=== PATIENT | female | born 1950 | race Caucasian/White ===

== ENCOUNTER → 2016-03-12 | Outpatient (CLI) | payer OTHER, BC ==
[~2016-03-12] MED LIST: ADVIN10050 INH; ALBUAER19 INH; CLC100X PO; CYCL10TA6 PO; EZET10TA38 PO; NAPR500T5 PO; OMEGCAP2 PO; OMEP20CA59 PO
--- NOTE | 2016-03-12 14:52 | MAMMOGRAPHY REPORT ---
BILATERAL DIGITAL SCREENING MAMMOGRAM TOMOSYNTHESIS WITH CAD: 03/12/2016 TECHNIQUE: Breast tomosynthesis in addition to standard 2D mammography was performed. Current study was also evaluated with a Computer Aided Detection (CAD) system. COMPARISON: Comparison is made to exams dated: 07/27/2014 ultrasound, 07/27/2014 mammogram, 03/03/2013 mammogram, 05/01/2011 mammogram, 03/28/2010 mammogram, and 03/15/2009 mammogram - [facility]. BREAST COMPOSITION: There are scattered areas of fibroglandular density in both breasts. FINDINGS: No suspicious masses, calcifications, or areas of architectural distortion are noted in e ither breast. There has been no significant interval change compared to prior exams. Round circumsc ribed benign-appearing mass in the left upper outer quadrant is stable compared to prior exams. Asy mmetry in the left lateral breast is stable. IMPRESSION: ACR BI-RADS CATEGORY 2: BENIGN There is no mammographic evidence of malignancy. A 1 year screening mammogram is recommended. The p atient will receive written notification of the results. Approximately 10% of breast cancers are not detected with mammography. A negative mammographic repor t should not delay biopsy if a clinically suggestive mass is present. Olga Aguilar M.D. /:03/12/2016 14:37:51 Sweat Box Attendant: Kerri CONDE)(Wei), [facility] letter sent: Normal 1/2 BI-RADS Code: ACR BI-RADS Category 2: Benign
== END | disposition home or self-care (01) ==
LOC: C.MAMM 09:32
PROVIDERS: ATTEND Nurse Practitioner
DX: Z12.31 Encounter for screening mammogram for malignant neoplasm of breast (principal); Z00.00 Encounter for general adult medical examination without abnormal findings; Z78.0 Asymptomatic menopausal state

== ENCOUNTER → 2016-07-09 | Outpatient (CLI) | payer OTHER, BC ==
[~2016-07-09] MED LIST changes: +ACET-24 PO; +DOCU-94 PO; +MULT-506 PO; +OXYSR10 PO; +RXC5 PO; +VNTHFA/IN INH
--- NOTE | 2016-07-09 10:37 | DIAGNOSTIC IMAGING REPORT ---
CHEST CT WITHOUT CONTRAST CT DOSE: 217.07 mGy.cm HISTORY: R91.8 Lung nodule, [id number] TECHNIQUE: Multiaxial CT images of the chest were performed without contrast. COMPARISON: Chest CT 08/26/2015. Chest 12/17/2014. FINDINGS: The central airways are patent. No pleural effusions. No pneumothorax. Mild emphysema. Groundglass and linear bibasilar densities favor mild dependent change. There are again noted a few scattered subcentimeter indeterminate pulmonary nodules. These are unchanged. Dominant nodule within the right middle lobe measures 7 mm. Dominant nodule within the left upper lobe on image 133 measures 5 mm. No mediastinal or hilar lymphadenopathy. The visualized liver and spleen are unremarkable. Subcentimeter distal periaortic lymph nodes are not significantly changed. Stable 1.3 cm left breast nodule. The ascending thoracic aorta measures up to 3.6 cm in diameter. IMPRESSION: 1. No change in the indeterminate pulmonary nodules measuring up to 7 mm. No new pulmonary nodules. 2. Mild emphysema. 3. Stable distal thoracic periaortic lymph nodes. Electronically signed by: Cachorro Herrera M.D. 07/09/2016 10:35 AM Dictated Date/Time: 07/09/2016 10:28 AM
== END | disposition home or self-care (01) ==
LOC: C.CTS 10:07
PROVIDERS: ATTEND Internal Medicine Pulmonary Disease
DX: R91.8 Other nonspecific abnormal finding of lung field (principal)

== ENCOUNTER → 2016-09-10 | Outpatient (CLI) | payer OTHER, BC ==
[~2016-09-10] MED LIST changes: -ACET-24 PO; -DOCU-94 PO; -MULT-506 PO; -OXYSR10 PO; -RXC5 PO; -VNTHFA/IN INH
[2016-09-10 18:27] LABS: BLOOD UREA NITROGEN 18 mg/dl (7-18); BUN/CREATININE RATIO 17.8 (10-20); CALCIUM 9.2 mg/dl (8.5-10.1); CARBON DIOXIDE 27 mmol/L (21-32); CHLORIDE 107 mmol/L (98-107); GLUCOSE 83 mg/dl (70-99); POTASSIUM 3.9 mmol/L (3.5-5.1); SODIUM 141 mmol/L (136-145)
== END | disposition home or self-care (01) ==
LOC: C.LABPVFM 14:25
PROVIDERS: ATTEND Nurse Practitioner
DX: Z00.00 Encounter for general adult medical examination without abnormal findings (principal); E78.5 Hyperlipidemia, unspecified

== ENCOUNTER → 2016-12-14 | Outpatient (CLI) | payer OTHER, BC ==
[~2016-12-14] MED LIST changes: -ALBUAER19 INH; -CLC100X PO; +DOCU-94 PO; +MULT-506 PO; +VNTHFA/IN INH
--- NOTE | 2016-12-14 17:20 | DIAGNOSTIC IMAGING REPORT ---
CERVICAL SPINE 2 OR 3 VIEWS HISTORY: Pain. Preoperative evaluation. OSTEOARTHROSIS CERVICAL SPINE COMPARISON: None. FINDINGS: The cervical spine is visualized from C1 through the superior endplate of T1. There is no fracture. No subluxation. Moderate to rather significant degenerative disc change C5-C7. Sclerosis of the vertebral endplates with anterior and lateral osteophytic changes throughout. Prevertebral soft tissues and the atlantodens interval are intact. IMPRESSION: Degenerative change of the lower cervical region. No acute process. The above report was generated using voice recognition software. It may contain grammatical, syntax or spelling errors. Electronically signed by: Jabari Hemphill M.D. 12/14/2016 5:19 PM Dictated Date/Time: 12/14/2016 5:18 PM
== END | disposition home or self-care (01) ==
LOC: C.RADPV 16:03
PROVIDERS: ATTEND Nurse Practitioner
DX: M19.90 Unspecified osteoarthritis, unspecified site (principal)

== ENCOUNTER 2017-01-04 05:08 | Inpatient (IN) | payer OTHER, BC ==
[2016-12-08 11:25] VITALS: BMI 25.0
--- NOTE | 2016-12-08 11:50 | PAT Medication Instructions ---
Service Date Dec 08, 2016. Current Home Medication List Albuterol Hfa (Ventolin Hfa), 2-4 PUFFS INH Q6H PRN for Shortness of Breath Cyclobenzaprine Hcl (Flexeril), 5 MG PO HS Docusate Sodium (Colace), 1 CAP PO HS Ezetimibe/Simvastatin (Vytorin 10MG/20MG), 1 TAB PO QPM Fluticasone Prop/Salmeterol (Advair Diskus 100-50 Mcg/Dose), 1 PUFFS INH BID Multivitamin (Multivitamin), 1 TAB PO QAM Naproxen (Naproxen Dr), 500 MG PO BID [place]-3 Fatty Acids (Fish Oil), 1 CAP PO QPM Omeprazole (Prilosec), 20 MG PO QAM Medication Instructions For Your Scheduled Surgery - Hold the following medications 2 weeks prior to surgery: [place]-3 Fatty Acids (Fish Oil), 1 CAP PO QPM - Hold the following medications 7 days prior to surgery per surgeon's instructions: Naproxen (Naproxen Dr), 500 MG PO BID - Hold the following medications the morning of surgery: Multivitamin (Multivitamin), 1 TAB PO QAM - Take the following medications the morning of surgery with a sip of water OTHERWISE NOTHING TO EAT OR DRINK AFTER MIDNIGHT: Fluticasone Prop/Salmeterol (Advair Diskus 100-50 Mcg/Dose), 1 PUFFS INH BID Albuterol Hfa (Ventolin Hfa), 2-4 PUFFS INH Q6H PRN for Shortness of Breath ( use if needed; BRING TO HOSPITAL) Omeprazole (Prilosec), 20 MG PO QAM - Take the following medications as scheduled the night before surgery: Fluticasone Prop/Salmeterol (Advair Diskus 100-50 Mcg/Dose), 1 PUFFS INH BID Albuterol Hfa (Ventolin Hfa), 2-4 PUFFS INH Q6H PRN for Shortness of Breath Cyclobenzaprine Hcl (Flexeril), 5 MG PO HS Docusate Sodium (Colace), 1 CAP PO HS Ezetimibe/Simvastatin (Vytorin 10MG/20MG), 1 TAB PO QPM If you have any questions please call us at [phone] or [phone] or [phone]
[2016-12-08 12:33] LABS: MANUAL MICROSCOPIC REQUIRED? NO; REVIEW REQ? NO; URINE APPEARANCE CLEAR (CLEAR); URINE BILIRUBIN NEG (NEG); URINE COLOR YELLOW; URINE EPITHELIAL CELL AUTO >30 /lpf (0-5); URINE NITRITE NEG (NEG); URINE PH 7.5 (4.5-7.5); URINE SPECIFIC GRAVITY 1.009 (1.000-1.030); UROBILINOGEN NEG (NEG); ZZUR CULT IF INDIC CLEAN CATCH NO
[2016-12-08 12:38] LABS: PARTIAL THROMBOPLASTIN RATIO 1.2
[2016-12-08 12:54] LABS: BASO % 0.6 %; BASO ABS # 0.06 K/uL (0-0.2); COMPLETE YES; EOS % 2.8 %; HEMATOCRIT 42.8 % (37-47); IG% 0.1 %; LYMPH ABS # 3.21 K/uL (1.2-3.4); MEAN CELL VOLUME 91.6 fL (80-100); MEAN CORPUSCULAR HEMOGLOBIN 31.3 pg (25-34); MEAN CORPUSCULAR HGB CONC 34.1 g/dl (32-36); MEAN PLATELET VOLUME 9.3 fL (7.4-10.4); MONO % 5.2 %; NEUT % 57.3 %; PLATELET COUNT 299 K/uL (130-400); RED BLOOD COUNT 4.67 M/uL (4.2-5.4); WHITE BLOOD COUNT 9.45 K/uL (4.8-10.8)
[2016-12-08 13:54] LABS: ESTIMATED AVERAGE GLUCOSE 114 mg/dl; HA1C FLAG Normal (Normal)
[2016-12-08 14:06] LABS: CALCIUM 8.9 mg/dl (8.5-10.1); CREATININE 0.91 mg/dl (0.60-1.20); POTASSIUM 3.8 mmol/L (3.5-5.1)
--- NOTE | 2017-01-03 14:12 | HISTORY & PHYSICAL EXAMINATION ---
DATE OF ADMISSION: 01/04/2017 CHIEF COMPLAINT: Left shoulder pain. HISTORY OF PRESENT ILLNESS: This is a 66-year-old female patient of Dr. Farah, complaining of chronic left shoulder pain, longstanding, now progressively getting worse. She has failed conservative treatment and has elected to proceed with a left total shoulder arthroplasty. PAST MEDICAL HISTORY: Irregular heartbeat, COPD, shortness of breath with lying flat, carpal tunnel syndrome, anemia, history of a blood clot, osteoarthritis, spine problems, neck problems, upper back problems, scoliosis, acid reflux, and hiatal hernia. SOCIAL HISTORY: She is a pack per day smoker x40 years. Nonalcohol user. PAST SURGICAL HISTORY: Right shoulder surgery, carpal tunnel surgery bilaterally, and left leg vein removal. FAMILY HISTORY: Noncontributory. REVIEW OF SYSTEMS: The patient complains of chronic left shoulder pain. Otherwise, denies any shortness of breath, chest pain, nausea, vomiting or any other joint complaints. MEDICATIONS: Include, 1. Ventolin 90 mcg actuation aerosol 2 puffs every 4-6 hours p.r.n. 2. Omeprazole 20 mg daily. 3. Vytorin 10-20 mg as needed daily. 4. Advair Diskus 100 mcg/50 mcg dose 1 puff b.i.d. 5. Colace 100 mg daily. 6. Multivitamin daily. 7. Flexeril 10 mg as needed. 8. Fish oil daily. 9. Naprosyn as needed. 10. Oxycodone as needed. ALLERGIES: No known drug allergies. PHYSICAL EXAMINATION: GENERAL: Well-developed and well-nourished 66-year-old female in no acute distress. She is alert and oriented x3 and pleasant. HEENT: Normocephalic and atraumatic. Extraocular motions are intact. Pupils are equal and reactive to light. HEART: Regular rate and rhythm. No murmurs appreciated. LUNGS: Clear. ABDOMEN: Soft and nontender. Bowel sounds present. EXTREMITIES: Left shoulder reveals full range of motion with pain. She has crepitation with passive range of motion. She has 4-5/5 strength with pain. NEUROLOGIC: Neurovascularly, she is intact in her left upper extremity. DIAGNOSES: Left shoulder end-stage osteoarthritis, irregular heartbeat, chronic obstructive pulmonary disease, shortness of breath with lying flat, carpal tunnel syndrome, anemia, history of blood clots, osteoarthritis, spine problems, neck problems, upper back problems, scoliosis, acid reflux, and hiatal hernia. PLAN: The patient was advised of her diagnoses. Indications, risks, benefits, and postop course have all been reviewed. The patient wishes to proceed with a left total shoulder arthroplasty. Necessary consent forms, preoperative testing and clearances will be obtained.
[2017-01-04] VITALS (10 sets, daily range): BP systolic 94–117; BP diastolic 58–69; PULSE 91–101; TEMP 36.3–36.9; O2SAT 93–98; Ht 160 cm; Wt 65.5 kg
[~2017-01-04] VITALS: Ht 160 cm; Wt 65.5 kg
[2017-01-04] MEDS ORDERED: ROPIVACAINE 5MG/ML 30 ML 150 MG, BUPIVACAINE 0.5% MPF INJ 30 ML, EpINEphrine HCL INJ 0.... INFIL SCH ×8 (06:00)
[2017-01-04] MEDS ORDERED: LACTATED RINGER'S 1000ML 1,000 ML IV SCH (06:00)
[2017-01-04] MEDS ORDERED: ACETAMINOPHEN 500 MG TAB PO SCH (06:00)
[2017-01-04] MEDS ORDERED: FAMOTIDINE 20 MG TAB PO SCH (06:00)
[2017-01-04] MEDS ORDERED: DEXAMETHASONE 4 MG TAB PO SCH (06:00)
[2017-01-04] MEDS ORDERED: CEFAZOLIN 1000MG IV PUSH 5 ML IV SCH (06:00)
[2017-01-04] MEDS ORDERED: CeleBREX 200 MG CAP PO SCH (06:00)
[2017-01-04] MEDS ORDERED: GABAPENTIN 300 MG CAP PO SCH (06:00)
[2017-01-04] MEDS ORDERED: LACTATED RINGER'S 1000ML IV SCH (06:00)
[2017-01-04] MEDS ORDERED: METOCLOPRAMIDE HCL 10 MG TAB PO SCH (06:00)
[2017-01-04] MEDS ORDERED: ROPIVACAINE 0.5% 5 MG/ML 30 ML VIAL ONE (06:31)
[2017-01-04] MEDS ORDERED: BACITRACIN 50000 UNIT VIAL ONE (06:33)
[2017-01-04] MEDS ORDERED: THROMBIN FOR SOLN 20000 UNIT KIT ONE (06:33)
[2017-01-04] MEDS ORDERED: MIDAZOLAM HCL 1 MG/ML 2ML VIAL ONE (06:40)
[2017-01-04] MEDS ORDERED: FENTANYL CITRATE INJ 50 MCG/1 ML 2 ML VIAL ONE (06:41)
[2017-01-04] MEDS ORDERED: ATROPINE SULFATE 0.1 MG/ML 5ML SYR IV PRN (07:00)
[2017-01-04] MEDS ORDERED: FENTANYL CITRATE INJ 50 MCG/1 ML 2 ML VIAL IV PRN (07:00)
[2017-01-04] MEDS ORDERED: ALBUT/IPRATROP 3MG/0.5MG NEB 3 ML VIAL INH PRN (07:00)
[2017-01-04] MEDS ORDERED: ONDANSETRON INJ 2 MG/ML 2 ML VIAL IV PRN ×2 (07:00→09:45)
--- NOTE | 2017-01-04 07:14 | History & Physical Bridge Note ---
H&P Re-Evaluation Bridge Note: I have examined the patient, reviewed the History & Physical and in the interval since the performance of the History & Physical I have noted the following changes of clinical significance: No changes noted
[2017-01-04] MEDS ORDERED: ALBUMIN HUMAN 5% 12.5 GM/250 ML VIAL IV ONE (07:59)
[2017-01-04] MEDS ORDERED: PHENYLEPHRINE 100MCG/ML 5ML SYR ONE (08:07)
[2017-01-04] MEDS ORDERED: VASOPRESSIN 20 UNIT/ML VIAL ONE (08:07)
[2017-01-04] MEDS ORDERED: LIDOCAINE HCL 2% 2 ML VIAL (20MG/ML) ONE (08:07)
[2017-01-04] MEDS ORDERED: EpHEDrine SULFATE 50MG/5ML SYR ONE (08:07)
[2017-01-04] MEDS ORDERED: ROCURONIUM BROMIDE 10 MG/ML 5 ML VIAL IV ONE (08:07)
[2017-01-04] MEDS ORDERED: SODIUM CHLORIDE 0.9% INJ 10 ML VIAL ONE (08:08)
[2017-01-04] MEDS ORDERED: ORTHO JOINT ANESTHETIC ONE (08:16)
[2017-01-04] MEDS ORDERED: PHENYLEPHRINE HCL INJ 10 MG/ML VIAL ONE (08:23)
[2017-01-04] MEDS ORDERED: PROPOFOL IV EMULSION 10 MG/ML 20 ML VIAL IV ONE (08:26)
--- NOTE | 2017-01-04 09:36 | [facility] Post Operative Brief Note ---
Immediate Operative Summary Operative Date Jan 04, 2017. Pre-Operative Diagnosis Left Shoulder End-Stage Osteoarthritis Post-Operative Diagnosis Left Shoulder End-Stage Osteoarthritis,biceps tendinopathy and bicipital groove bone spurs Procedure(s) Performed Left Total Shoulder Arthroplasty, Bicep Tenodesis Surgeon Dr. Farah Watch Assembly Instructor Surgeon(s) RYAN Mota Estimated Blood Loss 50cc Findings severe djd inflammatory arthritis Specimens A. Portion of Left Humeral Head Drains 2 hemovac Anesthesia general and regional Complication(s) None Disposition Recovery Room / PACU
[2017-01-04] MEDS ORDERED: ALBUTEROL HFA 8 GM INHALER INH PRN (09:45)
[2017-01-04] MEDS ORDERED: SOD PHOSPHATE/SOD BIPHOSPHATE ENEMA 132 ML BTL PR PRN (09:45)
[2017-01-04] MEDS ORDERED: MoRPHine SULFATE 2 MG/ML CARP IV PRN ×2 (09:45→13:45)
[2017-01-04] MEDS ORDERED: BISACODYL 10 MG SUPP PR PRN (09:45)
[2017-01-04] MEDS ORDERED: METOCLOPRAMIDE HCL INJ 5 MG/ML 2 ML VIAL IV PRN (09:45)
[2017-01-04] MEDS ORDERED: MAGNESIUM HYDROXIDE SUSP 30 ML UDC PO PRN (09:45)
[2017-01-04] MEDS ORDERED: ZOLPIDEM TARTRATE 5 MG TAB PO PRN (09:45)
[2017-01-04] MEDS: EpHEDrine SULFATE INJ 50 MG/ML AMP IV PRN ×3 (10:05→10:15)
--- NOTE | 2017-01-04 10:40 | OPERATIVE REPORT ---
DATE OF OPERATION: 01/04/2017 INDICATION FOR PROCEDURE: The patient is a 66-year-old female with chronic progressive osteoarthritis of the left shoulder. Radiographs demonstrate [id number] in glenohumeral joint, she does not have any major osteophytes. She has concentric-type wear pattern on axillary view. PREOPERATIVE DIAGNOSIS: End-stage glenohumeral osteoarthritis, left shoulder. POSTOPERATIVE DIAGNOSES: Same. She has significant biceps tendinopathy, biceps tenosynovitis and bicipital groove bone spurs. PROCEDURE: Left total shoulder arthroplasty including biceps tenodesis and debridement of bicipital groove bone spurs. SURGEON: Dr. Fraah. CENTRALIZED TRAFFIC CONTROL OPERATOR: Jabari Avila PA-C. ANESTHESIA: Regional block general. OPERATIVE PROCEDURE: The patient was taken to the operating room and anesthetized with regional block and general anesthetic. She was positioned on the operating room table in a 30- to 40-degree beach chair position. A towel roll was placed on the medial border of the left scapula. She was translated to the left side of the bed so her shoulder could be manipulated off the bed as necessary. Her head was placed on a foam headrest. She had protective eyewear. She had TEDs and SCDs. Left shoulder exam demonstrated hjka-eb-qfcn crepitation in the shoulder. She is a relatively thin individual. She had pretty good passive range of motion with 150 degrees of forward elevation. Her left shoulder was sterilely prepped and draped with ChloraPrep. An anterior deltopectoral incision was made. Skin was incised sharply, subcutaneous flaps were elevated. The cephalic vein was dissected out and retracted laterally with the deltoid. Pectoralis was retracted medially. The upper centimeter of the pectoralis was released for inferior exposure. This revealed a large area of synovitis around the biceps tendon. This was opened up and fluid evacuated and biceps tendon had significant tenosynovitis surrounded, this was dissected out and removed. As I entered the bicipital groove area, there were large spurs that were resected with a rongeur. Biceps was then tenodesed to the pectoralis tendon with #2 FiberWire sutures in vlxowo-rw-xngyw fashion and the proximal biceps was resected. We identified the circumflex vessels, tied them off with silk ties and divided them laterally. We did divide the clavipectoral fascia, the lateral margin of the strap muscle, we extended up to the CA ligament which was preserved. She had some minor bursitis about the rotator cuff, the rotator cuff was completely intact. The rotator interval was then opened up and extended down to the glenoid. Then, we did a transtendinous incision through the subscapularis tendon, leaving a cuff of tissue for repair on the lesser tuberosity. I placed a #1 Vicryl traction suture into the subscapularis tendon. Incision was carried down along the neck of the humerus, releasing the capsule. The subscapularis muscle fibers were split at the level of the circumflex vessels, leaving a cuff of muscle to protect the axillary nerve inferiorly. I used the Kitner elevator to release most fibers off the capsule, I clearly identified the capsule. I then placed the Hohmann retractor there. I then went ahead and placed a Fukuda retractor into the joint, retracted the humeral head posteriorly. The glenoid was completely devoid of any articular cartilage, had concentric wear type pattern. There was chronic synovitis in the shoulder consistent with more of an inflammatory arthritic pattern. Humeral head was completely devoid of any articular cartilage as well. She had only very small osteophytes on the inferior humeral head. The capsule was released with Vallecillo scissors down to the 5 o'clock position. Then, the capsule was released off the glenoid and the rotator interval release was connected to the anterior capsular release, creating a 360-degree release of subscapularis. Some of the synovium and scarred plane capsule tissue was resected. The subscapularis was then retracted anteriorly with the Bankart-type retractor. Then, the labrum was resected circumferentially, the remnants of the biceps tendon which demonstrated a large, widened, tendinopathic biceps tendon were removed. Then, I did an anterior-inferior and posterior-inferior capsular release using electrocautery on bone and a Louise elevator. The axillary nerve was protected inferiorly with blunt Hohmann. Then, I went ahead and exposed the humeral head, again with extension and external rotation. We placed traction about the humeral head and humeral head surface was cut anatomically with an oscillating saw, matching the patient's normal version. At this time, the humerus was prepared for the stem. She was templated for a 3 stem but we broached this up to a 4. Then, we placed a cup protector in place, retracted the humerus posterior to the glenoid. I drilled a central drill hole and then used a reamer for a 44 mm glenoid component using the [employer]ornier Affiniti CortiLoc glenoid component. The central drill hole was widened and then we went ahead and used the guide for the peripheral peg holes which were drilled and then we went ahead and irrigated this copiously and then did a trial reduction which was satisfactory, then we removed the trial and then went ahead and sprayed the glenoid with thrombin and packed the individual holes with small tampons. Then, the [place]os G cement was vacuum mixed. Then, the final component was cemented with the central large peg being pressfit and base of that central peg and peripheral pegs were cemented. The implant was impacted in position with a good pressfit. Excess cement was cleared and it was held in position until cement cured. Then, after further irrigation with antibiotic solution and bacitracin, we went ahead and proceeded with the humeral trialing. We used the 46 high offset x 17 mm thickness Aequalis head for the Ascend Flex system from [employer] which was the trial stem. This component had excellent stability and good passive range of motion and the subscap tension was satisfactory. So we went ahead and accepted that component. This was removed and the canal was irrigated copiously with antibiotic solution and bacitracin. Three drill holes were made through the hard bone in the bicipital groove lateral to the lesser tuberosity and transosseous #5 FiberWire sutures were placed. The canal was irrigated and dried and then the final component which was the Tornier Ascend Flex 4A standard stem was assembled to the 46 x 17 mm high offset head. Then, this was impacted into the humerus with a tight pressfit. This was reduced to the glenoid. Then, the subscap was repaired with #5 FiberWire sutures previously placed using Lucas-Timur suture technique. Then, we did lateral row fixation of the subscapularis with ktsumf-sn-emgly #2 FiberWire sutures, closing the lateral rotator interval with interrupted rzywsu-ac-yaktm #2 FiberWire, the medial rotator interval with rjxcoa-os-qgbuh #1 Vicryl. I took the arm through range of motion, there was 150 degrees of forward elevation, 90 degrees of abduction, extension of 50 degrees without any tension on the repair. Shoulder was stable. The wound was irrigated and then 2 Hemovac drains were placed. We did notice that there was a small hole in the cephalic vein that was bleeding and attempted to cauterize this but were unsuccessful due to the friability of the veins, we had to tie off a section of the vein with silk ties, this controlled the bleeding. Then, we went ahead and repaired the pectoralis tendon release with lofecj-xj-exlzv #2 FiberWire suture and then the deltopectoral interval closed with gmqzzg-ds-rdynx #1 Vicryl suture. Subcutaneous tissue was closed with interrupted #2 Vicryl suture, skin closed with aniceto. Sterile dressing was applied and the patient tolerated the procedure well. Jabari Avila PA-C, was my payroll and benefits assistant, functioned as payroll and benefits assistant for the entire procedure. He assisted in patient positioning, prepping, draping, arm positioning, soft tissue retraction and performed subcutaneous and skin closure, and will participate in postop care of the patient. I attest to the content of the Intraoperative Record and any orders documented therein. Any exception s are noted below.
--- NOTE | 2017-01-04 10:41 | DIAGNOSTIC IMAGING REPORT ---
L SHOULDER MIN 2 VIEWS ROUTINE CLINICAL HISTORY: Post shoulder surgery COMPARISON STUDY: None. FINDINGS: 2 views of the left shoulder demonstrate a left shoulder arthroplasty. The hardware appears intact. No fracture or dislocation. Skin aniceto and surgical drains are in place. IMPRESSION: Status post left total shoulder arthroplasty. No evidence for hardware combination. Electronically signed by: Cachorro Herrera M.D. 01/04/2017 10:39 AM Dictated Date/Time: 01/04/2017 10:39 AM
--- NOTE | 2017-01-04 10:55 | Anesthesiology Progress Note ---
Anesthesia Post Op Note Date & Time Jan 04, 2017 at 10:55 Vital Signs Pain Intensity: 0 Vital Signs Past 12 Hours Date Time Temp Pulse Resp B/P (MAP) Pulse Ox O2 Delivery O2 Flow Rate FiO2 01/04/17 10:45 96 16 97/61 93 Nasal Cannula 3 01/04/17 10:35 36.3 97 16 95/58 94 Nasal Cannula 3 01/04/17 10:30 97 16 91/57 94 Nasal Cannula 3 01/04/17 10:25 97 16 81/54 94 Nasal Cannula 3 01/04/17 10:15 99 16 84/52 95 Oxymask 3 01/04/17 10:05 98 16 90/52 96 Oxymask 10 01/04/17 09:55 98 16 85/62 96 Oxymask 10 01/04/17 09:47 36.4 100 16 90/60 95 Oxymask 10 01/04/17 06:55 95 16 94 Room Air 01/04/17 05:28 36.8 96 18 117/68 95 Room Air Notes Mental Status: alert / awake / arousable, participated in evaluation Pt Amnestic to Procedure: Yes Nausea / Vomiting: adequately controlled Pain: adequately controlled Airway Patency, RR, SpO2: stable & adequate BP & HR: stable & adequate Hydration State: stable & adequate Anesthetic Complications: no major complications apparent
[2017-01-04] MEDS ORDERED: MoRPHine SULFATE 4 MG/ML 1 ML CARP\\VIAL IV PRN (13:45)
[2017-01-04] MEDS: ACETAMINOPHEN 500 MG TAB PO SCH ×2 (14:00→21:28)
[2017-01-04] MEDS: D5W AND 1/2NSS + 20MEQ KCL 1,000 ML IV SCH ×2 (14:05→23:31)
[2017-01-04] MEDS: CEFAZOLIN IV 1,000 MG in SYRINGE 0 ML IV SCH ×2 (14:05→21:28)
--- NOTE | 2017-01-04 14:20 | Medical Consult ---
Consultation Date of Consultation: Jan 04, 2017. Attending Physician: New Farah M.D. Reason for Consultation: Medical Management History of Present Illness This is a 66 yo F with PMHx of COPD, chronic asthmatic bronchitis, chronic back pain, chronic back pain, scoliosis, HLD, Chronic tobacco abuse with 1 ppd x 43 years, osteoarthritis and depression who presents for elective Left total shoulder arthroplasty by Dr. Evans on 01/04/17. Pt was sleeping when I walked in but was easily awoken. She reports feeling tired from anesthesia and has no pain. She is still numb in her left arm and fingers. She has a lunch tray sitting beside her but is not hungry so hasn't tried anything. Her last BM was yesterday. Pt has no plans for rehab at this time. She lives at home with her and two grandchildren. Past Medical/Surgical History COPD chronic asthmatic bronchitis chronic back pain chronic back pain Depression scoliosis HLD nicotine dependence x 43 years osteoarthritis Surgical Hx: Total shoulder replacement, left Foot surgery Laparoscopy with fluguration of oviducts Carple tunnel surgery Laproscopic shoulder surgery, right Varicose vein ligation Social History Smoking Status: Current Every Day Smoker Smokeless Tobacco Use: No Drug Use: none Marital Status: Housing Status: lives with family Allergies Coded Allergies: NO KNOWN DRUG ALLERGIES (Verified Allergy, Mild, ., 01/04/17) Shellfish (Verified Allergy, Mild, itchy and swelling of tongue and throat , 01/04/17) Current Inpatient Medications Current Inpatient Medications Medications (Trade) Dose Ordered Sig/Mahogany Route Start Time Stop Time Status Last Admin Dose Admin Lactated Ringer's 1,000 ml @ 60 mls/hr [id number] IV 01/04/17 06:00 01/04/17 22:39 01/04/17 05:48 60 MLS/HR Cefazolin Sodium 5 ml @ 1.667 mls/ min PREOP IV 01/04/17 06:00 01/04/17 18:00 01/04/17 07:11 1.667 MLS/MIN Acetaminophen (Tylenol Tab) 1,000 mg PREOP PO 01/04/17 06:00 01/04/17 18:00 01/04/17 05:56 1,000 MG Celecoxib (CeleBREX CAP) 200 mg PREOP PO 01/04/17 06:00 01/04/17 18:00 01/04/17 05:55 200 MG Dexamethasone (Decadron Tab) 8 mg PREOP PO 01/04/17 06:00 01/04/17 18:00 01/04/17 05:55 8 MG Famotidine (Pepcid Tab) 20 mg PREOP PO 01/04/17 06:00 01/04/17 18:00 01/04/17 05:56 20 MG Gabapentin (Neurontin Cap) 300 mg PREOP PO 01/04/17 06:00 01/04/17 18:00 01/04/17 05:54 300 MG Metoclopramide HCl (Reglan Tab) 10 mg PREOP PO 01/04/17 06:00 01/04/17 18:00 01/04/17 05:56 10 MG Lactated Ringer's 1,000 ml @ 15 mls/hr Q24H IV 01/04/17 06:00 01/05/17 05:59 Albuterol (Ventolin Hfa Inhaler) as needed Q6H PRN INH 01/04/17 09:45 02/03/17 09:44 Cyclobenzaprine HCl (Flexeril Tab) 5 mg HS PO 01/04/17 21:00 02/03/17 20:59 Docusate Sodium (coLACE CAP) 100 mg HS PO 01/04/17 21:00 02/03/17 20:59 Ezetimibe/ Simvastatin (Vytorin 12/04 Tab) 1 tab QPM PO 01/04/17 21:00 02/03/17 20:59 Salmeterol Xinafoate/ Fluticasone (Advair Diskus 100/50 Inh) 1 puff BID INH 01/04/17 21:00 02/03/17 20:59 Multivitamins (Multivitamin Tab) 1 tab QAM PO 01/05/17 09:00 02/04/17 08:59 Diphenhydramine HCl (Benadryl Cap) 25 mg Q8 PRN PO 01/04/17 09:45 02/03/17 09:44 Zolpidem Tartrate (Ambien Tab) 5 mg HSZ PRN PO 01/04/17 09:45 02/03/17 09:44 Metoclopramide HCl (Reglan Inj) 10 mg Q6H PRN IV 01/04/17 09:45 02/03/17 09:44 Ondansetron HCl (Zofran Inj) 4 mg Q6H PRN IV 01/04/17 09:45 02/03/17 09:44 Pantoprazole Sodium (Protonix Tab) 40 mg QAM PO 01/05/17 09:00 02/04/17 08:59 Potassium Chloride/Dextrose/ Sod Cl 1,000 ml @ 100 mls/hr Q10H IV 01/04/17 14:00 01/05/17 09:45 01/04/17 14:05 100 MLS/HR Oxycodone HCl (Roxicodone Immediate Rel Tab) `1-2 TABS FOR PAIN `1 TAB... Q4H PRN PO 01/04/17 09:45 01/18/17 09:44 Acetaminophen (Tylenol Tab) 1,000 mg Q8 PO 01/04/17 14:00 02/03/17 13:59 Magnesium Hydroxide (Milk Of Magnesia Susp) 30 ml Q6H PRN PO 01/04/17 09:45 02/03/17 09:44 Bisacodyl (Dulcolax Supp) 10 mg DAILY PRN SC 01/04/17 09:45 02/03/17 09:44 Sodium Biphosphate/ Sodium Phosphate (Fleet Enema) 132 ml DAILY PRN SC 01/04/17 09:45 02/03/17 09:44 Cefazolin Sodium 1000 mg/Syringe 5 ml @ 2.5 mls/min Q8H IV 01/04/17 14:00 01/04/17 22:01 01/04/17 14:05 2.5 MLS/MIN Morphine Sulfate (MoRPHine SULFATE INJ) 2 mg Q2H PRN IV 01/04/17 13:45 01/18/17 13:44 Morphine Sulfate (MoRPHine SULFATE INJ) 4 mg Q2H PRN IV 01/04/17 13:45 01/18/17 13:44 Review of Systems Constitutional: + fatigue, No fever, No chills, No sweats Eyes: No diplopia, No problem reported ENT: No sore throat, No trouble swallowing Respiratory: No cough, No wheezing, No shortness of breath, No dyspnea on exertion Cardiovascular: No chest pain, No edema, No palpitations Abdomen: No pain, No nausea, No vomiting, No diarrhea, No constipation Musculoskeletal: No joint pain, No swelling, No calf pain Neurologic: + numbness/tingling (Left arm), No weakness Integumentary: No rash, No itch Physical Exam Date Time Temp Pulse Resp B/P (MAP) Pulse Ox O2 Delivery O2 Flow Rate FiO2 01/04/17 13:58 36.6 100 16 108/61 (77) 97 4.0 01/04/17 12:05 97 18 112/64 (80) 98 Nasal Cannula 4.0 01/04/17 11:35 97 18 104/59 (74) 96 Nasal Cannula 4.0 01/04/17 11:05 36.9 99 16 94/58 (70) 97 Nasal Cannula 4.0 01/04/17 11:05 97 Nasal Cannula 4.0 01/04/17 11:05 97 Nasal Cannula 4.0 01/04/17 10:55 36.9 97 20 103/66 94 Nasal Cannula 3 01/04/17 10:45 96 16 97/61 93 Nasal Cannula 3 01/04/17 10:35 36.3 97 16 95/58 94 Nasal Cannula 3 01/04/17 10:30 97 16 91/57 94 Nasal Cannula 3 01/04/17 10:25 97 16 81/54 94 Nasal Cannula 3 01/04/17 10:15 99 16 84/52 95 Oxymask 3 01/04/17 10:05 98 16 90/52 96 Oxymask 10 01/04/17 09:55 98 16 85/62 96 Oxymask 10 01/04/17 09:47 36.4 100 16 90/60 95 Oxymask 10 01/04/17 06:55 95 16 94 Room Air 01/04/17 05:28 36.8 96 18 117/68 95 Room Air General Appearance: WD/WN, no apparent distress, + thin Head: normocephalic, atraumatic Eyes: PERRL, EOMI ENT: hearing grossly normal, pharynx normal Neck: supple, no JVD Respiratory/Chest: lungs clear, no respiratory distress, no accessory muscle use, + pertinent finding (on 2 L via NC) Cardiovascular: no JVD, no murmur, + tachycardia (normal rhythm) Abdomen/GI: normal bowel sounds, non tender, soft Extremities/Musculoskelatal: + pertinent finding (Left shoulder bandage C/D/I, sling in place, ice pack on, hemovac drain in place, + diminished sensation to light touch in fingers. ) Neurologic/Psych: alert, normal mood/affect, oriented x 3 Skin: normal color, warm/dry Laboratory Results This is a 66 yo F with PMHx of COPD, chronic asthmatic bronchitis, chronic back pain, chronic back pain, scoliosis, HLD, Chronic tobacco abuse with 1 ppd x 43 years, and osteoarthritis who presents for elective Left total shoulder arthroplasty by Dr. Evans on 01/04/17. S/p Left total shoulder arthropasty - Pain management, bowel regimen, DVT ppx per primary team - Hemovac drain in place - PT/OT per primary team - Cm to assist with rehab planning per primary team - Pt is still quite fatigued from surgery COPD - Continue on advair inhaler 1 puff BID, Ventolin inh 2 puff Q4-6H prn - Multiple lung nodules on CT scan are followed by Dr. Stinson as an outpatient, Depression - Continue wellburtin ER 150 mg daily HLD - Continue statin therapy Osteoarthritis - Will check a Vit D level with chronic tobacco abuse history. Pt does not take a supplement. Chronic Tobacco Abuse - Smoked 1 ppd x 43 years, will order a nicotine patch for the patient DVT ppx: ambulatory CODE STATUS: FULL CODE Disposition: From home, lives with . Thank you for involving us in the care of Mrs. Dumont, we will follow along. PA Physician Supervision Note: I interviewed and examined the patient. Discussed with Sandrita León PAC and agree with findings and plan as documented in the note. Any exceptions or clarifications are listed here: None Patient is status post left shoulder repair she has a history of COPD which has been stable smoking for which son nicotine patch and depression for which she takes Wellbutrin which placed we will also help with her smoking. His line her vital signs are stable she has no focal complaints her lungs are clear Will continue medical management for her pulmonary problems and surveillance for new issues as they arise Documented By: Kaleb Pond
[2017-01-04] MEDS: NICOTINE 14 MG/24 HR TDSY TD SCH (14:45)
[2017-01-04] MEDS: FLUTICASONE/SALMETEROL 100/50 (ADVAIR) 14 PUFF/1 INHALER INH SCH (20:36)
[2017-01-04] MEDS: CYCLOBENZAPRINE HCL 10 MG TAB PO SCH (20:37)
[2017-01-04] MEDS: DOCUSATE SODIUM 100 MG CAP PO SCH (20:37)
[2017-01-04] MEDS: EZETIMIBE/SIMVASTATIN 10/20 TAB PO SCH (20:38)
[2017-01-05 03:25] VITALS: BP 130/77; PULSE 87; TEMP 36.7; O2SAT 92
[2017-01-05] MEDS: OXYCODONE HCL IR 5 MG TAB (IMMEDIATE RELEASE) PO PRN ×2 (03:25→13:46)
[2017-01-05] MEDS: ACETAMINOPHEN 500 MG TAB PO SCH ×3 (05:40→20:54)
[2017-01-05 06:22] LABS: HEMATOCRIT 37.8 % (37-47); MEAN CELL VOLUME 93.1 fL (80-100); MEAN CORPUSCULAR HGB CONC 32.3 g/dl (32-36); MEAN PLATELET VOLUME 9.2 fL (7.4-10.4); PLATELET COUNT 248 K/uL (130-400); RED BLOOD COUNT 4.06 M/uL (4.2-5.4); WHITE BLOOD COUNT 13.59 K/uL (4.8-10.8)
[2017-01-05 06:52] VITALS: BP 113/72; PULSE 88; TEMP 36.4; O2SAT 98
[2017-01-05 06:55] LABS: BUN/CREATININE RATIO 14.2 (10-20); CALCIUM 7.6 mg/dl (8.5-10.1); CREATININE 0.72 mg/dl (0.60-1.20); POTASSIUM 3.4 mmol/L (3.5-5.1)
--- NOTE | 2017-01-05 07:26 | Orthopedic Progress Note ---
Orthopedic Progress Note Date of Service Jan 05, 2017. Subjective Post OP Day: 1 Reports: feeling well, Denies: complaints, chest pain, SOB, nausea / vomiting, light headedness, calf pain Additional Notes: Main c/o is pain, otherwise doing well. Objective N/V intact, capillary refill less than 2 sec., dressing C/D/I, A&O x3 Fingers mobile, sling in tact. Date Time Temp Pulse Resp B/P (MAP) Pulse Ox O2 Delivery O2 Flow Rate FiO2 01/05/17 06:52 36.4 88 16 113/72 (86) 98 Nasal Cannula 2.0 01/05/17 03:25 36.7 87 16 130/77 (94) 92 Nasal Cannula 2.0 01/04/17 23:30 Nasal Cannula 2.0 01/04/17 23:22 36.8 96 17 105/66 (79) 93 Nasal Cannula 2.0 01/04/17 20:20 36.5 91 16 109/69 (82) 93 Nasal Cannula 2.0 01/04/17 15:30 Nasal Cannula 4.0 01/04/17 15:00 36.3 101 16 111/68 (82) 98 Nasal Cannula 4.0 01/04/17 13:58 36.6 100 16 108/61 (77) 97 4.0 01/04/17 13:05 36.7 101 16 110/64 (79) 98 Nasal Cannula 3.0 01/04/17 12:05 97 18 112/64 (80) 98 Nasal Cannula 4.0 01/04/17 11:35 97 18 104/59 (74) 96 Nasal Cannula 4.0 01/04/17 11:05 36.9 99 16 94/58 (70) 97 Nasal Cannula 4.0 01/04/17 11:05 97 Nasal Cannula 4.0 01/04/17 11:05 97 Nasal Cannula 4.0 01/04/17 10:55 36.9 97 20 103/66 94 Nasal Cannula 3 01/04/17 10:45 96 16 97/61 93 Nasal Cannula 3 01/04/17 10:35 36.3 97 16 95/58 94 Nasal Cannula 3 01/04/17 10:30 97 16 91/57 94 Nasal Cannula 3 01/04/17 10:25 97 16 81/54 94 Nasal Cannula 3 01/04/17 10:15 99 16 84/52 95 Oxymask 3 01/04/17 10:05 98 16 90/52 96 Oxymask 10 01/04/17 09:55 98 16 85/62 96 Oxymask 10 01/04/17 09:47 36.4 100 16 90/60 95 Oxymask 10 Laboratory Results 24 Hours: Test 01/05/17 05:29 Hematocrit 37.8 % Hemoglobin 12.2 g/dL Assessment & Plan Assessment: POD #1, Left TSA, Biceps tenodesis Plan: PT/ OT D/C planning- Home with OPPT vs. HH As per medicine Will add Oxycontin 10mg q12 hrs. Inhouse Planning Pain Management: Morphine, PO Tylenol, Oxy IR DVT Prophylaxis: SCDs Discharge Planning Discharge Planning: uncertain
--- NOTE | 2017-01-05 07:55 | Anesthesiology Progress Note ---
Anesthesia Post Op Note Date & Time Jan 05, 2017 at 07:54 Vital Signs Vital Signs Past 12 Hours Date Time Temp Pulse Resp B/P (MAP) Pulse Ox O2 Delivery O2 Flow Rate FiO2 01/05/17 06:52 36.4 88 16 113/72 (86) 98 Nasal Cannula 2.0 01/05/17 03:25 36.7 87 16 130/77 (94) 92 Nasal Cannula 2.0 01/04/17 23:30 Nasal Cannula 2.0 01/04/17 23:22 36.8 96 17 105/66 (79) 93 Nasal Cannula 2.0 01/04/17 20:20 36.5 91 16 109/69 (82) 93 Nasal Cannula 2.0 Notes Mental Status: alert / awake / arousable, participated in evaluation Pt Amnestic to Procedure: Yes Nausea / Vomiting: adequately controlled Pain: adequately controlled Airway Patency, RR, SpO2: stable & adequate BP & HR: stable & adequate Hydration State: stable & adequate Anesthetic Complications: no major complications apparent
[2017-01-05] MEDS: OXYCODONE HCL 10 MG TABCR (OXYCONTIN) PO SCH ×2 (08:25→20:02)
[2017-01-05] MEDS: PANTOprazole SOD 40 MG TAB PO SCH (08:26)
[2017-01-05] MEDS: MULTIVITAMIN TAB PO SCH (08:26)
[2017-01-05] MEDS: FLUTICASONE/SALMETEROL 100/50 (ADVAIR) 14 PUFF/1 INHALER INH SCH ×2 (08:26→20:56)
[2017-01-05] MEDS: NICOTINE 14 MG/24 HR TDSY TD SCH (08:27)
[2017-01-05] MEDS ORDERED: POTASSIUM CHLORIDE 10 MEQ TABCR PO ONE (09:00)
[2017-01-05] MEDS ORDERED: MULTIVITAMIN TAB PO SCH (09:00)
[2017-01-05] MEDS ORDERED: NON-FORMULARY MEDICATION (Omeprazole (Prilosec) 20 MG) PO SCH (09:00)
[2017-01-05 10:58] VITALS: BP 119/68; PULSE 77; TEMP 36.6; O2SAT 94
--- NOTE | 2017-01-05 12:43 | Hospitalist Progress Note ---
Hospitalist Progress Note Date of Service Jan 05, 2017. Subjective Pt evaluation today including: conversation w/ patient, physical exam, chart review, lab review, review of studies Pain: Left shoulder pain PO Intake: good Voiding: no voiding problems The patient was seen and examined this morning. Pt reports doing well. She has some mild left shoulder pain but just took an oxycodone to help. She was up walking this morning without any difficulty. She denies any other acute complaints. Discussion was held regarding smoking cessation. Her lives with her and smokes ~1.5 -2 ppd so she's unlike to be able to quit. Pt has attempted before but unsuccessful. ROS: 6 point ROS reviewed and otherwise negative. Objective Vital Signs Date Time Temp Pulse Resp B/P (MAP) Pulse Ox O2 Delivery O2 Flow Rate FiO2 01/05/17 10:58 36.6 77 16 119/68 (85) 94 Room Air 01/05/17 08:10 Nasal Cannula 2.0 01/05/17 06:52 36.4 88 16 113/72 (86) 98 Nasal Cannula 2.0 01/05/17 03:25 36.7 87 16 130/77 (94) 92 Nasal Cannula 2.0 01/04/17 23:30 Nasal Cannula 2.0 01/04/17 23:22 36.8 96 17 105/66 (79) 93 Nasal Cannula 2.0 01/04/17 20:20 36.5 91 16 109/69 (82) 93 Nasal Cannula 2.0 01/04/17 15:30 Nasal Cannula 4.0 01/04/17 15:00 36.3 101 16 111/68 (82) 98 Nasal Cannula 4.0 01/04/17 13:58 36.6 100 16 108/61 (77) 97 4.0 01/04/17 13:05 36.7 101 16 110/64 (79) 98 Nasal Cannula 3.0 Physical Exam Notes: General Appearance: WD/WN, no apparent distress, + thin Head: normocephalic, atraumatic Eyes: PERRL, EOMI ENT: hearing grossly normal, pharynx normal Neck: supple, no JVD Respiratory/Chest: lungs clear, no respiratory distress, no accessory muscle use, + pertinent finding (on 2 L via NC) Cardiovascular: no JVD, no murmur, + tachycardia (normal rhythm) Abdomen/GI: normal bowel sounds, non tender, soft Extremities/Musculoskeletal: + pertinent finding (Left shoulder bandage C/D/I, sling in place, ice pack on, + good sensation to light touch in fingers. ) Neurologic/Psych: alert, normal mood/affect, oriented x 3 Skin: normal color, warm/dry Laboratory Results Last 24 Hours Test 01/05/17 05:29 White Blood Count 13.59 K/uL Red Blood Count 4.06 M/uL Hemoglobin 12.2 g/dL Hematocrit 37.8 % Mean Corpuscular Volume 93.1 fL Mean Corpuscular Hemoglobin 30.0 pg Mean Corpuscular Hemoglobin Concent 32.3 g/dl RDW Standard Deviation 47.5 fL RDW Coefficient of Variation 14.0 % Platelet Count 248 K/uL Mean Platelet Volume 9.2 fL Sodium Level 142 mmol/L Potassium Level 3.4 mmol/L Chloride Level 111 mmol/L Carbon Dioxide Level 25 mmol/L Anion Gap 6.0 mmol/L Blood Urea Nitrogen 10 mg/dl Creatinine 0.72 mg/dl Est Creatinine Clear Calc Drug Dose 69.0 ml/min Estimated GFR () 100.4 Estimated GFR (Non- 86.7 BUN/Creatinine Ratio 14.2 Random Glucose 110 mg/dl Calcium Level 7.6 mg/dl Assessment and Plan This is a 66 yo F with PMHx of COPD, chronic asthmatic bronchitis, chronic back pain, chronic back pain, scoliosis, HLD, Chronic tobacco abuse with 1 ppd x 43 years, and osteoarthritis who presents for elective Left total shoulder arthroplasty by Dr. Evans on 01/04/17. S/p Left total shoulder arthroplasty - Pain management, bowel regimen, DVT ppx per primary team - PT/OT per primary team - Cm to assist with rehab planning per primary team COPD - Continue on advair inhaler 1 puff BID, Ventolin inh 2 puff Q4-6H prn - Multiple lung nodules on CT scan are followed by Dr. Stinson as an outpatient, Depression - Continue wellburtin ER 150 mg daily to aid in smoking cessation HLD - Continue statin therapy Osteoarthritis - Will check a Vit D level with chronic tobacco abuse history. Pt does not take a supplement. Chronic Tobacco Abuse - Smoked 1 ppd x 43 years, will order a nicotine patch for the patient DVT ppx: ambulatory CODE STATUS: FULL CODE Disposition: From home, lives with . Thank you for involving us in the care of Mrs. Dumont, we will follow along.
[2017-01-05 15:05] VITALS: BP 122/77; PULSE 105; TEMP 37.2; O2SAT 91
[2017-01-05 15:15] VITALS: O2SAT 91
[2017-01-05] MEDS ORDERED: RANITIDINE HCL 150 MG TAB PO PRN (20:15)
[2017-01-05] MEDS ORDERED: NURSING VERBAL MED ORDER ONE (20:15)
[2017-01-05] MEDS: EZETIMIBE/SIMVASTATIN 10/20 TAB PO SCH (20:55)
[2017-01-05] MEDS: CYCLOBENZAPRINE HCL 10 MG TAB PO SCH (20:55)
[2017-01-05] MEDS: DOCUSATE SODIUM 100 MG CAP PO SCH (20:55)
[2017-01-05 22:45] VITALS: BP 130/83; PULSE 110; TEMP 37.4; O2SAT 91
[2017-01-06] MEDS: ACETAMINOPHEN 500 MG TAB PO SCH (05:46)
[2017-01-06 06:01] VITALS: BP 149/96; PULSE 112; TEMP 36.8; O2SAT 91
--- NOTE | 2017-01-06 06:49 | Orthopedic Progress Note ---
Orthopedic Progress Note Date of Service Jan 06, 2017. Subjective Post OP Day: 2 Reports: feeling well, pain controlled w PO medications, Denies: complaints, chest pain, SOB, nausea / vomiting, light headedness, calf pain Objective N/V intact, capillary refill less than 2 sec., incision C/D/I, A&O x3 Fingers mobile, sling in tact. Date Time Temp Pulse Resp B/P (MAP) Pulse Ox O2 Delivery O2 Flow Rate FiO2 01/06/17 06:01 36.8 112 16 149/96 (113) 91 Room Air 01/05/17 23:45 Room Air 01/05/17 22:45 37.4 110 18 130/83 (99) 91 Room Air 01/05/17 15:15 91 Nasal Cannula 2.0 01/05/17 15:15 91 Nasal Cannula 2.0 01/05/17 15:05 37.2 105 18 122/77 (92) 91 Room Air 01/05/17 10:58 36.6 77 16 119/68 (85) 94 Room Air 01/05/17 08:10 Nasal Cannula 2.0 01/05/17 06:52 36.4 88 16 113/72 (86) 98 Nasal Cannula 2.0 Laboratory Results 24 Hours: Test 01/06/17 04:44 Assessment & Plan Assessment: POD #2, Left TSA, Biceps tenodesis Plan: PT/ OT D/C planning- Home with OPPT vs. HH As per medicine Will add Oxycontin 10mg q12 hrs. Inhouse Planning Pain Management: Oxycontin, Morphine, PO Tylenol, Oxy IR DVT Prophylaxis: SCDs Discharge Planning Discharge Planning: home with home health Pain Management: Oxycontin, PO Tylenol, Oxy IR Therapy: Physical Therapy, Occupational Therapy
[2017-01-06] MEDS ORDERED: OXYSR10 PO (06:51)
[2017-01-06] MEDS ORDERED: RXC5 PO (06:51)
[2017-01-06] MEDS ORDERED: ACET-24 PO (06:51)
--- NOTE | 2017-01-06 06:52 | Discharge Instructions ---
Discharge Instructions Date of Service Jan 06, 2017. Admission Reason for Admission: Left Shoulder Degenerative Disease Discharge Discharge Diagnosis / Problem: Left TSA, Biceps tenodesis Discharge Goals Goal(s): Improve function Activity Recommendations Activity Limitations: as noted below . Instructions / Follow-Up Instructions / Follow-Up ACTIVITY RECOMMENDATIONS: SELF CARE INSTRUCTIONS AFTER TOTAL SHOULDER ARTHROPLASTY A. You may do daily exercises as taught in physical therapy while in hospital. No lifting with the operative arm. Please schedule your outpatient physical therapy appointment to begin within 2-3 days after leaving the hospital. Specific restrictions will be written on your physical therapy prescription that is provided to you. B. You are to wear your sling/immobilizer at all times EXCEPT when performing your daily exercises, participating in physical therapy and for hygiene purposes. C. You may perform dry, daily dressing changes. Please keep your incision covered. You may shower 48 hours after surgery. Do not apply soap or any ointment/ lotions directly over incision. Do not soak incision in bath tub/swimming pool. D. You may use ice as needed to operative shoulder. SPECIAL CARE INSTRUCTIONS: MEDICATION INSTRUCTIONS: *It is recommended you take Aspirin 325mg daily for four weeks post-op. VERY IMPORTANT TO READ AND REVIEW A. There are a few signs you need to watch for after you are home. Call [facility] at [phone] if you experience any of the followin. Increased severe shoulder pain. Some pain is expected especially when you exercise. 2. Increased swelling in you shoulder or arm; pain or swelling in either upper extremity. 3. Any fluid drainage from the incision. 4. Shortness of breath or chest pain. B. Please call [facility] at [phone] if you have any questions or concerns about your operation or recovery. C. Call your physician if: 1. Temperature is greater than 101 degrees (F). 2. Pain is not relieved by prescribed pain medications. 3. Increase drainage or redness from incision. 4. Unanswered questions or concerns. FOLLOW UP VISIT: Please call [facility] at [phone] to schedule a follow up appointment with Dr. Farah or his PA in 12-14 days from your surgery date. Current Hospital Diet Patient's current hospital diet: Regular Diet Discharge Diet Recommended Diet: Regular Diet Procedures Procedures Performed: Left Total Shoulder Arthroplasty, Bicep Tenodesis Pending Studies Studies pending at discharge: no Laboratory Results Hemoglobin A1c Test 12/08/16 11:57 Range/Units Estimated Average Glucose 114 mg/dl Hemoglobin A1c 5.6 4.5-5.6 % Medical Emergencies . Who to Call and When: Medical Emergencies: If at any time you feel your situation is an emergency, please call 911 immediately. . Non-Emergent Contact Non-Emergency issues call your: Primary Care Provider . "Provider Documentation" section prepared by Jabari Avila. . VTE Core Measure Inpt VTE Proph given/why not?: SCD's [place] Drug Monitoring Program Search Results: patient reviewed within database, no issues identified
[2017-01-06 07:31] LABS: HEMATOCRIT 40.6 % (37-47); MEAN CELL VOLUME 93.3 fL (80-100); MEAN CORPUSCULAR HEMOGLOBIN 31.3 pg (25-34); MEAN CORPUSCULAR HGB CONC 33.5 g/dl (32-36); MEAN PLATELET VOLUME 9.2 fL (7.4-10.4); PLATELET COUNT 254 K/uL (130-400); RED BLOOD COUNT 4.35 M/uL (4.2-5.4); WHITE BLOOD COUNT 13.63 K/uL (4.8-10.8)
[2017-01-06 07:32] VITALS: BP 118/78; PULSE 102; TEMP 36.9; O2SAT 93
[2017-01-06] MEDS: OXYCODONE HCL 10 MG TABCR (OXYCONTIN) PO SCH (07:33)
[2017-01-06] MEDS: OXYCODONE HCL IR 5 MG TAB (IMMEDIATE RELEASE) PO PRN (07:33)
[2017-01-06] MEDS: PANTOprazole SOD 40 MG TAB PO SCH (07:34)
[2017-01-06] MEDS: FLUTICASONE/SALMETEROL 100/50 (ADVAIR) 14 PUFF/1 INHALER INH SCH (07:34)
[2017-01-06] MEDS: MULTIVITAMIN TAB PO SCH (07:34)
[2017-01-06] MEDS: NICOTINE 14 MG/24 HR TDSY TD SCH (07:34)
[2017-01-06 07:57] LABS: BUN/CREATININE RATIO 14.8 (10-20); CALCIUM 8.3 mg/dl (8.5-10.1); CREATININE 0.74 mg/dl (0.60-1.20); POTASSIUM 3.7 mmol/L (3.5-5.1)
[2017-01-06 08:16] VITALS: O2SAT 93
[2017-01-06 09:02] VITALS: BP 118/78; PULSE 102; TEMP 36.9; O2SAT 93
--- NOTE | 2017-01-06 10:52 | Hospitalist Progress Note ---
Hospitalist Progress Note Date of Service Jan 06, 2017. Subjective Pt evaluation today including: conversation w/ patient, conversation w/ family , physical exam, chart review, lab review, review of studies Pain: L shoulder pain PO Intake: Good Voiding: no voiding problems The patient was seen and examined this morning. Pt reports doing well today, she has some shoulder discomfort but report that this is tolerable. She reports going to try to cut down on the amount of cigarettes, she currently smokes 17 per day and is going to attempt to get down to 10-12 daily. Her bowels have not moved yet but reports they will whenever she gets home. She denies any other acute complaints. ROS: 6 point ROS reviewed and otherwise negative. Objective Vital Signs Date Time Temp Pulse Resp B/P (MAP) Pulse Ox O2 Delivery O2 Flow Rate FiO2 01/06/17 09:02 36.9 102 16 93 Room Air 01/06/17 08:16 93 Room Air 01/06/17 08:10 Room Air 01/06/17 07:32 36.9 102 16 118/78 (91) 93 Room Air 01/06/17 06:01 36.8 112 16 149/96 (113) 91 Room Air 01/05/17 23:45 Room Air 01/05/17 22:45 37.4 110 18 130/83 (99) 91 Room Air 01/05/17 15:15 91 Nasal Cannula 2.0 01/05/17 15:15 91 Nasal Cannula 2.0 01/05/17 15:05 37.2 105 18 122/77 (92) 91 Room Air 01/05/17 10:58 36.6 77 16 119/68 (85) 94 Room Air Physical Exam General Appearance: WD/WN, no apparent distress Eyes: PERRL, EOMI ENT: hearing grossly normal Respiratory/Chest: lungs clear, no accessory muscle use, + pertinent finding ( on room air) Cardiovascular: regular rate, rhythm Extremities: no pedal edema Neurologic/Psychiatric: normal mood/affect, oriented x 3 Skin: normal color, warm/dry Laboratory Results Last 24 Hours Test 01/06/17 07:08 White Blood Count 13.63 K/uL Red Blood Count 4.35 M/uL Hemoglobin 13.6 g/dL Hematocrit 40.6 % Mean Corpuscular Volume 93.3 fL Mean Corpuscular Hemoglobin 31.3 pg Mean Corpuscular Hemoglobin Concent 33.5 g/dl RDW Standard Deviation 47.5 fL RDW Coefficient of Variation 13.9 % Platelet Count 254 K/uL Mean Platelet Volume 9.2 fL Sodium Level 135 mmol/L Potassium Level 3.7 mmol/L Chloride Level 105 mmol/L Carbon Dioxide Level 23 mmol/L Anion Gap 7.0 mmol/L Blood Urea Nitrogen 11 mg/dl Creatinine 0.74 mg/dl Est Creatinine Clear Calc Drug Dose 67.1 ml/min Estimated GFR () 97.2 Estimated GFR (Non- 83.8 BUN/Creatinine Ratio 14.8 Random Glucose 111 mg/dl Calcium Level 8.3 mg/dl Assessment and Plan This is a 66 yo F with PMHx of COPD, chronic asthmatic bronchitis, chronic back pain, chronic back pain, scoliosis, HLD, Chronic tobacco abuse with 1 ppd x 43 years, and osteoarthritis who presents for elective Left total shoulder arthroplasty by Dr. Evans on 01/04/17. S/p Left total shoulder arthroplasty - Pain management, bowel regimen, DVT ppx per primary team - PT/OT per primary team - Cm to assist with rehab planning per primary team COPD - Continue on advair inhaler 1 puff BID, Ventolin inh 2 puff Q4-6H prn - Multiple lung nodules on CT scan are followed by Dr. Stinson as an outpatient, Depression - Continue wellbutrin ER 150 mg daily to aid in smoking cessation HLD - Continue statin therapy Osteoarthritis - Will check a Vit D level with chronic tobacco abuse history. Pt does not take a supplement. Chronic Tobacco Abuse - Smoked 1 ppd x 43 years, will order a nicotine patch for the patient - Pt is encouraged to stop - she is going to try to cut down on the amount she smokes daily DVT ppx: ambulatory CODE STATUS: FULL CODE Disposition: From home, lives with . Thank you for involving us in the care of Mrs. Dumont.
== END 2017-01-06 11:00 | disposition home health service (06) | DRG 483 ==
LOC: C.ACU 05:08 → C.3E 06:56 → ENRESERV 10:46
PROVIDERS: ADMIT Orthopaedic Surgery Sports Medicine; ATTEND Orthopaedic Surgery Sports Medicine
PROC: 0PBD0ZZ Excision of Left Humeral Head, Open Approach (ICD-10-PCS; principal; 2017-01-04 07:00)
PROC: 0RRK0JZ Replacement of Left Shoulder Joint with Synthetic Substitute, Open Approach (ICD-10-PCS; principal; 2017-01-04 07:00)
PROC: 0LQ40ZZ Repair Left Upper Arm Tendon, Open Approach (ICD-10-PCS; principal; 2017-01-04 07:00)
DX: M19.012 Primary osteoarthritis, left shoulder (principal); M75.22 Bicipital tendinitis, left shoulder; M75.82 Other shoulder lesions, left shoulder; J44.9 Chronic obstructive pulmonary disease, unspecified; K21.9 Gastro-esophageal reflux disease without esophagitis; F32.9 Major depressive disorder, single episode, unspecified; F17.200 Nicotine dependence, unspecified, uncomplicated; Z79.899 Other long term (current) drug therapy

== ENCOUNTER → 2017-03-22 | Outpatient (CLI) | payer OTHER, BC ==
[~2017-03-22] MED LIST changes: +BUPR75TA20 PO; +NAPR-1169 PO; -NAPR500T5 PO
[2017-03-22 13:21] LABS: ALT/SGPT 22 U/L (12-78); AST/SGOT 16 U/L (15-37); BLOOD UREA NITROGEN 17 mg/dl (7-18); CALCIUM 8.8 mg/dl (8.5-10.1); CARBON DIOXIDE 28 mmol/L (21-32); CREATININE 0.96 mg/dl (0.60-1.20); GLUCOSE 96 mg/dl (70-99); SODIUM 138 mmol/L (136-145)
[2017-03-22 13:26] LABS: ALKALINE PHOSPHATASE 100 U/L (45-117); CHOLESTEROL 177 mg/dl (0-200); LDL CHOLESTEROL CALCULATED 125 mg/dl; TOTAL PROTEIN 7.1 gm/dl (6.4-8.2)
== END | disposition home or self-care (01) ==
LOC: C.LABPVFM 10:32
PROVIDERS: ATTEND Nurse Practitioner
DX: E78.5 Hyperlipidemia, unspecified (principal)

== ENCOUNTER 2017-04-14 07:30 | Inpatient (IN) | payer OTHER, BC ==
[2017-03-02 10:31] VITALS: BMI 25.0
--- NOTE | 2017-03-26 13:10 | DIAGNOSTIC IMAGING REPORT ---
CHEST 2 VIEWS ROUTINE CLINICAL HISTORY: Preoperative chest COMPARISON STUDY: July 2014 FINDINGS: The heart is normal in size. There is suspected mild pulmonary emphysema. There are linear by basilar opacities likely atelectatic. There is no failure. There is no lobar consolidation.[ IMPRESSION: Linear bibasilar atelectatic changes. No evidence of failure. No evidence of focal pulmonary consolidation Electronically signed by: Morgan Lance M.D. 03/26/2017 1:09 PM Dictated Date/Time: 03/26/2017 1:08 PM
[2017-03-26 13:25] LABS: BASO % 0.6 %; BASO ABS # 0.05 K/uL (0-0.2); EOS % 2.5 %; EOS ABS # 0.22 K/uL (0-0.5); HEMOGLOBIN 16.5 g/dL (12.0-16.0); IG# 0.02 K/uL (0.00-0.02); LYMPH % 27.9 %; LYMPH ABS # 2.49 K/uL (1.2-3.4); MEAN CELL VOLUME 91.8 fL (80-100); MEAN CORPUSCULAR HEMOGLOBIN 31.5 pg (25-34); MEAN CORPUSCULAR HGB CONC 34.4 g/dl (32-36); MEAN PLATELET VOLUME 9.1 fL (7.4-10.4); MONO % 5.4 %; MONO ABS # 0.48 K/uL (0.11-0.59); NEUT % 63.4 %; NEUT ABS # 5.65 K/uL (1.4-6.5); PLATELET COUNT 292 K/uL (130-400); RED CELL DISTRIBUTION WIDTH CV 14.9 % (11.5-14.5); RED CELL DISTRIBUTION WIDTH SD 50.4 fL (36.4-46.3); WHITE BLOOD COUNT 8.91 K/uL (4.8-10.8)
[2017-03-26 13:34] LABS: PTT PATIENT 25.9 SECONDS (21.0-31.0)
[2017-03-26 13:41] LABS: HEMOGLOBIN A1C 5.8 % (4.5-5.6)
[2017-03-26 13:43] LABS: CREATININE 0.87 mg/dl (0.60-1.20)
[2017-03-26 13:44] LABS: ALBUMIN 3.7 gm/dl (3.4-5.0); CALCIUM 8.6 mg/dl (8.5-10.1); POTASSIUM 3.6 mmol/L (3.5-5.1)
--- NOTE | 2017-04-13 19:14 | HISTORY & PHYSICAL EXAMINATION ---
DATE OF ADMISSION: 04/14/2017 ADMISSION HISTORY AND PHYSICAL CHIEF COMPLAINT: Chronic right shoulder pain. HISTORY OF PRESENT ILLNESS: This is a 66-year-old female patient of Dr. Farah'katlin complaining of chronic right shoulder pain, longstanding, now progressively getting worse. The patient has been diagnosed with osteoarthritis and rotator cuff arthropathy per clinical and radiographic exams. The patient has failed conservative treatment. The patient wished to proceed with a right reversed total shoulder arthroplasty. PAST MEDICAL HISTORY: Irregular heartbeat, COPD, abnormal bleeding, history of a blood clot, osteoarthritis, spine problems, neck problems, upper back problems, and hiatal hernia. SOCIAL HISTORY: She is a lifelong smoker for 45 years. Alcohol - none. PAST SURGICAL HISTORY: Left shoulder replacement, right shoulder arthroscopy, bilateral carpal tunnel, right and left heel spurs, left leg vein removal and right foot tarsal alignment. ALLERGIES: No known drug allergies. MEDICATIONS: 1. Ventolin HFA 90 mcg actuation 2 puffs every 4-6 hours p.r.n. 2. Omeprazole 20 mg daily. 3. Vytorin 10/20 1 tablet daily. 4. Advair Diskus 100 mcg/50 mcg 1 puff b.i.d. in the morning and evening. 5. Colace 100 mg at bedtime. 6. Flexeril 10 mg t.i.d. p.r.n. 7. Multivitamin daily. 8. Fish oil 1000 mg daily. 9. Naprosyn 500 mg as needed. ALLERGIES: No known drug allergies. PHYSICAL EXAMINATION: GENERAL: Well-developed, well-nourished 66-year-old female in no acute distress. She is alert and oriented x3 and pleasant. HEENT: Normocephalic, atraumatic. Extraocular motions are intact. Pupils are equal and reactive to light. HEART: Regular rate and rhythm, no murmurs appreciated. LUNGS: Clear. ABDOMEN: Soft and nontender. Bowel sounds are present. EXTREMITIES: Right shoulder reveals a range of motion of 0-180, 4/5 strength. NEUROLOGICALLY AND Neurovascularly she is intact. She has good isometric strength. DIAGNOSES: Right shoulder rotator cuff arthropathy and osteoarthritis. She has a history of irregular heartbeat, chronic obstructive pulmonary disease, abnormal bleeding, history of a blood clot, osteoarthritis, spine problems, neck problems, upper back problems and hiatal hernia. PLAN: The patient was advised of her diagnosis. Indications, risks, benefits, postop course have all been reviewed. The patient wished to proceed with a right shoulder reversed total shoulder arthroplasty. Necessary consent forms, preoperative testing clearances will be obtained. IVETTE
[~2017-04-14] VITALS: Ht 160 cm; Wt 65.4 kg
[2017-04-14] VITALS (9 sets, daily range): BP systolic 91–112; BP diastolic 51–83; PULSE 78–107; TEMP 36.4–36.8; O2SAT 92–99; Ht 160 cm; Wt 65.4 kg
[~2017-04-14 07:30] MED LIST changes: +ACETAMINOPHEN 500 MG TAB PO SCH; +CEFAZOLIN 2000MG IV PUSH 15 ML IV SCH; +CeleBREX 200 MG CAP PO SCH; +DEXAMETHASONE 4 MG TAB PO SCH; +FAMOTIDINE 20 MG TAB PO SCH; +GABAPENTIN 300 MG CAP PO SCH; +LACTATED RINGER'S 1000ML 1,000 ML IV SCH; +METOCLOPRAMIDE HCL 10 MG TAB PO SCH; +ROPIVACAINE 0.5% 5 MG/ML 30 ML VIAL ONE
[2017-04-14] MEDS ORDERED: MIDAZOLAM HCL 1 MG/ML 2ML VIAL ONE (07:59)
[2017-04-14] MEDS ORDERED: NEOSTIGMINE METHYLSULFATE 5 MG/5 ML SYR ONE (07:59)
[2017-04-14] MEDS ORDERED: PROPOFOL IV EMULSION 10 MG/ML 20 ML VIAL IV ONE (07:59)
[2017-04-14] MEDS ORDERED: LIDOCAINE HCL 2% 2 ML VIAL (20MG/ML) ONE (07:59)
[2017-04-14] MEDS ORDERED: GLYCOPYRROLATE INJ 0.2 MG/ML VIAL ONE (07:59)
[2017-04-14] MEDS ORDERED: FENTANYL CITRATE INJ 50 MCG/1 ML 2 ML VIAL ONE (07:59)
[2017-04-14] MEDS ORDERED: CLONIDINE HCL 100 MCG/ML SYRINGE ONE (08:20)
[2017-04-14] MEDS ORDERED: BUPIVACAINE 0.5 % 5 MG/1 ML PF 10ML VIAL ONE (08:20)
[2017-04-14] MEDS ORDERED: MEPIVACAINE HCL 1.5% 30 ML VIAL ONE (08:20)
[2017-04-14] MEDS ORDERED: BACITRACIN 50000 UNIT VIAL ONE (09:27)
[2017-04-14] MEDS ORDERED: EpINEphrine HCL INJ 1 MG/ML 1ML SYRINGE ONE (09:27)
--- NOTE | 2017-04-14 13:13 | [facility] Post Operative Brief Note ---
Immediate Operative Summary Operative Date Apr 14, 2017. Pre-Operative Diagnosis Right Shoulder Degenerative Joint Disease,hx prior shoulder arthroscopy with rotator cuff tear vs tendinopathy chronic Post-Operative Diagnosis Same with thin scarred tendinopathic rotator cuff prior biceps tenotomy or rupture proximal Procedure(s) Performed Right Reversed Total Shoulder Arthroplasty Surgeon Dr. Farah Video Game Repair Technician Surgeon(s) Christian Fields PA-C Estimated Blood Loss 100 ml Findings Consistent with Post-Op Diagnosis Specimens A. Right Humeral Head Drains 2 hemovac Anesthesia Type General Regional Complication(s) none Disposition Disposition: Recovery Room / PACU
[2017-04-14] MEDS ORDERED: ATROPINE SULFATE 0.1 MG/ML 5ML SYR IV PRN (13:15)
[2017-04-14] MEDS ORDERED: EpHEDrine SULFATE INJ 50 MG/ML AMP IV PRN (13:15)
[2017-04-14] MEDS ORDERED: CEFAZOLIN IV 1,000 MG in DEXTROSE 5% 50ML 50 ML IV SCH (13:45)
[2017-04-14] MEDS ORDERED: OXYCODONE HCL IR 5 MG TAB (IMMEDIATE RELEASE) PO PRN (13:45)
[2017-04-14] MEDS ORDERED: BISACODYL 10 MG SUPP PR PRN (13:45)
[2017-04-14] MEDS ORDERED: ALUMINUM/MAGNESIUM SUSP 30 ML UDC PO PRN (13:45)
[2017-04-14] MEDS ORDERED: MAGNESIUM HYDROXIDE SUSP 30 ML UDC PO PRN (13:45)
[2017-04-14] MEDS ORDERED: MoRPHine SULFATE 2 MG/ML CARP IV PRN (13:45)
[2017-04-14] MEDS ORDERED: ONDANSETRON INJ 2 MG/ML 2 ML VIAL IV PRN (13:45)
--- NOTE | 2017-04-14 14:09 | DIAGNOSTIC IMAGING REPORT ---
R SHOULDER MIN 2 VIEWS ROUTINE CLINICAL HISTORY: 66 years-old Female presenting with Post shoulder surgery. TECHNIQUE: Portable supine frontal view of the shoulder in neutral positioning and transscapular Y view were obtained. COMPARISON: Chest x-ray from 03/26/2017. FINDINGS: Interval postsurgical changes of reverse total shoulder arthroplasty. Expected intra-articular and soft tissue emphysema. Surgical drains in place. No malalignment. No periprosthetic fracture. No hardware complication. Skin aniceto in place. Visualized portion of the right hemithorax normal. IMPRESSION: Expected postsurgical appearance status post reverse total right shoulder arthroplasty. Electronically signed by: Car Arguelles M.D. 04/14/2017 2:08 PM Dictated Date/Time: 04/14/2017 2:07 PM
--- NOTE | 2017-04-14 14:20 | Anesthesiology Progress Note ---
Anesthesia Post Op Note Date & Time Apr 14, 2017 at 14:20 Vital Signs Pain Intensity: 0 Vital Signs Past 12 Hours Date Time Temp Pulse Resp B/P (MAP) Pulse Ox O2 Delivery O2 Flow Rate FiO2 04/14/17 14:10 36.5 61 18 101/60 100 Nasal Cannula 2 04/14/17 14:00 91 18 106/64 100 Nasal Cannula 2 04/14/17 13:50 85 18 97/62 100 Oxymask 10 04/14/17 13:40 89 18 97/67 100 Oxymask 10 04/14/17 13:34 36.5 90 18 91/58 100 Oxymask 10 04/14/17 08:10 36.8 91 20 112/83 96 Room Air Notes Mental Status: alert / awake / arousable, participated in evaluation Pt Amnestic to Procedure: Yes Nausea / Vomiting: adequately controlled Pain: adequately controlled Airway Patency, RR, SpO2: stable & adequate BP & HR: stable & adequate Hydration State: stable & adequate Anesthetic Complications: no major complications apparent
[2017-04-14] MEDS: D5W AND 1/2NSS + 20MEQ KCL 1,000 ML IV SCH (15:20)
[2017-04-14] MEDS: ACETAMINOPHEN 500 MG TAB PO SCH ×2 (15:21→21:27)
--- NOTE | 2017-04-14 16:05 | Medical Consult ---
Consultation Date of Consultation: Apr 14, 2017. Attending Physician: New Farah M.D. Reason for Consultation: medical co management History of Present Illness 66 years old female with PMHx of COPD, irregular heart beat, Hx of blood clots and multiple lung nodules. patient also has severe arthritis s/p R shoulder arthropathy and left shoulder replacement and right shoulder arthroscopy. failed out patient conservative management and presented for an elective Right Reversed Total Shoulder Arthroplasty, procedure went uneventful. we were consulted for medical co management. Social History Smoking Status: Current Every Day Smoker Drug Use: none Marital Status: Housing Status: lives with family Allergies Coded Allergies: Shellfish (Verified Allergy, Mild, itchy and swelling of tongue and throat , 04/14/17) Current Inpatient Medications Current Inpatient Medications Medications (Trade) Dose Ordered Sig/Mahogany Route Start Time Stop Time Status Last Admin Dose Admin Cefazolin Sodium 15 ml @ 3.75 mls/ min PREOP IV 04/14/17 06:00 04/14/17 18:00 Acetaminophen (Tylenol Tab) 1,000 mg PREOP PO 04/14/17 06:00 04/14/17 18:00 04/14/17 08:22 1,000 MG Celecoxib (CeleBREX CAP) 200 mg PREOP PO 04/14/17 06:00 04/14/17 18:00 04/14/17 08:20 200 MG Dexamethasone (Decadron Tab) 8 mg PREOP PO 04/14/17 06:00 04/14/17 18:00 04/14/17 08:20 8 MG Famotidine (Pepcid Tab) 20 mg PREOP PO 04/14/17 06:00 04/14/17 18:00 04/14/17 08:21 20 MG Gabapentin (Neurontin Cap) 300 mg PREOP PO 04/14/17 06:00 04/14/17 18:00 04/14/17 08:21 300 MG Metoclopramide HCl (Reglan Tab) 10 mg PREOP PO 04/14/17 06:00 04/14/17 18:00 04/14/17 08:21 10 MG Lactated Ringer's 1,000 ml @ 15 mls/hr Q24H IV 04/14/17 06:00 04/15/17 05:59 04/14/17 08:18 15 MLS/HR Ephedrine Sulfate (EpHEDrine SULFATE INJ) 5 mg Q5M PRN IV 04/14/17 13:15 04/14/17 18:15 Atropine Sulfate (Atropine Sulfate 0.1mg/ml Inj) 0.5 mg Q1M PRN IV 04/14/17 13:15 04/14/17 18:15 Albuterol (Ventolin Hfa Inhaler) . BID PRN INH 04/14/17 13:45 05/14/17 13:44 Bupropion HCl (Wellbutrin Tab) 75 mg QAM PO 04/15/17 09:00 05/15/17 08:59 Ezetimibe/ Simvastatin (Vytorin 10/20 Tab) 1 tab QPM PO 04/14/17 21:00 05/14/17 20:59 Salmeterol Xinafoate/ Fluticasone (Advair Diskus 100/50 Inh) 1 puff QAM INH 04/15/17 09:00 05/15/17 08:59 Morphine Sulfate (MoRPHine SULFATE INJ) 2 mg Q4HWA PRN IV 04/14/17 13:45 04/28/17 13:44 Ondansetron HCl (Zofran Inj) 4 mg Q6H PRN IV 04/14/17 13:45 05/14/17 13:44 Al Hydroxide/Mg Hydroxide (Maalox Susp) 30 ml Q4H PRN PO 04/14/17 13:45 05/14/17 13:44 Pantoprazole Sodium (Protonix Tab) 40 mg QAM PO 04/15/17 09:00 05/15/17 08:59 Potassium Chloride/Dextrose/ Sod Cl 1,000 ml @ 100 mls/hr Q10H IV 04/14/17 15:00 05/14/17 13:35 04/14/17 15:20 100 MLS/HR Oxycodone HCl (Roxicodone Immediate Rel Tab) `1-2 TABS FOR PAIN `1 TAB... Q4H PRN PO 04/14/17 13:45 04/28/17 13:44 Acetaminophen (Tylenol Tab) 1,000 mg Q8H PO 04/14/17 14:00 05/14/17 13:59 04/14/17 15:21 1,000 MG Magnesium Hydroxide (Milk Of Magnesia Susp) 30 ml Q6H PRN PO 04/14/17 13:45 05/14/17 13:44 Bisacodyl (Dulcolax Supp) 10 mg DAILY PRN MD 04/14/17 13:45 05/14/17 13:44 Docusate Sodium (coLACE CAP) 100 mg BID PO 04/14/17 21:00 05/14/17 20:59 Multivitamins (Multivitamin Tab) 1 tab DAILY PO 04/15/17 09:00 05/15/17 08:59 Aspirin (Ecotrin Tab) 325 mg QAM PO 04/15/17 09:00 05/15/17 08:59 Cefazolin Sodium 1000 mg/Syringe 7.5 ml @ 2.5 mls/min Q8H IV 04/14/17 18:00 04/15/17 02:02 Review of Systems Review of system Constitutional: No fever / no chills / no sweats / no weakness / no fatigue Eyes: no blurring of vision / no eye pain / no discharge / no redness ENT: no hearing loss / no epistaxis /no swallowing problems Respiratory: no cough / no wheezing / no SOB / no hemoptysis Cardiovascular: no Chest pain / no lower extremity edema / no palpitation Abdomen: no pain / no nausea / no vomiting / no constipation Musculoskeletal: no joint pain / no muscle pain / no joint swelling Genitourinary: no dysuria / no incontinence / no urinary retention Neurologic: no focal weakness / no numbness/tingling / no ataxia Psychiatric: no depression symptoms / no anxiety / no insomnia Endocrine: no excessive thirst / no excessive urination Hematologic: no abnormal bleeding / no bruising / no LN swelling Skin: No rash / no pallor Physical Exam Date Time Temp Pulse Resp B/P (MAP) Pulse Ox O2 Delivery O2 Flow Rate FiO2 04/14/17 15:28 100 16 100/65 (77) 04/14/17 15:01 78 16 102/61 (75) 99 Nasal Cannula 2.0 04/14/17 14:10 36.5 61 18 101/60 100 Nasal Cannula 2 04/14/17 14:00 91 18 106/64 100 Nasal Cannula 2 04/14/17 13:50 85 18 97/62 100 Oxymask 10 04/14/17 13:40 89 18 97/67 100 Oxymask 10 04/14/17 13:34 36.5 90 18 91/58 100 Oxymask 10 04/14/17 08:10 36.8 91 20 112/83 96 Room Air Physical examination General patient appears to be comfortable, not in acute distress HEENT: Atraumatic , normocephalic /no jaundice /no pallor /anicteric /no dry mucous membrane /normal external ear inspection Neck: Supple /no swelling /central trach Heart: S1/S2 normal/regular rate and rhythm/no gallop /no rub /no murmur Lungs: Clear to auscultation bilaterally/normal chest with expansion/no rhonchi/ no rales/no wheezing/no use of accessory muscles of respiration Abdomen: Soft/nontender/no guarding/no rebound/no organomegaly/no pulsatile mass Musculoskeletal: No swelling/no edema/no tenderness/normal range of motion, except for right shoulder, wrapped with decreased range of motion, unable to move her hand, but has good radial pulse and good capillary filling Neuro exam: Awake alert oriented 3/cranial nerves II through XII appear to be intact/sensation intact/moves all extremities/no abnormal movements Psychiatric evaluation: No depressed mood/normal affect Skin: No rash on exposed skin area/no erythema Extremity: Normal pulse/no pitting edema/no clubbing or cyanosis Endocrine/lymphatic: No obvious lymphadenopathy /no lymphedema Assessment & Plan 66 years old female with PMHx of COPD, irregular heart beat, Hx of blood clots and multiple lung nodules. patient also has severe arthritis s/p R shoulder arthropathy and left shoulder replacement and right shoulder arthroscopy. failed out patient conservative management and presented for an elective Right Reversed Total Shoulder Arthroplasty, procedure went uneventful. we were consulted for medical co management. Assessment: severe osteoarthritis that failed outpatient conservative measures. Patient presented to the hospital for an elective orthopedic procedure s/p Right Reversed Total Shoulder Arthroplasty, Plan Status post orthopedic procedure, went uneventful full, Right Reversed Total Shoulder Arthroplasty, postoperative day # 0 Patient tolerated procedure well with minimal blood loss Appears to be stable, will add bronchodilators as needed wheezing Instructed nurse to reexamine 2 hours and reports to MD if patient still has no movement in his right hand, otherwise capillary filling is normal and radial pulses normal Continue outpatient medications Follow-up labs Ensure adequate oral/parenteral intake Pain management Physical therapy initiation as per primary orthopedic team DVT prophylaxis as per the choice of primary orthopedic team
[2017-04-14] MEDS ORDERED: LEVALBUTEROL/IPRATROPIUM NEB INH PRN (16:15)
[2017-04-14] MEDS ORDERED: IPRATROPIUM BROMIDE NEB SOLN 0.02% 2.5 ML VIAL INH PRN (16:15)
[2017-04-14] MEDS ORDERED: LEVALBUTEROL 0.63MG/3 ML NEB INH PRN (16:15)
--- NOTE | 2017-04-14 16:33 | OPERATIVE REPORT ---
DATE OF OPERATION: 04/14/2017 INDICATION FOR PROCEDURE: The patient is a 66-year-old female who presents with chronic right shoulder pain. She has had a previous arthroscopic right shoulder surgery in the past. She had decompression, distal clavicle excision and some rotator cuff work. Radiographs demonstrate that she is [id number] in the glenohumeral joint and she has some mild proximal migration of the humerus. MRI demonstrates what appears to be a tendinopathic rotator cuff, the supraspinatus is not normal tissue, looks that she has a full thickness rotator cuff tear, appears to be chronic. The interspace tendon is more of a normal appearance to it. She has advanced glenohumeral DJD, bone on bone. PREOPERATIVE DIAGNOSES: End-stage glenohumeral osteoarthritis of the right shoulder, rotator cuff tendinopathy, and chronic prior arthroscopic shoulder surgery. POSTOPERATIVE DIAGNOSES: Same with a thin tendinopathic scar tissue of the supraspinatus. No full thickness rotator cuff tear. PROCEDURE: Right shoulder reversed total shoulder arthroplasty. SURGEON: Dr. Farah. PIN DRAFTING MACHINE TENDER: Christian Fields PA-C. ANESTHESIA: Regional block and general. OPERATIVE PROCEDURE: The patient was taken to the operating room and placed in the 30 degree beachchair position on the operating room table. A foam headrest was placed. Protective eyewear was placed. A towel was placed in the medial right scapula. The shoulder was translated to the right side of the bed, so her shoulder could be manipulated off the bed as necessary. She had TEDs and SCDs placed. Right shoulder exam demonstrated that she had [id number] crepitation had 140 degrees of forward elevation, 70 degrees of external rotation. She had previous scars from arthroscopic surgery. There are well-healed. Right shoulder was sterilely prepped and draped in usual sterile fashion. An anterior deltopectoral approach was performed. A longitudinal incision was made at the deltopectoral interval. Skin was incised sharply. Subcutaneous flaps were elevated. The cephalic vein was dissected out and retracted laterally with the deltoid. There was some upper plexus of veins at the upper aspect of the cephalic vein and some crossing veins had to tie off for exposure. With smaller branches superiorly from retraction, ruptured and time tie that off as well. The pectoralis was retracted medially. The upper centimeter of the pectoralis was released for inferior exposure. We inspected the biceps tendon which appeared to have had a previous proximal tenodesis or tenotomy or biceps rupture as tendon was retracted and scarred down and thin and in position, so we just went ahead and placed some #2 FiberWire sutures through the biceps tendon to prevent any further retraction and resected the degenerative proximal portion. The circumflex vessels were tied off with silk ties and divided laterally. The subscapularis muscle fibers were split at the level of the circumflex vessels divided down to the capsule. The inferior fibers were released off the capsule and the axillary nerve was identified, protected with a Hohmann retractor. An incision was made up into the bicipital groove and then down the rotator interval to release of the subscapularis subperiosteally off the lesser tuberosity. A #1 Vicryl suture was placed for traction purposes. The thin tendinopathic appearing supraspinatus tendon tissue was released off the greater tuberosity for exposure, infraspinatus tendon was maintained intact. We released all subdeltoid adhesions, resected all the old chronic scarred bursa tissue from the prior repair that was performed. The humerus was then retracted posterior to the glenoid. Anterior capsular release was performed down to the glenoid at the 5 o'clock position. The capsule was released off the glenoid and rotator interval was released to meet this release to be at 360 degrees release of the subscapularis. We did do a partial capsulectomy as well. A Bankart retractor was placed anteriorly. The labrum was resected circumferentially. There was no intraarticular biceps tendon. She did have a large anterior inferior labrum. The articular wear pattern was mainly the upper two-thirds of the glenoid articular surface was worn down to bone which would be more consistent with a rotator cuff deficiency, superior migration of the humerus and yarbrough of the superior joint surface. The release of the capsule was performed anteriorly, inferiorly and posterior inferiorly on bone electrocautery and a Louise elevator. The triceps tendon was released. The humerus was then exposed with extension and external rotation. The humeral head alignment guide was placed at 20 degrees retroversion and her humeral head cut was made. The humeral shaft was prepared with a starter awl followed by broaches up to a size 4 and then we placed a cup protector in place and then retracted the humerus posterior to the glenoid and then removed the articular cartilage in the lower third down to bone, so we had the appropriate version for placement of the implant. I placed 10 degrees inferior tilt on the guide for the 25 mm baseplate. Central drill hole was made for the reamer and then the reamer for a 25 mm baseplate from 28 was used. We used the 20 Aequalis glenoid component and the Ascend Flex humeral components for the reversed replacement. The reamer was used, placing in some inferior tilt. Then the central drill hole was widened and the implant was impacted with a tight pressfit. We used anterior and posterior compression screws of 23 and 18 mm respectively. Superior and inferior locking screws of 20 mm, all 4.5 mm screws. There was excellent fixation of the patient's hard bone. It appeared that we would need a +2 offset to not have any inferior notching. We used the fan reamer and removed some of the osteophytes and inferior glenoid bone to assure no notching in that area. Then after irrigation copiously, placed on the 36 mm diameter, 25 mm diameter +2 inferior offset glenosphere. This was impacted in position tightly and then the screw was tightened. We assessed stability and then went ahead and a trial reduction with a +0 high offset humeral tray and a 36 mm +6 humeral insert and that gave stable range of motion. There was no shock and appeared to be satisfactory soft tissue tension. Trials removed and after copious irrigation, we placed 3 drill holes lateral to the lesser tuberosity and placed transosseous #5 FiberWire sutures. Then, the final components were assembled, the 4b long Ascend Flex stem to the +0 high offset 3.5 humeral tray and a 36+6 poly insert. This stem was then impacted into the humerus with tight pressfit. This reduced to the glenoid. We verified stability with complete muscle relaxation through full range of motion and there was no shuck and no instability. After copious irrigation, the supraspinatus tendon was then sutured to the infraspinatus tendon to a hand strength. She has a [id number] #2 FiberWire sutures. The subscapularis tendon was repaired with the #5 FiberWire sutures with a Lucas-Timur suture technique. We did lateral soft tissue fixation with [id number] #2 FiberWire sutures. Then the pectoralis was repaired with [id number] #2 FiberWire sutures. That was taken through range of motion and there was no tension or any of the repairs through 140 degrees of forward elevation, 70 degrees of external rotation, 70 degrees of internal rotation and 90 degrees of abduction. Wound was copiously irrigated and then 2 drains were brought out laterally placed deep to deltopectoral interval closure and deltopectoral interval was closed with [id number] #1 Vicryl sutures, subcutaneous tissues was closed with 2-0 Vicryl sutures, skin closed with aniceto and sterile dressings were applied. RYAN Redding was my first officer and flight instructor. He functioned as first officer and flight instructor for the entire procedure. He assisted in patient positioning, prepping, draping, arm positioning, soft tissue retraction, instrument management and performed the subcutaneous skin closure and will participate in postoperative care of the patient. I attest to the content of the Intraoperative Record and any orders documented therein. Any exception s are noted below.
[2017-04-14] MEDS: CEFAZOLIN IV 1,000 MG in SYRINGE 0 ML IV SCH (17:36)
[2017-04-14] MEDS: DOCUSATE SODIUM 100 MG CAP PO SCH (20:38)
[2017-04-14] MEDS: EZETIMIBE/SIMVASTATIN 10/20 TAB PO SCH (20:38)
[2017-04-15] MEDS: CEFAZOLIN IV 1,000 MG in SYRINGE 0 ML IV SCH (01:47)
[2017-04-15] MEDS: D5W AND 1/2NSS + 20MEQ KCL 1,000 ML IV SCH ×2 (01:47→11:00)
[2017-04-15 03:25] VITALS: BP 94/59; PULSE 81; TEMP 36.8; O2SAT 92
[2017-04-15] MEDS: ACETAMINOPHEN 500 MG TAB PO SCH ×3 (05:50→22:04)
[2017-04-15 05:53] LABS: BASO % 0.3 %; BASO ABS # 0.04 K/uL (0-0.2); EOS % 0.7 %; EOS ABS # 0.09 K/uL (0-0.5); HEMATOCRIT 35.2 % (37-47); HEMOGLOBIN 12.2 g/dL (12.0-16.0); IG# 0.05 K/uL (0.00-0.02); LYMPH % 29.5 %; LYMPH ABS # 3.69 K/uL (1.2-3.4); MEAN CELL VOLUME 89.3 fL (80-100); MEAN CORPUSCULAR HGB CONC 34.7 g/dl (32-36); MEAN PLATELET VOLUME 8.7 fL (7.4-10.4); MONO % 9.2 %; MONO ABS # 1.15 K/uL (0.11-0.59); NEUT % 59.9 %; NEUT ABS # 7.49 K/uL (1.4-6.5); PLATELET COUNT 265 K/uL (130-400); RED CELL DISTRIBUTION WIDTH SD 46.1 fL (36.4-46.3); WHITE BLOOD COUNT 12.51 K/uL (4.8-10.8)
[2017-04-15 06:30] LABS: ALBUMIN 2.4 gm/dl (3.4-5.0); CALCIUM 7.9 mg/dl (8.5-10.1); CREATININE 0.89 mg/dl (0.60-1.20); POTASSIUM 3.7 mmol/L (3.5-5.1)
[2017-04-15 06:33] LABS: TOTAL PROTEIN 5.2 gm/dl (6.4-8.2)
[2017-04-15 07:20] VITALS: BP 99/65; PULSE 83; TEMP 36.7; O2SAT 92
--- NOTE | 2017-04-15 07:43 | Orthopedic Progress Note ---
Orthopedic Progress Note Date of Service Apr 15, 2017. Subjective Post OP Day: 1 Reports: feeling well, pain controlled w PO medications, Denies: complaints, chest pain, SOB, nausea / vomiting, light headedness, calf pain Objective N/V intact, capillary refill less than 2 sec., dressing C/D/I, A&O x3 Sling in tact, fingers mobile. Date Time Temp Pulse Resp B/P (MAP) Pulse Ox O2 Delivery O2 Flow Rate FiO2 04/15/17 07:08 Room Air 04/15/17 03:25 36.8 81 16 94/59 (71) 92 Room Air 04/14/17 23:30 36.8 81 16 91/51 (64) 92 Room Air 04/14/17 20:30 98 04/14/17 19:35 36.7 107 16 101/65 (77) 94 Room Air 04/14/17 19:10 Nasal Cannula 2.0 04/14/17 17:48 36.5 79 16 108/70 (83) 92 04/14/17 16:23 36.4 87 16 101/64 (76) 99 Nasal Cannula 2.0 04/14/17 15:28 100 16 100/65 (77) 04/14/17 15:01 78 16 102/61 (75) 99 Nasal Cannula 2.0 04/14/17 14:25 36.5 86 16 95/64 (74) 96 Nasal Cannula 2.0 04/14/17 14:25 Nasal Cannula 2.0 04/14/17 14:25 Nasal Cannula 2.0 04/14/17 14:10 36.5 61 18 101/60 100 Nasal Cannula 2 04/14/17 14:00 91 18 106/64 100 Nasal Cannula 2 04/14/17 13:50 85 18 97/62 100 Oxymask 10 04/14/17 13:40 89 18 97/67 100 Oxymask 10 04/14/17 13:34 36.5 90 18 91/58 100 Oxymask 10 04/14/17 08:10 36.8 91 20 112/83 96 Room Air Laboratory Results 24 Hours: Test 04/15/17 05:38 White Blood Count 12.51 K/uL Red Blood Count 3.94 M/uL Hemoglobin 12.2 g/dL Hematocrit 35.2 % Mean Corpuscular Volume 89.3 fL Mean Corpuscular Hemoglobin 31.0 pg Mean Corpuscular Hemoglobin Concent 34.7 g/dl Platelet Count 265 K/uL Mean Platelet Volume 8.7 fL Neutrophils (%) (Auto) 59.9 % Lymphocytes (%) (Auto) 29.5 % Monocytes (%) (Auto) 9.2 % Eosinophils (%) (Auto) 0.7 % Basophils (%) (Auto) 0.3 % Neutrophils # (Auto) 7.49 K/uL Lymphocytes # (Auto) 3.69 K/uL Monocytes # (Auto) 1.15 K/uL Eosinophils # (Auto) 0.09 K/uL Basophils # (Auto) 0.04 K/uL Assessment & Plan Assessment: POD #1, Right reversed TSA Plan: Limited PT/ OT as ordered DVT proph- ASA D/C planning- Home As per medicine Inhouse Planning Pain Management: Morphine, PO Tylenol, Oxy IR DVT Prophylaxis: SCDs, ASA Discharge Planning Discharge Planning: home Pain Management: Ultram, PO Tylenol, Oxy IR DVT Prophylaxis: ASA
[2017-04-15] MEDS ORDERED: TRAMADOL HCL 50 MG TAB ONE (08:03)
[2017-04-15] MEDS: PANTOprazole SOD 40 MG TAB PO SCH (08:30)
[2017-04-15] MEDS: DOCUSATE SODIUM 100 MG CAP PO SCH ×2 (08:30→22:03)
[2017-04-15] MEDS: ASPIRIN 325 MG ECTAB PO SCH (08:30)
[2017-04-15] MEDS: FLUTICASONE/SALMETEROL 100/50 (ADVAIR) 14 PUFF/1 INHALER INH SCH (08:30)
[2017-04-15] MEDS: MULTIVITAMIN TAB PO SCH (08:30)
[2017-04-15] MEDS: ALBUTEROL HFA 8 GM INHALER INH PRN (08:45)
--- NOTE | 2017-04-15 10:57 | Anesthesiology Progress Note ---
Anesthesia Post Op Note Date & Time Apr 15, 2017 at 10:57 Vital Signs Vital Signs Past 12 Hours Date Time Temp Pulse Resp B/P (MAP) Pulse Ox O2 Delivery O2 Flow Rate FiO2 04/15/17 07:20 36.7 83 16 99/65 (76) 92 Room Air 04/15/17 07:08 Room Air 04/15/17 03:25 36.8 81 16 94/59 (71) 92 Room Air 04/14/17 23:30 36.8 81 16 91/51 (64) 92 Room Air Notes Mental Status: alert / awake / arousable, participated in evaluation Pt Amnestic to Procedure: Yes Nausea / Vomiting: adequately controlled Pain: adequately controlled Airway Patency, RR, SpO2: stable & adequate BP & HR: stable & adequate Hydration State: stable & adequate Anesthetic Complications: no major complications apparent
[2017-04-15 11:00] VITALS: BP 113/72; PULSE 84; TEMP 36.4; O2SAT 94
[2017-04-15] MEDS: TRAMADOL HCL 50 MG TAB PO PRN ×2 (13:11→18:37)
[2017-04-15 15:43] VITALS: BP 123/76; PULSE 101; TEMP 37.2; O2SAT 91
--- NOTE | 2017-04-15 18:18 | Progress Note ---
Subjective Date of Service: Apr 15, 2017. Subjective Pt evaluation today including: conversation w/ patient, physical exam, chart review, lab review, review of studies, conversation w/ accounting policy consultant, review of inpatient medication list Voiding: no voiding problems Sitting in chair, conversational, pain fairly controlled, no complaints, Review of Systems Constitutional: No fever, No chills, No sweats, No weight loss, No weakness, No fatigue, No problem reported Eyes: No worsening of vision, No eye pain, No redness, No discharge, No diplopia ENT: No hearing loss, No unusual epistaxis, No nasal symptoms, No sore throat, No tinnitus, No dental problems, No trouble swallowing Respiratory: No cough, No sputum, No wheezing, No shortness of breath, No dyspnea on exertion, No dyspnea at rest, No hemoptysis Cardiac: No chest pain, No orthopnea, No PND, No edema, No claudication, No palpitations Abdomen: No pain, No nausea, No vomiting, No diarrhea, No constipation Musculoskeletal: + joint pain, No muscle pain, No swelling, No calf pain Female : No dysuria, No urinary frequency, No hematuria, No incontinence, No abnormal vaginal bleeding, No vaginal discharge Neurologic: No memory loss, No paralysis, No weakness, No numbness/tingling, No vertigo, No balance problems Psychiatric: No depression symptoms, No anhedonism, No anxiety, No insomnia, No substance abuse Heme: No abnormal bleeding/bruising, No clotting problems, No swollen lymph nodes, No night sweats Endo: No fatigue, No excessive thirst, No excessive urination Skin: No rash, No itch, No new/changing skin lesions, No color change, No bleeding Objective Vital Signs Date Time Temp Pulse Resp B/P (MAP) Pulse Ox O2 Delivery O2 Flow Rate FiO2 04/15/17 15:43 37.2 101 16 123/76 (92) 91 Room Air 04/15/17 11:00 36.4 84 16 113/72 (86) 94 Room Air 04/15/17 07:20 36.7 83 16 99/65 (76) 92 Room Air 04/15/17 07:08 Room Air 04/15/17 03:25 36.8 81 16 94/59 (71) 92 Room Air 04/14/17 23:30 36.8 81 16 91/51 (64) 92 Room Air 04/14/17 20:30 98 04/14/17 19:35 36.7 107 16 101/65 (77) 94 Room Air 04/14/17 19:10 Nasal Cannula 2.0 Physical Exam General Appearance: WD/WN, no apparent distress, + thin Eyes: normal inspection, PERRL, EOMI, sclerae normal ENT: normal ENT inspection, hearing grossly normal, pharynx normal Neck: supple, no adenopathy, thyroid normal, no JVD, no carotid bruits, trachea midline Respiratory/Chest: chest non-tender, normal breath sounds, no respiratory distress, no accessory muscle use, + decreased breath sounds, + wheezing ( Occasional) Cardiovascular: regular rate, rhythm, no edema, no gallop, no JVD, no murmur Abdomen: normal bowel sounds, non tender, soft, no organomegaly, no pulsatile mass Extremities: normal capillary refill, pelvis stable, + pertinent finding ( Right shoulder interests, she is using ice pack for pain) Neurologic/Psychiatric: hemmer automatic II-XII nml as tested, no motor/sensory deficits, alert, normal mood/affect, oriented x 3 Skin: normal color, warm/dry, no rash Lymphatic: no adenopathy Laboratory Results Last 24 Hours Test 04/15/17 05:38 White Blood Count 12.51 K/uL Red Blood Count 3.94 M/uL Hemoglobin 12.2 g/dL Hematocrit 35.2 % Mean Corpuscular Volume 89.3 fL Mean Corpuscular Hemoglobin 31.0 pg Mean Corpuscular Hemoglobin Concent 34.7 g/dl Platelet Count 265 K/uL Mean Platelet Volume 8.7 fL Neutrophils (%) (Auto) 59.9 % Lymphocytes (%) (Auto) 29.5 % Monocytes (%) (Auto) 9.2 % Eosinophils (%) (Auto) 0.7 % Basophils (%) (Auto) 0.3 % Neutrophils # (Auto) 7.49 K/uL Lymphocytes # (Auto) 3.69 K/uL Monocytes # (Auto) 1.15 K/uL Eosinophils # (Auto) 0.09 K/uL Basophils # (Auto) 0.04 K/uL RDW Standard Deviation 46.1 fL RDW Coefficient of Variation 14.0 % Immature Granulocyte % (Auto) 0.4 % Immature Granulocyte # (Auto) 0.05 K/uL Sodium Level 138 mmol/L Potassium Level 3.7 mmol/L Chloride Level 108 mmol/L Carbon Dioxide Level 24 mmol/L Anion Gap 6.0 mmol/L Blood Urea Nitrogen 15 mg/dl Creatinine 0.89 mg/dl Est Creatinine Clear Calc Drug Dose 55.8 ml/min Estimated GFR () 77.7 Estimated GFR (Non- 67.1 BUN/Creatinine Ratio 16.8 Random Glucose 130 mg/dl Calcium Level 7.9 mg/dl Magnesium Level 1.6 mg/dl Total Bilirubin 0.3 mg/dl Aspartate Amino Transf (AST/SGOT) 18 U/L Alanine Aminotransferase (ALT/SGPT) 16 U/L Alkaline Phosphatase 66 U/L Total Protein 5.2 gm/dl Albumin 2.4 gm/dl Globulin 2.8 gm/dl Albumin/Globulin Ratio 0.8 Assessment and Plan 66 years old female have severe arthritis admitted for elective Right Reversed Total Shoulder Arthroplasty, Hospitalist was consulted for medical co management. severe osteoarthritis that failed outpatient conservative measures. Patient presented to the hospital for an elective orthopedic procedure s/p Right Reversed Total Shoulder Arthroplasty, postop day 1, his postop care and PT OT and DVT prophylaxis and physical therapy and discharge plan will be per primary team hx of COPD still smoking: Counseled to quit smoking for help, patient declined, continue home medication Hx of blood clots more than 20 years ago, no issues for now, not on any blood thinner, I told patient that smoking will increase the risk of blood clot, I also asked nurse to clarify with his primary team to discuss about options of DVT prophylaxis, I recs to use heparin or Lovenox History of multiple lung nodules, I advised her to follow-up with PCP Continued [facility] stay due to: home environment unsafe for pt Discharge planning: home
[2017-04-15] MEDS: EZETIMIBE/SIMVASTATIN 10/20 TAB PO SCH (22:03)
[2017-04-15 23:25] VITALS: BP 113/71; PULSE 90; TEMP 36.8; O2SAT 90
[2017-04-16] MEDS: TRAMADOL HCL 50 MG TAB PO PRN ×3 (00:35→10:34)
[2017-04-16] MEDS: ACETAMINOPHEN 500 MG TAB PO SCH (05:03)
[2017-04-16 06:58] LABS: HEMATOCRIT 35.7 % (37-47); HEMOGLOBIN 12.1 g/dL (12.0-16.0); MEAN CELL VOLUME 90.8 fL (80-100); MEAN CORPUSCULAR HEMOGLOBIN 30.8 pg (25-34); MEAN CORPUSCULAR HGB CONC 33.9 g/dl (32-36); MEAN PLATELET VOLUME 9.3 fL (7.4-10.4); PLATELET COUNT 284 K/uL (130-400); RED CELL DISTRIBUTION WIDTH CV 14.2 % (11.5-14.5); RED CELL DISTRIBUTION WIDTH SD 46.8 fL (36.4-46.3); WHITE BLOOD COUNT 13.34 K/uL (4.8-10.8)
[2017-04-16 07:31] LABS: CREATININE 0.81 mg/dl (0.60-1.20); POTASSIUM 3.6 mmol/L (3.5-5.1)
[2017-04-16 07:46] VITALS: O2SAT 91
[2017-04-16 07:51] VITALS: BP 120/70; PULSE 84; TEMP 36.8; O2SAT 91
--- NOTE | 2017-04-16 08:03 | Orthopedic Progress Note ---
Orthopedic Progress Note Date of Service Apr 16, 2017. Subjective Post OP Day: 2 Reports: feeling well, pain controlled w PO medications, Denies: complaints, chest pain, SOB, nausea / vomiting, light headedness, calf pain Objective calves soft nontender, N/V intact, capillary refill less than 2 sec., incision C /D/I, A&O x3 Sling in tact, fingers mobile. Date Time Temp Pulse Resp B/P (MAP) Pulse Ox O2 Delivery O2 Flow Rate FiO2 04/16/17 07:51 36.8 84 16 120/70 (87) 91 Room Air 04/16/17 07:46 91 04/16/17 00:28 Room Air 04/15/17 23:25 36.8 90 16 113/71 (85) 90 Room Air 04/15/17 16:00 Room Air 04/15/17 15:43 37.2 101 16 123/76 (92) 91 Room Air 04/15/17 11:00 36.4 84 16 113/72 (86) 94 Room Air Laboratory Results 24 Hours: Test 04/16/17 05:58 Hematocrit 35.7 % Hemoglobin 12.1 g/dL Assessment & Plan Assessment: POD #2, Right reversed TSA Plan: Limited PT/ OT as ordered DVT proph- ASA D/C planning- Home today As per medicine Inhouse Planning Pain Management: Morphine, PO Tylenol, Oxy IR DVT Prophylaxis: SCDs, ASA Discharge Planning Discharge Planning: home Pain Management: Ultram, PO Tylenol, Oxy IR DVT Prophylaxis: ASA
[2017-04-16] MEDS ORDERED: ASPEC325 PO (08:05)
[2017-04-16] MEDS ORDERED: ULT50X PO (08:05)
[2017-04-16] MEDS ORDERED: ACET-24 PO (08:05)
--- NOTE | 2017-04-16 08:06 | Discharge Instructions ---
Discharge Instructions Date of Service Apr 16, 2017. Admission Reason for Admission: Right Shoulder Degenerative Joint Disease Discharge Discharge Diagnosis / Problem: Right Reversed TSA Discharge Goals Goal(s): Improve function Activity Recommendations Activity Limitations: as noted below . Instructions / Follow-Up Instructions / Follow-Up ACTIVITY RECOMMENDATIONS: SELF CARE INSTRUCTIONS AFTER TOTAL SHOULDER ARTHROPLASTY REVERSE A. You may do daily exercises as taught in physical therapy while in hospital. No lifting with the operative arm. B. You are to wear your sling/immobilizer at all times EXCEPT when performing your daily exercises and for hygiene purposes. C. You may perform dry, daily dressing changes. Please keep your incision covered. You may shower 48 hours after surgery. Do not apply soap or any ointment/ lotions directly over incision. Do not soak incision in bath tub/swimming pool. D. You may use ice as needed to operative shoulder. SPECIAL CARE INSTRUCTIONS: VERY IMPORTANT TO READ AND REVIEW A. There are a few signs you need to watch for after you are home. Call [facility] at [phone] if you experience any of the followin. Increased severe shoulder pain. Some pain is expected especially when you exercise. 2. Increased swelling in you shoulder or arm; pain or swelling in either upper extremity. 3. Any fluid drainage from the incision. 4. Shortness of breath or chest pain. B. Please call [facility] at [phone] if you have any questions or concerns about your operation or recovery. C. Call your physician if: 1. Temperature is greater than 101 degrees (F). 2. Pain is not relieved by prescribed pain medications. 3. Increase drainage or redness from incision. 4. Unanswered questions or concerns. FOLLOW UP VISIT: Please call [facility] at [phone] to schedule a follow up appointment with Dr. Farah or his PA in 12-14 days from your surgery date. Current Hospital Diet Patient's current hospital diet: Regular Diet Discharge Diet Recommended Diet: Regular Diet Procedures Procedures Performed: Right Reversed Total Shoulder Arthroplasty Pending Studies Studies pending at discharge: no Laboratory Results Hemoglobin A1c Test 03/26/17 12:28 Range/Units Estimated Average Glucose 120 mg/dl Hemoglobin A1c 5.8 H 4.5-5.6 % Lipid Panel Test 03/22/17 10:35 Range/Units Triglycerides Level 68 0-150 mg/dl Cholesterol Level 177 0-200 mg/dl HDL Cholesterol 38 mg/dl Cholesterol/HDL Ratio 4.7 LDL Cholesterol, Calculated 125 mg/dl Medical Emergencies . Who to Call and When: Medical Emergencies: If at any time you feel your situation is an emergency, please call 911 immediately. . Non-Emergent Contact Non-Emergency issues call your: Primary Care Provider . "Provider Documentation" section prepared by Jabari Avila. . VTE Core Measure Inpt VTE Proph given/why not?: Other Anticoagulation (asa), T.E.D. Stockings, SCD's [place] Drug Monitoring Program Search Results: patient reviewed within database, no issues identified
[2017-04-16] MEDS: ASPIRIN 325 MG ECTAB PO SCH (08:46)
[2017-04-16] MEDS: PANTOprazole SOD 40 MG TAB PO SCH (08:47)
[2017-04-16] MEDS: MULTIVITAMIN TAB PO SCH (08:47)
[2017-04-16] MEDS: ALBUTEROL HFA 8 GM INHALER INH PRN (08:47)
[2017-04-16] MEDS: FLUTICASONE/SALMETEROL 100/50 (ADVAIR) 14 PUFF/1 INHALER INH SCH (08:47)
[2017-04-16 09:57] VITALS: BP 120/70; PULSE 84; TEMP 36.8; O2SAT 91
--- NOTE | 2017-04-16 15:27 | Progress Note ---
Subjective Date of Service: Apr 16, 2017. Subjective Pt evaluation today including: conversation w/ patient, physical exam, chart review, lab review, review of studies, conversation w/ peoplesoft consultant, review of inpatient medication list Continue doing well, no complaints, pain well controlled, denies fever and chills Review of Systems Constitutional: No fever, No chills, No sweats, No weight loss, No weakness, No fatigue, No problem reported Eyes: No worsening of vision, No eye pain, No redness, No discharge, No diplopia ENT: No hearing loss, No unusual epistaxis, No nasal symptoms, No sore throat, No tinnitus, No dental problems, No trouble swallowing Respiratory: No cough, No sputum, No wheezing, No shortness of breath, No dyspnea on exertion, No dyspnea at rest, No hemoptysis Cardiac: No chest pain, No orthopnea, No PND, No edema, No claudication, No palpitations Abdomen: No pain, No nausea, No vomiting, No diarrhea, No constipation Musculoskeletal: + joint pain, No muscle pain, No swelling, No calf pain Female : No dysuria, No urinary frequency, No hematuria, No incontinence, No abnormal vaginal bleeding, No vaginal discharge Neurologic: No memory loss, No paralysis, No weakness, No numbness/tingling, No vertigo, No balance problems Psychiatric: No depression symptoms, No anhedonism, No anxiety, No insomnia, No substance abuse Heme: No abnormal bleeding/bruising, No clotting problems, No swollen lymph nodes, No night sweats Endo: No fatigue, No excessive thirst, No excessive urination Skin: No rash, No itch, No new/changing skin lesions, No color change, No bleeding Objective Vital Signs Date Time Temp Pulse Resp B/P (MAP) Pulse Ox O2 Delivery O2 Flow Rate FiO2 04/16/17 09:57 36.8 84 16 91 Room Air 04/16/17 07:51 36.8 84 16 120/70 (87) 91 Room Air 04/16/17 07:46 91 04/16/17 07:30 Room Air 04/16/17 00:28 Room Air 04/15/17 23:25 36.8 90 16 113/71 (85) 90 Room Air 04/15/17 16:00 Room Air 04/15/17 15:43 37.2 101 16 123/76 (92) 91 Room Air Physical Exam General Appearance: WD/WN, no apparent distress Eyes: normal inspection, PERRL, EOMI, sclerae normal ENT: normal ENT inspection, hearing grossly normal, pharynx normal Neck: supple, no adenopathy, thyroid normal, no JVD, no carotid bruits, trachea midline Respiratory/Chest: chest non-tender, lungs clear, normal breath sounds, no respiratory distress, no accessory muscle use Cardiovascular: regular rate, rhythm, no edema, no gallop, no JVD, no murmur Abdomen: normal bowel sounds, non tender, soft, no organomegaly, no pulsatile mass Extremities: normal capillary refill, pelvis stable, + pertinent finding ( Right shoulder in sling, bilateral upper extremities ,pulse 2+. color is normal , capillary refill is normal) Neurologic/Psychiatric: science instructor II-XII nml as tested, no motor/sensory deficits, alert, normal mood/affect, oriented x 3 Skin: normal color, warm/dry, no rash Lymphatic: no adenopathy Laboratory Results Last 24 Hours Test 04/16/17 05:58 White Blood Count 13.34 K/uL Red Blood Count 3.93 M/uL Hemoglobin 12.1 g/dL Hematocrit 35.7 % Mean Corpuscular Volume 90.8 fL Mean Corpuscular Hemoglobin 30.8 pg Mean Corpuscular Hemoglobin Concent 33.9 g/dl RDW Standard Deviation 46.8 fL RDW Coefficient of Variation 14.2 % Platelet Count 284 K/uL Mean Platelet Volume 9.3 fL Sodium Level 137 mmol/L Potassium Level 3.6 mmol/L Chloride Level 106 mmol/L Carbon Dioxide Level 23 mmol/L Anion Gap 8.0 mmol/L Blood Urea Nitrogen 14 mg/dl Creatinine 0.81 mg/dl Est Creatinine Clear Calc Drug Dose 61.3 ml/min Estimated GFR () 87.1 Estimated GFR (Non- 75.2 BUN/Creatinine Ratio 17.6 Random Glucose 102 mg/dl Calcium Level 8.0 mg/dl Assessment and Plan 66 years old female have severe arthritis admitted for elective Right Reversed Total Shoulder Arthroplasty, Hospitalist was consulted for medical co management. severe osteoarthritis that failed outpatient conservative measures. Patient presented to the hospital for an elective orthopedic procedure s/p Right Reversed Total Shoulder Arthroplasty, postop day 2, his postop care and PT OT and DVT prophylaxis and physical therapy and discharge plan will be per primary team hx of COPD still smoking: I think because counseled to quit smoking for help, patient declined, continue home medication Hx of blood clots more than 20 years ago, no issues for now, not on any blood thinner, I told patient that smoking will increase the risk of blood clot, History of multiple lung nodules, I advised her to follow-up with PCP Continued [facility] stay due to: home environment unsafe for pt Discharge planning: home
== END 2017-04-16 11:03 | disposition home or self-care (01) | DRG 483 ==
LOC: C.ACU 07:30 → C.3E 13:43 → ENRESERV 13:57
PROVIDERS: ADMIT Orthopaedic Surgery Sports Medicine; ATTEND Orthopaedic Surgery Sports Medicine
PROC: 0RRJ00Z Replacement of Right Shoulder Joint with Reverse Ball and Socket Synthetic Substitute, Open Approach (ICD-10-PCS; principal; 2017-04-14 09:30)
DX: M19.011 Primary osteoarthritis, right shoulder (principal); M75.101 Unspecified rotator cuff tear or rupture of right shoulder, not specified as traumatic; J44.9 Chronic obstructive pulmonary disease, unspecified; K44.9 Diaphragmatic hernia without obstruction or gangrene; M48.9 Spondylopathy, unspecified; I49.9 Cardiac arrhythmia, unspecified; F17.200 Nicotine dependence, unspecified, uncomplicated; Z98.890 Other specified postprocedural states; Z96.612 Presence of left artificial shoulder joint; Z86.2 Personal history of diseases of the blood and blood-forming organs and certain disorders involving the immune mechanism; Z79.899 Other long term (current) drug therapy; Z91.013 Allergy to seafood

== ENCOUNTER → 2017-06-22 | Outpatient (CLI) | payer OTHER, BC ==
[~2017-06-22] MED LIST changes: +ACET-24 PO; -ACETAMINOPHEN 500 MG TAB PO SCH; +ASPEC325 PO; -CEFAZOLIN 2000MG IV PUSH 15 ML IV SCH; -CeleBREX 200 MG CAP PO SCH; -DEXAMETHASONE 4 MG TAB PO SCH; -FAMOTIDINE 20 MG TAB PO SCH; -GABAPENTIN 300 MG CAP PO SCH; -LACTATED RINGER'S 1000ML 1,000 ML IV SCH; -METOCLOPRAMIDE HCL 10 MG TAB PO SCH; -NAPR-1169 PO; -ROPIVACAINE 0.5% 5 MG/ML 30 ML VIAL ONE; +ULT50X PO
--- NOTE | 2017-06-22 10:47 | DIAGNOSTIC IMAGING REPORT ---
(CHEST) THORAX WITHOUT CLINICAL HISTORY: 66 years-old Female presenting with R91.8 Lung nodule, multiple. TECHNIQUE: Multidetector CT imaging of the chest was performed without the use of intravenous contrast. IV contrast: None. A dose lowering technique was used consistent with the principles of ALARA (as low as reasonably achievable). COMPARISON: 07/09/2016. CT DOSE (mGy.cm): The estimated cumulative dose is 627.21 mGycm. FINDINGS: Machine Preservative Filler topogram: Bilateral shoulder arthroplasty. On soft tissue windows, normal thyroid and thoracic inlet. Redemonstration of the round left breast mass, which now measures 16 mm in diameter, previously 14 mm when remeasured at a comparable level. No axillary, supraclavicular, or mediastinal lymphadenopathy. Evaluation of the srinivasan limited without intravenous contrast. Normal aorta. The ascending aorta measures 3.5 cm in diameter, unchanged. Normal heart size. Coronary artery calcification. No pericardial or pleural effusion. Upper abdomen normal. On lung windows, trace apical predominant emphysema. Multiple vague centrilobular groundglass nodules at the apices. Mild mosaic attenuation could suggest small airways disease. Solid fissural 7 mm polygonal nodule in the right middle lobe (series 5 image 186), unchanged. Solid fissural 6 mm polygonal nodule in the left lower lobe (series 5 image 162), unchanged. No new pulmonary nodule or infiltrate. Minimal dependent groundglass opacity in a subpleural distribution with reticulation in the right lower lobe is unchanged and may relate to atelectasis or postinfectious/postinflammatory change. Debris noted in the lower trachea and bilateral mainstem bronchi with mild bronchial wall thickening. On bone windows, degenerative changes of the spine. Bilateral shoulder arthroplasties evident. IMPRESSION: 1. Emphysema with vague biapical groundglass centrilobular nodules most consistent with respiratory bronchiolitis in the setting of smoking related lung injury. 2. Bilateral solid pulmonary nodules measuring up to 7 mm are unchanged from prior. These have a distribution and appearance that favors a benign etiology such as unencapsulated pulmonary lymphoid tissue. No new pulmonary nodule. 3. Debris in the lower trachea and bilateral mainstem bronchi raises concern for aspiration. 4. Round left breast mass is stable to minimally increased in size from prior measuring 16 mm. In comparison to prior ultrasound from 2015, this is unchanged in size. Correlate with dedicated mammographic evaluation. Electronically signed by: Car Arguelles M.D. 06/22/2017 10:46 AM Dictated Date/Time: 06/22/2017 10:36 AM
== END | disposition home or self-care (01) ==
LOC: C.CTS 10:05
PROVIDERS: ATTEND Internal Medicine Pulmonary Disease
DX: R91.8 Other nonspecific abnormal finding of lung field (principal); J43.9 Emphysema, unspecified

== ENCOUNTER → 2017-10-07 | Outpatient (CLI) | payer OTHER, BC | END | disposition home or self-care (01) | LOC: C.CCL 11:38 | PROVIDERS: ATTEND Internal Medicine Hematology & Oncology | DX: D68.318 Other hemorrhagic disorder due to intrinsic circulating anticoagulants, antibodies, or inhibitors (principal) ==

== ENCOUNTER 2019-01-22 13:03 | Inpatient (IN) ==
[2019-01-22] MEDS ORDERED: SODIUM CHLORIDE 0.9% 1000ML 1,000 ML IV SCH (13:45)
[2019-01-22 14:39] LABS: Basophils # (auto) 0.03 K/uL (0-0.2); Basophils % (auto) 0.3 %; Eosinophils # (auto) 0.12 K/uL (0-0.5); Hematocrit (blood only) 32.4 % (37-47); Hemoglobin 10.6 g/dL (12.0-16.0); Immature Granulocytes # (auto) 0.05 K/uL (0.00-0.02); Immature Granulocytes % (auto) 0.4 %; Lymphocytes # (auto) 2.27 K/uL (1.2-3.4); Lymphocytes % (auto) 19.3 %; Mean Corpuscular Hemoglobin 26.5 pg (25-34); Mean Corpuscular Hgb Conc 32.7 g/dL (32-36); Mean Platelet Volume 8.4 fL (7.4-10.4); Monocytes # (auto) 1.23 K/uL (0.11-0.59); Monocytes % (auto) 10.5 %; Neutrophils # (auto) 8.07 K/uL (1.4-6.5); Neutrophils % (auto) 68.5 %; Platelet Count 694 K/uL (130-400); RDW Coefficient of Variation 19.2 % (11.5-14.5); RDW Standard Deviation 56.6 fL (36.4-46.3); White Blood Count 11.77 K/uL (4.8-10.8)
[2019-01-22] MEDS ORDERED: LIDOCAINE 2% JELLY 5 ML TUBE EXT ONE ×2 (14:40→17:36)
[2019-01-22 14:45] LABS: Appearance Urine Cloudy (Clear); Bacteria Urine Automated Negative (Negative); Bilirubin Urine Negative (Negative); Blood Urine Negative (Negative); Color Urine Dark Yellow; Epithelial Cell Urine Auto >30 /lpf (0-5); Glucose Urine UA Negative (Negative); Ketones Urine 1+ (Negative); Leukocyte Esterase Urine 1+ (Negative); Nitrite Urine Negative (Negative); Protein Urine 1+ (Negative); Specific Gravity Urine 1.026 (1.000-1.030); Urobilinogen Urine Negative (Negative); WBC Urine Automated >30 /hpf (0-5); pH Urine 5.5 (4.5-7.5)
[2019-01-22 14:56] LABS: Amorphous Sediment Urine Present (None Prsent); BUN Creatinine Ratio 35.3 (10-20); Calcium 8.7 mg/dl (8.5-10.1); Calcium Oxalate Crystals Urine Present (None Prsent); Creatinine Clr Calc Pharmacy 50.5 ml/min; Est GFR (African American) 78.8; Magnesium 1.5 mg/dl (1.8-2.4); Potassium 5.1 mmol/L (3.5-5.1); RBC Urine Automated 0-4 /hpf (0-4)
[2019-01-22 14:59] LABS: Albumin Globulin Ratio 0.4 (0.9-2); Bilirubin,Total 0.2 mg/dl (0.2-1); Globulin 4.9 gm/dl (2.5-4.0); Total Protein 6.9 gm/dl (6.4-8.2)
[2019-01-22] MEDS ORDERED: NYSTATIN SUSP 500,000 U/5 ML UDC PO STA (16:04)
[2019-01-22] MEDS ORDERED: FLUCONAZOLE 50 MG TAB PO ONE (16:04)
[2019-01-22] MEDS ORDERED: ONDANSETRON HOME PACK 4MG OD TAB PO ONE (17:36)
[2019-01-22] MEDS ORDERED: MICONAZOLE NITRATE 2% VAG CR 45 GM TUBE PV STA (17:38)
[2019-01-22] MEDS ORDERED: SODIUM CHLORIDE 0.9% 1000ML 500 ML IV ONE (18:22)
[2019-01-22] MEDS ORDERED: SODIUM CHLORIDE 0.9% 1000ML 1,000 ML IV STA (18:22)
--- NOTE | 2019-01-22 19:36 | History & Physical Report ---
Date of Service January 22, 2019 Assessment & Plan (1) C. difficile diarrhea: With profuse diarrhea x2 weeks in the setting of copious amounts of antibiotics over the last several months for spinal osteomyelitis and UTI C. difficile gene is positive, however C. difficile toxin was negative on 01/17 Was prescribed outpatient p.o. vancomycin and took the first dose on the evening of 01/20-no improvement so far Stool culture negative from 01/17 Despite negative toxin, will treat for active C. difficile diarrhea No signs of renal failure or severe sepsis With right upper quadrant pain, will obtain CT abdomen/pelvis -Admit to medical floor with telemetry on observation -Continue vancomycin 125 mg p.o. 4 times daily and if not improving, either increase the dose or convert to Dificid -Start cholestyramine powder 4 g p.o. twice daily -Hydrate with IV fluids aggressively (2) Sinus tachycardia: Resting heart rate in the 120s and rates To the 130s with minimal exertion Secondary to dehydration, hypovolemia from copious diarrhea -Continue normal saline at 125 mL's per hour -Follow on telemetry (3) Oral thrush: Severe, secondary to recent long-term antibiotic use as well as the use of inhaled corticosteroids -Start nystatin swish and swallow as well as systemic Diflucan 100 mg IV daily (4) Acute vulvovaginitis: Significant case along with ulcerations of the labia, there may also be a component of irritant dermatitis from profound diarrhea -Start clotrimazole suppositories PV nightly x7 days -Diflucan as above -Barrier cream and lidocaine cream as needed (5) Dehydration: Secondary to profound diarrhea, sinus tachycardia -IV fluids (6) Abdominal pain, RUQ: Constant x2 weeks, LFTs are normal -Given profound diarrhea, check CT abdomen/pelvis with IV contrast (7) Hypomagnesemia: Magnesium low at 1.5 on admission secondary to GI losses -Replace with IV magnesium sulfate 2 g -Follow magnesium level in the morning (8) Nausea: Possibly secondary to ileus from C. difficile colitis -Checking CT abdomen/pelvis Seems to be improved now -Zofran as needed Will order regular diet for now (9) Shoulder swelling: With complaint of fever, right shoulder erythema and swelling 2 weeks ago which is now improved, however now with frozen shoulder Has recent history of osteomyelitis on antibiotics and with shoulder arthroplasty present, concerning for possible infection -Check x-ray of the right shoulder -Consult her orthopedic surgeon for further evaluation (10) Chronic obstructive pulmonary disease: Stable, no acute issues -Continue albuterol nebulizer as needed -Continue Advair -Okay to hold Spiriva while here (11) Chronic reflux esophagitis: Continue PPI (12) Depression, controlled: -Continue bupropion (13) Hyperlipidemia: Continue statin (14) Impaired fasting glucose: Check hemoglobin A1c (15) Nicotine dependence: Counseled on cessation -Nicotine patch as needed (16) Osteomyelitis: With recent lumbar sacral osteomyelitis with surrounding abscesses, treated at [facility] with IV antibiotics transition to p.o. antibiotics to complete at the end of November Back pain is much improved (17) Thrombocytosis: Thrombocytosis with platelets in the 600-700s recently, along with anemia and infection Could be reactive thrombocytosis for anemia and infection -Follow CBC -Treating C. difficile infection -Work-up for anemia as below -Concern for inflammatory or other infectious process other than C. difficile especially in the setting of recent osteomyelitis and history of recent right shoulder pain and swelling with prosthesis in place -Check ESR, CRP, blood cultures (18) Anemia: Hemoglobin has trended down recently into the tens, is microcytic with an MCV of 81 With elevated RDW -Check fecal occult blood, iron studies in the morning -Follow CBC (19) Leukocytosis: WBC count 11 Secondary to infectious diarrhea as above but could also be other infection going on as noted above -Follow CBC -Checking inflammatory markers and blood cultures (20) DVT prophylaxis: Lovenox SQ, SCDs Disposition-admit to medical floor with telemetry History of Present Illness Chief Complaint: Weakness, diarrhea Primary Care Provider: TYLER Gabriel This patient is a 68-year-old female with a history of recent lumbar spine osteomyelitis on long-term IV antibiotics, recent UTI on antibiotics, osteoarthritis, GERD, current smoker with COPD, depression, hyperlipidemia, who presents to the ER with generalized weakness, severe oral pain, severe vulvar irritation, and profuse diarrhea for 2 weeks. She finished her course of IV antibiotics and p.o. antibiotics for her osteomyelitis at the end of November. She was then treated for UTI in December again with antibiotics and completed that course about 3 weeks ago. She started having diarrhea sometimes up to 20 times a day for the last 2 weeks. It is nonbloody, no melena, watery and brown in nature. She is tried taking Imodium which helps temporarily and then when she stops taking it comes right back. She also developed nausea and some vomiting in the last few days and has barely been able to eat any food or drink fluids. The vomit is mostly mucousy. She denies fever/sweats/chills, has had some constant right upper quadrant pain also for the last 2 weeks that is relieved by nothing and exacerbated by nothing. She was seen by her PCP 5 days ago and subsequently submitted a stool sample that came back positive for the C. difficile gene but negative for the C. difficile toxin, and a stool culture which was negative. She was called in a prescription for oral vancomycin which she started about a day and a half ago. She is seen no relief and became generally weak today. In the ER, she was treated with IV fluids, p.o. Diflucan, 1 dose of nystatin swish and swallow, but was noted to have significant sinus tachycardia in the 120s to 130s. She denied chest pain or shortness of breath. She will be admitted for observation overnight for significant dehydration, hypomagnesemia, and C. difficile colitis. Allergies Allergy/AdvReac Type Severity Reaction Status Date / Time shellfish derived Allergy Mild itchy and Verified 01/22/19 14:08 swelling of tongue and throat Home Medications Home Medications Medication Instructions Recorded Confirmed Type acetaminophen 500 mg tablet 1,000 mg PO Q6H PRN tab 09/29/18 01/22/19 History multivitamin 1 tab PO QAM 09/29/18 01/22/19 History omega-3 fatty acids 1,000 mg 1,000 mg PO HS 09/29/18 01/22/19 History capsule omeprazole 20 mg PO QAM 10/01/18 01/22/19 History cyclobenzaprine 10 mg tablet 10 mg PO BID PRN #30 tab 10/07/18 01/22/19 Rx albuterol sulfate 2.5 mg/3 mL 2.5 mg INHALATION Q4H PRN #1 ml 10/14/18 01/22/19 History (0.083 %) solution for nebulization bupropion HCl 150 mg 24 hr tablet, 150 mg PO QAM #30 tab 10/14/18 01/22/19 History extended release fluticasone 100 mcg-salmeterol 50 1 puff INHALATION BID 10/14/18 01/22/19 History mcg/dose blistr powdr for inhalation naproxen 500 mg tablet 500 mg PO BID PRN #60 tab 11/24/18 01/22/19 Rx docusate sodium 100 mg capsule 100 mg PO HS PRN 01/17/19 01/22/19 History furosemide 40 mg tablet 40 mg PO DAILY PRN #30 tab 01/17/19 01/22/19 Rx potassium chloride 10 mEq 10 meq PO DAILY #30 cap 01/17/19 01/22/19 Rx capsule,extended release tiotropium bromide 2.5 2 puffs INHALATION DAILY PRN gm 01/17/19 01/22/19 History mcg/actuation mist for inhalation hydrocortisone 2.5 % topical cream 1 appln TOP TID #30 gm 01/19/19 01/22/19 Rx vancomycin 125 mg capsule 125 mg PO QID 10 Days #40 cap 01/19/19 01/22/19 Rx albuterol sulfate [Ventolin HFA] 2 puff INHALATION .Q4-6H PRN 01/22/19 01/22/19 History atorvastatin 20 mg PO HS 01/22/19 01/22/19 History miconazole nitrate [Monistat 7] 1 pkt VAGINAL ONCE HS 7 Days #6 pkt 01/22/19 Rx nystatin 5 ml PO QID 7 Days #140 ml 01/22/19 Rx ondansetron 4 mg PO Q6H PRN #7 tab 01/22/19 Rx Past Med/Surg History Medical History (Updated 01/22/19 @ 20:17 by Katarina Ross MD) Abdominal pain, RUQ (Acute) Back pain (Chronic) Bilateral calf pain (Resolved) Chronic obstructive pulmonary disease (Chronic) Chronic reflux esophagitis (Chronic) Depression, controlled (Chronic) Diarrhea (Acute) DJD of left shoulder (Chronic) Elevated blood pressure reading in office with diagnosis of hypertension (Acute) Hyperlipidemia (Chronic) Impaired fasting glucose (Chronic) Lung nodule, multiple (Chronic) Nausea (Acute) Nicotine dependence (Chronic) Osteomyelitis (Acute) Peripheral edema (Acute) Poor appetite (Acute) Pulmonary emphysema (Chronic) Scoliosis (Chronic) Swelling of lower leg (Resolved) Weight loss (Acute) Surgical History H/O foot surgery H/O shoulder surgery Bilateral total shoulder arthroplasties H/O varicose vein ligation History of carpal tunnel release of both wrists History of tonsillectomy Family History Father Atrial fibrillation Mother Coronary heart disease Breast cancer Uncle Colorectal cancer Myocardial infarction Aunt Breast cancer Myocardial infarction Grandfather (Maternal) No problems noted. Grandmother (Maternal) Myocardial infarction Social History marital status: Current Living Situation: Spouse and Family current occupational status: retired Feels Safe at Home: Yes Smoking Status: Current every day smoker Tobacco Type: cigarettes ; packs per day: 1 ; Years Smoked: 35 ; Hx Alcohol Use: No Hx Substance Use: No Dental Care, Regularly: No Seatbelt Use: always Sunscreen Use: Yes Review of Systems Review of Systems: All systems reviewed & are unremarkable except as noted in HPI & below Patient reports she had a fever and right shoulder pain, swelling, and redness about 2 weeks ago. The swelling and redness went away, however since then, she has had a frozen shoulder is not able to lift her arm nearly as high as she previously did. Has bilateral shoulder arthroplasties. No urinary symptoms except burning of the vulva with urination, denies urinary urgency or frequency Denies chest pain or shortness of breath Denies upper respiratory symptoms Denies visual changes or headache, no lightheadedness Physical Exam Constitutional: + thin and cooperative; no acute distress Eyes: + anicteric sclerae ENMT: Ears: no hearing impairment Mouth: + oral mucosal abnormality (Sign ificant erythema in oral mucosa, tongue, posterior oropharynx with thick white exudate on the tongue and buccal mucosa, cracks on the inner lower lip) Neck: trachea midline, no thyromegaly Respiratory: normal respiratory effort, lungs clear to auscultation Cardiovascular: Rate/Rhythm: regular rhythm and + tachycardic Heart Sounds: no murmur Vessels: dorsalis pedis pulses present; no abdominal aortic bruit Extremities: + edema (Trace pitting edema of the left ankle) Chest (Breasts): Chest: normal inspection of chest Gastrointestinal (Abdomen): Inspection/Auscultation: abdomen normal to inspection and normal bowel sounds Percussion/Palpation: + abdomen tender (In the right upper quadrant without guarding or rebound, negative Horn sign) and abdomen soft; no hepatosplenomegaly, no hernia, no abdominal mass and no ascites Musculoskeletal: Extremities: no cyanosis and no clubbing Shoulder: + shoulder abnormal to inspection (Surgical scar anteriorly) and + limited ROM (Forward flexion 0 to 80 degrees); no effusion, no skin erythema, no ecchymosis and no joint line tenderness Skin: no rashes, warm and dry Neurologic: moves all extremities and awake; no focal motor deficits Psychiatric: A+Ox3, euthymic affect Genitourinary: + abnormal external appearance (Significant erythema of the bilateral labia with multiple ulcerations, small amount of white exudate at the introitus) Lymphatic: no lymphedema Results & Data Vital Signs (Past 12 Hours) Vital Signs Temp Pulse Pulse Resp BP BP Pulse Ox 01/22/19 18:14 125 H 20 104/76 99 01/22/19 18:01 125 H 20 104/76 99 01/22/19 16:45 18 130/76 99 01/22/19 15:17 116 H 18 127/77 98 01/22/19 14:14 115 H 20 116/78 99 01/22/19 14:12 94 01/22/19 13:13 37 C 120 H 20 124/75 97 Laboratory Results 01/22/19 01/22/19 01/22/19 Range/Units 14:23 14:23 14:23 WBC 11.77 H (4.8-10.8) K/uL RBC 4.00 L (4.2-5.4) M/uL Hgb 10.6 L (12.0-16.0) g/dL Hct 32.4 L (37-47) % MCV 81.0 (80-100) fL MCH 26.5 (25-34) pg MCHC 32.7 (32-36) g/dL RDW Std Deviation 56.6 H (36.4-46.3) fL RDW Coeff of Mandeep 19.2 H (11.5-14.5) % Plt Count 694 H (130-400) K/uL MPV 8.4 (7.4-10.4) fL Immature Gran % (Auto) 0.4 % Neut % (Auto) 68.5 % Lymph % (Auto) 19.3 % Patrick % (Auto) 10.5 % Eos % (Auto) 1.0 % Baso % (Auto) 0.3 % Immature Gran # (Auto) 0.05 H (0.00-0.02) K/uL Neut # (Auto) 8.07 H (1.4-6.5) K/uL Lymph # (Auto) 2.27 (1.2-3.4) K/uL Patrick # (Auto) 1.23 H (0.11-0.59) K/uL Eos # (Auto) 0.12 (0-0.5) K/uL Baso # (Auto) 0.03 (0-0.2) K/uL Sodium 138 (136-145) mmol/L Potassium 5.1 (3.5-5.1) mmol/L Chloride 107 (98-107) mmol/L Carbon Dioxide 24 (21-32) mmol/L Anion Gap 7.0 (3-11) BUN 31 H (7-18) mg/dl Creatinine 0.87 (0.6-1.2) mg/dl Est Cr Clr Drug Dosing 50.5 ml/min Est GFR ( Amer) 78.8 Est GFR (Non-Af Amer) 68.0 BUN/Creatinine Ratio 35.3 H (10-20) Glucose 98 (70-99) mg/dl Calcium 8.7 (8.5-10.1) mg/dl Magnesium 1.5 L (1.8-2.4) mg/dl Total Bilirubin 0.2 (0.2-1) mg/dl AST 16 (15-37) U/L ALT 19 (12-78) U/L Alkaline Phosphatase 95 (45-117) U/L Total Protein 6.9 (6.4-8.2) gm/dl Albumin 2.0 L (3.4-5.0) gm/dl Globulin 4.9 H (2.5-4.0) gm/dl Albumin/Globulin Ratio 0.4 L (0.9-2) Urine Color Dark Yellow Urine Appearance Cloudy A (Clear) Urine pH 5.5 (4.5-7.5) Ur Specific [place] 1.026 (1.000-1.030) Urine Protein 1+ H (Negative) Urine Glucose (UA) Negative (Negative) Urine Ketones 1+ H (Negative) Urine Blood Negative (Negative) Urine Nitrite Negative (Negative) Urine Bilirubin Negative (Negative) Urine Urobilinogen Negative (Negative) Ur Leukocyte Esterase 1+ H (Negative) Urine WBC (Auto) >30 H (0-5) /hpf Urine RBC (Auto) 0-4 (0-4) /hpf U Hyaline Cast (Auto) 5-10 H (0-5) /lpf U Epithel Cells (Auto) >30 H (0-5) /lpf Urine Bacteria (Auto) Negative (Negative) Calcium Oxalate Crystal Present A (None Prsent) Amorphous Sediment Present A (None Prsent) Urine Yeast Not Reportable Code Status & VTE Plan VTE Prophylaxis Plan VTE Prophylaxis will be ordered: Yes PG Care Time/CCT Total # of Minutes Spent Total Time Spent with Patient: Total time spent is greater than 50% in coordi nation of care (as documented) at patient's floor/unit and/or counseling patient:
[2019-01-22] MEDS ORDERED: IOVERSOL 100ml IV PRN (20:04)
[2019-01-22 20:26] LABS: C Reactive Protein 9.71 mg/dl (0-0.29)
--- NOTE | 2019-01-22 20:26 | Emergency Department Note ---
Entered by Estephanie Jackson acting as a scribe for ED Provider Note CHIEF COMPLAINT: Diarrhea HISTORY OF PRESENT ILLNESS: The patient is a 68 year old female who presents to the Emergency Room with complaints of diarrhea that has been ongoing for 2 weeks. She states that she was diagnosed with C. diff earlier this week through [facility]. She was put on Vancomycin. She states that she has episodes of diarrhea 10-20 times a day. The patient complains of redness and pain in the affected area. She also complains of sore throat and dry heaving with clear, thick mucus. She reports loss of appetite and weakness. She notes a history of osteomyelitis and was given antibiotics. The patient had a UTI in December of this year. Pt denies LOC, headache, fevers, chills, diaphoresis, visual changes, neck pain, chest pain, breathing difficulties, nausea, abdominal pain, melena, hematochezia, numbness, weakness, lymphadenopathy, rash, or other complaints. REVIEW OF SYSTEMS: See HPI for pertinent positives and negatives. A total of ten systems were revi ewed and were otherwise negative. PMHx/PSHx: Osteomyelitis UTI SOCIAL HISTORY: Patient lives at home. PHYSICAL EXAM: GENERAL: Awake, alert, well-appearing, in no distress HENT: Oral thrush present. Normocephalic, atraumatic. Oropharynx unremarkable. EYES: PERRL. Normal conjunctiva. Sclera non-icteric. NECK: Inspection normal. Non-tender. Supple. No nuchal rigidity. FROM. No masses. RESPIRATORY: Clear to auscultation. No wheezes. No rales. Normal respiratory effort. CARDIAC: Tachycardic rate. Normal rhythm. No murmurs. No rubs. Extremities warm and well perfused. Pulses equal. No JVD. GI: Soft, non-distended. No tenderness to palpation. No rebound or guarding. No masses. RECTAL:Perianal skin irritation. : mild vulvar inflammation present. No signs of cellulitis. MUSCULOSKELETAL: Atraumatic. Chest examination reveals no tenderness. The back is symmetrical on inspection without obvious abnormality. There is no CVA tenderness to palpation. No joint edema. LOWER EXTREMITIES: Calves are equal size bilaterally and non-tender. No edema. No discoloration. NEURO: Normal sensorium. No sensory or motor deficits noted. SKIN: No rash or jaundice noted. EMERGENCY DEPARTMENT COURSE: 1326: Past medical records reviewed. The patient was evaluated in room B06, and a complete history and physical examination were performed. 1517: I rechecked on the patient and updated her on lab results. She feels well at this point of time. 1610: I rechecked on the patient, who states that she is feeling much better. The patient verbally expressed understanding and agreement of the treatment plan. The patient will be discharged. 1815: When the nurse went to discharge the patient, her heart rate was still very high. Upon reevaluation, the patient still looked weak with a heart rate of about 135. 1827: I spoke to Dr. Ross, [facility] hospitalist, who agreed to take over care of the patient. She will continue to monitor and rehydrate the patient. The patient verbally expressed understanding and agreement of the treatment plan. The patient will be evaluated for further treatment. MEDICAL DECISION MAKING: B6 Prior records/ancillary studies reviewed. Recent ER visits and culture result reviewed. Nursing notes reviewed and agree them. The patient's history was concerning for weakness, dehydration, and C. difficile infection. Differential diagnosis: Etiologies such as dehydration, metabolic, infection, hypo/hyperglycemia, electrolyte abnormalities, cardiac sources, intracerebral event, toxicologic, neurologic, as well as others were entertained. Physical examination: As above. The patient has a mild vulvovaginitis present. There is mild irritation perirectally but no evidence of abscess or cellulitis. The patient also has oral thrush. ER treatment provided: IV Lock IV saline Lidocaine jelly to the affected perineum Oral nystatin Oral Diflucan. On reassessment the patient felt better however she still was generally weak and was tachycardic. Walking back from the bathroom the patient had a heart rate of 135.. Diagnostics interpretation by me: ECG: Sinus tachycardia. The labs revealed an unremarkable CBC and chemistry panel. The patient was slightly dehydrated and her magnesium was minimally low. Urinalysis did not show any convincing evidence of infection. Imaging studies: Deferred The patient is generally weak. Opening was done to try and prep her for discharge as she did not want to stay in the hospital. She is still feeling weak and she was very tachycardic with little ambulation and had multiple episodes of diarrhea. She was given additional normal saline fluid and I di scussed staying in the hospital for monitoring and hydration. The patient agreed. consultation: A consultation was placed with the hospitalist. The case was discussed and diagnostics were reviewed. The patient was evaluated in the ER for further treatment. IMPRESSION: C. diff diarrhea Oral thrush Vulvovaginitis Dehydration PLAN: Admit The scribe's documentation has been prepared under my direction and personally reviewed by me in its entirety. I confirm that the note above accurately reflects all work, treatment, procedures, and medical decision making performed by me. Impression & Plan C. difficile diarrhea, Oral thrush, Acute vulvovaginitis, Dehydration Past Med/Surg History Medical History (Updated 01/22/19 @ 20:17 by Katarina Ross MD) Abdominal pain, RUQ (Acute) Back pain (Chronic) Bilateral calf pain (Resolved) Chronic obstructive pulmonary disease (Chronic) Chronic reflux esophagitis (Chronic) Depression, controlled (Chronic) Diarrhea (Acute) DJD of left shoulder (Chronic) Elevated blood pressure reading in office with diagnosis of hypertension (Acute) Hyperlipidemia (Chronic) Impaired fasting glucose (Chronic) Lung nodule, multiple (Chronic) Nausea (Acute) Nicotine dependence (Chronic) Osteomyelitis (Acute) Peripheral edema (Acute) Poor appetite (Acute) Pulmonary emphysema (Chronic) Scoliosis (Chronic) Swelling of lower leg (Resolved) Weight loss (Acute) Surgical History H/O foot surgery H/O shoulder surgery Bilateral total shoulder arthroplasties H/O varicose vein ligation History of carpal tunnel release of both wrists History of tonsillectomy Family History Father Atrial fibrillation Mother Coronary heart disease Breast cancer Uncle Colorectal cancer Myocardial infarction Aunt Breast cancer Myocardial infarction Grandfather (Maternal) No problems noted. Grandmother (Maternal) Myocardial infarction Social History marital status: Current Living Situation: Spouse and Family current occupational status: retired Feels Safe at Home: Yes Smoking Status: Current every day smoker Tobacco Type: cigarettes ; packs per day: 1 ; Years Smoked: 35 ; Hx Alcohol Use: No Hx Substance Use: No Dental Care, Regularly: No Seatbelt Use: always Sunscreen Use: Yes Results & Data Vital Signs Vital Signs - 24 hr 01/22/19 13:13 01/22/19 14:12 01/22/19 14:14 Temperature 37 C Temperature Source Oral Pulse Rate 120 H Pulse Rate [Left Finger] 115 H Pulse Strength [Left Finger] Respiratory Rate 20 20 Respiratory Effort / Characteristics Respiratory Depth Respiratory Pattern Blood Pressure 124/75 Blood Pressure [Left Arm] 116/78 Blood Pressure Mean 91 Blood Pressure Mean [Left Arm] 90 Blood Pressure Position [Left Arm] Pulse Oximetry 97 94 99 Oxygen Delivery Method Room Air Room Air Room Air Sepsis Recent Fever Within 48 Hours No Sepsis New/Unexplained Change in Mental Status No Sepsis Action Taken by Nursing No Action Required 01/22/19 15:17 01/22/19 16:45 01/22/19 18:01 Temperature Temperature Source Pulse Rate Pulse Rate [Left Finger] 116 H 125 H Pulse Strength [Left Finger] Respiratory Rate 18 18 20 Respiratory Effort / Characteristics Respiratory Depth Respiratory Pattern Blood Pressure Blood Pressure [Left Arm] 127/77 130/76 104/76 Blood Pressure Mean Blood Pressure Mean [Left Arm] 93 94 85 Blood Pressure Position [Left Arm] Pulse Oximetry 98 99 99 Oxygen Delivery Method Room Air Room Air Room Air Sepsis Recent Fever Within 48 Hours Sepsis New/Unexplained Change in Mental Status Sepsis Action Taken by Nursing 01/22/19 18:14 01/22/19 19:56 Temperature Temperature Source Pulse Rate 125 H Pulse Rate [Left Finger] 120 H Pulse Strength [Left Finger] Normal Respiratory Rate 20 16 Respiratory Effort / Characteristics Non-Labored Respiratory Depth Normal Respiratory Pattern Regular Blood Pressure 104/76 Blood Pressure [Left Arm] 99/80 L Blood Pressure Mean Blood Pressure Mean [Left Arm] 86 Blood Pressure Position [Left Arm] Lying Pulse Oximetry 99 100 Oxygen Delivery Method Room Air Room Air Sepsis Recent Fever Within 48 Hours Sepsis New/Unexplained Change in Mental Status Sepsis Action Taken by [facility] Medications Current Medication List: was personally reviewed by me Laboratory Data Attestation: I reviewed the patient's lab results. Result diagrams: 01/22/19 14:23 01/22/19 14:23 Lab Results 01/22/19 01/22/19 01/22/19 Range/Units 14:23 14:23 14:23 WBC 11.77 H (4.8-10.8) K/uL RBC 4.00 L (4.2-5.4) M/uL Hgb 10.6 L (12.0-16.0) g/dL Hct 32.4 L (37-47) % MCV 81.0 (80-100) fL MCH 26.5 (25-34) pg MCHC 32.7 (32-36) g/dL RDW Std Deviation 56.6 H (36.4-46.3) fL RDW Coeff of Mandeep 19.2 H (11.5-14.5) % Plt Count 694 H (130-400) K/uL MPV 8.4 (7.4-10.4) fL Immature Gran % (Auto) 0.4 % Neut % (Auto) 68.5 % Lymph % (Auto) 19.3 % [place] % (Auto) 10.5 % Eos % (Auto) 1.0 % Baso % (Auto) 0.3 % Immature Gran # (Auto) 0.05 H (0.00-0.02) K/uL Neut # (Auto) 8.07 H (1.4-6.5) K/uL Lymph # (Auto) 2.27 (1.2-3.4) K/uL [place] # (Auto) 1.23 H (0.11-0.59) K/uL Eos # (Auto) 0.12 (0-0.5) K/uL Baso # (Auto) 0.03 (0-0.2) K/uL Sodium 138 (136-145) mmol/L Potassium 5.1 (3.5-5.1) mmol/L Chloride 107 (98-107) mmol/L Carbon Dioxide 24 (21-32) mmol/L Anion Gap 7.0 (3-11) BUN 31 H (7-18) mg/dl Creatinine 0.87 (0.6-1.2) mg/dl Est Cr Clr Drug Dosing 50.5 ml/min Est GFR ( Amer) 78.8 Est GFR (Non-Af Amer) 68.0 BUN/Creatinine Ratio 35.3 H (10-20) Glucose 98 (70-99) mg/dl Calcium 8.7 (8.5-10.1) mg/dl Magnesium 1.5 L (1.8-2.4) mg/dl Total Bilirubin 0.2 (0.2-1) mg/dl AST 16 (15-37) U/L ALT 19 (12-78) U/L Alkaline Phosphatase 95 (45-117) U/L Total Protein 6.9 (6.4-8.2) gm/dl Albumin 2.0 L (3.4-5.0) gm/dl Globulin 4.9 H (2.5-4.0) gm/dl Albumin/Globulin Ratio 0.4 L (0.9-2) Urine Color Dark Yellow Urine Appearance Cloudy A (Clear) Urine pH 5.5 (4.5-7.5) Ur Specific [place] 1.026 (1.000-1.030) Urine Protein 1+ H (Negative) Urine Glucose (UA) Negative (Negative) Urine Ketones 1+ H (Negative) Urine Blood Negative (Negative) Urine Nitrite Negative (Negative) Urine Bilirubin Negative (Negative) Urine Urobilinogen Negative (Negative) Ur Leukocyte Esterase 1+ H (Negative) Urine WBC (Auto) >30 H (0-5) /hpf Urine RBC (Auto) 0-4 (0-4) /hpf U Hyaline Cast (Auto) 5-10 H (0-5) /lpf U Epithel Cells (Auto) >30 H (0-5) /lpf Urine Bacteria (Auto) Negative (Negative) Calcium Oxalate Crystal Present A (None Prsent) Amorphous Sediment Present A (None Prsent) Urine Yeast Not Reportable Administered Medications Ioversol (Optiray 320 100ml) 92 ml IV ONCE PRN PRN Reason: Interaction Checking Stop: 01/26/19 20:03 Last Admin: 01/22/19 20:05 Dose: 92 ml Documented by: [id number] Discontinued Medications Fluconazole (Diflucan) 150 mg PO NOW ONE Stop: 01/22/19 16:05 Last Admin: 01/22/19 16:26 Dose: 150 mg Documented by: [id number] Sodium Chloride (Nss 1000ml) 1,000 mls @ 999 mls/hr IV .Q1H1M BRYANNA Stop: 01/22/19 14:45 Last Infusion: 01/22/19 15:41 Dose: 0 mls/hr Documented by: [id number] Admin: 01/22/19 14:37 Dose: 999 mls/hr Documented by: [id number] Lidocaine HCl (Xylocaine 2% Jelly) 10 ml EXT NOW ONE Stop: 01/22/19 14:41 Last Admin: 01/22/19 14:54 Dose: 10 ml Documented by: [id number] Lidocaine HCl (Xylocaine 2% Jelly) 10 ml EXT NOW ONE Stop: 01/22/19 17:37 Last Admin: 01/22/19 18:00 Dose: 10 ml Documented by: [id number] Miconazole Nitrate (Monistat 7 Vag) 1 appln PV HS STA Stop: 01/22/19 17:39 Last Admin: 01/22/19 18:00 Dose: 1 appln Documented by: [id number] Nystatin (Mycostatin) 5 ml PO NOW STA Stop: 01/22/19 16:05 Last Admin: 01/22/19 16:57 Dose: 5 ml Documented by: [id number] Ondansetron HCl (Zofran Odt 4mg Home Pack) 1 homepack PO NOW ONE Stop: 01/22/19 17:37 Last Admin: 01/22/19 17:59 Dose: 1 homepack Documented by: [id number] ECG Data Attestation: I personally reviewed and interpreted this ECG as follows: Indication: + abdominal pain Rate (beats per minute): 115 Rhythm: sinus tachycardia ECG Intervals/blocks: + Normal QRS ECG [place]: + Normal ECG ST segments: no ST depression and no ST elevation ECG Findings: no PACs and no PVCs Blood Pressure Blood Pressure Findings: Elevated blood pressure Blood Pressure Disposition: Referred to patients primary care provider Discharge Plan Visit Data Chief Complaint: Illness Stated Complaint: NAUSEA, PAIN, C-DIFF ED Provider: Jonathan See Discharge Problem: C. difficile diarrhea, Oral thrush, Acute vulvovaginitis, Dehydration Patient Disposition: Home - Self-Care Discharge Instructions Activity Restrictions/Additional Instructions: Nystatin solution 5 mL 4 times a day for 48 hours after resolution of mouth irritation and white patches. Swish for 20 to 30 seconds before swallowing. Monistat vaginal cream application. Apply 1 application vaginally every night for a total of 7 days. Zofran 4 mg oral dissolving tablets: take one tablet and allow it to melt in your mouth every 4 hours as needed for nausea. Rest and drink plenty of fluids. Diet as tolerated. Continue vancomycin. Topical creams that you have been using are acceptable. Use the lidocaine jelly on a 4 x 4 bandage 15 minutes or so prior to urination for any burning due to the vaginal discomfort. Apply a few small drops to the 4 x 4 and wipe to the affected area. Return to the ER for worsening swallowing problems, mouth swelling, nausea, abdominal pain, vomiting, fevers, bloody stools, or as needed. Follow-up with your primary clinic in 2 to 3 days for a recheck of your current condition. Interventions: ED Discharge Assessment Last Done: 01/22/19 18:14 Forms Stand Alone Forms: My [facility] [address], Important Visit Information Prescriptions Prescriptions: New Monistat 7 2 % (100 mg)- 2 % (9 gram) comb pack,prefill appl, cream 1 pkt vaginal ONCE HS 7 Days Qty: 6 RF: 0 nystatin 100,000 unit/mL suspension 5 ml PO QID 7 Days Qty: 140 RF: 0 ondansetron 4 mg tablet,disintegrating 4 mg PO Q6H PRN (Reason: nausea and vomiting) Qty: 7 RF: 0 No Action cyclobenzaprine 10 mg tablet 10 mg PO BID PRN (Reason: Muscle Spasm) Qty: 30 RF: 3 vancomycin 125 mg capsule 125 mg PO QID 10 Days Qty: 40 RF: 0 hydrocortisone 2.5 % cream 1 appln TOP TID Qty: 30 RF: 1 Spiriva Respimat 2.5 mcg/actuation mist 2 puffs inhalation DAILY PRN (Reason: Shortness of Breath. ) RF: 0 furosemide 40 mg tablet 40 mg PO DAILY PRN (Reason: edema) Qty: 30 RF: 4 potassium chloride 10 mEq capsule, extended release 10 meq PO DAILY Qty: 30 RF: 4 albuterol sulfate 2.5 mg /3 mL (0.083 %) solution for nebulization 2.5 mg inhalation Q4H PRN (Reason: shortness of breath or wheezing) Qty: 1 RF: 0 bupropion HCl 150 mg tablet extended release 24 hr 150 mg PO QAM Qty: 30 RF: 0 acetaminophen [Tylenol Extra Strength] 500 mg tablet 1,000 mg PO Q6H PRN (Reason: Pain) RF: 0 multivitamin [Daily Multi-Vitamin] tablet 1 tab PO QAM RF: 0 omega-3 fatty acids [Fish Oil Concentrate] 1,000 mg capsule 1,000 mg PO HS RF: 0 naproxen 500 mg tablet 500 mg PO BID PRN (Reason: pain) Qty: 60 RF: 4 omeprazole 20 mg capsule,delayed release(DR/EC) 20 mg PO QAM RF: 0 fluticasone propion-salmeterol [Advair Diskus] 100-50 mcg/dose blister with device 1 puff inhalation BID RF: 0 docusate sodium 100 mg capsule 100 mg PO HS PRN (Reason: Constipation) RF: 0 atorvastatin 20 mg tablet 20 mg PO HS RF: 0 albuterol sulfate [Ventolin HFA] 90 mcg/actuation HFA aerosol inhaler 2 puff inhalation .Q4-6H PRN (Reason: Shortness Of Breath) RF: 0 Referrals Referrals: Chely Jade CRNP [Primary Care Provider] - The scribe's documentation has been prepared under my direction and personally reviewed by me in its entirety. I confirm that the note above accurately reflects all work, treatment, procedures, and medical decision making performed by me.
--- NOTE | 2019-01-22 20:37 | CT Scan Report ---
ABDOMEN AND PELVIS CT WITH IV CONTRAST CT DOSE: 228.95 mGy.cm HISTORY: RUQ pain,intractable diarrhea TECHNIQUE: Multiaxial CT images of the abdomen and pelvis were performed following the use of intrave nous contrast. A dose lowering technique was utilized adhering to the principles of ALARA. COMPARISON STUDY: Abdomen and pelvis CT 01/23/2008. FINDINGS: Distal thoracic periaortic lymphadenopathy. Dominant lymph node measures 1.8 x 0.9 cm. Thes e have increased in size in the interval. A few bibasilar linear densities consistent with subsegment al atelectasis. No pneumoperitoneum. No pneumatosis. Severe disc space narrowing with endplate sclero sis and endplate erosive change at L5-S1. There is also vacuum phenomenon at this disc space level. M ild paravertebral edema is also noted. There are also mild erosive changes within the L5-S1 facets. L evoscoliosis of the lumbar spine. Hepatic steatosis. The liver is enlarged. The spleen, adrenal gland s, and pancreas are unremarkable. The kidneys enhance normally. No hydronephrosis. The gallbladder is moderately distended. No gallbladder wall thickening. The main portal vein is patent. No retroperito kale lymphadenopathy. Normal caliber abdominal aorta. The bladder is unremarkable. Suggestion of a joseph btle 3 cm left uterine mass. This favors a fibroid. Bilateral adnexa are within normal limits. No pel marquita free fluid. Sigmoid diverticulosis. No evidence for diverticulitis. [id number] bowel wall t hickening involving the entire colon. This is consistent with a pancolitis. Normal appendix. IMPRESSION: 1. Pancolitis. This is likely due to an infectious or inflammatory process. 2. Hepatomegaly demonstrating fatty change. 3. Increase in size in the distal thoracic periaortic lymphadenopathy. This is nonspecific but could represent a neoplastic process such as lymphoma. Oncologic follow-up recommended for further evaluati on. 4. Severe disc space narrowing with endplate sclerosis and endplate erosive change at L5-S1. There is also vacuum phenomenon at this disc space level. Mild paravertebral edema is also noted. There are a lso mild erosive changes within the L5-S1 facets. Therefore, these findings favor long-standing degen erative change. A chronic discitis/osteomyelitis is considered less likely but not entirely excluded. Clinical correlation recommended. 5. A 3 cm left uterine masses likely representing a fibroid. This remains unchanged. 6. Moderately distended gallbladder. No gallbladder wall thickening. 7. Additional findings as described above. Electronically signed by: Cachorro Herrera M.D. 01/22/2019 8:35 PM
--- NOTE | 2019-01-22 21:25 | XRay Report ---
RIGHT SHOULDER 3 VIEWS HISTORY: right frozen shoulder,joint replacement COMPARISON: None. FINDINGS: There is no fracture or dislocation. Soft tissues are unremarkable. Distal resorption/resec tion of the right clavicle. No fractures identified within the right clavicle. There is a reverse rig ht total shoulder arthroplasty. The hardware appears intact. IMPRESSION: 1. No fracture or dislocation of the right shoulder. 2. Postoperative changes as described above. Electronically signed by: Cachorro Herrera M.D. 01/22/2019 9:24 PM
[2019-01-22] MEDS ORDERED: NAPROXEN 250 MG TAB PO PRN (22:18)
[2019-01-22] MEDS ORDERED: ACETAMINOPHEN 500 MG TAB PO PRN (22:18)
[2019-01-22] MEDS ORDERED: ALBUTEROL 0.083% NEBU SOLN 3 ML VIAL INH PRN (22:18)
[2019-01-22] MEDS ORDERED: LIDOCAINE 2% JELLY 5 ML TUBE EXT PRN (22:18)
[2019-01-22] MEDS ORDERED: VANCOMYCIN HCL 125 MG/2.5ML SOLN PO SCH (22:18)
[2019-01-22] MEDS ORDERED: ONDANSETRON INJ 2 MG/ML 2 ML VIAL IV PRN (22:18)
[2019-01-22] MEDS ORDERED: RASPBERRY SYRUP 5 ML UDP PO SCH (22:18)
[2019-01-22] MEDS ORDERED: CYCLOBENZAPRINE HCL 10 MG TAB PO PRN (22:18)
[2019-01-22] MEDS: MAGNESIUM SULFATE / D5W 1 GM/100 ML BAG IV SCH (23:51)
[2019-01-22] MEDS: ATORVASTATIN 20 MG TAB PO SCH (23:54)
[2019-01-22] MEDS: FLUTICASONE/SALMETEROL 100/50 (ADVAIR) 14 PUFF/1 INHALER INH SCH (23:54)
[2019-01-22] MEDS: CLOTRIMAZOLE VAGINAL CR 7 APPLN/45 GM TUBE PV SCH (23:56)
[2019-01-22] MEDS: NYSTATIN SUSP 500,000 U/5 ML UDC PO SCH (23:57)
[2019-01-23] MEDS: CHOLESTYRAMINE LIGHT 4 GM PKT PO SCH ×3 (01:14→22:46)
[2019-01-23] MEDS: ENOXAPARIN INJ 40 MG/0.4 ML SYR SQ SCH ×2 (01:14→23:55)
[2019-01-23] MEDS: MAGNESIUM SULFATE / D5W 1 GM/100 ML BAG IV SCH (01:14)
[2019-01-23] MEDS ORDERED: Nursing to Pharmacy Communication ONE (03:51)
[2019-01-23] MEDS: RASPBERRY SYRUP 5 ML UDP PO SCH ×4 (04:22→21:37)
[2019-01-23] MEDS: VANCOMYCIN HCL 125 MG/2.5ML SOLN PO SCH ×4 (04:22→21:37)
[2019-01-23 07:46] LABS: Basophils # (auto) 0.04 K/uL (0-0.2); Basophils % (auto) 0.4 %; Eosinophils # (auto) 0.26 K/uL (0-0.5); Eosinophils % (auto) 2.5 %; Hematocrit (blood only) 30.1 % (37-47); Hemoglobin 9.7 g/dL (12.0-16.0); Immature Granulocytes # (auto) 0.03 K/uL (0.00-0.02); Immature Granulocytes % (auto) 0.3 %; Lymphocytes # (auto) 2.79 K/uL (1.2-3.4); Lymphocytes % (auto) 26.5 %; Mean Corpuscular Hemoglobin 26.3 pg (25-34); Mean Corpuscular Hgb Conc 32.2 g/dL (32-36); Mean Corpuscular Volume 81.6 fL (80-100); Mean Platelet Volume 7.8 fL (7.4-10.4); Monocytes % (auto) 12.4 %; Neutrophils % (auto) 57.9 %; Platelet Count 632 K/uL (130-400); RDW Coefficient of Variation 19.3 % (11.5-14.5); RDW Standard Deviation 58.2 fL (36.4-46.3); Red Blood Count 3.69 M/uL (4.2-5.4); White Blood Count 10.52 K/uL (4.8-10.8)
[2019-01-23 08:08] LABS: Estimated Average Glucose 134 mg/dl; Hemoglobin A1C 6.3 % (4.5-5.6)
[2019-01-23 08:11] LABS: Anisocytosis Present; Poikilocytosis Present; Target Cells 1+
[2019-01-23 08:23] LABS: Albumin Globulin Ratio 0.4 (0.9-2); Albumin Level 1.8 gm/dl (3.4-5.0); BUN Creatinine Ratio 26.4 (10-20); Bilirubin,Total 0.3 mg/dl (0.2-1); Calcium 8.3 mg/dl (8.5-10.1); Creatinine Clr Calc Pharmacy 64.6 ml/min; Est GFR (African American) 103.4; Est GFR (Non-African American) 89.2; Ferritin 163.6 ng/ml (8-388); Globulin 4.3 gm/dl (2.5-4.0); Magnesium 2.1 mg/dl (1.8-2.4); Phosphorus 2.5 mg/dl (2.5-4.9); Potassium 3.6 mmol/L (3.5-5.1); Total Protein 6.1 gm/dl (6.4-8.2)
[2019-01-23] MEDS: MULTIVITAMIN TAB PO SCH (08:26)
[2019-01-23] MEDS: PANTOprazole 40 MG TAB PO SCH (08:26)
[2019-01-23] MEDS: FLUTICASONE/SALMETEROL 100/50 (ADVAIR) 14 PUFF/1 INHALER INH SCH ×2 (08:26→20:44)
[2019-01-23] MEDS: BuPROPion XL 150 MG TABCR PO SCH (08:26)
[2019-01-23] MEDS: NYSTATIN SUSP 500,000 U/5 ML UDC PO SCH ×4 (08:26→20:44)
[2019-01-23] MEDS ORDERED: FLUCONAZOLE 100 MG/50 ML BAG IV SCH (12:00)
--- NOTE | 2019-01-23 13:05 | Hospitalist Progress Note ---
Date of Service January 23, 2019 Assessment & Plan (1) C. difficile diarrhea: With profuse diarrhea x2 weeks in the setting of antibiotics over the last several months for spinal osteomyelitis and UTI. C. difficile gene is positive, however C. difficile toxin was negative on 01/17. - Continue vancomycin 125 mg p.o. 4 times daily - Start cholestyramine powder 4 g p.o. twice daily - Hydrate with IV fluids aggressively (2) Sinus tachycardia: Resting heart rate was in the 120s and rates To the 130s with minimal exertion, secondary to dehydration, hypovolemia from copious diarrhea. - Continue normal saline at 125 mL's per hour - Improving on 01/23 - HR down to ~100 bpm. (3) Oral thrush: Severe, secondary to recent long-term antibiotic use as well as the use of inhaled corticosteroids. - Continue nystatin swish and swallow (4) Acute vulvovaginitis: Significant case along with ulcerations of the labia, there may also be a component of irritant dermatitis from profound diarrhea. - Start clotrimazole suppositories PV nightly x7 days - Diflucan as above - Barrier cream and lidocaine cream as needed - Wound care consult (5) Shoulder swelling: With complaint of fever, right shoulder erythema and swelling 2 weeks ago which is now improved, however now with frozen shoulder. Has recent history of osteomyelitis on antibiotics and with shoulder arthroplasty present, concerning for possible infection. - Check x-ray of the right shoulder - Consult her orthopedic surgeon for further evaluation - Pending (6) Chronic obstructive pulmonary disease: Stable, no acute issues. - Continue albuterol nebulizer as needed - Continue Advair (7) Chronic reflux esophagitis: Continue PPI (8) Depression, controlled: - Continue bupropion (9) Hyperlipidemia: Continue statin (10) Impaired fasting glucose: A1c was 6.9% on 01/23. - Sliding scale insulin (11) Nicotine dependence: Counseled on cessation. - Nicotine patch as needed (12) Osteomyelitis: With recent lumbar sacral osteomyelitis with surrounding abscesses, treated at [facility] with IV antibiotics transition to p.o. antibiotics to complete at the end of November. Back pain is much improved. - Ortho consult pending (13) Thrombocytosis: Thrombocytosis with platelets in the 600-700s recently, along with anemia and infection. Could be reactive thrombocytosis for anemia and infection. - Concern for inflammatory or other infectious process other than C. difficile especially in the setting of recent osteomyelitis and history of recent right shoulder pain and swelling with prosthesis in place - Check ESR, CRP, blood cultures (14) Anemia: Hemoglobin has trended down recently into the tens, is microcytic with an MCV of 81. Iron studies on 01/23 indicated iron deficiency + anemia of chronic disease. - Follow CBC - Once GI issues resolve, consider iron supplement. (15) Leukocytosis: WBC count 11. Secondary to infectious diarrhea as above but could also be other infection going on as noted above. - Follow CBC (16) DVT prophylaxis: Lovenox SQ, SCDs Subjective Feels better from an overall perspective; however, she is still having significant bouts of diarrhea with 5 this morning. Reports no fevers/chills, chest pain, shortness of breath, abdominal pain, nausea, or vomiting. Physical Exam Constitutional: WD/WN, vitals as above Eyes: EOM intact bilaterally; no conjunctival abnormality ENMT: external ear and nose normal, oropharynx normal Neck: trachea midline, no thyromegaly normal visual inspection Respiratory: normal respiratory effort, lungs clear to auscultation no respiratory distress Cardiovascular: RRR, no murmur, no edema Gastrointestinal (Abdomen): Inspection/Auscultation: abdomen normal to inspection; abdomen not distended Musculoskeletal: no cyanosis or clubbing, extremities motor strength 5/5 Skin: no rashes, warm and dry Neurologic: moves all extremities and awake Psychiatric: Orientation: alert, oriented to person and cooperative Results & Data Vital Signs (Past 12 Hours) Vital Signs Temp Pulse Pulse Resp BP BP Pulse Ox 01/23/19 11:21 36.8 C 105 H 16 104/65 94 01/23/19 08:37 106 H 01/23/19 07:18 37.1 C 102 H 18 103/59 L 102 H 01/23/19 04:00 36.9 C 102 H 20 107/66 92 PG Care Time/CCT Total # of Minutes Spent Total Time Spent with Patient: Total time spent is greater than 50% in coordination of care (as documented) at patient's floor/unit and/or counseling patient:
[2019-01-23] MEDS ORDERED: VANCOMYCIN CONSULT ACTIVE PRN (18:16)
[2019-01-23] MEDS ORDERED: AZITHROMYCIN 250 MG TAB PO ONE (18:17)
[2019-01-23] MEDS ORDERED: VANCOMYCIN HCL 1,250 MG in SODIUM CHLORIDE 0.9% 250 ML IV STA (18:39)
--- NOTE | 2019-01-23 19:09 | Orthopedic Consultation ---
Date of Consultation January 23, 2019 Assessment & Plan (1) Shoulder pain, right: Low clinical suspicion for frozen shoulder or PJI. Recommend PT/OT, WBAT, lidoderm patches. If symptoms persist would obtain bone scan. Thank you for the consultation. History of Present Illness Reason for Consultation: ? Right frozen shoulder Attending Physician: Geovanny Meyers MD History of Present Illness The patient is a 68 year old female who presented to [facility] secondary to frequent diarrhea and found to have c.diff, she was admitted for further inpatient observation and treatment. Patient has extensive history of recent infections and treated with multiple courses of abx. We were asked to see the patient secondary to decreased ROM and increased pain to her right shoulder. Patient has PSHx for Reverse right TSA 03/[address] Farah. The patient states that she has an episode of cellulitis involving her back and upper body two weeks prior which has since resolved. The patient states her symptoms have improved but continues to have residual weakness and loss of motion to her RUE. Denies F/C/N/V, SOP, CP currently, +Diarrhea. Denies trauma to her RUE. Denies numbness and tingling to RUE. Allergies Allergy/AdvReac Type Severity Reaction Status Date / Time shellfish derived Allergy Mild itchy and Verified 01/22/19 14:08 swelling of tongue and throat Home Medications Home Medications Medication Instructions Recorded Confirmed Type acetaminophen 500 mg tablet 1,000 mg PO Q6H PRN tab 09/29/18 01/22/19 History multivitamin 1 tab PO QAM 09/29/18 01/22/19 History omega-3 fatty acids 1,000 mg 1,000 mg PO HS 09/29/18 01/22/19 History capsule omeprazole 20 mg PO QAM 10/01/18 01/22/19 History cyclobenzaprine 10 mg tablet 10 mg PO BID PRN #30 tab 10/07/18 01/22/19 Rx albuterol sulfate 2.5 mg/3 mL 2.5 mg INHALATION Q4H PRN #1 ml 10/14/18 01/22/19 History (0.083 %) solution for nebulization bupropion HCl 150 mg 24 hr tablet, 150 mg PO QAM #30 tab 10/14/18 01/22/19 History extended release fluticasone 100 mcg-salmeterol 50 1 puff INHALATION BID 10/14/18 01/22/19 History mcg/dose blistr powdr for inhalation naproxen 500 mg tablet 500 mg PO BID PRN #60 tab 11/24/18 01/22/19 Rx docusate sodium 100 mg capsule 100 mg PO HS PRN 01/17/19 01/22/19 History furosemide 40 mg tablet 40 mg PO DAILY PRN #30 tab 01/17/19 01/22/19 Rx potassium chloride 10 mEq 10 meq PO DAILY #30 cap 01/17/19 01/22/19 Rx capsule,extended release tiotropium bromide 2.5 2 puffs INHALATION DAILY PRN gm 01/17/19 01/22/19 History mcg/actuation mist for inhalation hydrocortisone 2.5 % topical cream 1 appln TOP TID #30 gm 01/19/19 01/22/19 Rx vancomycin 125 mg capsule 125 mg PO QID 10 Days #40 cap 01/19/19 01/22/19 Rx albuterol sulfate [Ventolin HFA] 2 puff INHALATION .Q4-6H PRN 01/22/19 01/22/19 History atorvastatin 20 mg PO HS 01/22/19 01/22/19 History miconazole nitrate [Monistat 7] 1 pkt VAGINAL ONCE HS 7 Days #6 pkt 01/22/19 Rx nystatin 5 ml PO QID 7 Days #140 ml 01/22/19 Rx ondansetron 4 mg PO Q6H PRN #7 tab 01/22/19 Rx Patient History Medical History Back pain (Chronic) Bilateral calf pain (Resolved) Chronic obstructive pulmonary disease (Chronic) Chronic reflux esophagitis (Chronic) Depression, controlled (Chronic) Diarrhea (Acute) DJD of left shoulder (Chronic) Elevated blood pressure reading in office with diagnosis of hypertension (Acute) Hyperlipidemia (Chronic) Impaired fasting glucose (Chronic) Lung nodule, multiple (Chronic) Nicotine dependence (Chronic) Osteomyelitis (Acute) Peripheral edema (Acute) Poor appetite (Acute) Pulmonary emphysema (Chronic) Scoliosis (Chronic) Swelling of lower leg (Resolved) Weight loss (Acute) Surgical History H/O foot surgery H/O shoulder surgery Bilateral total shoulder arthroplasties H/O varicose vein ligation History of carpal tunnel release of both wrists History of tonsillectomy Family History Father Atrial fibrillation Mother Coronary heart disease Breast cancer Uncle Colorectal cancer Myocardial infarction Aunt Breast cancer Myocardial infarction Grandfather (Maternal) No problems noted. 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 Beliefs That Will Affect Care: None marital status: Current Living Situation: Spouse current occupational status: retired Feels Safe at Home: Yes Smoking Status: Current every day smoker Tobacco Type: cigarettes ; packs per day: 1 ; Cigarettes Per Day: 15 ; Hx Alcohol Use: No Hx Substance Use: No Dental Care, Regularly: No Seatbelt Use: always Sunscreen Use: Yes Review of Systems Review of Systems: All systems reviewed & are unremarkable except as noted in HPI & below Constitutional: as per Subjective / HPI Physical Exam Physical Exam: RUE NVSI +2 radial pulse, compartments soft NT, prior surgical incision cdi, no shoulder effusion, errythema or edema. AROM 120 degrees of FF, 90 degrees of abduction, PROM 150 degrees of FF and 120 degrees of abduction, 45 degrees of ext rot. decreased MS. Constitutional: WD/WN, vitals as above Results & Data Vital Signs (Past 12 Hours) Vital Signs Temp Pulse Pulse Resp BP BP Pulse Ox 01/23/19 18:00 104 H 01/23/19 15:06 37.0 C 112 H 18 120/74 90 01/23/19 11:21 36.8 C 105 H 16 104/65 94 01/23/19 08:37 106 H 01/23/19 07:18 37.1 C 102 H 18 103/59 L 102 H
[2019-01-23] MEDS: ATORVASTATIN 20 MG TAB PO SCH (20:44)
[2019-01-23] MEDS: CLOTRIMAZOLE VAGINAL CR 7 APPLN/45 GM TUBE PV SCH (20:45)
[2019-01-23] MEDS: LIDOCAINE 5% 1 PATCH TD SCH (20:46)
--- NOTE | 2019-01-23 22:23 | Pharmacy Report ---
Pharmacy Abx Initial Consult - Date of Service January 23, 2019 - Pharmacy Dosing Scope Date of Consult: 01/23/19 Consultation requested by: Dr. Meyers Pharmacy is consulted to initiate Vancomycin IV dosing therapy, order appropriate labs and adjust drug dose/frequency. - Subjective The patient is a 68 year old F admitted on 01/22/19 19:32. - Objective Height: 5 ft 3 in Weight: 56.7 kg Vital Signs (Past 12hrs): Vital Signs Temp Pulse Pulse Resp BP BP Pulse Ox 01/23/19 19:00 36.8 C 110 H 18 114/69 90 01/23/19 18:00 104 H 01/23/19 15:06 37.0 C 112 H 18 120/74 90 01/23/19 11:21 36.8 C 105 H 16 104/65 94 Lab Results (24hrs): Laboratory Tests (24 Hours) 01/23/19 01/23/19 07:34 07:33 WBC 10.52 Neut # (Auto) 6.10 Creatinine 0.68 Est Cr Clr Drug Dosing 64.6 Micro Results: 01/23/19 16:30 Escherichia coli Shiga Toxins Test - Pending Stool Stool Culture - Pending 01/22/19 14:23 Urine Culture - Final Urine,Clean Catch More than three types of organisms present, all low counts mixed probable skin lina. No further identifications or sensitivities to follow. - Risk Factors for Resistance * Antimicrobial use within the last 90 days - Assessment & Plan Assessment 68 year old F complaining of fever, right should erythema and swelling 2 weeks ago, which improved, but now with frozen shoulder. History of osteomyelitis with surrounding abscesses. Growing GPC in 2/2 blood cultures. Also receiving Vanco PO for C.diff. Plan Vancomycin for treatment of Bacteremia Vancomycin IV * Estimated PK Parameters: Vd 0.7 L/kg, Ed 0.058 hr-1, t1/2 12 hr * Loading dose: 1250mg (22 mg/kg) * Maintenance dose: 750 mg IV (13 mg/kg) every 14 hours * Goal trough level for Bacteremia: 15 to 20 mcg/mL * Trough level ordered for 01/25/19 at 1130 Pharmacy will continue to follow and will adjust dose/frequency as necessary. Thank you.
[2019-01-23] MEDS: LIDOCAINE 2% JELLY 5 ML TUBE EXT PRN (22:45)
[2019-01-24] MEDS: VANCOMYCIN HCL 125 MG/2.5ML SOLN PO SCH ×4 (03:44→21:23)
[2019-01-24] MEDS: RASPBERRY SYRUP 5 ML UDP PO SCH ×4 (03:44→21:12)
[2019-01-24 07:41] LABS: Hematocrit (blood only) 26.3 % (37-47); Hemoglobin 8.7 g/dL (12.0-16.0); Mean Corpuscular Hemoglobin 26.7 pg (25-34); Mean Corpuscular Hgb Conc 33.1 g/dL (32-36); Mean Corpuscular Volume 80.7 fL (80-100); Mean Platelet Volume 7.6 fL (7.4-10.4); Platelet Count 581 K/uL (130-400); RDW Coefficient of Variation 19.2 % (11.5-14.5); RDW Standard Deviation 57.3 fL (36.4-46.3); Red Blood Count 3.26 M/uL (4.2-5.4); White Blood Count 8.73 K/uL (4.8-10.8)
[2019-01-24] MEDS ORDERED: VANCOMYCIN HCL 750 MG in SODIUM CHLORIDE 0.9% 250 ML IV SCH (08:00)
[2019-01-24 08:19] LABS: BUN Creatinine Ratio 13.1 (10-20); Calcium 8.3 mg/dl (8.5-10.1); Creatinine Clr Calc Pharmacy 69.7 ml/min; Est GFR (African American) 106.1; Est GFR (Non-African American) 91.5; Magnesium 1.7 mg/dl (1.8-2.4); Potassium 3.9 mmol/L (3.5-5.1)
[2019-01-24] MEDS: BuPROPion XL 150 MG TABCR PO SCH (09:47)
[2019-01-24] MEDS: FLUTICASONE/SALMETEROL 100/50 (ADVAIR) 14 PUFF/1 INHALER INH SCH ×2 (09:47→21:13)
[2019-01-24] MEDS: LIDOCAINE 5% 1 PATCH TD SCH (09:48)
[2019-01-24] MEDS: NYSTATIN SUSP 500,000 U/5 ML UDC PO SCH ×4 (09:49→21:11)
[2019-01-24] MEDS: CEFAZOLIN 2000MG 2,000 MG/15 ML SYR IV SCH ×2 (09:49→17:32)
[2019-01-24] MEDS: MULTIVITAMIN TAB PO SCH (09:50)
[2019-01-24] MEDS: PANTOprazole 40 MG TAB PO SCH (09:50)
[2019-01-24] MEDS: CHOLESTYRAMINE LIGHT 4 GM PKT PO SCH ×2 (10:08→22:31)
[2019-01-24] MEDS: LIDOCAINE 2% JELLY 5 ML TUBE EXT PRN ×2 (12:48→21:23)
[2019-01-24] MEDS: AZITHROMYCIN 250 MG TAB PO SCH ×3 (12:49→13:16)
--- NOTE | 2019-01-24 12:50 | Infectious Disease Consult ---
Date of Consultation January 24, 2019 Assessment & Plan (1) Gram positive sepsis: continue IV vanco, await sensitivities. will need echo. consider MRI spine. repeat blood cultures. consider transfer to [facility] if abnormal mri. C diff testing negative, will add azitho for + stool cultures and monitor. (2) Osteomyelitis: (3) Diarrhea: History of Present Illness Attending Physician: Geovanny Meyers MD pt admitted with diarrhea. she has complicated prolonged history with infected lumbarspine nad h/o epidural abscess several months ago, she was transferred to [facility] [place] but did not undergo any surgical intervention. She states she grew staph bacteria and was initially treated with Vanco and then transitioned to zyvox po in 11/2018, abx stopped on 12/28 per outside ortho note. states she has been off of abx with exception of short course for uti since 12/2018, no back pain, no f/c. states she is to see ID in 2 months at [facility] [place]. no f/c at home. was having increased diarrhea, saw pcp last week, c. diff testing done due to prolonged abx, appears she was on prolonged course of cipro as well, unclear if any gnr identified, she only reports staph. She had + gene, negative toxin, was started on vanco po. had ID appt scheduled for yesterday but was admitted to hospital on 01/22, remains on po vanco. Repeat c. diff negative gene. Routine stool culture done on 01/18 now growing campylobacter. she states anywhere between 6-15 loos stools daily. she is eating lunch on my exam. no abd pain, no n/v/d. no gu symptoms. no f/c. family preent. she is also on IV vanco. Blood cultures done in ER now growing S. aureu. wbc 8, ESR 57 but she states this has been elevated for several months. Ct abd revealed pancolitis. CT spine DJD, no osteo noted or abscess. right shoulder pain on admission, imaging reveals intact hardware, saw ortho, no surgery indicated currently. Denies atkins, sob, cough, cp, no leg weakness, no decreased rom. Allergies Allergy/AdvReac Type Severity Reaction Status Date / Time shellfish derived Allergy Mild itchy and Verified 01/22/19 14:08 swelling of tongue and throat Home Medications Home Medications Medication Instructions Recorded Confirmed Type acetaminophen 500 mg tablet 1,000 mg PO Q6H PRN tab 09/29/18 01/22/19 History multivitamin 1 tab PO QAM 09/29/18 01/22/19 History omega-3 fatty acids 1,000 mg 1,000 mg PO HS 09/29/18 01/22/19 History capsule omeprazole 20 mg PO QAM 10/01/18 01/22/19 History cyclobenzaprine 10 mg tablet 10 mg PO BID PRN #30 tab 10/07/18 01/22/19 Rx albuterol sulfate 2.5 mg/3 mL 2.5 mg INHALATION Q4H PRN #1 ml 10/14/18 01/22/19 History (0.083 %) solution for nebulization bupropion HCl 150 mg 24 hr tablet, 150 mg PO QAM #30 tab 10/14/18 01/22/19 History extended release fluticasone 100 mcg-salmeterol 50 1 puff INHALATION BID 10/14/18 01/22/19 History mcg/dose blistr powdr for inhalation naproxen 500 mg tablet 500 mg PO BID PRN #60 tab 11/24/18 01/22/19 Rx docusate sodium 100 mg capsule 100 mg PO HS PRN 01/17/19 01/22/19 History furosemide 40 mg tablet 40 mg PO DAILY PRN #30 tab 01/17/19 01/22/19 Rx potassium chloride 10 mEq 10 meq PO DAILY #30 cap 01/17/19 01/22/19 Rx capsule,extended release tiotropium bromide 2.5 2 puffs INHALATION DAILY PRN gm 01/17/19 01/22/19 History mcg/actuation mist for inhalation hydrocortisone 2.5 % topical cream 1 appln TOP TID #30 gm 01/19/19 01/22/19 Rx vancomycin 125 mg capsule 125 mg PO QID 10 Days #40 cap 01/19/19 01/22/19 Rx albuterol sulfate [Ventolin HFA] 2 puff INHALATION .Q4-6H PRN 01/22/19 01/22/19 History atorvastatin 20 mg PO HS 01/22/19 01/22/19 History miconazole nitrate [Monistat 7] 1 pkt VAGINAL ONCE HS 7 Days #6 pkt 01/22/19 Rx nystatin 5 ml PO QID 7 Days #140 ml 01/22/19 Rx ondansetron 4 mg PO Q6H PRN #7 tab 01/22/19 Rx Patient History Medical History Back pain (Chronic) Bilateral calf pain (Resolved) Chronic obstructive pulmonary disease (Chronic) Chronic reflux esophagitis (Chronic) Depression, controlled (Chronic) Diarrhea (Acute) DJD of left shoulder (Chronic) Elevated blood pressure reading in office with diagnosis of hypertension (Acute) Hyperlipidemia (Chronic) Impaired fasting glucose (Chronic) Lung nodule, multiple (Chronic) Nicotine dependence (Chronic) Osteomyelitis (Acute) Peripheral edema (Acute) Poor appetite (Acute) Pulmonary emphysema (Chronic) Scoliosis (Chronic) Swelling of lower leg (Resolved) Weight loss (Acute) Surgical History H/O foot surgery H/O shoulder surgery Bilateral total shoulder arthroplasties H/O varicose vein ligation History of carpal tunnel release of both wrists History of tonsillectomy Family History Father Atrial fibrillation Mother Coronary heart disease Breast cancer Uncle Colorectal cancer Myocardial infarction Aunt Breast cancer Myocardial infarction Grandfather (Maternal) No problems noted. 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 Beliefs That Will Affect Care: None marital status: Current Living Situation: Spouse current occupational status: retired Feels Safe at Home: Yes Smoking Status: Current every day smoker Tobacco Type: cigarettes ; packs per day: 1 ; Cigarettes Per Day: 15 ; Hx Alcohol Use: No Hx Substance Use: No Dental Care, Regularly: No Seatbelt Use: always Sunscreen Use: Yes Review of Systems Review of Systems: All systems reviewed & are unremarkable except as noted in HPI & below Physical Exam Constitutional: WD/WN, vitals as above Eyes: PERRL, conjunctivae normal, anicteric sclerae ENMT: external ear and nose normal, oropharynx normal Neck: normal visual inspection Respiratory: normal respiratory effort, lungs clear to auscultation Cardiovascular: RRR, no murmur, no edema Gastrointestinal (Abdomen): normal bowel sounds, soft, nontender, no hepatosplenomegaly Musculoskeletal: no cyanosis or clubbing, extremities motor strength 5/5 Skin: no rashes, warm and dry Psychiatric: A+Ox3, euthymic affect Results & Data Vital Signs (Past 12 Hours) Vital Signs Temp Pulse Pulse Resp BP Pulse Ox 01/24/19 11:00 36.8 C 104 H 18 123/74 99 01/24/19 09:00 104 H 01/24/19 07:00 37.4 C 106 H 16 104/64 97 01/24/19 04:14 37.4 C 108 H 17 106/55 L 95 Laboratory Results Microbiology 01/22/19 21:10 Blood Aerobic Blood Culture - Preliminary No growth in Aerobic bottle after 24 hours. 01/22/19 21:10 Blood Anaerobic Blood Culture - Preliminary Staphylococcus aureus 01/22/19 21:21 Blood Aerobic Blood Culture - Preliminary Staphylococcus aureus 01/22/19 21:21 Blood Anaerobic Blood Culture - Preliminary Gram positive cocci clusters 01/22/19 14:23 Urine,Clean Catch Urine Culture - Final More than three types of organisms present, all low counts mixed probable skin lina. No further identifications or sensitivities to follow. PG Care Time/CCT Total # of Minutes Spent Total Time Spent with Patient: Total time spent is greater than 50% in coordination of care (as documented) at patient's floor/unit and/or counseling patient:
--- NOTE | 2019-01-24 16:10 | Hospitalist Progress Note ---
Date of Service January 24, 2019 Assessment & Plan (1) Staphylococcus aureus bacteremia: Blood cultures on 01/22 growing Staph aureus. DNA testing indicating MSSA, sensitivities pending. - D[place] [facility] [place] who sent records - Reviewed abx course including vanc, linezolid, Cipro. - ID consulted - Appreciate recs - Discussed with ortho re: further shoulder imaging. - TTE (2) Diarrhea: With profuse diarrhea x2 weeks in the setting of antibiotics over the last several months for spinal osteomyelitis and UTI. C. difficile gene is positive, however C. difficile toxin was negative on 01/17. - Repeat C. diff on 01/23 was negative. - Stool culture from 01/18 grew Campylobacter - Started azithromycin on 01/23 - Stop vancomcyin PO - Continue cholestyramine powder (3) Sinus tachycardia: Resting heart rate was in the 120s and rates To the 130s with minimal exertion, secondary to dehydration, hypovolemia from copious diarrhea. - Improving on 01/23 - HR down to ~100 bpm. (4) Oral thrush: Severe, secondary to recent long-term antibiotic use as well as the use of inhaled corticosteroids. - Continue nystatin swish and swallow (5) Acute vulvovaginitis: Significant case along with ulcerations of the labia, there may also be a component of irritant dermatitis from profound diarrhea. - Started clotrimazole suppositories PV nightly x7 days - Barrier cream and lidocaine cream as needed - Wound care consult (6) Shoulder swelling: With complaint of fever, right shoulder erythema and swelling 2 weeks ago which is now improved, however now with frozen shoulder. Has recent history of osteomyelitis on antibiotics and with shoulder arthroplasty present, concerning for possible infection. - X-ray of the right shoulder on 01/22 showed no acute findings. - Consulted her orthopedic surgeon for further evaluation - Discussing whether bone scan could be beneficial. (7) Chronic obstructive pulmonary disease: Stable, no acute issues. - Continue albuterol nebulizer as needed - Continue Advair (8) Chronic reflux esophagitis: Continue PPI (9) Depression, controlled: - Continue bupropion (10) Hyperlipidemia: Continue statin (11) Impaired fasting glucose: A1c was 6.9% on 01/23. - Sliding scale insulin (12) Nicotine dependence: Counseled on cessation. - Nicotine patch as needed (13) Osteomyelitis: With recent lumbar sacral osteomyelitis with surrounding abscesses, treated at [facility] with IV antibiotics transition to p.o. antibiotics to complete at the end of November. Back pain is much improved. - Ortho consult as above - Considering lumbar MRI given bacteremia (14) Thrombocytosis: Thrombocytosis with platelets in the 600-700s recently, along with anemia and infection. Could be reactive thrombocytosis for anemia and infection. - Concern for inflammatory or other infectious process other than C. difficile especially in the setting of recent osteomyelitis and history of recent right shoulder pain and swelling with prosthesis in place (15) Anemia: Hemoglobin has trended down recently into the tens, is microcytic with an MCV of 81. Iron studies on 01/23 indicated iron deficiency + anemia of chronic disease. - Follow CBC - Once GI issues resolve, consider iron supplement. (16) Leukocytosis: WBC count 11. Secondary to infectious diarrhea as above but could also be other infection going on as noted above. - Follow CBC (17) DVT prophylaxis: Lovenox SQ, SCDs Subjective No major change in the diarrhea. Maybe a bit better, but not significantly. Overall, she is in fairly good spirits, though she did have a mild fever last night. Reports no chest pain, shortness of breath, abdominal pain, nausea, or vomiting. Physical Exam Constitutional: WD/WN, vitals as above Eyes: EOM intact bilaterally; no conjunctival abnormality ENMT: external ear and nose normal, oropharynx normal Neck: trachea midline, no thyromegaly normal visual inspection Respiratory: normal respiratory effort, lungs clear to auscultation no respiratory distress Cardiovascular: RRR, no murmur, no edema Gastrointestinal (Abdomen): Inspection/Auscultation: abdomen normal to inspection; abdomen not distended Musculoskeletal: no cyanosis or clubbing, extremities motor strength 5/5 Extremities: + limited ROM of extremities (Right shoulder, though no erythema or warmth) Skin: no rashes, warm and dry Neurologic: moves all extremities and awake Psychiatric: Orientation: alert, oriented to person and cooperative Results & Data Vital Signs (Past 12 Hours) Vital Signs Temp Pulse Pulse Resp BP Pulse Ox 01/24/19 15:40 37.1 C 106 H 18 106/70 94 01/24/19 11:00 36.8 C 104 H 18 123/74 99 01/24/19 09:00 104 H 01/24/19 07:00 37.4 C 106 H 16 104/64 97 01/24/19 04:14 37.4 C 108 H 17 106/55 L 95 PG Care Time/CCT Total # of Minutes Spent Total Time Spent with Patient: Total time spent is greater than 50% in coordination of care (as documented) at patient's floor/unit and/or counseling patient:
[2019-01-24] MEDS: CLOTRIMAZOLE VAGINAL CR 7 APPLN/45 GM TUBE PV SCH (21:11)
[2019-01-24] MEDS: ATORVASTATIN 20 MG TAB PO SCH (21:14)
[2019-01-24] MEDS: ENOXAPARIN INJ 40 MG/0.4 ML SYR SQ SCH (22:31)
[2019-01-25] MEDS: CEFAZOLIN 2000MG 2,000 MG/15 ML SYR IV SCH ×3 (01:46→17:53)
[2019-01-25] MEDS: RASPBERRY SYRUP 5 ML UDP PO SCH ×2 (03:28→10:19)
[2019-01-25] MEDS: VANCOMYCIN HCL 125 MG/2.5ML SOLN PO SCH ×2 (03:28→10:19)
[2019-01-25 06:45] LABS: Hematocrit (blood only) 27.8 % (37-47); Hemoglobin 9.2 g/dL (12.0-16.0); Mean Corpuscular Hemoglobin 26.5 pg (25-34); Mean Corpuscular Hgb Conc 33.1 g/dL (32-36); Mean Corpuscular Volume 80.1 fL (80-100); Mean Platelet Volume 7.8 fL (7.4-10.4); Platelet Count 572 K/uL (130-400); RDW Coefficient of Variation 19.2 % (11.5-14.5); RDW Standard Deviation 56.5 fL (36.4-46.3); Red Blood Count 3.47 M/uL (4.2-5.4); White Blood Count 9.31 K/uL (4.8-10.8)
[2019-01-25 07:18] LABS: BUN Creatinine Ratio 7.6 (10-20); Calcium 8.1 mg/dl (8.5-10.1); Creatinine Clr Calc Pharmacy 70.8 ml/min; Est GFR (African American) 106.6; Magnesium 1.6 mg/dl (1.8-2.4); Potassium 3.8 mmol/L (3.5-5.1)
[2019-01-25 07:21] LABS: Phosphorus 3.2 mg/dl (2.5-4.9)
[2019-01-25] MEDS: FLUTICASONE/SALMETEROL 100/50 (ADVAIR) 14 PUFF/1 INHALER INH SCH ×2 (08:38→20:58)
[2019-01-25] MEDS: LIDOCAINE 5% 1 PATCH TD SCH ×2 (08:40→22:33)
[2019-01-25] MEDS: MULTIVITAMIN TAB PO SCH (08:41)
[2019-01-25] MEDS: NYSTATIN SUSP 500,000 U/5 ML UDC PO SCH ×4 (08:41→20:59)
[2019-01-25] MEDS: BuPROPion XL 150 MG TABCR PO SCH (08:43)
[2019-01-25] MEDS: PANTOprazole 40 MG TAB PO SCH (08:43)
[2019-01-25] MEDS: AZITHROMYCIN 250 MG TAB PO SCH ×2 (08:44→10:18)
[2019-01-25] MEDS ORDERED: LORazepam 1 MG TAB PO PRN (09:51)
--- NOTE | 2019-01-25 11:16 | Infectious Disease Progress Nt ---
Date of Service January 25, 2019 Assessment & Plan (1) Gram positive sepsis: continue with ancef, follow repeat blood cultures. echo pending. stop po vanco. continue azithro day 2/3. Will likely require prolonged course of IV abx, can change to ctx for ease of once daily dosing upon d/c. will need weekly labs cbc, cmp, esr while on therapy. suggest follow up with ID at [facility] [place]. (2) Osteomyelitis: (3) Diarrhea: Subjective pt seen in followup, doing well. eating on my exam, ice chips. feeling better. no diarrhea, improved. c diff negative, now azitho for outpt + stool culture, tolerating well. on ancef for + blood cultures, MSSA, tolerating well. no back pain, no f/c. no abd pain, no n/v/d. no cp, sob, cough. repeat blood cultures pending .echo done this am, results pending. wbc 9. creat 0.6. Review of Systems Review of Systems: All systems reviewed & are unremarkable except as noted in HPI & below Physical Exam Constitutional: WD/WN, vitals as above Eyes: PERRL, conjunctivae normal, anicteric sclerae ENMT: external ear and nose normal, oropharynx normal Neck: normal visual inspection Respiratory: normal respiratory effort, lungs clear to auscultation Cardiovascular: RRR, no murmur, no edema Gastrointestinal (Abdomen): normal bowel sounds, soft, nontender, no hepatosplenomegaly Musculoskeletal: no cyanosis or clubbing, extremities motor strength 5/5 Skin: no rashes, warm and dry Psychiatric: A+Ox3, euthymic affect Results & Data Vital Signs (Past 12 Hours) Vital Signs Temp Pulse Pulse Resp BP Pulse Ox 01/25/19 07:46 36.7 C 96 H 16 106/70 97 01/25/19 04:00 36.7 C 98 H 20 100/66 95 01/25/19 00:59 160 H 01/25/19 00:58 112 H 01/24/19 23:52 37.0 C 106 H 20 105/68 94 Laboratory Results Microbiology 01/23/19 16:30 Stool Escherichia coli Shiga Toxins Test - Preliminary 01/23/19 16:30 Stool Stool Culture - Preliminary 01/22/19 21:21 Blood Aerobic Blood Culture - Final Staphylococcus aureus 01/22/19 21:21 Blood Anaerobic Blood Culture - Final Staphylococcus aureus 01/22/19 21:10 Blood Aerobic Blood Culture - Preliminary No growth in Aerobic bottle after 48 hours. 01/22/19 21:10 Blood Anaerobic Blood Culture - Preliminary Staphylococcus aureus 01/22/19 14:23 Urine,Clean Catch Urine Culture - Final More than three types of organisms present, all low counts mixed probable skin lina. No further identifications or sensitivities to follow. PG Care Time/CCT Total # of Minutes Spent Total Time Spent with Patient: Total time spent is greater than 50% in coordination of care (as documented) at patient's floor/unit and/or counseling patient:
[2019-01-25] MEDS ORDERED: VANCOMYCIN TROUGH ONE (11:30)
[2019-01-25] MEDS: CHOLESTYRAMINE LIGHT 4 GM PKT PO SCH ×2 (12:31→23:27)
[2019-01-25] MEDS: MAGNESIUM SULFATE / D5W 1 GM/100 ML BAG IV SCH ×2 (14:25→16:31)
--- NOTE | 2019-01-25 14:27 | Hospitalist Progress Note ---
Date of Service January 25, 2019 Assessment & Plan (1) Staphylococcus aureus bacteremia: Blood cultures on 01/22 growing Staph aureus. DNA testing indicating MSSA, sensitivities pending. - Discussed with [facility] Ortho ID on 01/24 who sent records - Reviewed abx course including vanc, linezolid, Cipro. - ID consulted - Appreciate recs - Discussed with ortho re: further shoulder imaging - None at this time. - TTE done with results pending. - MRI lumbar spine w/&w/o contrast to review area of prior osteomyelitis. (2) Diarrhea: With profuse diarrhea x2 weeks in the setting of antibiotics over the last several months for spinal osteomyelitis and UTI. C. difficile gene is positive, however C. difficile toxin was negative on 01/17. - Repeat C. diff on 01/23 was negative. - Stool culture from 01/18 grew Campylobacter - Started azithromycin on 01/23 & finished on 01/25. - Stop vancomcyin PO - Continue cholestyramine powder; will add Imodium as well once stool culture from 01/23 returns. (3) Sinus tachycardia: Resting heart rate was in the 120s and rates To the 130s with minimal exertion, secondary to dehydration, hypovolemia from copious diarrhea. - Improving on 01/23 - HR down to ~100 bpm. Stable today. (4) Oral thrush: Severe, secondary to recent long-term antibiotic use as well as the use of inhaled corticosteroids. - Continue nystatin swish and swallow (5) Acute vulvovaginitis: Significant case along with ulcerations of the labia, there may also be a component of irritant dermatitis from profound diarrhea. - Started clotrimazole suppositories PV nightly x7 days - Barrier cream and lidocaine cream as needed - Wound care consult (6) Shoulder swelling: With complaint of fever, right shoulder erythema and swelling 2 weeks ago which is now improved, however now with frozen shoulder. Has recent history of osteomyelitis on antibiotics and with shoulder arthroplasty present, concerning for possible infection. - X-ray of the right shoulder on 01/22 showed no acute findings. - Consulted her orthopedic surgeon for further evaluation - No further testing at present. (7) Chronic obstructive pulmonary disease: Stable, no acute issues. - Continue albuterol nebulizer as needed - Continue Advair (8) Chronic reflux esophagitis: Continue PPI (9) Depression, controlled: - Continue bupropion (10) Hyperlipidemia: Continue statin (11) Impaired fasting glucose: A1c was 6.9% on 01/23. - Sliding scale insulin (12) Nicotine dependence: Counseled on cessation. - Nicotine patch as needed (13) Osteomyelitis: With recent lumbar sacral osteomyelitis with surrounding abscesses, treated at [facility] with IV antibiotics transition to p.o. antibiotics to complete at the end of November. Back pain is much improved. - Ortho consult as above - Lumbar MRI as above (14) Thrombocytosis: Thrombocytosis with platelets in the 600-700s recently, along with anemia and infection. Could be reactive thrombocytosis for anemia and infection. - Concern for inflammatory or other infectious process other than C. difficile especially in the setting of recent osteomyelitis and history of recent right shoulder pain and swelling with prosthesis in place (15) Anemia: Hemoglobin has trended down recently into the tens, is microcytic with an MCV of 81. Iron studies on 01/23 indicated iron deficiency + anemia of chronic disease. - Follow CBC - Once GI issues resolve, consider iron supplement. (16) DVT prophylaxis: Lovenox SQ, SCDs Subjective Feels overall quite well today. No fevers or chills overnight. Diarrhea is slowly improving. Reports no fevers/chills, chest pain, shortness of breath, abdominal pain, nausea, or vomiting. Physical Exam Constitutional: WD/WN, vitals as above Eyes: EOM intact bilaterally; no conjunctival abnormality ENMT: external ear and nose normal, oropharynx normal Neck: trachea midline, no thyromegaly normal visual inspection Respiratory: normal respiratory effort, lungs clear to auscultation no respiratory distress Cardiovascular: Rate/Rhythm: regular rhythm and + tachycardic Heart Sounds: normal S1 and normal S2 Vessels: no JVD Extremities: no edema Gastrointestinal (Abdomen): Inspection/Auscultation: abdomen normal to inspection; abdomen not distended Musculoskeletal: no cyanosis or clubbing, extremities motor strength 5/5 Extremities: + limited ROM of extremities (Right shoulder, though no erythema or warmth) Skin: no rashes, warm and dry Neurologic: moves all extremities and awake Psychiatric: Orientation: alert, oriented to person and cooperative Results & Data Vital Signs (Past 12 Hours) Vital Signs Temp Pulse Resp BP Pulse Ox 01/25/19 11:30 36.8 C 106 H 16 98/63 L 94 01/25/19 07:46 36.7 C 96 H 16 106/70 97 01/25/19 04:00 36.7 C 98 H 20 100/66 95 PG Care Time/CCT Total # of Minutes Spent Total Time Spent with Patient: Total time spent is greater than 50% in coordination of care (as documented) at patient's floor/unit and/or counseling patient:
--- NOTE | 2019-01-25 18:52 | Orthopedic Progress Note ---
Date of Service January 25, 2019 Assessment & Plan (1) Shoulder pain, right: Right shoulder pain, not clearly septic, I think she do more pain and more swelling if she has septic shoulder but she is on antibiotics. Performing any kind of aspiration while on antibiotics is going to have a low probability of getting useful information. If she is going to continue on antibiotics to treat her condition and no source of infection is identified would recommend being seen in the office as an outpatient setting as soon as Wednesday could be possible and perform alpha defensive and type testing which would be more specific and is not available here [facility]. Observation otherwise for now. Subjective Some persistent achiness in her right shoulder not severe pain. Shoulder was feeling better 3 weeks ago than it is today Physical Exam Physical Exam: Right shoulder has 130 degrees active 140 degrees passive range of motion and 90 degrees of abduction and no major pain with range of motion of her shoulder at all. Her strength is good. Neurocirculatory exam all intact. There may be a small amount of swelling in the subacromial space but no major joint effusion no erythema no drainage. Results & Data Vital Signs (Past 12 Hours) Vital Signs Temp Pulse Resp BP BP Pulse Ox 01/25/19 15:09 36.8 C 107 H 16 106/59 L 95 01/25/19 11:30 36.8 C 106 H 16 98/63 L 94 01/25/19 07:46 36.7 C 96 H 16 106/70 97
[2019-01-25] MEDS: CLOTRIMAZOLE VAGINAL CR 7 APPLN/45 GM TUBE PV SCH (20:59)
[2019-01-25] MEDS: ATORVASTATIN 20 MG TAB PO SCH (20:59)
[2019-01-25] MEDS ORDERED: GADOBUTROL 65ML VIAL IV PRN (21:48)
--- NOTE | 2019-01-25 22:28 | Magnetic Resonance Report ---
LUMBAR SPINE MRI WITH AND WITHOUT CONTRAST HISTORY: Abnormal CT. Vertebral osteomyelitis TECHNIQUE: Multiplanar multisequence MRI of the lumbar spine was performed both before and after the intravenous administration of contrast. COMPARISON: Lumbar spine MRI 10/11/2018. FINDINGS: For the purpose of the report the L5-S1 disc space will be located on axial image 32 of 40. S-shaped scoliosis of the thoracolumbar spine. Moderate to severe disc space narrowing throughout the lumbar spine, unchanged. Moderate to severe facet degenerative changes are again noted. No acute fra ctures. Small Tarlov cyst at S2. The conus terminates at the L1 level. Fluid at the L5-S1 disc space. There is mild erosive change at the L5-S1 endplates with progressive T2 hyperintense, T1 hypointense endplate signal abnormality. There is also progressive paravertebral edema with enhancement both wit hin and surrounding the L5 and S1 vertebral bodies. Therefore, these findings favor progressive acute on chronic L5-S1 discitis/osteomyelitis. Of note, the epidural abscesses seen on the prior study hav e resolved in the interval. L1-L2: Small broad-based posterior disc bulge with ligamentum and facet hypertrophy resulting in mild central canal and mild bilateral neural foraminal narrowing. L2-L3: Broad-based posterior disc bulge without significant central canal narrowing. There is moderat e left neural foraminal narrowing. L3-L4: No significant central canal narrowing. There is mild left-sided neural foraminal narrowing. L4-L5: Mild central canal narrowing due to the broad-based posterior disc bulge and facet hypertrophy . Mild bilateral neural foraminal narrowing. L5-S1: Mild central canal narrowing which has improved. There is severe bilateral neural foraminal na rrowing due to to the facet hypertrophy. IMPRESSION: 1. Interval progression of the acute or chronic L5-S1 discitis/osteomyelitis. However, the epidural a bscesses seen on the prior study have resolved in the interval.. 2. Multilevel lumbar spondylosis as described above. 3. S-shaped scoliosis of the thoracolumbar spine. Electronically signed by: Cachorro Herrera M.D. 01/25/2019 10:25 PM
[2019-01-25] MEDS: ENOXAPARIN INJ 40 MG/0.4 ML SYR SQ SCH (23:27)
[2019-01-26] MEDS: CEFAZOLIN 2000MG 2,000 MG/15 ML SYR IV SCH ×2 (02:46→08:55)
[2019-01-26] MEDS: FLUTICASONE/SALMETEROL 100/50 (ADVAIR) 14 PUFF/1 INHALER INH SCH ×2 (08:54→19:43)
[2019-01-26] MEDS: PANTOprazole 40 MG TAB PO SCH (08:56)
[2019-01-26] MEDS: NYSTATIN SUSP 500,000 U/5 ML UDC PO SCH ×4 (08:56→19:44)
[2019-01-26] MEDS: MULTIVITAMIN TAB PO SCH (08:58)
[2019-01-26] MEDS: BuPROPion XL 150 MG TABCR PO SCH (08:58)
[2019-01-26] MEDS: AZITHROMYCIN 250 MG TAB PO SCH (08:58)
[2019-01-26] MEDS: LIDOCAINE 5% 1 PATCH TD SCH (08:59)
[2019-01-26 09:42] LABS: Hematocrit (blood only) 29.7 % (37-47); Hemoglobin 9.7 g/dL (12.0-16.0); Mean Corpuscular Hemoglobin 26.3 pg (25-34); Mean Corpuscular Hgb Conc 32.7 g/dL (32-36); Mean Corpuscular Volume 80.5 fL (80-100); Mean Platelet Volume 7.8 fL (7.4-10.4); Platelet Count 639 K/uL (130-400); RDW Coefficient of Variation 19.3 % (11.5-14.5); RDW Standard Deviation 57.2 fL (36.4-46.3); Red Blood Count 3.69 M/uL (4.2-5.4); White Blood Count 14.25 K/uL (4.8-10.8)
[2019-01-26 10:08] LABS: BUN Creatinine Ratio 12.6 (10-20); Calcium 8.6 mg/dl (8.5-10.1); Est GFR (Non-African American) 85.4; Magnesium 1.8 mg/dl (1.8-2.4); Potassium 3.8 mmol/L (3.5-5.1)
--- NOTE | 2019-01-26 10:32 | Infectious Disease Progress Nt ---
Date of Service January 26, 2019 Assessment & Plan (1) Gram positive sepsis: continue with ancef, follow repeat blood cultures. echo pending. stop po vanco. continue azithro day 3/3. Will likely require prolonged course of IV abx, can change to ctx for ease of once daily dosing upon d/c. will need weekly labs cbc, cmp, esr while on therapy. suggest follow up with ID at [facility] for ongoing care. (2) Osteomyelitis: (3) Diarrhea: Subjective pt seen in f/u, tolerating abx. diarrhea less. no abd pain. back pain with movement only, none at rest. MRI l spine done, still with osteo/discitis. no abscess. states she was d/c from ID practice at [facility] and was told infection was cleared. she continues to follow with spinal surgery and has appt in 03/2019. no f/c overnight. Repeat blood cultures 01/24, 01/25 negative, echo results pending. Review of Systems Review of Systems: All systems reviewed & are unremarkable except as noted in HPI & below Physical Exam Constitutional: WD/WN, vitals as above Eyes: PERRL, conjunctivae normal, anicteric sclerae ENMT: external ear and nose normal, oropharynx normal Neck: normal visual inspection Respiratory: normal respiratory effort, lungs clear to auscultation Cardiovascular: RRR, no murmur, no edema Gastrointestinal (Abdomen): normal bowel sounds, soft, nontender, no hepatosplenomegaly Musculoskeletal: no cyanosis or clubbing, extremities motor strength 5/5 Skin: no rashes, warm and dry Psychiatric: A+Ox3, euthymic affect Results & Data Vital Signs (Past 12 Hours) Vital Signs Temp Pulse Pulse Resp BP Pulse Ox 01/26/19 08:12 37.0 C 97 H 18 102/55 L 96 01/26/19 04:43 36.5 C 96 H 16 100/66 94 01/26/19 01:29 107 H 01/25/19 23:33 36.9 C 103 H 16 97/59 L 93 Laboratory Results Microbiology 01/25/19 06:17 Blood Aerobic Blood Culture - Preliminary No growth in Aerobic bottle after 24 hours. 01/25/19 06:17 Blood Anaerobic Blood Culture - Preliminary No growth in Anaerobic bottle after 24 hours. 01/25/19 06:28 Blood Aerobic Blood Culture - Preliminary No growth in Aerobic bottle after 24 hours. 01/25/19 06:28 Blood Anaerobic Blood Culture - Preliminary No growth in Anaerobic bottle after 24 hours. 01/23/19 16:30 Stool Escherichia coli Shiga Toxins Test - Preliminary 01/23/19 16:30 Stool Stool Culture - Preliminary No Salmonella isolated to date, No Shigella isolated to date, No Campylobacter jejuni isolated to date. 01/24/19 13:48 Blood Aerobic Blood Culture - Preliminary No growth in Aerobic bottle after 24 hours. 01/24/19 13:48 Blood Anaerobic Blood Culture - Preliminary No growth in Anaerobic bottle after 24 hours. 01/24/19 13:52 Blood Aerobic Blood Culture - Preliminary No growth in Aerobic bottle after 24 hours. 01/24/19 13:52 Blood Anaerobic Blood Culture - Preliminary No growth in Anaerobic bottle after 24 hours. 01/22/19 21:21 Blood Aerobic Blood Culture - Final Staphylococcus aureus 01/22/19 21:21 Blood Anaerobic Blood Culture - Final Staphylococcus aureus 01/22/19 21:10 Blood Aerobic Blood Culture - Preliminary No growth in Aerobic bottle after 48 hours. 01/22/19 21:10 Blood Anaerobic Blood Culture - Preliminary Staphylococcus aureus 01/22/19 14:23 Urine,Clean Catch Urine Culture - Final More than three types of organisms present, all low counts mixed probable skin lina. No further identifications or sensitivities to follow. PG Care Time/CCT Total # of Minutes Spent Total Time Spent with Patient: Total time spent is greater than 50% in coordination of care (as documented) at patient's floor/unit and/or counseling patient:
[2019-01-26] MEDS: CHOLESTYRAMINE LIGHT 4 GM PKT PO SCH ×2 (11:14→21:14)
--- NOTE | 2019-01-26 16:39 | Hospitalist Progress Note ---
Date of Service January 26, 2019 Assessment & Plan (1) Staphylococcus aureus bacteremia: Blood cultures on 01/22 growing Staph aureus. DNA testing indicating MSSA, sensitivities pending. - Discussed with [facility] Ortho ID on 01/24 who sent records - Reviewed abx course including vanc, linezolid, Cipro. - Discussed with ortho re: further shoulder imaging - None at this time. - TTE done on 01/25 without any vegetations seen. - MRI lumbar spine showed the L5/S1 discitis/osteomyelitits has progressed. The epidural abscesses have resolved. Discussed with ortho at [facility]. = Six weeks of abx. PICC ordered. Home abx arranging. (2) Diarrhea: With profuse diarrhea x2 weeks in the setting of antibiotics over the last several months for spinal osteomyelitis and UTI. C. difficile gene is positive, however C. difficile toxin was negative on 01/17. - Repeat C. diff on 01/23 was negative. - Stool culture from 01/18 grew Campylobacter - Started azithromycin on 01/23 & finished on 01/25. Repeat culture negative. - Continue cholestyramine powder; added Imodium as well. (3) Sinus tachycardia: Resting heart rate was in the 120s and rates To the 130s with minimal exertion, secondary to dehydration, hypovolemia from copious diarrhea. - Improving on 01/23 - HR down to ~100 bpm. Stable today. (4) Oral thrush: Severe, secondary to recent long-term antibiotic use as well as the use of inhaled corticosteroids. - Continue nystatin swish and swallow (5) Acute vulvovaginitis: Significant case along with ulcerations of the labia, there may also be a component of irritant dermatitis from profound diarrhea. - Started clotrimazole suppositories PV nightly x7 days - Barrier cream and lidocaine cream as needed - Wound care consult (6) Shoulder swelling: With complaint of fever, right shoulder erythema and swelling 2 weeks ago which is now improved, however now with frozen shoulder. Has recent history of osteomyelitis on antibiotics and with shoulder arthroplasty present, concerning for possible infection. - X-ray of the right shoulder on 01/22 showed no acute findings. - Consulted her orthopedic surgeon for further evaluation - No further testing at present. (7) Chronic obstructive pulmonary disease: Stable, no acute issues. - Continue albuterol nebulizer as needed - Continue Advair (8) Chronic reflux esophagitis: Continue PPI (9) Depression, controlled: - Continue bupropion (10) Hyperlipidemia: Continue statin (11) Impaired fasting glucose: A1c was 6.9% on 01/23. - Sliding scale insulin (12) Nicotine dependence: Counseled on cessation. - Nicotine patch as needed (13) Osteomyelitis: With recent lumbar sacral osteomyelitis with surrounding abscesses, treated at [facility] with IV antibiotics transition to p.o. antibiotics to complete at the end of November. Back pain is much improved. - Ortho consult as above - Lumbar MRI as above (14) Thrombocytosis: Thrombocytosis with platelets in the 600-700s recently, along with anemia and infection. Could be reactive thrombocytosis for anemia and infection. - Concern for inflammatory or other infectious process other than C. difficile especially in the setting of recent osteomyelitis and history of recent right shoulder pain and swelling with prosthesis in place (15) Anemia: Hemoglobin has trended down recently into the tens, is microcytic with an MCV of 81. Iron studies on 01/23 indicated iron deficiency + anemia of chronic disease. - Follow CBC - Once GI issues resolve, consider iron supplement. (16) DVT prophylaxis: Lovenox SQ, SCDs Subjective Feeling fairly well today. No major concerns. Overall, she has not had any further fevers. Reports no fevers/chills, chest pain, shortness of breath, abdominal pain, nausea, or vomiting. Physical Exam Constitutional: WD/WN, vitals as above Eyes: EOM intact bilaterally; no conjunctival abnormality ENMT: external ear and nose normal, oropharynx normal Neck: trachea midline, no thyromegaly normal visual inspection Respiratory: normal respiratory effort, lungs clear to auscultation no respiratory distress Cardiovascular: RRR, no murmur, no edema Rate/Rhythm: regular rhythm and + tachycardic Heart Sounds: normal S1 and normal S2 Vessels: no JVD Extremities: no edema Gastrointestinal (Abdomen): Inspection/Auscultation: abdomen normal to inspection; abdomen not distended Musculoskeletal: no cyanosis or clubbing, extremities motor strength 5/5 Extremities: + limited ROM of extremities (Right shoulder, though no erythema or warmth) Skin: no rashes, warm and dry Neurologic: moves all extremities and awake Psychiatric: Orientation: alert, oriented to person and cooperative Results & Data Vital Signs (Past 12 Hours) Vital Signs Temp Pulse Resp BP BP Pulse Ox 12/12/19 15:33 36.9 C 112 H 17 110/71 97 01/26/19 14:26 36.8 C 114 H 24 111/65 98 01/26/19 11:19 36.8 C 103 H 22 104/68 98 01/26/19 08:12 37.0 C 97 H 18 102/55 L 96 01/26/19 04:43 36.5 C 96 H 16 100/66 94 PG Care Time/CCT Total # of Minutes Spent Total Time Spent with Patient: Total time spent is greater than 50% in coordination of care (as documented) at patient's floor/unit and/or counseling patient:
[2019-01-26] MEDS: NAFCILLIN SODIUM 2,000 MG in DEXTROSE 5% 100 ML IV SCH ×2 (18:37→21:14)
[2019-01-26] MEDS: CLOTRIMAZOLE VAGINAL CR 7 APPLN/45 GM TUBE PV SCH (19:44)
[2019-01-26] MEDS: ATORVASTATIN 20 MG TAB PO SCH (19:44)
[2019-01-26] MEDS: ENOXAPARIN INJ 40 MG/0.4 ML SYR SQ SCH (22:13)
[2019-01-27] MEDS: NAFCILLIN SODIUM 2,000 MG in DEXTROSE 5% 100 ML IV SCH ×3 (00:25→08:17)
[2019-01-27] MEDS: LOPERAMIDE HCL 2 MG CAP PO PRN ×3 (00:51→18:50)
--- NOTE | 2019-01-27 07:30 | Ultrasound Report ---
ABDOMINAL ULTRASOUND, RIGHT UPPER QUADRANT HISTORY: RUQ pain, distended gallbladder on CT. COMPARISON: Abdomen and pelvis CT 01/22/2019. FINDINGS: Pancreas: The pancreatic tail is obscured by overlying bowel gas. The remaining portions of the pancr eas are within normal limits. Liver: The liver is echogenic consistent with fatty change. Gallbladder: The gallbladder appears contracted. This may account for the borderline gallbladder wall thickening. 6 mm stone within the gallbladder. Ringdown artifact at the anterior wall suggesting dianne nomyomatosis. Negative sonographic Horn sign. CBD: 4 mm. Right kidney: No hydronephrosis. IMPRESSION: 1. The gallbladder is decompressed. This likely accounts for the borderline gallbladder wall thickeni ng. There is a 6 mm stone within the gallbladder. However, the technologist reported a negative sonog raphic Horn sign. 2. Ring down artifact at the anterior wall of the gallbladder suggesting adenomyomatosis. 3. Hepatic steatosis. Electronically signed by: Cachorro Herrera M.D. 01/27/2019 7:29 AM
[2019-01-27] MEDS: LIDOCAINE 5% 1 PATCH TD SCH (07:50)
[2019-01-27] MEDS: FLUTICASONE/SALMETEROL 100/50 (ADVAIR) 14 PUFF/1 INHALER INH SCH (07:50)
[2019-01-27] MEDS: PANTOprazole 40 MG TAB PO SCH (07:51)
[2019-01-27] MEDS: MULTIVITAMIN TAB PO SCH (07:51)
[2019-01-27] MEDS: NYSTATIN SUSP 500,000 U/5 ML UDC PO SCH ×3 (07:51→18:07)
[2019-01-27] MEDS: AZITHROMYCIN 250 MG TAB PO SCH (07:51)
[2019-01-27] MEDS: BuPROPion XL 150 MG TABCR PO SCH (07:52)
[2019-01-27 08:25] LABS: Hemoglobin 9.5 g/dL (12.0-16.0); Mean Corpuscular Hemoglobin 26.6 pg (25-34); Mean Corpuscular Hgb Conc 32.8 g/dL (32-36); Mean Corpuscular Volume 81.2 fL (80-100); Mean Platelet Volume 7.7 fL (7.4-10.4); Platelet Count 609 K/uL (130-400); RDW Coefficient of Variation 19.3 % (11.5-14.5); RDW Standard Deviation 57.2 fL (36.4-46.3); Red Blood Count 3.57 M/uL (4.2-5.4); White Blood Count 14.56 K/uL (4.8-10.8)
[2019-01-27 08:53] LABS: Calcium 8.8 mg/dl (8.5-10.1); Creatinine Clr Calc Pharmacy 49.3 ml/min; Est GFR (African American) 76.6; Est GFR (Non-African American) 66.1; Magnesium 1.6 mg/dl (1.8-2.4); Potassium 3.4 mmol/L (3.5-5.1)
--- NOTE | 2019-01-27 09:14 | Infectious Disease Progress Nt ---
Date of Service January 27, 2019 Assessment & Plan (1) Gram positive sepsis: Will likely require prolonged course of IV abx, will change to ctx for ease of once daily dosing upon d/c and high instance of interstitial nephritis with prolonged nafcillin use. will need weekly labs cbc, cmp, esr while on therapy. suggest follow up with ID at [facility] [place]. ok for d/c when otherwise stable. (2) Osteomyelitis: (3) Diarrhea: Subjective pt remains afebrile. now on nafcillin, tolerating. wbc 14, creat 0.8, repeat blood cultures 01/24 and 01/25 negative. echo negative for veg. Results & Data Vital Signs (Past 12 Hours) Vital Signs Temp Pulse Pulse Resp BP Pulse Ox 01/27/19 08:01 98 H 01/27/19 07:31 36.6 C 103 H 18 117/74 99 01/27/19 03:01 37.0 C 104 H 19 109/68 93 01/26/19 23:35 109 H 01/26/19 22:34 36.9 C 107 H 16 104/67 94 Laboratory Results Microbiology 01/25/19 06:17 Blood Aerobic Blood Culture - Preliminary No growth in Aerobic bottle after 48 hours. 01/25/19 06:17 Blood Anaerobic Blood Culture - Preliminary No growth in Anaerobic bottle after 48 hours. 01/25/19 06:28 Blood Aerobic Blood Culture - Preliminary No growth in Aerobic bottle after 48 hours. 01/25/19 06:28 Blood Anaerobic Blood Culture - Preliminary No growth in Anaerobic bottle after 48 hours. 01/24/19 13:48 Blood Aerobic Blood Culture - Preliminary No growth in Aerobic bottle after 48 hours. 01/24/19 13:48 Blood Anaerobic Blood Culture - Preliminary No growth in Anaerobic bottle after 48 hours. 01/24/19 13:52 Blood Aerobic Blood Culture - Preliminary No growth in Aerobic bottle after 48 hours. 01/24/19 13:52 Blood Anaerobic Blood Culture - Preliminary No growth in Anaerobic bottle after 48 hours. 01/23/19 16:30 Stool Escherichia coli Shiga Toxins Test - Final 01/23/19 16:30 Stool Stool Culture - Final No Salmonella isolated, No Shigella isolated, No Campylobacter jejuni isolated. 01/22/19 21:21 Blood Aerobic Blood Culture - Final Staphylococcus aureus 01/22/19 21:21 Blood Anaerobic Blood Culture - Final Staphylococcus aureus 01/22/19 21:10 Blood Aerobic Blood Culture - Preliminary No growth in Aerobic bottle after 48 hours. 01/22/19 21:10 Blood Anaerobic Blood Culture - Preliminary Staphylococcus aureus 01/22/19 14:23 Urine,Clean Catch Urine Culture - Final More than three types of organisms present, all low counts mixed probable skin lina. No further identifications or sensitivities to follow. PG Care Time/CCT Total # of Minutes Spent Total Time Spent with Patient: Total time spent is greater than 50% in coordination of care (as documented) at patient's floor/unit and/or counseling patient:
[2019-01-27] MEDS ORDERED: cefTRIAXone SODIUM 2,000 MG in DEXTROSE 5% 50 ML IV SCH (09:30)
[2019-01-27] MEDS: CHOLESTYRAMINE LIGHT 4 GM PKT PO SCH (09:44)
[2019-01-27] MEDS: POTASSIUM CHLORIDE / WTR 20 MEQ/100 ML PLCT IV SCH ×2 (10:37→12:36)
[2019-01-27] MEDS: MAGNESIUM SULFATE / D5W 1 GM/100 ML BAG IV SCH ×2 (10:38→11:39)
--- NOTE | 2019-01-27 16:47 | Discharge Summary ---
Date of Service January 27, 2019 Admission HPI Per Admitting Provider This patient is a 68-year-old female with a history of recent lumbar spine osteomyelitis on long-term IV antibiotics, recent UTI on antibiotics, osteoarthritis, GERD, current smoker with COPD, depression, hyperlipidemia, who presents to the ER with generalized weakness, severe oral pain, severe vulvar irritation, and profuse diarrhea for 2 weeks. She finished her course of IV antibiotics and p.o. antibiotics for her osteomyelitis at the end of November. She was then treated for UTI in December again with antibiotics and completed that course about 3 weeks ago. She started having diarrhea sometimes up to 20 times a day for the last 2 weeks. It is nonbloody, no melena, watery and brown in nature. She is tried taking Imodium which helps temporarily and then when she stops taking it comes right back. She also developed nausea and some vomiting in the last few days and has barely been able to eat any food or drink fluids. The vomit is mostly mucousy. She denies fever/sweats/chills, has had some const ant right upper quadrant pain also for the last 2 weeks that is relieved by nothing and exacerbated by nothing. She was seen by her PCP 5 days ago and subsequently submitted a stool sample that came back positive for the C. difficile gene but negative for the C. difficile toxin, and a stool culture which was negative. She was called in a prescription for oral vancomycin which she started about a day and a half ago. She is seen no relief and became generally weak today. In the ER, she was treated with IV fluids, p.o. Diflucan, 1 dose of nystatin swish and swallow, but was noted to have significant sinus tachycardia in the 120s to 130s. She denied chest pain or shortness of breath. She will be admitted for observation overnight for significant dehydration, hypomagnesemia, and C. difficile colitis. Principal Diagnosis MSSA bacteremia Discharge Exam Constitutional WD/WN, vitals as above Eyes EOM intact bilaterally; no conjunctival abnormality ENMT external ear and nose normal, oropharynx normal Neck trachea midline, no thyromegaly normal visual inspection Respiratory normal respiratory effort, lungs clear to auscultation no respiratory distress Cardiovascular RRR, no murmur, no edema Rate/Rhythm: regular rhythm and + tachycardic Heart Sounds: normal S1 and normal S2 Vessels: no JVD Extremities: no edema Gastrointestinal (Abdomen) Inspection/Auscultation: abdomen normal to inspection; abdomen not distended Musculoskeletal no cyanosis or clubbing, extremities motor strength 5/5 Extremities: + limited ROM of extremities (Right shoulder, though no erythema or warmth) Skin no rashes, warm and dry Neurologic moves all extremities and awake Psychiatric Orientation: alert, oriented to person and cooperative Discharge Data Allergies Allergy/AdvReac Type Severity Reaction Status Date / Time shellfish derived Allergy Mild itchy and Verified 01/22/19 14:08 swelling of tongue and throat Consultations 01/22/19 18:48 ED Decision to Admit Stat 01/22/19 22:18 Consult Orthopedic Surgery Routine 01/24/19 09:10 Consult Infectious Diseases Routine Ordered Studies 01/22/19 19:32 CT abd pelvis IV con only Urgent 01/25/19 09:51 MR lumbar spine wo/w con Routine 01/26/19 18:31 US gallbladder Routine Hospital Course (1) Staphylococcus aureus bacteremia: Three of four blood cultures on 01/22 grew MSSA (Staph aureus). - Discussed with [facility] Ortho ID on 01/24 who sent records - Reviewed abx course including vanc, linezolid, Cipro. - Discussed with ortho re: further shoulder imaging - None at this time. - TTE done on 01/25 without any vegetations seen. - MRI lumbar spine showed the L5/S1 discitis/osteomyelitis has progressed. The epidural abscesses have resolved. Discussed with ortho at [facility]. = PICC put in. Cefazolin for 6 weeks. Arranged for home. Will follow up with [facility] doctors. (2) Diarrhea: With profuse diarrhea x2 weeks in the setting of antibiotics over the last several months for spinal osteomyelitis and UTI. C. difficile gene was positive, however C. difficile toxin was negative on 01/17. Repeat C. diff testing was entirely negative on 01/23. - Stool culture from 01/18 grew Campylobacter - Started azithromycin on 01/23 & finished on 01/27. Repeat stool culture on 01/23 was negative. - Given Imodium as well. It seemed to be improving somewhat. Will follow up with PCP if it doesn't resolve in 1-2 weeks. Recommended probiotic. (3) Sinus tachycardia: Resting heart rate was in the 120s and rates to the 130s with minimal exertion, secondary to dehydration, hypovolemia from copious diarrhea. - Improved by discharge with HR mostly in the 90-100 range. (4) Oral thrush: Severe, secondary to recent long-term antibiotic use as well as the use of inhaled corticosteroids. - Continue nystatin swish and swallow - Prescribed on discharge. (5) Acute vulvovaginitis: Significant case along with ulcerations of the labia, there may also be a component of irritant dermatitis from profound diarrhea. - Started clotrimazole suppositories PV nightly x7 days - Barrier cream and lidocaine cream as needed - Wound care consulted, but she declined. (6) Shoulder swelling: With complaint of fever, right shoulder erythema and swelling 2 weeks ago which is now improved, however now with frozen shoulder. Has recent history of osteomyelitis on antibiotics and with shoulder arthroplasty present, concerning for possible infection. - X-ray of the right shoulder on 01/22 showed no acute findings. - Consulted her orthopedic surgeon for further evaluation - No further testing at present. (7) Chronic obstructive pulmonary disease: Stable, no acute issues. No shortness of breath. - Continue albuterol nebulizer as needed - Continue Advair (8) Chronic reflux esophagitis: Continue PPI (9) Depression, controlled: - Continue bupropion (10) Hyperlipidemia: Continue statin (11) Impaired fasting glucose: A1c was 6.9% on 01/23. - Sliding scale insulin (12) Nicotine dependence: Counseled on cessation. - Nicotine patch as needed (13) Osteomyelitis: With recent lumbar sacral osteomyelitis with surrounding abscesses, treated at [facility] with IV antibiotics transition to p.o. antibiotics to complete at the end of November. Back pain is much improved. - Ortho consult as above - Follow up outpatient. - Lumbar MRI as above (14) Thrombocytosis: Thrombocytosis with platelets in the 600-700s recently, along with anemia and infection. Could be reactive thrombocytosis for anemia and infection. - Follow up outpatient with ID. (15) Anemia: Hemoglobin has trended down recently into the tens, is microcytic with an MCV of 81. Iron studies on 01/23 indicated iron deficiency + anemia of chronic disease. - Follow CBC - Once GI issues resolve, consider iron supplement. (16) DVT prophylaxis: Lovenox SQ, SCDs Total Time Total Time Spent Total Time Spent (In Minutes): 45 Discharge Plan Discharge Items Patient Disposition: Home - Home Health Services Reason For Visit: C. DIFF DIARRHEA, TACHYCARDIA Discharge Diagnosis: MSSA (Staph) bacteremia Activity: Resume your previous activity Non-emergency contact: Primary Care Provider, Surgeon and Specialist Call non-emergency contact if: your symptoms worsen, your pain is worsening and your temperature is above 101 Follow-up/Referrals: Chely Jade CRNP [Primary Care Provider] - 02/01/19 9:30 am (Please, follow up at [facility] with TYLER Jade's associate, Kylie SCOTT, on WednesdayFebruary 01 at 9:30 am. *If you need to change this appointment, call their office at [phone].) Diet: Regular Addtl Attending Provider Instructions: You were admitted for diarrhea, and we found an infection in your blood stream. 1) For the diarrhea, we found a bacteria called Campylobacter which is usually from undercooked chicken. We gave you 3 days of oral antibiotics which should kill the bacteria and let your stomach and intestines heal. The diarrhea was improving, though not resolved by discharge. Please follow up with your PCP if the diarrhea doesn't continue to improve within another 1-2 weeks. 2) Incidentally, we found bacteria in your bloodstream. It grew in 3 out of 4 bottles on 01/22/2019, so we are very confident it was a true bacterial infection. Fortunately, none of your further cultures grew any positive bacteria. We did an echo of your heart which did not show any bacteria on your heart valves. We did an MRI which showed progression of the osteomyelitis in your spine. You will need at least another 6 weeks of antibiotics. Please take the cefazolin three times per day. The [employer] will help you set it up. Dr. Traylor (our infectious disease doctor) feels would be beneficial to follow up with your [facility] doctors since you have a standing relationship with them. Please call their office on Wednesday to set up follow up appointments. I have faxed the information from your hospital stay to them so they should be up to date with your course. Pending Studies at Discharge: No Stand-Alone Forms: My [facility] [employer], Smoking Cessation Medications and DC Order Prescriptions: New Monistat 7 2 % (100 mg)- 2 % (9 gram) comb pack,prefill appl, cream 1 pkt vaginal ONCE HS 7 Days Qty: 6 RF: 0 nystatin 100,000 unit/mL suspension 5 ml PO QID 7 Days Qty: 140 RF: 0 ondansetron 4 mg tablet,disintegrating 4 mg PO Q6H PRN (Reason: nausea and vomiting) Qty: 7 RF: 0 loperamide 2 mg Capsule 2 mg PO Q4H PRN (Reason: loose stool) Qty: 1 RF: 0 Continued cyclobenzaprine 10 mg tablet 10 mg PO BID PRN (Reason: Muscle Spasm) Qty: 30 RF: 3 hydrocortisone 2.5 % cream 1 appln TOP TID Qty: 30 RF: 1 Spiriva Respimat 2.5 mcg/actuation mist 2 puffs inhalation DAILY PRN (Reason: Shortness of Breath. ) RF: 0 furosemide 40 mg tablet 40 mg PO DAILY PRN (Reason: edema) Qty: 30 RF: 4 potassium chloride 10 mEq capsule, extended release 10 meq PO DAILY Qty: 30 RF: 4 albuterol sulfate 2.5 mg /3 mL (0.083 %) solution for nebulization 2.5 mg inhalation Q4H PRN (Reason: shortness of breath or wheezing) Qty: 1 RF: 0 bupropion HCl 150 mg tablet extended release 24 hr 150 mg PO QAM Qty: 30 RF: 0 acetaminophen [Tylenol Extra Strength] 500 mg tablet 1,000 mg PO Q6H PRN (Reason: Pain) RF: 0 multivitamin [Daily Multi-Vitamin] tablet 1 tab PO QAM RF: 0 omega-3 fatty acids [Fish Oil Concentrate] 1,000 mg capsule 1,000 mg PO HS RF: 0 naproxen 500 mg tablet 500 mg PO BID PRN (Reason: pain) Qty: 60 RF: 4 omeprazole 20 mg capsule,delayed release(DR/EC) 20 mg PO QAM RF: 0 fluticasone propion-salmeterol [Advair Diskus] 100-50 mcg/dose blister with device 1 puff inhalation BID RF: 0 docusate sodium 100 mg capsule 100 mg PO HS PRN (Reason: Constipation) RF: 0 atorvastatin 20 mg tablet 20 mg PO HS RF: 0 albuterol sulfate [Ventolin HFA] 90 mcg/actuation HFA aerosol inhaler 2 puff inhalation .Q4-6H PRN (Reason: Shortness Of Breath) RF: 0 Discontinued vancomycin 125 mg capsule 125 mg PO QID 10 Days Qty: 40 RF: 0 Discharge Orders: Discharge Order (Routine); Ordered 01/27/19 Ordered By: Geovanny Quintanilla/Other Patient Handouts: Prediabetes, A1C Admission Data Admit Date/Time: 01/22/19 19:32 Attending Provider: Geovanny Meyers Admit Provider: Katarina Ross Primary Care Provider: Chely Jade Other Providers: Gage Bliss ; Geovanny Meyers ; Kia Traylor ; [place]
[2019-01-27] MEDS ORDERED: cefTRIAXone SODIUM 2,000 MG in DEXTROSE 5% 50 ML IV ONE (18:00)
--- NOTE | 2019-02-02 11:27 | Coding Query ---
SEPSIS To promote full compliance with coding requirements relating to patient care, physician participation is requested in all cases of blow machine tender starch spraying uncertainty. Please assist us with the question(s) below: In responding to this query, please exercise your independent professional judgement. The fact that a question is asked does not imply that any particular answer is desired or expected. We appreciate your clarification on this issue. Coding Question: Sepsis was documented by Infectious Disease however Bacteremia is listed in the rest of the notes including discharge summary. Please clarify below to the best of your knowledge if the patient was suffering from Sepsis. Thank you so much for your help! (x) Bacteremia (x) Present on Admission () Not present on admission () Unable to clinically determine () Sepsis () Present on Admission () Not present on admission () Unable to clinically determine - No sepsis as she did not meet qSOFA or SIRS criteria for sepsis. Never hypotensive from her infection. () Other, patient has: MTDD
== END 2019-01-27 19:11 | disposition home health service (06) | DRG 372 ==
LOC: ED 13:03 → 2W 19:32 → SUATTDRO 19:32 → 2W 21:58

== ENCOUNTER 2019-07-03 11:23 | Inpatient (IN) ==
[2019-07-03] MEDS ORDERED: ZOLPIDEM TARTRATE 5 MG TAB PO PRN (11:42)
[2019-07-03] MEDS ORDERED: ACETAMINOPHEN 325 MG TAB PO PRN (11:42)
[2019-07-03] MEDS ORDERED: ONDANSETRON INJ 2 MG/ML 2 ML VIAL IV PRN (11:42)
[2019-07-03] MEDS ORDERED: VANCOMYCIN 1000 MG IV SCH (12:15)
[2019-07-03] MEDS ORDERED: CONSULT PHARMACY PRN (12:59)
[2019-07-03] MEDS ORDERED: VANCOMYCIN CONSULT ACTIVE PRN (12:59)
--- NOTE | 2019-07-03 13:02 | History and Physical Report ---
DATE OF ADMISSION: 07/05/2019 CHIEF COMPLAINT: Increased right shoulder pain. HISTORY OF PRESENT ILLNESS: This is a 68-year-old female patient of Dr. Farah'katlin complaining of a 2-week history of increasingly painful right shoulder. The patient states there is a "lump" on her shoulder. She states that this started out as a very small pea-sized lump that has grown significantly over the past week. The patient states the lump is tender to touch and her shoulder is generally painful. She presented to the office approximately 3 days ago with these complaints. Aspiration of the lump was obtained. She was also ordered blood cultures, the appropriate laboratory studies and culture of the aspirate. Results showed increased sed rate, ESR, normal white blood cell count. Both blood cultures and shoulder aspirate showed species of Staph aureus. At this point in time, the patient will be direct admitted to [facility] and started on IV vancomycin, which is sensitive. The patient will be scheduled to have a right shoulder removal of hardware of reversed total shoulder replacement and conversion to an antibiotic spacer. This will be done in the next 2 days. PAST MEDICAL HISTORY: She has a history of back pain, bilateral shoulder arthritis, hypertension, nicotine dependence, osteomyelitis, peripheral edema, poor appetite, scoliosis. She has a separate history of Staph aureus bacteremia back in 01/2019 and a history of weight loss. PAST SURGICAL HISTORY: Foot surgery, shoulder surgery, varicose vein ligation, bilateral carpal tunnel surgeries, colonoscopy, laparoscopy and tonsillectomy. FAMILY HISTORY: Noncontributory. REVIEW OF SYSTEMS: Increasingly painful right shoulder with increasingly largening lump. The patient otherwise denies any shortness of breath, chest pain, nausea, vomiting or any other joint complaints. She denies any fevers up until this point. SOCIAL HISTORY: The patient is . Smokes 1 pack per day. Alcohol use is negative. MEDICATIONS: 1. Acetaminophen 500 mg as needed. 2. Multivitamin daily. 3. [place]-3 fatty acids 1000 mg daily. 4. Omeprazole 20 mg daily. 5. Albuterol sulfate 2.5 mg inhalation q.4 hours as needed. 6. Docusate sodium 100 mg at bedtime as needed. 7. Furosemide 40 mg tablets daily. 8. Tiotropium bromide 2.5 mcg per actuation mist 2 puffs as needed daily. 9. Albuterol sulfate 2 puffs q.4-6 hours as needed. 10. Atorvastatin 20 mg daily. 11. Bupropion 150 mg daily. 12. Ferrous sulfate 325 mg daily. 13. Fluticasone 100 mcg/salmeterol 50 mcg dose inhalation as needed. 14. Hydrocortisone 2.5% topical cream apply 3 times daily to affected area. 15. Cyclobenzaprine 10 mg b.i.d. as needed. 16. Naprosyn 500 mg b.i.d. 17. Recently put on Bactrim twice daily after getting her most recent blood cultures. ALLERGIES: INCLUDE SHELLFISH, WHICH CAUSES PRURITUS AND SWELLING OF THE TONGUE AND THROAT. PHYSICAL EXAMINATION: GENERAL: Well-developed, well-nourished 68-year-old female in no acute distress. She is alert and oriented x3 and pleasant. VITAL SIGNS: Stable at this point. HEENT: Normocephalic, atraumatic. Extraocular motions are intact. Pupils are equal, reactive to light. HEART: Regular rate and rhythm, no murmurs. LUNGS: Clear. ABDOMEN: Soft and nontender. Bowel sounds are present. EXTREMITIES: Right shoulder reveals a mass of approximately golf ball size on her shoulder. There is no drainage from the mass. There is no cynthia erythema. The patient's range of motion of her shoulder was approximately 150 degrees of forward elevation with some pain. Strength in the shoulder was normal. Neurologically and neurovascularly, she is intact in her right upper extremity. DIAGNOSES: Right shoulder mass with Staphylococcus aureus from the mass as well as Staphylococcus aureus sepsis. She has a history of back pain, bilateral shoulder arthritis, hypertension, nicotine dependence, osteomyelitis, peripheral edema, poor appetite, scoliosis and a previous Staphylococcus aureus bacteremia. PLAN: The patient will be admitted to [facility] and put on vancomycin, which is sensitive to her cultures. We will get the necessary remaining preoperative blood work to include a stat CT scan of the shoulder as well as a stat body scan due to her history of osteomyelitis. We will get infectious disease consult as well as [facility] consult. The plan will be to proceed with a right shoulder reversed total shoulder hardware removal, conversion to antibiotic spacer. Necessary consent forms, preoperative testing and clearances will be obtained.
[2019-07-03] MEDS ORDERED: PATIENT'S HEIGHT AND/OR WEIGHT NEEDED SCH (13:15)
[2019-07-03] MEDS: CEFAZOLIN 2000MG 2,000 MG/15 ML SYR IV SCH (19:49)
[2019-07-03] MEDS: SODIUM CHLORIDE 0.9% 1000ML 1,000 ML IV SCH (19:50)
[2019-07-03 21:47] LABS: Appearance Urine Clear (Clear); Bilirubin Urine Negative (Negative); Blood Urine Negative (Negative); Color Urine Yellow; Glucose Urine UA Negative (Negative); Ketones Urine Negative (Negative); Leukocyte Esterase Urine Negative (Negative); Nitrite Urine Negative (Negative); Protein Urine Negative (Negative); Specific Gravity Urine 1.009 (1.000-1.030); Urobilinogen Urine Negative (Negative); pH Urine 5.5 (4.5-7.5)
--- NOTE | 2019-07-03 21:58 | CT Scan Report ---
CT SCAN OF THE RIGHT SHOULDER WITHOUT IV CONTRAST CLINICAL HISTORY: Loosening of a right shoulder arthroplasty. COMPARISON STUDY: Radiographs of the right shoulder dated 01/22/2019. TECHNIQUE: CT scan of the right shoulder is performed from the lower neck to the humeral shaft. Image s are reviewed in the axial, sagittal, and coronal planes. IV contrast was not administered for this examination. A dose lowering technique was utilized adhering to the principles of ALARA. The examinat ion is significantly compromised by extensive metallic streak artifact from the right shoulder arthro plasty. CT DOSE: 594.05 mGy.cm FINDINGS: The skeletal structures are osteopenic. There is no evidence of fracture. A right shoulder arthroplasty is in near-anatomic alignment. There is lucency identified around the proximal arthropla sty just below the glenohumeral articulation. There is also lucency identified along the anterior and medial cortex of the humeral neck. No lucency is identified around the arthroplasty stem. No lucency is identified around the glenoid component. The acromioclavicular joint is preserved. No lytic or bl astic lesion is seen. The overlying soft tissues are normal as imaged. There is no right axillary dianne nopathy. Imaged right lung parenchyma is clear. IMPRESSION: 1. The examination is degraded by streak artifact from a right shoulder arthroplasty. 2. A right shoulder arthroplasty is in near-anatomic alignment. No fracture is seen. 3. There is lucency identified around the proximal aspect of the humeral component of the arthroplast y as above. This is nonspecific and could represent normal resorptive change/remodeling. Loosening wo uld be impossible to exclude and clinical correlation will be required. ACT 112: Negative or not required by law. Dictated: 07/03/2019 9:34 PM Transcribed: 07/03/2019 9:52 PM Jailyn [id number] [email or web address] Electronically signed by: Mychal Schmitz M.D. 07/03/2019 9:57 PM
--- NOTE | 2019-07-03 22:05 | XRay Report ---
TWO VIEW CHEST CLINICAL HISTORY: Preoperative examination. FINDINGS: PA and lateral chest radiographs are compared to study dated 12/27/2018. The cardiomediasti nal silhouette is unremarkable. Chronic interstitial thickening is similar to previous. Scarring/atel ectasis is noted at the lung bases. No airspace consolidation or pleural effusion is identified. Ther e is no pneumothorax. The skeletal structures are osteopenic. The bony thorax appears intact. Bilater al shoulder arthroplasties are in place. Degenerative change is noted throughout the thoracic spine. IMPRESSION: No active disease in the chest. ACT 112: Negative or not required by law. Electronically signed by: Mychal Schmitz M.D. 07/03/2019 10:04 PM
[2019-07-03 22:24] LABS: INR 1.1 (0.9-1.1); Prothrombin Time 11.7 Seconds (9.0-12.0)
[2019-07-03 22:32] LABS: BUN Creatinine Ratio 9.7 (10-20); Calcium 8.7 mg/dl (8.5-10.1); Creatinine Clr Calc Pharmacy 36.9 ml/min; Est GFR (African American) 53.9; Est GFR (Non-African American) 46.5
[2019-07-04] MEDS ORDERED: ALBUTEROL HFA 8 GM INHALER INH PRN ×2 (01:12→16:36)
[2019-07-04] MEDS: CEFAZOLIN 2000MG 2,000 MG/15 ML SYR IV SCH ×3 (04:57→21:02)
--- NOTE | 2019-07-04 08:45 | Communication Note ---
Date of Service: July 04, 2019 Travel assessment/history reviewed - low risk at this time - will be reviewed the morning of surgery.
[2019-07-04] MEDS: SODIUM CHLORIDE 0.9% 1000ML 1,000 ML IV SCH ×3 (08:54→21:36)
--- NOTE | 2019-07-04 12:51 | Nuclear Medicine Report ---
THREE-PHASE BONE SCAN OF THE RIGHT SHOULDER AND WHOLE-BODY BONE SCAN CLINICAL HISTORY: Right shoulder pain. Staph aureus. Evaluate for osteomyelitis. COMPARISON STUDY: CT of the right shoulder July 03, 2019. Right shoulder radiographs January 22, 2019 . TECHNIQUE: 27 mCi of technetium 99 M MDP was injected IV at 8:00 AM on July 04, 2019. Immediately foll owing injection, flow imaging was performed of the shoulders and chest in the anterior and posterior projections. Blood pool imaging was then performed. 3 hour delayed phase imaging of the shoulders and chest was then performed in multiple projections. FINDINGS: Note is made of mild hyperemia of the anterior right shoulder on the blood flow images. No additional sites of hyperemia identified. Delayed phase images demonstrate mild uptake adjacent to th e glenoid and humeral components of the right shoulder arthroplasty. However, the degree of uptake is less than that expected for osteomyelitis. There is no convincing evidence for osteomyelitis on this examination. Mild focal uptake within anterior right fourth rib is probably posttraumatic. There is scoliosis of the thoracolumbar spine. Radiotracer uptake at the L5-S1 level is noted due to degenerat barbara disc disease. Uptake within the knees and left midfoot is degenerative. IMPRESSION: 1. No scintigraphic evidence for osteomyelitis. 2. Mild hyperemia of the anterior right shoulder which represents nonspecific soft tissue uptake. Thi s may reflect cellulitis. 3. Mild radiotracer uptake adjacent to the right shoulder arthroplasty which is likely within normal limits. This may be reactive. ACT 112: Negative or not required by law. Electronically signed by: Darren Edwards M.D. 07/04/2019 12:49 PM
--- NOTE | 2019-07-04 13:38 | Infectious Disease Consult ---
Date of Consultation July 04, 2019 Assessment & Plan (1) Gram positive sepsis: (2) Prosthetic joint infection: continue ancef, will need repeat blood cultures and echo to r/o IE. follow cultures and OR findings, will need prolonged course of IV abx. hold picc pending repeat blood cultures. History of Present Illness Attending Physician: New Farah MD pt admitted from ortho office due to worsening right shoulder pain, swelling, was started on bactrim and sent to ortho. had aspiration and blood cultures done at ortho office on 06/29- wbc 331,479, 98%N, wound and blood cultures both growing MSSA. she is on ancef, tolerating well. afebrile since admission. CT/bone scan done today (pt was in radiology at time of rounds) and no clear evidence for osteo, ESR 53. wbc 8.2, creat 1.1, UA negative. For OR later this week. Allergies Allergy/AdvReac Type Severity Reaction Status Date / Time shellfish derived Allergy Mild itchy and Verified 06/29/19 15:56 swelling of tongue and throat Home Medications Home Medications Medication Instructions Recorded Confirmed Type acetaminophen 500 mg tablet 1,000 mg PO Q6H PRN tab 09/29/18 06/29/19 History multivitamin 1 tab PO QAM 09/29/18 06/29/19 History omega-3 fatty acids 1,000 mg 1,000 mg PO HS 09/29/18 06/29/19 History capsule omeprazole 20 mg PO QAM 10/01/18 06/29/19 History albuterol sulfate 2.5 mg INHALATION Q4H PRN #1 ml 10/14/18 06/29/19 History docusate sodium 100 mg capsule 100 mg PO HS PRN 01/17/19 06/29/19 History furosemide 40 mg tablet 40 mg PO DAILY PRN #30 tab 01/17/19 06/29/19 Rx tiotropium bromide 2.5 2 puffs INHALATION DAILY PRN gm 01/17/19 06/29/19 History mcg/actuation mist for inhalation albuterol sulfate [Ventolin HFA] 2 puff INHALATION .Q4-6H PRN 01/22/19 06/29/19 History bupropion HCl 150 mg 24 hr tablet, See Rx Instructions .ROUTE 12/16/19 05/14/20 Rx extended release .COMPLEX #30 tablet cefazolin in sterile water 2 2 gm IV TID #100 ml 01/30/19 06/29/19 Rx gram/20 mL in sterile water intravenous syringe ferrous sulfate 325 mg (65 mg 325 mg PO DAILY #30 tab 02/02/19 06/29/19 Rx iron) tablet,delayed release fluticasone 100 mcg-salmeterol 50 1 puff INHALATION DAILY ea 03/02/19 06/29/19 History mcg/dose blistr powdr for inhalation hydrocortisone 2.5 % topical cream 1 appln TOP TID PRN gm 03/02/19 06/29/19 History cyclobenzaprine 10 mg tablet 10 mg PO BID PRN #30 tab 05/01/19 06/29/19 Rx naproxen 500 mg tablet 500 mg PO BID PRN #60 tab 05/01/19 06/29/19 Rx sulfamethoxazole 800 1 tab PO BID #20 tab 06/29/19 06/29/19 Rx mg-trimethoprim 160 mg tablet atorvastatin 20 mg tablet 20 mg PO HS #30 tab 06/30/19 Rx Patient History Medical History Back pain (Inactive) Bilateral calf pain (Resolved) Diarrhea (Resolved) DJD of left shoulder (Inactive) DJD of right shoulder (Inactive) Elevated blood pressure reading in office with diagnosis of hypertension (Acute) Nicotine dependence (Inactive) Osteomyelitis (Inactive) Peripheral edema (Resolved) Poor appetite (Resolved) Scoliosis (Inactive) Staphylococcus aureus bacteremia (Inactive) Weight loss (Resolved) Surgical History H/O foot surgery H/O shoulder surgery Bilateral total shoulder arthroplasties H/O varicose vein ligation History of carpal tunnel release of both wrists History of colonoscopy History of laparoscopy with fulguration of oviducts History of tonsillectomy Family History Father Atrial fibrillation Mother Coronary heart disease Breast cancer Uncle Colorectal cancer Myocardial infarction Aunt Breast cancer Myocardial infarction Grandfather (Maternal) No problems noted. Grandmother (Maternal) Myocardial infarction Denies family history of Ovarian cancer Prostate cancer Social History (Reviewed 07/04/19 @ 13:40 by TROY Ugarte Preferred Language: Armenian Communication Ability: Effective Medical Charge Entry Specialist Required: No Beliefs That Will Affect Care: None marital status: Current Living Situation: Spouse current occupational status: retired Other Information That Helps Us Care for You: No Feels Safe at Home: Yes Safety Concerns: Feels Safe At This Time Smoking Status: Current every day smoker Tobacco Type: cigarettes ; packs per day: 1 ; Cigarettes Per Day: 15 ; Tobacco Cessation Education Requested by Patient: No Hx Alcohol Use: No Hx Substance Use: No Dental Care, Regularly: No Seatbelt Use: always Sunscreen Use: Yes Review of Systems Review of Systems: per H&P Results & Data ([facility]) Vital Signs (Past 12 Hours) Vital Signs Temp Pulse Resp BP Pulse Ox 07/04/19 08:24 36.6 C 96 H 16 129/79 95 PG Care Time/CCT Total # of Minutes Spent Total Time Spent with Patient: Total time spent is greater than 50% in coordination of care (as documented) at patient's floor/unit and/or counseling patient: Coding Level of Care Code 04478 Inpt Consult Level 2 Diagnoses Gram positive sepsis A41.89 Prosthetic joint infection T84.50XA
--- NOTE | 2019-07-04 13:53 | Orthopedic Progress Note ---
Date of Service July 04, 2019 Assessment & Plan (1) Prosthetic joint infection: Right TSA infection. Planning for explant of hardware and implantation of antibiotic spacer right shoulder by Dr. Farah. Bone scan that was performed today showing no osteomyelitis. Cultures showing MSSA. Appreciate Dr. Traylor's input. Admission and Anticipated Discharge Date Admission Date: July 03, 2019 Subjective Patient sitting in her chair at the bedside and then at that point, she got up and sat down into her bed. No complaints today. States that her shoulder is still draining some. Pain is controlled. No new complaints. Physical Exam Physical Exam: Patient continues to be able to use her shoulder at this time. He does have some mild discomfort with range of motion. No overt changes with her wound per the patient. Neurovascular is intact. Results & Data ([facility]) Vital Signs (Past 12 Hours) Vital Signs Temp Pulse Resp BP Pulse Ox 07/04/19 08:24 36.6 C 96 H 16 129/79 95
--- NOTE | 2019-07-04 15:05 | Anesthesiology Consultation ---
Date of Service July 04, 2019 Assessment & Plan Chart Review Chart Review: Acceptable Risk for Surgery and Patient NOT seen in Pre Admission Testing Consults Requested none Travel assessment/history reviewed. Appears low risk for covid infection. History Surgery Operation Date: 07/05/19 07:30 Proposed Procedures p Right Shoulder Removal Hardware, Insertion Antibiotic Spacer - New Farah MD Height/Weight Height: 5 ft 3 in Weight: 57.5 kg Allergies Allergy/AdvReac Type Severity Reaction Status Date / Time shellfish derived Allergy Mild itchy and Verified 06/29/19 15:56 swelling of tongue and throat Medications Home Medications Medication Instructions Recorded Confirmed Last Taken acetaminophen 500 mg tablet 1,000 mg PO Q6H PRN tab 09/29/18 06/29/19 01/22/19 10:00 1000 mg multivitamin 1 tab PO QAM 09/29/18 06/29/19 01/22/19 omega-3 fatty acids 1,000 mg 1,000 mg PO HS 09/29/18 06/29/19 01/21/19 capsule omeprazole 20 mg PO QAM 10/01/18 06/29/19 01/22/19 albuterol sulfate 2.5 mg INHALATION Q4H PRN #1 ml 10/14/18 06/29/19 Unknown docusate sodium 100 mg capsule 100 mg PO HS PRN 01/17/19 06/29/19 Unknown furosemide 40 mg tablet 40 mg PO DAILY PRN #30 tab 01/17/19 06/29/19 Unknown tiotropium bromide 2.5 2 puffs INHALATION DAILY PRN gm 01/17/19 06/29/19 U nknown mcg/actuation mist for inhalation albuterol sulfate [Ventolin HFA] 2 puff INHALATION .Q4-6H PRN 01/22/19 06/29/19 Unknown bupropion HCl 150 mg 24 hr tablet, See Rx Instructions .ROUTE 01/30/19 06/29/19 Unknown extended release .COMPLEX #30 tablet cefazolin in sterile water 2 2 gm IV TID #100 ml 01/30/19 06/29/19 Unknown gram/20 mL in sterile water intravenous syringe ferrous sulfate 325 mg (65 mg 325 mg PO DAILY #30 tab 02/02/19 06/29/19 Unknown iron) tablet,delayed release fluticasone 100 mcg-salmeterol 50 1 puff INHALATION DAILY ea 03/02/19 06/29/19 Unknown mcg/dose blistr powdr for inhalation hydrocortisone 2.5 % topical cream 1 appln TOP TID PRN gm 03/02/19 06/29/19 Unknown cyclobenzaprine 10 mg tablet 10 mg PO BID PRN #30 tab 05/01/19 06/29/19 Unknown naproxen 500 mg tablet 500 mg PO BID PRN #60 tab 05/01/19 06/29/19 Unknown sulfamethoxazole 800 1 tab PO BID #20 tab 06/29/19 06/29/19 Unknown mg-trimethoprim 160 mg tablet atorvastatin 20 mg tablet 20 mg PO HS #30 tab 06/30/19 Unknown Active Medications Generic Name Dose Route Start Last Admin Trade Name Freq PRN Reason Stop Dose Admin Sodium Chloride 1,000 mls @ 80 mls/hr 07/03/19 11:45 07/04/19 12:44 Nss 1000ml IV 08/02/19 11:44 Not Given .[id number] BRYANNA Cefazolin Sodium 2,000 mg in 15 mls @ 3.75 mls/min 07/03/19 19:00 07/04/19 12:39 Ancef 2000mg IV 07/17/19 18:59 3.75 mls/min Q8H BRYANNA Administration Past Medical History Medical History Back pain (Inactive) Bilateral calf pain (Resolved) Diarrhea (Resolved) DJD of left shoulder (Inactive) DJD of right shoulder (Inactive) Elevated blood pressure reading in office with diagnosis of hypertension (Acute) Nicotine dependence (Inactive) Osteomyelitis (Inactive) Peripheral edema (Resolved) Poor appetite (Resolved) Scoliosis (Inactive) Staphylococcus aureus bacteremia (Inactive) Weight loss (Resolved) Past Family History Family History Father Atrial fibrillation Mother Coronary heart disease Breast cancer Uncle Colorectal cancer Myocardial infarction Aunt Breast cancer Myocardial infarction Grandfather (Maternal) No problems noted. Grandmother (Maternal) Myocardial infarction Denies family history of Ovarian cancer Prostate cancer Past Surgical History Surgical History (Updated 07/04/19 @ 15:04 by Helder Mejia MD) H/O foot surgery H/O shoulder surgery Bilateral total shoulder arthroplasties. R Reverse TSA 04/14/2017. 7.0ETT. MAC 3. Interscalene block. no issues. H/O varicose vein ligation History of carpal tunnel release of both wrists History of colonoscopy History of laparoscopy with fulguration of oviducts History of tonsillectomy Social History Smoking Status: Current every day smoker tobacco type: cigarettes Smoking cigarettes per day: 15 Hx Alcohol Use: No Hx Substance Use: No Physical Exam Vital Signs Last Vital Signs Temp 36.6 C 07/04/19 08:24 Pulse 96 H 07/04/19 08:24 Resp 16 07/04/19 08:24 BP 129/79 07/04/19 08:24 Pulse Ox 95 07/04/19 08:24 Testing Laboratory Results 07/03/19 22:02 PT 11.7 Seconds (9.0-12.0) 07/03/19 22:02 INR 1.1 (0.9-1.1) 07/03/19 22:02 Urine Color Yellow 07/03/19 21:23 Urine Appearance Clear (Clear) 07/03/19 21:23 Urine pH 5.5 (4.5-7.5) 07/03/19 21:23 Ur Specific [place] 1.009 (1.000-1.030) 07/03/19 21:23 Urine Protein Negative (Negative) 07/03/19 21:23 Urine Glucose (UA) Negative (Negative) 07/03/19 21:23 Urine Ketones Negative (Negative) 07/03/19 21:23 Urine Nitrite Negative (Negative) 07/03/19 21:23 Ur Leukocyte Esterase Negative (Negative) 07/03/19 21:23 Blood Type O Positive 07/03/19 22:02 Antibody Screen NEGATIVE 07/03/19 22:02 Electrocardiogram Date: 07/04/19 Findings: + ST @ (102) Sinus tachycardia Otherwise normal ECG When compared with ECG of 22-JAN-2019 14:10, No significant change was found Chest X-Ray Date: 07/03/19 TWO VIEW CHEST CLINICAL HISTORY: Preoperative examination. FINDINGS: PA and lateral chest radiographs are compared to study dated 12/27/2018. The cardiomediastinal silhouette is unremarkable. Chronic interstitial thickening is similar to previous. Scarring/atelectasis is noted at the lung bases. No airspace consolidation or pleural effusion is identified. There is no pneumothorax. The skeletal structures are osteopenic. The bony thorax appears intact. Bilateral shoulder arthroplasties are in place. Degenerative change is noted throughout the thoracic spine. IMPRESSION: No active disease in the chest. Echocardiogram Date: 01/25/19 EF: 55-60% LV Function: normal No vegetations
--- NOTE | 2019-07-04 15:53 | Electrocardiogram Report ---
Test Reason : Blood Pressure : / mmHG Vent. Rate : 102 BPM Atrial Rate : 102 BPM P-R Int : 132 ms QRS Dur : 088 ms QT Int : 356 ms P-R-T Axes : 082 061 068 degrees QTc Int : 463 ms Sinus tachycardia Otherwise normal ECG When compared with ECG of 22-JAN-2019 14:10, No significant change was found Confirmed by Matty Lindo ([id number]) on 07/04/2019 3:52:38 PM Referred By: New Farah Confirmed By:Dyllan Lindo
[2019-07-04] MEDS ORDERED: ALBUT/IPRATROP 3MG/0.5MG NEB 3 ML VIAL NEB STA (16:27)
--- NOTE | 2019-07-04 16:27 | Hospitalist Consultation ---
Date of Consultation July 04, 2019 Assessment & Plan (1) Prosthetic joint infection: As per ortho and ID Ancef with plans for [facility] IV abx as outpt OR planned for 07/04 with hardware exchange and abx spacer placement ECHO pending (2) Hyperlipidemia: continue home meds (3) Depression, controlled: continue home meds (4) Chronic obstructive pulmonary disease: Pt did not have inhalers today, now with wheeze Nebs x1 and PRN after continue home meds (5) Elevated blood pressure reading in office with diagnosis of hypertension: States she does not take lasix anymore unless she has swelling (6) Chronic reflux esophagitis: continue home meds (7) DVT prophylaxis: As per ortho History of Present Illness Attending Physician: New Farah MD History of Present Illness 68 y/o F who was admitted on 07/02 as a direct admit by Dr. Farah for management of an infected R shoulder replacement. She states she has some pain to the R shoulder, but more of an ache. Tolerating PO without issue. Pt denies fever, SOB, chest pain, abd pain, n/v, LE pain or swelling. Pt states that she is generally constipated and takes miralax/colace for this. The last few weeks she has been passing pieces of flaky stool. She still feels constipated. She has been taking chewable probiotics. Allergies Allergy/AdvReac Type Severity Reaction Status Date / Time shellfish derived Allergy Mild itchy and Verified 06/29/19 15:56 swelling of tongue and throat Home Medications Home Medications Medication Instructions Recorded Confirmed Type acetaminophen 500 mg tablet 1,000 mg PO Q6H PRN tab 09/29/18 06/29/19 History multivitamin 1 tab PO QAM 09/29/18 06/29/19 History omega-3 fatty acids 1,000 mg 1,000 mg PO HS 09/29/18 06/29/19 History capsule omeprazole 20 mg PO QAM 10/01/18 06/29/19 History albuterol sulfate 2.5 mg INHALATION Q4H PRN #1 ml 10/14/18 06/29/19 History docusate sodium 100 mg capsule 100 mg PO HS PRN 01/17/19 06/29/19 History furosemide 40 mg tablet 40 mg PO DAILY PRN #30 tab 01/17/19 06/29/19 Rx tiotropium bromide 2.5 2 puffs INHALATION DAILY PRN gm 01/17/19 06/29/19 History mcg/actuation mist for inhalation albuterol sulfate [Ventolin HFA] 2 puff INHALATION .Q4-6H PRN 01/22/19 06/29/19 History bupropion HCl 150 mg 24 hr tablet, See Rx Instructions .ROUTE 01/30/19 06/29/19 Rx extended release .COMPLEX #30 tablet cefazolin in sterile water 2 2 gm IV TID #100 ml 01/30/19 06/29/19 Rx gram/20 mL in sterile water intravenous syringe ferrous sulfate 325 mg (65 mg 325 mg PO DAILY #30 tab 02/02/19 06/29/19 Rx iron) tablet,delayed release fluticasone 100 mcg-salmeterol 50 1 puff INHALATION DAILY ea 03/02/19 06/29/19 History mcg/dose blistr powdr for inhalation hydrocortisone 2.5 % topical cream 1 appln TOP TID PRN gm 03/02/19 06/29/19 History cyclobenzaprine 10 mg tablet 10 mg PO BID PRN #30 tab 05/01/19 06/29/19 Rx naproxen 500 mg tablet 500 mg PO BID PRN #60 tab 05/01/19 06/29/19 Rx sulfamethoxazole 800 1 tab PO BID #20 tab 06/29/19 06/29/19 Rx mg-trimethoprim 160 mg tablet atorvastatin 20 mg tablet 20 mg PO HS #30 tab 06/30/19 Rx Patient History Medical History Back pain (Inactive) Bilateral calf pain (Resolved) Diarrhea (Resolved) DJD of left shoulder (Inactive) DJD of right shoulder (Inactive) Elevated blood pressure reading in office with diagnosis of hypertension (Acute) Nicotine dependence (Inactive) Osteomyelitis (Inactive) Peripheral edema (Resolved) Poor appetite (Resolved) Scoliosis (Inactive) Staphylococcus aureus bacteremia (Inactive) Weight loss (Resolved) Surgical History H/O foot surgery H/O shoulder surgery Bilateral total shoulder arthroplasties. R Reverse TSA 04/14/2017. 7.0ETT. MAC 3. Interscalene block. no issues. H/O varicose vein ligation History of carpal tunnel release of both wrists History of colonoscopy History of laparoscopy with fulguration of oviducts History of tonsillectomy Family History Father Atrial fibrillation Mother Coronary heart disease Breast cancer Uncle Colorectal cancer Myocardial infarction Aunt Breast cancer Myocardial infarction Grandfather (Maternal) No problems noted. Grandmother (Maternal) Myocardial infarction Denies family history of Ovarian cancer Prostate cancer Social History Preferred Language: Arabic Communication Ability: Effective Olive Grader Required: No Beliefs That Will Affect Care: None marital status: Current Living Situation: Spouse current occupational status: retired Other Information That Helps Us Care for You: No Feels Safe at Home: Yes Safety Concerns: Feels Safe At This Time Smoking Status: Current every day smoker Tobacco Type: cigarettes ; packs per day: 1 ; Cigarettes Per Day: 15 ; Tobacco Cessation Education Requested by Patient: No Hx Alcohol Use: No Hx Substance Use: No Dental Care, Regularly: No Seatbelt Use: always Sunscreen Use: Yes Review of Systems Review of Systems: Pertinent positives and negatives reviewed in HPI--all others negative Physical Exam Constitutional: WD/WN, vitals as above Eyes: normal visual byrd by confrontation and + anicteric sclerae Neck: normal visual inspection and trachea midline Respiratory: normal respiratory effort; no respiratory distress Auscultation: + wheezes Cardiovascular: Rate/Rhythm: regular rate and regular rhythm Gastrointestinal (Abdomen): Inspection/Auscultation: abdomen not distended Percussion/Palpation: abdomen soft; abdomen nontender Musculoskeletal: Head/Neck/Chest: normocephalic and head atraumatic negative for edema, peripheral pulses intact Skin: no rashes, warm and dry Neurologic: awake; not confused Speech / Cognition: normal speech Psychiatric: A+Ox3, euthymic affect Results & Data Results & Data ([facility]) Vital Signs (Past 12 Hours) Vital Signs Temp Pulse Resp BP BP Pulse Ox 07/04/19 15:54 37 C 78 16 107/70 92 07/04/19 08:24 36.6 C 96 H 16 129/79 95 Diagnostic Findings CXR: neg for acute Bone scan: neg for osteomyelitis, noted for cellulitis PG Care Time/CCT Total # of Minutes Spent Total Time Spent with Patient: Total time spent is greater than 50% in coordination of care (as documented) at patient's floor/unit and/or counseling patient: Coding Level of Care Code 90033 Inpt Consult Level 4 Diagnoses Prosthetic joint infection T84.50XA Hyperlipidemia E78.5 Depression, controlled F32.9 Chronic obstructive pulmonary disease J44.9 Elevated blood pressure reading in office with diagnosis of hypertension I10 Chronic reflux esophagitis K21.0 DVT prophylaxis Z29.9
[2019-07-04] MEDS ORDERED: ALBUT/IPRATROP 3MG/0.5MG NEB 3 ML VIAL NEB PRN (16:28)
[2019-07-04] MEDS ORDERED: FUROSEMIDE 40 MG TAB PO PRN (16:36)
[2019-07-04] MEDS ORDERED: HYDROCORTISONE 2.5% CR 30 GM TUBE EXT PRN (16:36)
[2019-07-04] MEDS ORDERED: ALBUTEROL 0.083% NEBU SOLN 3 ML VIAL INH PRN (16:36)
[2019-07-04] MEDS ORDERED: ACETAMINOPHEN 500 MG TAB PO PRN (16:36)
[2019-07-04] MEDS ORDERED: DOCUSATE SODIUM 100 MG CAP PO PRN (16:36)
[2019-07-04] MEDS ORDERED: NICOTINE 21 MG/24 HR TDSY TD ONE (16:45)
[2019-07-04] MEDS ORDERED: UMECLIDINIUM BROMIDE 62.5MCG/BLISTER 7 PUFFS/INHALER INH PRN (17:00)
[2019-07-04] MEDS ORDERED: CYCLOBENZAPRINE HCL 10 MG TAB PO PRN (17:05)
[2019-07-04] MEDS ORDERED: [UNRECOGNIZED DRUG - OTHER] IV SCH (21:00)
[2019-07-04] MEDS: ATORVASTATIN 20 MG TAB PO SCH (21:02)
[2019-07-05] MEDS: CEFAZOLIN 2000MG 2,000 MG/15 ML SYR IV SCH ×3 (04:51→21:05)
[2019-07-05] MEDS ORDERED: ROPIVACAINE 0.5% 5 MG/ML 30 ML VIAL ONE (06:30)
[2019-07-05] MEDS ORDERED: fentaNYL citrate 100 MCG/2 ML VIAL ONE ×3 (06:44→13:49)
[2019-07-05] MEDS ORDERED: MIDAZOLAM HCL 1 MG/ML 2ML VIAL ONE (06:44)
[2019-07-05] MEDS ORDERED: PROPOFOL IV EMULSION 10 MG/ML 20 ML VIAL IV ONE (06:57)
[2019-07-05] MEDS ORDERED: LIDOCAINE HCL 2% 2 ML VIAL/AMP(20MG/ML) INFIL ONE (06:57)
[2019-07-05] MEDS ORDERED: ALBUTEROL 0.083% NEBU SOLN 3 ML VIAL INH PRN (07:39)
[2019-07-05] MEDS ORDERED: ATROPINE SULFATE 0.1 MG/ML 10ML SYR IV PRN (07:39)
[2019-07-05] MEDS ORDERED: HYDROmorphone INJ 1 MG/ML SYRINGE IV PRN (07:39)
[2019-07-05] MEDS ORDERED: KETOROLAC 30 MG/ML VIAL IV PRN (07:39)
[2019-07-05] MEDS ORDERED: ONDANSETRON INJ 2 MG/ML 2 ML VIAL IV PRN ×2 (07:39→14:51)
--- NOTE | 2019-07-05 07:48 | History & Physical Bridge Note ---
Date of Service July 05, 2019 History & Physical Bridge Note I have examined the patient, reviewed the History & Physical and in the interval since the performance of the History & Physical I have noted the following changes of clinical significance: no changes noted
[2019-07-05] MEDS ORDERED: BACITRACIN INJ 50,000 UNIT VIAL ONE ×3 (07:50→11:51)
[2019-07-05] MEDS ORDERED: ROCURONIUM BROMIDE 10 MG/ML 5 ML VIAL ONE ×2 (08:42→11:30)
[2019-07-05] MEDS ORDERED: PHENYLEPHRINE 100MCG/ML 5ML SYR ONE (08:42)
[2019-07-05] MEDS ORDERED: CEFAZOLIN 250 MG/ML 1 GM VIAL ONE ×3 (08:48→12:46)
[2019-07-05] MEDS: EPINEPHrine HCL INJ 1 MG/ML 30ML ONE ×2 (09:26→11:40)
[2019-07-05] MEDS ORDERED: CEFAZOLIN 2000MG 2,000 MG/15 ML SYR IV ONE (09:31)
[2019-07-05] MEDS ORDERED: ePHEDrine sulfate 50 MG/ML SYR ONE (09:50)
[2019-07-05] MEDS ORDERED: PHENYLEPHRINE HCL 10 MG/ML VIAL ONE (10:30)
[2019-07-05] MEDS ORDERED: ONDANSETRON INJ 2 MG/ML 2 ML VIAL ONE (10:30)
[2019-07-05] MEDS ORDERED: ALBUTEROL HFA INHALER 8.5 GM ONE (11:03)
[2019-07-05] MEDS ORDERED: VANCOMYCIN HCL 1000MG/20ML VIAL ONE (12:07)
--- NOTE | 2019-07-05 12:25 | Infectious Disease Progress Nt ---
Date of Service July 05, 2019 Assessment & Plan (1) Gram positive sepsis: (2) Prosthetic joint infection: continue ancef, will follow repeat blood cultures and echo to r/o IE. follow cultures and OR findings, will need prolonged course of IV abx. hold picc pending repeat blood cultures. Admission and Anticipated Discharge Date Admission Date: July 03, 2019 Subjective pt remains on ancef, tolerating well. repeat blood cultures pending. echo pending. remains afebrile. no am labs. 07/04 wound culture pending, previous cultures - wound and blood from 06/29 growing MSSA. awaiting OR. Results & Data ([facility]) Vital Signs (Past 12 Hours) Vital Signs Temp Pulse Resp BP Pulse Ox 07/05/19 07:13 100 H 14 97 07/05/19 07:05 37.1 C 98 H 20 137/87 94 Laboratory Results Microbiology 07/05/19 09:24 Shoulder,Right Gram Stain - Final 07/05/19 10:00 Shoulder,Right Gram Stain - Final 07/05/19 09:43 Shoulder,Right Gram Stain - Final PG Care Time/CCT Total # of Minutes Spent Total Time Spent with Patient: Total time spent is greater than 50% in coordination of care (as documented) at patient's floor/unit and/or counseling patient: Coding Level of Care Code 25209 Subseq Hosp Care Lvl 1 Diagnoses Gram positive sepsis A41.89 Prosthetic joint infection T84.50XA
[2019-07-05] MEDS ORDERED: NEOSTIGMINE METHYLSULFATE 5 MG/5 ML SYR ONE (13:01)
[2019-07-05] MEDS ORDERED: GLYCOPYRROLATE 0.2 MG/ML VIAL ONE (13:01)
--- NOTE | 2019-07-05 13:12 | Anesthesiology Progress Note ---
Date of Service July 05, 2019 Anesthesia Post Procedure Vital Signs Vital Signs: Temp Pulse Resp BP BP Pulse Ox 07/05/19 07:13 100 H 14 97 07/05/19 07:05 37.1 C 98 H 20 137/87 94 07/04/19 23:57 36.5 C 95 H 22 112/75 94 07/04/19 16:43 92 H 16 94 07/04/19 15:54 37 C 78 16 107/70 92 Transfer of Care Handoff Completed per policy Notes Mental Status: alert / awake / arousable Patient Amnestic to Procedure: Yes Nausea / Vomiting: adequately controlled Pain: adequately controlled Airway Patency, RR, SpO2: stable & adequate BP & HR: stable & adequate Hydration State: stable & adequate Anesthetic Complications: no major complications apparent
--- NOTE | 2019-07-05 13:17 | Post Operative Brief Note ---
Immediate Post Op Note v1 Date of Surgery July 05, 2019 Pre & Post Diagnosis Operation Date: 07/05/19 07:30 Pre-Op Diagnosis: Right reversed total shoulder replacement infection, history of staph aureus sepsis and vertebral osteomyelitis Post-Op Diagnosis: Right reversed total shoulder replacement infection, history of staph aureus sepsis and vertebral osteomyelitis I identified the patient and participated in the time-out.: Yes Procedure Operation Date: 07/05/19 07:30 Actual Procedures p Right Shoulder Removal Hardware reverse total shoulder replacement both glenoid and humeral components, osteotomy of humerus for humeral implant removal, insertion Antibiotic Spacer(Right), repair greater tuberosity fracture, irrigation debridement synovectomy placement of stimulan antibiotic beads and closure over drains- New Farah MD Surgeon New Farah MD Card Grader RYAN Mota Estimated Blood Loss 200 Findings Consistent with Post-Op Diagnosis Specimens Swab cultures and soft tissue cultures Drains Camacho Catheter and Hemovac Drain Complications Greater tuberosity fracture Disposition Accompanied Patient To Recovery: No Disposition: Recovery Room Overlapping Procedure I was immediately available: during the entire case.
--- NOTE | 2019-07-05 13:30 | Fluoroscopy Report ---
FL shoulder RT min 2V CLINICAL HISTORY: RIGHT SHOULDER HARDWARE REMOVAL COMPARISON STUDY: Right shoulder CT 07/03/2019. FLUOROSCOPY TIME: 9 seconds. 3 fluoroscopic spot images submitted FINDINGS: Interval removal of the right shoulder prosthesis with placement of a cement spacer. There is a linear lucency/incomplete fracture within the proximal shaft of the humerus. This appears to be postsurgical. No dislocation. IMPRESSION: Status post removal of the right shoulder prosthesis with placement of a cement state spa cer. There is a linear lucency/incomplete fracture within the proximal shaft of the humerus. This maru ears to be postsurgical. ACT 112: Negative or not required by law. Electronically signed by: Cachorro Herrera M.D. 07/05/2019 1:29 PM
--- NOTE | 2019-07-05 14:30 | Operative Report (OR) ---
DATE OF OPERATION: 07/05/2019 INDICATION FOR PROCEDURE: The patient is a 68-year-old female who I performed a reverse total shoulder replacement on in 2019. She did well after the procedure. During this last year she developed staphylococcus methicillin-sensitive sepsis. She has had multiple joints involved including osteomyelitis of her spine. She has had multiple hospital admissions here at [facility] and also at [facility]. She saw infectious disease specialists as well. She was recently hospitalized this winter at [facility]. She was in her usual state of health when she noted soft tissue swelling in the anterior right shoulder area which was a golf ball sized area of swelling which had some mild erythema only. The patient had a low-grade temperature. The patient had elevated inflammatory parameters. Aspiration of the soft tissue area demonstrated purulent fluid that was cultured for methicillin-sensitive staph aureus. The patient was admitted to the hospital at [facility] and had workup including a CT scan and bone scan which demonstrates some increased signal activity behind the glenoid component but the humeral component was normal with no signs of loosening of either component. A CT scan did not show any obvious osteomyelitis or bone loss anywhere. There was soft tissue swelling anteriorly consistent with synovitis, probable sinus tract. Radiographs demonstrate some stress shielding around the proximal humeral component, could be related to infection, but no loosening or lucencies and there are some halos around the screws, but not central post of the glenoid baseplate, likely infection around the screws on the glenoid which would be consistent with the bone scan. PREOPERATIVE DIAGNOSIS: Right deep infection reversed total shoulder replacement, history of Staph aureus sepsis and vertebral osteomyelitis. POSTOPERATIVE DIAGNOSIS: Same. PROCEDURE: Right shoulder removal of deep hardware including both the glenoid and humeral components of a reversed total shoulder replacement and subsequent insertion of an antibiotic spacer and repair of greater tuberosity fracture and extensive irrigation, debridement, synovectomy, placement of Stimulan antibiotic beads and closure over drains. SURGEON: New Farah MD CLEANING MANAGER: Jabari Avila PA-C. ANESTHESIA: Regional block and general. ESTIMATED BLOOD LOSS: 200 mL SPECIMENS: Swab cultures and soft tissue for cultures. DRAINS: Camacho catheter and 2 Hemovac drains. COMPLICATIONS: Nondisplaced greater tuberosity fracture. DISPOSITION: The patient tolerated the procedure well and was transferred to recovery room in stable condition and there was no overlapping procedure. OPERATIVE PROCEDURE: The patient was taken to the operating room and placed under regional block and general anesthetic and taken the hospital's usual COVID-19 precautions with a 20-minute delay after intubation and extubation. The patient was placed supine on the operating room table. A towel roll in the medial border of right scapula and her head was placed on a foam headrest and she had protective eyewear placed and she had SCDs placed on lower extremities. Placed in a 40 degree beach chair position. She was translated to right side of the bed, so her shoulder could be manipulated off the bed and then fluoroscopy was used as needed during the case as well. Her right shoulder was then sterilely prepped and draped using Betadine scrub and paint because she had a draining sinus tract. Exam demonstrates she has stable reverse shoulder replacement with a 2-3 cm soft tissue mass underlying the anterior superior incision adjacent to the coracoid with draining consistent with sinus tract and synovitis. There was no skin breakdown at all. After shoulder was sterilely prepped and draped an incision was made using her previous scar in the deltopectoral interval extending it proximally and distally somewhat for further exposure. Skin incised sharply and then shortly came down upon this large area of synovitis extending through the deltopectoral interval extending lateral to the conjoined tendon and out to the subcutaneous tissues. This was circumferentially dissected out and from the deltoid and pectoral tissue. First subcutaneous flaps were elevated after the skin incision was made. Electrocautery was used to cauterize bleeders as necessary. The pectoralis was retracted medially. The deltoid was retracted laterally. The pectoralis attachment over the anterior humerus was released. Deltoid attachment was maintained. The soft tissue synovitis was dissected out down to the anterior glenohumeral joint. There was a thin remnant of about two-thirds of the subscapularis tendon and capsular tissue. Most of It was just degenerative type tissue and capsular tissue that we did preserve for stability postoperative. The pathological synovial type tissue was excised. We did take swab cultures around the humeral and glenoid components and took a soft tissue culture from behind the glenoid component. There was clearly infection visibly with significant erosion of the proximal humerus. There was at least 2-3 cm of bare spot on the anterior lateral humeral stem extending down almost to the lower border of the roughened area of the long stem. There was a solid stem with good bone ingrowth. The subscapularis and capsular tissue was taken right down at the area of the bicipital groove down to the anterior humerus adjacent to the deltoid. Any adhesions between the deltoid and the proximal humerus were released bluntly and the scarred bursa over the rotator cuff was excised. The infraspinatus and teres minor are all intact. The shoulder replacement was normally located within normal appearing polyethylene and glenoid components, both were well fixed. A tagging suture was placed into the subscapularis capsular tissue. I did a subperiosteal dissection around the neck of the humerus anteriorly which had some loss of bone there and stress shielding. The greater tuberosity attachment at the base of the greater tuberosity was very thin as it was right adjacent to the metal of the humeral component with only a few millimeters of bone remaining. The track lateral and posterior aspect of the greater tuberosity was thicker and there was a little bit of space between the humeral component in those areas due to some bone erosion due to infection. The humerus was easily dislocated with a bone hook and traction. The tuning fork removal device was used to remove the base plate off of the modular stem. We did a debridement with a curette around the proximal humerus component, removing infected soft tissue. Then attention was taken to the glenoid. The glenosphere screw was loosened and the explanting device was placed inside the hole of the screw area and device was tightened to disengage the central post. The glenosphere was then removed from the baseplate. The baseplate was well fixed. After we obtained a culture we irrigated out the joint copiously with antibiotic solution with bacitracin. Then, the screws were removed uneventfully and baseplate was still well fixed. We had to work around the edges with a curved osteotome and then used the baseplate impactor to gently impact and disimpact and rotate the baseplate until it rotated free with rotation and then gradually disimpacted it from the glenoid. The posterior inferior screw had eroded all the way to the glenoid vault. The anterior and inferior screws were within the bone. Superior screw rotated somewhat through the glenoid vault. The central post was stable all within the glenoid vault. More thorough synovectomy was performed around the glenoid being aware of the axillary nerve location. Then after further copious irrigation, attention was taken to explanting the humeral component. The flexible osteotome was used around the roughened area circumferentially around the humeral component. Then the thin area of the greater tuberosity we very carefully worked under that area, but when we were performing that there was a fracture line extending posteriorly, but the greater tuberosity was still attached to the shaft via periosteal hinge. Attempt was made to disimpact the stem, but it was still well fixed despite using osteotomes circumferentially including the neck area, removing the proximal bone away from the roughened proximal stem. The distal stem was still well fixed. I did make an osteotomy. We brought in fluoroscopy and noted the location below the tip of the stem. We made the osteotomy longitudinally from the bicipital groove down the anterior humerus to below the tip of the stem and then carefully subperiosteally dissected around the lateral side under the deltoid attachment and then made a perpendicular cut to the osteotomy just at the posterior cortical bone so no fracture would propagate down the shaft. Then with flexible osteotomes worked around the stem both anteriorly and posteriorly until the stem was able to loosen and rotate and then we carefully disimpacted the stem from the shaft. I used a cable passer to pass four #1 PDS sutures around the osteotomy site and after irrigating out the canal and curetting the humeral canal and further antibiotic irrigation with bacitracin the osteotomy was closed using a Synthes bone clamp to close the osteotomy anatomically and then the 4 sutures were tied with the Nice knots. This fits the tube into position anatomically. Then I placed 2 sutures between the greater tuberosity and the shaft using a Hewson suture passer and #1 PDS suture again to repair the greater tuberosity to the shaft. Then after copious irrigation did a trial reduction. We used the Exactech humeral antibiotic cement spacer. We did a trial reduction and the 11 mm stem was too large for her canals. We had to use the 7 mm stem. We did a trial reduction and noted to have appropriate height of the implant for placement. We opened up the final implant, which was the Exactech antibiotic 7 stem implant. The Stimulan antibiotic beads were mixed with 1 g vancomycin and after a total of 12 liters of copious irrigation with antibiotic solution with bacitracin the Stimulan beads were impacted into the glenoid cavity and drill hole areas and around the glenoid component and then the humeral implant was cemented to the greater tuberosity and proximal stem, bone with a limited amount of cement just to stabilize the cement spacer. The cement spacer was placed in about 35-40 degrees of retroversion to prevent anterior dislocation. We did place 2 PDS sutures with Nice knots around the neck of the stem and the greater tuberosity to stabilize the tuberosity to the implant just prior to placing the cement in place. I took care not to have any cement extravasation around the area of the axillary nerve. The traction was placed and the prosthetic cement spacer was held in appropriate version and alignment until the cement completely cured. We assessed the position via fluoroscopy and the implant position was satisfactory. More antibiotic beads were placed into a defect in the anterior humerus area anterior to the spacer where there was significant bone loss due to infection and stress shielding. Then we repaired the capsular subscapularis type tissue to the proximal humerus with #1 PDS suture material to help prevent dislocation. The stability was assessed and I could flex her arm 40 degrees, abduct 40 degrees, externally rotate to 20 and with gentle stress there was no instability. The 2 Hemovac drains were placed, brought out laterally. The deltopectoral interval was then repaired with [id number] #1 antibiotic resistant Vicryl sutures as well as the subcutaneous tissues were closed with interrupted 2-0 Vicryl antibiotic resistance sutures and skin was closed with aniceto and sterile dressings were applied and a sling immobilizer. The patient tolerated the procedure well. RYAN Mota was my city carrier assistant. He functioned as city carrier assistant for the entire procedure. He assisted in patient positioning, prepping, draping, arm positioning, retraction throughout the procedure. He performed the subcutaneous and skin closure and will participate in postoperative care of the patient. I attest to the content of the Intraoperative Record and any orders documented therein. Any exception s are noted below.
--- NOTE | 2019-07-05 14:33 | Anesthesiology Progress Note ---
Date of Service July 05, 2019 Anesthesia Post Procedure Vital Signs Vital Signs: Temp Pulse Pulse Resp BP BP Pulse Ox 07/05/19 14:26 36.3 C L 90 13 98/56 L 98 07/05/19 14:14 36.3 C L 96 H 15 99/58 L 97 07/05/19 14:05 92 H 15 103/68 97 07/05/19 13:55 36.1 C L 92 H 18 102/62 97 07/05/19 07:13 100 H 14 97 07/05/19 07:05 37.1 C 98 H 20 137/87 94 07/04/19 23:57 36.5 C 95 H 22 112/75 94 07/04/19 16:43 92 H 16 94 07/04/19 15:54 37 C 78 16 107/70 92 Transfer of Care Handoff Completed per policy Notes Mental Status: alert / awake / arousable Patient Amnestic to Procedure: Yes Nausea / Vomiting: adequately controlled Pain: adequately controlled Airway Patency, RR, SpO2: stable & adequate BP & HR: stable & adequate Hydration State: stable & adequate Anesthetic Complications: no major complications apparent
[2019-07-05] MEDS ORDERED: bisacodyL 10 MG SUPP PR PRN (14:51)
[2019-07-05] MEDS ORDERED: METOCLOPRAMIDE HCL INJ 5 MG/ML 2 ML VIAL IV PRN (14:51)
[2019-07-05] MEDS ORDERED: MAGNESIUM HYDROXIDE SUSP 30 ML UDC PO PRN (14:51)
[2019-07-05] MEDS ORDERED: NALOXONE HCL 0.4 MG/1 ML VIAL/CARP IV PRN (14:51)
[2019-07-05] MEDS: SODIUM CHLORIDE 0.9% 1000ML 1,000 ML IV SCH ×2 (15:30→17:49)
[2019-07-05] MEDS: PANTOprazole 40 MG TAB PO SCH (15:31)
[2019-07-05] MEDS: FLUTICASONE/VILANTEROL 100/25MCG 14 PUFFS/INHALER INH SCH (15:31)
[2019-07-05] MEDS ORDERED: Nursing to Pharmacy Communication ONE (15:35)
--- NOTE | 2019-07-05 15:36 | Hospitalist Progress Note ---
Date of Service July 05, 2019 Assessment & Plan (1) Prosthetic joint infection: As per ortho and ID Ancef with plans for long term care social worker IV abx as outpt OR planned for 07/04 with hardware exchange and abx spacer placement ECHO pending (2) Hyperlipidemia: continue home meds (3) Depression, controlled: continue home meds (4) Chronic obstructive pulmonary disease: Pt did not have inhalers today, noted for wheeze on 07/03 but no exacerbation and sats were WNL on room air No current exacerbation Nebs x1 and PRN after to prevent exacerbation continue home meds (5) Elevated blood pressure reading in office with diagnosis of hypertension: States she does not take lasix anymore unless she has swelling (6) Chronic reflux esophagitis: continue home meds (7) DVT prophylaxis: As per ortho Admission and Anticipated Discharge Date Admission Date: July 03, 2019 Subjective Pt seen post-op. She is still a bit groggy post anesthesia, but is resting comfortably. Pt denies fever, SOB, chest pain, abd pain, n/v/c/d, LE pain or swelling. Review of Systems Review of Systems: Pertinent positives and negatives reviewed in HPI--all others negative Physical Exam Constitutional: WD/WN, vitals as above Eyes: normal visual byrd by confrontation and + anicteric sclerae Neck: normal visual inspection and trachea midline Respiratory: normal respiratory effort, lungs clear to auscultation Auscultation: no wheezes Cardiovascular: Rate/Rhythm: regular rate and regular rhythm Gastrointestinal (Abdomen): Inspection/Auscultation: abdomen not distended Percussion/Palpation: abdomen soft; abdomen nontender Musculoskeletal: Head/Neck/Chest: normocephalic and head atraumatic Skin: no rashes, warm and dry Neurologic: awake; not confused Speech / Cognition: normal speech Psychiatric: A+Ox3, euthymic affect Results & Data Results & Data ([facility]) Vital Signs (Past 12 Hours) Vital Signs Temp Pulse Pulse Resp BP Pulse Ox 07/05/19 15:21 36.4 C L 96 H 16 93/60 L 97 07/05/19 14:50 36.4 C L 99 H 18 93/59 L 97 07/05/19 14:26 36.3 C L 90 13 98/56 L 98 07/05/19 14:14 36.3 C L 96 H 15 99/58 L 97 07/05/19 14:05 92 H 15 103/68 97 07/05/19 13:55 36.1 C L 92 H 18 102/62 97 07/05/19 07:13 100 H 14 97 07/05/19 07:05 37.1 C 98 H 20 137/87 94 PG Care Time/CCT Total # of Minutes Spent Total Time Spent with Patient: Total time spent is greater than 50% in coordination of care (as documented) at patient's floor/unit and/or counseling patient: Coding Level of Care Code 98700 Inpt Consult Level 3 Diagnoses Prosthetic joint infection T84.50XA Hyperlipidemia E78.5 Depression, controlled F32.9 Chronic obstructive pulmonary disease J44.9 Elevated blood pressure reading in office with diagnosis of hypertension I10 Chronic reflux esophagitis K21.0 DVT prophylaxis Z29.9
--- NOTE | 2019-07-05 17:44 | XRay Report ---
RIGHT SHOULDER 2 VIEWS CLINICAL HISTORY: Postoperative examination. FINDINGS: Status post shoulder surgery. FINDINGS: 2 views of the right shoulder are compared to study dated 01/22/2019. The right shoulder art hroplasty has been removed and a humeral head spacers been placed with a cortical lag screw. Antibiot ic implants are noted. There is minimally displaced fracture seen just below the humeral neck. There is also a horizontally oriented nondisplaced fracture of the proximal humeral shaft. Soft tissue keyla a and some cutaneous gas are expected postoperative findings. Skin clips and surgical drains are in p lace. Atelectasis is noted at the right lung base. Chronic widening at the acromioclavicular joint is similar to previous. IMPRESSION: 1. Postoperative changes as above status post removal of the shoulder arthroplasty with antibiotic im plant placement. 2. There are fractures of the proximal humeral metaphysis and the proximal humeral shaft. Electronically signed by: Mychal Schmitz M.D. 07/05/2019 5:43 PM
[2019-07-05] MEDS: NICOTINE 21 MG/24 HR TDSY TD SCH (19:21)
[2019-07-05] MEDS: FERROUS SULFATE 325 MG TAB PO SCH (19:21)
[2019-07-05] MEDS: BuPROPion XL 150 MG TABCR PO SCH (19:21)
[2019-07-05] MEDS: HYDROmorphone INJ 0.5 MG/0.5 ML SYR IV PRN (20:50)
[2019-07-05] MEDS: SENNA 8.6 MG TAB PO SCH (21:05)
[2019-07-05] MEDS: ASPIRIN 81 MG ECTAB PO SCH (21:05)
[2019-07-05] MEDS: DOCUSATE SODIUM 100 MG CAP PO SCH (21:05)
[2019-07-05] MEDS: ATORVASTATIN 20 MG TAB PO SCH (21:05)
[2019-07-05] MEDS: OXYCODONE/ACETAMINOPHEN 5mg/325mg TAB PO PRN (23:25)
[2019-07-06] MEDS: SODIUM CHLORIDE 0.9% 1000ML 1,000 ML IV SCH (03:26)
[2019-07-06] MEDS: CEFAZOLIN 2000MG 2,000 MG/15 ML SYR IV SCH ×3 (03:26→20:21)
[2019-07-06] MEDS: OXYCODONE/ACETAMINOPHEN 5mg/325mg TAB PO PRN ×5 (03:26→23:49)
[2019-07-06] MEDS: NICOTINE 21 MG/24 HR TDSY TD SCH ×2 (03:39→09:48)
[2019-07-06] MEDS: HYDROmorphone INJ 0.5 MG/0.5 ML SYR IV PRN (05:51)
[2019-07-06 06:32] LABS: Basophils # (auto) 0.03 K/uL (0-0.2); Basophils % (auto) 0.2 %; Eosinophils # (auto) 0.08 K/uL (0-0.5); Eosinophils % (auto) 0.6 %; Immature Granulocytes # (auto) 0.03 K/uL (0.00-0.02); Immature Granulocytes % (auto) 0.2 %; Lymphocytes # (auto) 2.89 K/uL (1.2-3.4); Lymphocytes % (auto) 21.8 %; Mean Corpuscular Hemoglobin 26.7 pg (25-34); Mean Corpuscular Hgb Conc 32.3 g/dL (32-36); Mean Corpuscular Volume 82.7 fL (80-100); Mean Platelet Volume 8.4 fL (7.4-10.4); Monocytes # (auto) 1.03 K/uL (0.11-0.59); Monocytes % (auto) 7.8 %; Neutrophils % (auto) 69.4 %; Platelet Count 436 K/uL (130-400); RDW Coefficient of Variation 18.2 % (11.5-14.5); RDW Standard Deviation 55.3 fL (36.4-46.3); Red Blood Count 3.75 M/uL (4.2-5.4); White Blood Count 13.26 K/uL (4.8-10.8)
[2019-07-06 07:08] LABS: BUN Creatinine Ratio 13.1 (10-20); Calcium 7.6 mg/dl (8.5-10.1); Creatinine Clr Calc Pharmacy 52.3 ml/min; Est GFR (African American) 82.2; Est GFR (Non-African American) 70.9; Potassium 3.5 mmol/L (3.5-5.1)
--- NOTE | 2019-07-06 07:40 | Anesthesiology Progress Note ---
Date of Service July 06, 2019 Anesthesia Post Procedure Vital Signs Vital Signs: Temp Pulse Pulse Pulse Resp BP Pulse Ox 07/06/19 07:15 36.8 C 99 H 16 92/59 L 92 07/06/19 03:35 37.1 C 111 H 16 99/63 L 90 07/06/19 01:07 113 H 07/05/19 23:28 111 H 07/05/19 22:59 36.9 C 112 H 16 108/72 91 07/05/19 19:03 36.5 C 104 H 16 120/79 96 07/05/19 16:55 36.4 C L 93 H 14 101/65 100 07/05/19 15:50 36.4 C L 94 H 14 93/60 L 99 07/05/19 15:21 36.4 C L 96 H 16 93/60 L 97 07/05/19 14:50 36.4 C L 99 H 18 93/59 L 97 07/05/19 14:26 36.3 C L 90 13 98/56 L 98 07/05/19 14:14 36.3 C L 96 H 15 99/58 L 97 07/05/19 14:05 92 H 15 103/68 97 07/05/19 13:55 36.1 C L 92 H 18 102/62 97 Transfer of Care Handoff Completed per policy Notes Mental Status: alert / awake / arousable Nausea / Vomiting: adequately controlled Pain: adequately controlled Airway Patency, RR, SpO2: stable & adequate BP & HR: stable & adequate Hydration State: stable & adequate Anesthetic Complications: no major complications apparent and Pt Satisfied with anesthetic care
[2019-07-06] MEDS ORDERED: SODIUM CHLORIDE 0.9% 500 ML IV SCH (09:45)
[2019-07-06] MEDS: FERROUS SULFATE 325 MG TAB PO SCH (09:46)
[2019-07-06] MEDS: DOCUSATE SODIUM 100 MG CAP PO SCH ×2 (09:47→20:21)
[2019-07-06] MEDS: MULTIVITAMIN TAB PO SCH (09:47)
[2019-07-06] MEDS: ASPIRIN 81 MG ECTAB PO SCH ×2 (09:47→20:22)
[2019-07-06] MEDS: FLUTICASONE/VILANTEROL 100/25MCG 14 PUFFS/INHALER INH SCH (09:47)
[2019-07-06] MEDS: PANTOprazole 40 MG TAB PO SCH (09:47)
[2019-07-06] MEDS: BuPROPion XL 150 MG TABCR PO SCH (09:48)
--- NOTE | 2019-07-06 10:06 | Orthopedic Progress Note ---
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 Postop day 1 status post explant infected TSA with implantation of antibiotic spacer. Cultures noted as above. Previous cultures done in the outpatient setting showing MSSA. Appreciate Dr. Traylor's input. DC planning-patient will need long-term antibiotics. Admission and Anticipated Discharge Date Admission Date: July 03, 2019 Subjective Postop day 1 Patient sitting up in her chair at the bedside. He is that this is noticeably more painful than previous surgeries. States she is doing okay right now. Denies shortness of breath, chest pain, lightheadedness. Physical Exam Physical Exam: Dressings are clean, dry, and intact. Hemovac drain is present and functioning. 50 mL's from the previous shift. Neurovascular is intact. She has good flexion extension of the fingers, hand, and wrist. Cap refill is less than 2 seconds. Results & Data ([facility]) Vital Signs (Past 12 Hours) Vital Signs Temp Pulse Pulse Pulse Resp BP Pulse Ox 07/06/19 07:15 36.8 C 99 H 16 92/59 L 92 07/06/19 03:35 37.1 C 111 H 16 99/63 L 90 07/06/19 01:07 113 H 07/05/19 23:28 111 H 07/05/19 22:59 36.9 C 112 H 16 108/72 91 Diagnostic Findings Name: NELIDA RAI Acct: [id number] [place]: [place] 1950 [facility] [place]: [place]03[place]19 Age: 68 Sex: F Dis Date: Loc: Medical/Surgical/Ortho 3 [facility]/Bed: E[facility] [place] Spec: [id number] Collected: 07/05/19-1000 Received: 07/05/19-[address]: New Farah M.D. Source: Shoulder,Right OV Order: Ordered: Aer/Chelsea Cult/Sm Procedure Result Verified Site Gram Stain Final 07/05/19-1158 Gram Stain Result Moderate Polys Rare Gram Positive Cocci Phoned results to [facility] (OR) on 07/05/19 at 1157 by Viraj S Walk and results were verbalized back. Aero/Chelsea Cult Preliminary 07/06/19-929 Organism 1 Staphylococcus species Quantity Many Sens Sensitivities to Follow
[2019-07-06] MEDS ORDERED: TRIAMCINOLONE ACET 0.1% CR 80 GM TUBE EXT PRN (10:30)
--- NOTE | 2019-07-06 11:11 | Hospitalist Progress Note ---
Date of Service July 06, 2019 Assessment & Plan (1) Prosthetic joint infection: * POD #1 s/p RIGHT SHOULDER hardware exchange and placement of antibiotic spacer/stimulan beads with Dr. Farah on 07/04. Hx of staphaureus sepsis/vertebral osteomyelitis. Pre-op h/h 13.9/41.9 * Pain management/PT/OT/DVT prophylaxis per primary service * ECHO cancelled in system by error yesterday -- re-ordered today to r/o infective endocarditis * Continue Ancef for now at discretion of ID --> cultures from RIGHT shoulder growing staph species, sensitivities to follow follow repeat BCx from 07/04 (cx from 06/29 growing MSSA)--> will need prolonged IV abx. will need PICC -- CM assisting * H/h dropped to 12/15 -- likely combination of acute blood loss following surgery as well as dilutional from IVF * Elevated WBC at 13.2k, likely from intra-op steroids -- no fevers/chills reported * Continue to monitor CBC (2) Acute blood loss anemia: * H/h dropped to 12/15 post-op -- likely due to acute blood loss following surgery/dilutional from IVF. EBL from surgery 200mL, Hemovac output 175mL. * Continue to monitor h/h (3) Elevated blood pressure reading in office with diagnosis of hypertension: * States she does not take lasix anymore unless she has swelling * Not on any medications at home --> per patient, her BP is usually well controlled * Continue to monitor -- BP low currently at 94/61, asymptomatic * Ordered NSS @ 80cc x 500cc as patient without much of appetite and slightly dry on exam (4) Hyperlipidemia: * Chronic. Stable * Continue home atorvastatin 20mg PO daily (5) Depression, controlled: * Chronic. Stable * Continue home bupropion (6) Chronic obstructive pulmonary disease: * Noted for wheeze on 07/03 but no exacerbation and sats were WNL on room air. * No more wheezing noted on exam, formerly [facility], later [facility] patient 92% on RA * Nebs prn * Utilizing Breo while inpatient as formulary * Continue to monitor (7) Chronic reflux esophagitis: * Chronic. Stable. Patient on omeprazole 20mg outpatient * On protonix 40mg while inpatient * Continue to monitor (8) DVT prophylaxis: * As per ortho -- ASA 81mg BID Triamcinolone to dry skin under left buttock/right breast q6h prn Thank you for allowing the hospitalist team to participate in the care of Ms. Dumont. Hospitalist service will follow along. Admission and Anticipated Discharge Date Admission Date: July 03, 2019 Supervising Physician Co-Signing Physician Notes Attending Attestation - Chart reviewed, care plan d/w RYAN Marina. I agree w/ the wilson components of her documentation. Roman Hall MD Subjective Patient evaluated this morning up in bed. She states she is having some considerable pain to her right shoulder but that it is manageable with the oral pain medication. She denies any numbness/tingling at this time, as well as fevers, chills, chest pain, shortness of breath, abdominal pain, n/v. She denies having had a bowel movement since admission but states she frequently deals with constipation. She did have some loose stool prior to admission. Plans for probable IV antibiotics, although she has concerns regarding cost as she is still paying off the second round of IV antibiotics. She would like to return home, but states if she is unable to care for it herself then she is agreeable to placement. She states she does not have much of an appetite today either but she states she thinks it may be related to pain. With regards to her low BP, she states she has Elev been running low, but has been up to the 140s/150s systolically,which she believes is related to pain. She denies any lightheadedness or dizziness, fatigue. She is also questioning why she was ordered a diabetic diet as she has never held this diagnosis. Agreed to change in the system. Her main concern at this time is itchiness to under her left buttock region and right breast/side, requesting topical hydrocortisone or the like. All questions/concerns addressed. ECHO was cancelled yesterday but is re-ordered for today. Review of Systems Review of Systems: All systems reviewed & are unremarkable except as noted in HPI & below Physical Exam Constitutional: WD/WN, vitals as above Eyes: normal visual byrd by confrontation and + anicteric sclerae Neck: normal visual inspection and trachea midline Respiratory: normal respiratory effort, lungs clear to auscultation Auscultation: no wheezes Cardiovascular: Rate/Rhythm: regular rate and regular rhythm Gastrointestinal (Abdomen): Inspection/Auscultation: abdomen not distended Percussion/Palpation: abdomen soft; abdomen nontender Musculoskeletal: Head/Neck/Chest: normocephalic and head atraumatic Dressings to RIGHT shoulder c/d/i. Hemovac with bloody drainage. NVI. Cap refill <2 seconds. Good flexion/extension of fingers/wrist. Skin: dry skin to under left buttock and right lateral breast/abdominal wall, erythema present Neurologic: awake; not confused Speech / Cognition: normal speech Psychiatric: A+Ox3, euthymic affect Lymphatic: no cervical or axillary lymphadenopathy Results & Data Results & Data ([facility]) Vital Signs (Past 12 Hours) Vital Signs Temp Pulse Pulse Pulse Resp BP Pulse Ox 07/06/19 10:07 94/61 L 07/06/19 07:15 36.8 C 99 H 16 92/59 L 92 07/06/19 03:35 37.1 C 111 H 16 99/63 L 90 07/06/19 01:07 113 H 07/05/19 23:28 111 H Laboratory Results 07/06/19 07/06/19 Range/Units 06:01 06:01 WBC 13.26 H (4.8-10.8) K/uL RBC 3.75 L (4.2-5.4) M/uL Hgb 10.0 L (12.0-16.0) g/dL Hct 31.0 L (37-47) % MCV 82.7 (80-100) fL MCH 26.7 (25-34) pg MCHC 32.3 (32-36) g/dL RDW Std Deviation 55.3 H (36.4-46.3) fL RDW Coeff of Mandeep 18.2 H (11.5-14.5) % Plt Count 436 H (130-400) K/uL MPV 8.4 (7.4-10.4) fL Immature Gran % (Auto) 0.2 % Neut % (Auto) 69.4 % Lymph % (Auto) 21.8 % [place] % (Auto) 7.8 % Eos % (Auto) 0.6 % Baso % (Auto) 0.2 % Immature Gran # (Auto) 0.03 H (0.00-0.02) K/uL Neut # (Auto) 9.20 H (1.4-6.5) K/uL Lymph # (Auto) 2.89 (1.2-3.4) K/uL [place] # (Auto) 1.03 H (0.11-0.59) K/uL Eos # (Auto) 0.08 (0-0.5) K/uL Baso # (Auto) 0.03 (0-0.2) K/uL Sodium 139 (136-145) mmol/L Potassium 3.5 (3.5-5.1) mmol/L Chloride 108 H (98-107) mmol/L Carbon Dioxide 24 (21-32) mmol/L Anion Gap 7.0 (3-11) BUN 11 (7-18) mg/dl Creatinine 0.84 (0.6-1.2) mg/dl Est Cr Clr Drug Dosing 52.3 ml/min Est GFR ( Amer) 82.2 Est GFR (Non-Af Amer) 70.9 BUN/Creatinine Ratio 13.1 (10-20) Glucose 134 H (70-99) mg/dl Calcium 7.6 L (8.5-10.1) mg/dl PG Care Time/CCT Total # of Minutes Spent Total Time Spent with Patient: Total time spent is greater than 50% in coordination of care (as documented) at patient's floor/unit and/or counseling patient: Coding Level of Care Code 10767 Subseq Hosp Care Lvl 3 Diagnoses Prosthetic joint infection T84.50XA Acute blood loss anemia D62 Elevated blood pressure reading in office with diagnosis of hypertension I10 Hyperlipidemia E78.5 Depression, controlled F32.9 Chronic obstructive pulmonary disease J44.9 Chronic reflux esophagitis K21.0 DVT prophylaxis Z29.9
--- NOTE | 2019-07-06 12:33 | Infectious Disease Progress Nt ---
Date of Service July 06, 2019 Assessment & Plan (1) Gram positive sepsis: (2) Prosthetic joint infection: continue ancef, will follow repeat blood cultures, neagtive to date. OR cultures growing S. aureus, suspect MSSA as well. will need echo to r/o IE. follow cultures and OR findings, will need prolonged course of IV abx with weekly cbc, cmp, esr. Today is my final day at [facility], will need new ID referral for ongoing care. Admission and Anticipated Discharge Date Admission Date: July 03, 2019 Subjective pt remains on ancef, tolerating well. s/p OR. blood cultures negative 07/03. Echo pending. afebrile. wbc 13, creat 0.8 Results & Data ([facility]) Vital Signs (Past 12 Hours) Vital Signs Temp Pulse Pulse Resp BP Pulse Ox 07/06/19 10:07 94/61 L 07/06/19 07:15 36.8 C 99 H 16 92/59 L 92 07/06/19 03:35 37.1 C 111 H 16 99/63 L 90 07/06/19 01:07 113 H Laboratory Results Microbiology 07/05/19 09:43 Shoulder,Right Gram Stain - Final 07/05/19 09:43 Shoulder,Right Aerobic and Anaerobic Culture - Preliminary Staphylococcus species 07/05/19 09:24 Shoulder,Right Gram Stain - Final 07/05/19 09:24 Shoulder,Right Aerobic and Anaerobic Culture - Preliminary Staphylococcus species 07/05/19 10:00 Shoulder,Right Gram Stain - Final 07/05/19 10:00 Shoulder,Right Aerobic and Anaerobic Culture - Preliminary Staphylococcus species 07/04/19 14:00 Blood Aerobic Blood Culture - Preliminary No growth in Aerobic bottle after 24 hours. 07/04/19 14:00 Blood Anaerobic Blood Culture - Preliminary No growth in Anaerobic bottle after 24 hours. 07/04/19 14:03 Blood Aerobic Blood Culture - Preliminary No growth in Aerobic bottle after 24 hours. 07/04/19 14:03 Blood Anaerobic Blood Culture - Preliminary No growth in Anaerobic bottle after 24 hours. PG Care Time/CCT Total # of Minutes Spent Total Time Spent with Patient: Total time spent is greater than 50% in coordination of care (as documented) at patient's floor/unit and/or counseling patient: Coding Level of Care Code 31817 Subseq Hosp Care Lvl 1 Diagnoses Gram positive sepsis A41.89 Prosthetic joint infection T84.50XA
--- NOTE | 2019-07-06 15:19 | XCELERA ---
[id number]
[2019-07-06] MEDS: SENNA 8.6 MG TAB PO SCH (20:22)
[2019-07-06] MEDS: ATORVASTATIN 20 MG TAB PO SCH (20:22)
[2019-07-07] MEDS: CEFAZOLIN 2000MG 2,000 MG/15 ML SYR IV SCH ×2 (04:54→12:52)
[2019-07-07 06:37] LABS: Basophils # (auto) 0.05 K/uL (0-0.2); Basophils % (auto) 0.4 %; Eosinophils # (auto) 0.33 K/uL (0-0.5); Eosinophils % (auto) 2.6 %; Hematocrit (blood only) 29.5 % (37-47); Hemoglobin 9.8 g/dL (12.0-16.0); Immature Granulocytes # (auto) 0.02 K/uL (0.00-0.02); Immature Granulocytes % (auto) 0.2 %; Lymphocytes % (auto) 24.3 %; Mean Corpuscular Hemoglobin 27.1 pg (25-34); Mean Corpuscular Hgb Conc 33.2 g/dL (32-36); Mean Corpuscular Volume 81.5 fL (80-100); Mean Platelet Volume 8.3 fL (7.4-10.4); Monocytes # (auto) 0.81 K/uL (0.11-0.59); Monocytes % (auto) 6.3 %; Neutrophils # (auto) 8.46 K/uL (1.4-6.5); Neutrophils % (auto) 66.2 %; Platelet Count 416 K/uL (130-400); RDW Coefficient of Variation 18.3 % (11.5-14.5); RDW Standard Deviation 53.8 fL (36.4-46.3); Red Blood Count 3.62 M/uL (4.2-5.4); White Blood Count 12.77 K/uL (4.8-10.8)
[2019-07-07 07:12] LABS: BUN Creatinine Ratio 12.7 (10-20); Creatinine Clr Calc Pharmacy 66.5 ml/min; Est GFR (African American) 104.5; Est GFR (Non-African American) 90.1; Potassium 3.8 mmol/L (3.5-5.1)
[2019-07-07] MEDS: OXYCODONE/ACETAMINOPHEN 5mg/325mg TAB PO PRN ×2 (07:34→12:51)
--- NOTE | 2019-07-07 07:51 | Orthopedic Progress Note ---
Date of Service July 07, 2019 Assessment & Plan (1) Prosthetic joint infection: Right TSA infection. Postop day 2 status post explant infected TSA with implantation of antibiotic spacer. Cultures noted as above. Previous cultures done in the outpatient setting showing MSSA. Cultures done in the operating room are now showing MSSA as well. Plan for PICC line. Appreciate Dr. Traylor's input. DC planning-patient will need long-term antibiotics. Admission and Anticipated Discharge Date Admission Date: July 03, 2019 Subjective Postop day 2 Patient sitting up in bed. Awake and alert. Having pain in the shoulder but tolerating. No new complaints. Denies any shortness of breath, chest pain, lightheadedness. Physical Exam Physical Exam: Incision is clean, dry, and intact. No overt erythema. Mild swelling that travels down the arm. Mild swelling in the fingers. Fingers have good range of motion as well as does the wrist. Capillary refill is less than 2 seconds. Results & Data ([facility]) Vital Signs (Past 12 Hours) Vital Signs Temp Pulse Resp BP Pulse Ox 07/06/19 23:21 37.5 C 108 H 20 117/73 92
[2019-07-07] MEDS: NICOTINE 21 MG/24 HR TDSY TD SCH (08:31)
[2019-07-07] MEDS: BuPROPion XL 150 MG TABCR PO SCH (08:33)
[2019-07-07] MEDS: MULTIVITAMIN TAB PO SCH (08:33)
[2019-07-07] MEDS: PANTOprazole 40 MG TAB PO SCH (08:33)
[2019-07-07] MEDS: FLUTICASONE/VILANTEROL 100/25MCG 14 PUFFS/INHALER INH SCH (08:34)
[2019-07-07] MEDS: ASPIRIN 81 MG ECTAB PO SCH (08:34)
[2019-07-07] MEDS: FERROUS SULFATE 325 MG TAB PO SCH (08:34)
[2019-07-07] MEDS: DOCUSATE SODIUM 100 MG CAP PO SCH (08:36)
--- NOTE | 2019-07-07 12:30 | Hospitalist Progress Note ---
Date of Service July 07, 2019 Assessment & Plan (1) Prosthetic joint infection: * POD #2 s/p RIGHT SHOULDER hardware exchange and placement of antibiotic spacer/stimulan beads with Dr. Farah on 07/04. Hx of staph aureus sepsis/vertebral osteomyelitis. Pre-op h/h 13.9/41.9. Sepsis d/t MSSA tx with IV abx * Pain management/PT/OT/DVT prophylaxis per primary service * ECHO done without evidence of vegetation, although cannot be excluded * cultures from RIGHT shoulder growing staph species, sensitivities to follow * Repeat BCx from 07/04 with MSSA -- decision to proceed with 2gm IV Rocephin x 6 weeks due to once daily dosing/cost/coverage * PICC obtained this afternoon * [place] [facility] Navigator arranging outpatient follow up * H/h about the same, slightly lower at 9.8/29.5 -- likely combination of acute blood loss following surgery as well as dilutional from IVF. MCV borderline low -- will add iron sulfate 325mg BID for next 4-6 weeks (2) Acute blood loss anemia: * See above * Iron supplementation 325mg BID x 4-6 weeks (3) Elevated blood pressure reading in office with diagnosis of hypertension: * States she does not take lasix anymore unless she has swelling * Not on any medications at home --> per patient, her BP is usually well controlled * BP borderline low, patient asymptomatic, at 100/65 (4) Hyperlipidemia: * Chronic. Stable * Continue home atorvastatin 20mg PO daily (5) Depression, controlled: * Chronic. Stable * Continue home bupropion (6) Chronic obstructive pulmonary disease: * Noted for wheeze on 07/03 but no exacerbation and sats were WNL on room air. * No more wheezing noted on exam, [facility] patient 92% on RA * Nebs prn * Utilizing Breo while inpatient as formulary * Continue to monitor (7) Chronic reflux esophagitis: * Chronic. Stable. Patient on omeprazole 20mg outpatient * On protonix 40mg while inpatient * Continue to monitor (8) DVT prophylaxis: * As per ortho -- ASA 81mg BID Triamcinolone to dry skin under left buttock/right breast q6h prn . GIven benadryl 25mg x 1 now. Thank you for allowing the hospitalist team to participate in the care of Ms. Julia. Hospitalist service will sign off. Admission and Anticipated Discharge Date Admission Date: July 03, 2019 Supervising Physician Co-Signing Physician Notes Attending Attestation - Chart reviewed, care plan d/w RYAN Marina. I agree w/ the wilson components of her documentation. Agree with 6-week course of IV rocephin for right shoulder replacement joint infection 2nd MSSA. Tachycardia, based on records, is chronic. EKG with sinus tach only. Blood cx's negative this stay. From medical standpoint can d/c - needs very close ID and orthopedic f/u post- d/c. Roman Hall MD Subjective Patient evaluated this morning. Pain tolerable. Eating/drinking without diffi culty. Would like to see about once daily antibiotics due to cost. Discussed that I would reach out to orthopedics team to see which abx is best option. She had previously given herself the antibiotics but has gotten weaker as this has progressed and she would like assistance even in the short term with this. Patient denies fevers,chills,chest pain, shortness of breath, numbness or tingling, palpitations, edema or lightheadedness. Review of Systems Review of Systems: All systems reviewed & are unremarkable except as noted in HPI & below Physical Exam Constitutional: WD/WN, vitals as above Eyes: normal visual byrd by confrontation and + anicteric sclerae Neck: normal visual inspection and trachea midline Respiratory: normal respiratory effort, lungs clear to auscultation Auscultation: no wheezes Cardiovascular: Rate/Rhythm: regular rate and regular rhythm Vessels: no JVD Extremities: no edema Gastrointestinal (Abdomen): Inspection/Auscultation: abdomen not distended Percussion/Palpation: abdomen soft; abdomen nontender Musculoskeletal: Head/Neck/Chest: normocephalic and head atraumatic Dressings to RIGHT shoulder c/d/i. Hemovac with bloody drainage. NVI. Cap refill <2 seconds. Good flexion/extension of fingers/wrist. Minimal edema present Skin: dry skin to under left buttock and right lateral breast/abdominal wall, erythema present Neurologic: awake; not confused Speech / Cognition: normal speech Psychiatric: A+Ox3, euthymic affect Lymphatic: no cervical or axillary lymphadenopathy Results & Data Results & Data ([place]) Vital Signs (Past 12 Hours) Vital Signs Temp Pulse Resp BP Pulse Ox 07/07/19 07:45 36.6 C 105 H 20 119/69 96 Laboratory Results 07/07/19 07/07/19 Range/Units 06:14 06:14 WBC 12.77 H (4.8-10.8) K/uL RBC 3.62 L (4.2-5.4) M/uL Hgb 9.8 L (12.0-16.0) g/dL Hct 29.5 L (37-47) % MCV 81.5 (80-100) fL MCH 27.1 (25-34) pg MCHC 33.2 (32-36) g/dL RDW Std Deviation 53.8 H (36.4-46.3) fL RDW Coeff of Mandeep 18.3 H (11.5-14.5) % Plt Count 416 H (130-400) K/uL MPV 8.3 (7.4-10.4) fL Immature Gran % (Auto) 0.2 % Neut % (Auto) 66.2 % Lymph % (Auto) 24.3 % [place] % (Auto) 6.3 % Eos % (Auto) 2.6 % Baso % (Auto) 0.4 % Immature Gran # (Auto) 0.02 (0.00-0.02) K/uL Neut # (Auto) 8.46 H (1.4-6.5) K/uL Lymph # (Auto) 3.10 (1.2-3.4) K/uL [place] # (Auto) 0.81 H (0.11-0.59) K/uL Eos # (Auto) 0.33 (0-0.5) K/uL Baso # (Auto) 0.05 (0-0.2) K/uL Sodium 140 (136-145) mmol/L Potassium 3.8 (3.5-5.1) mmol/L Chloride 109 H (98-107) mmol/L Carbon Dioxide 23 (21-32) mmol/L Anion Gap 8.0 (3-11) BUN 8 (7-18) mg/dl Creatinine 0.66 (0.6-1.2) mg/dl Est Cr Clr Drug Dosing 66.5 ml/min Est GFR ( Amer) 104.5 Est GFR (Non-Af Amer) 90.1 BUN/Creatinine Ratio 12.7 (10-20) Glucose 102 H (70-99) mg/dl Calcium 8.0 L (8.5-10.1) mg/dl PG Care Time/CCT Total # of Minutes Spent Total Time Spent with Patient: Total time spent is greater than 50% in coordination of care (as documented) at patient's floor/unit and/or counseling patient: Coding Level of Care Code 79756 Subseq Hosp Care Lvl 2 Diagnoses Prosthetic joint infection T84.50XA Acute blood loss anemia D62 Elevated blood pressure reading in office with diagnosis of hypertension I10 Hyperlipidemia E78.5 Depression, controlled F32.9 Chronic obstructive pulmonary disease J44.9 Chronic reflux esophagitis K21.0 DVT prophylaxis Z29.9
[2019-07-07] MEDS ORDERED: cefTRIAXone SODIUM 2,000 MG in DEXTROSE 5% 50 ML IV STA (14:50)
[2019-07-07] MEDS ORDERED: FERROUS SULFATE 325 MG TAB PO SCH (17:00)
--- NOTE | 2019-07-21 03:28 | Discharge Summary (DS) ---
HISTORY OF PRESENT ILLNESS: This is a 68-year-old female patient of Dr. Farah's complaining of a 2-week history of increasing painful right shoulder. The patient presented to the office with a "lump" on her shoulder. She stated it started as a small pea size lump but it has grown significantly over the course of 1 week in mid June. The patient's lump is tender to touch and just generally painful. When she reported to the office an aspirate was done of the lump. This was sent off for cultures. She showed an increased sed rate, increased CRP, normal white count. The results of the cultures both showed Staph aureus (MSSA). The patient was admitted to [facility] to put on IV vancomycin which is sensitive. The patient was then scheduled for a right shoulder removal of hardware and conversion to an antibiotic spacer. PAST MEDICAL HISTORY: Back pain, bilateral shoulder arthritis, hypertension, nicotine dependence, osteomyelitis, peripheral edema, poor appetite, scoliosis and Staph aureus bacteremia approximately 1.5 year ago. POSTOPERATIVE COURSE: The patient underwent a right shoulder deep hardware removal, I&D and conversion to antibiotic spacer on 07/05/2019. Postoperatively, she was followed closely with medical consultation, infectious disease. She continue to grow MSSA in her cultures intraoperatively as well. She was placed on ceftriaxone 2 grams daily. She did well otherwise in her postoperative course. On discharge, incision was clean, dry and intact. Brenton are intact. Skin edges were approximated well. There was no redness or drainage. Elbow, wrist and fingers were mobile. She has a sling. Neurologically intact in her right upper extremity. DIAGNOSES: Status post right shoulder deep hardware removal, I&D and placement of antibiotic spacer. She also has a history of back pain, bilateral shoulder arthritis, hypertension, nicotine dependence, osteomyelitis, peripheral edema, poor appetite, scoliosis, history of Staph aureus sepsis approximately 1.5 yrs ago. PLAN: The patient was discharged to rehab facility. She will continue her preadmission medications as well as the addition of pain medications and continue IV antibiotics through a PICC line daily, being on ceftriaxone 2 grams a day. She will follow up with Dr. Farah and infectious disease as scheduled. [facility]
== END 2019-07-07 19:07 | DRG 492 ==
LOC: 3E 17:54

== ENCOUNTER 2019-12-27 14:02 | Inpatient (IN) ==
[2019-12-27 15:09] LABS: Basophils # (auto) 0.03 K/uL (0-0.2); Basophils % (auto) 0.2 %; Eosinophils # (auto) 0.14 K/uL (0-0.5); Eosinophils % (auto) 0.7 %; Hematocrit (blood only) 39.7 % (37-47); Hemoglobin 13.3 g/dL (12.0-16.0); Immature Granulocytes # (auto) 0.07 K/uL (0.00-0.02); Immature Granulocytes % (auto) 0.4 %; Lymphocytes # (auto) 2.31 K/uL (1.2-3.4); Lymphocytes % (auto) 12.3 %; Mean Corpuscular Hemoglobin 30.2 pg (25-34); Mean Corpuscular Hgb Conc 33.5 g/dL (32-36); Mean Corpuscular Volume 90.2 fL (80-100); Mean Platelet Volume 9.4 fL (7.4-10.4); Monocytes # (auto) 1.67 K/uL (0.11-0.59); Monocytes % (auto) 8.9 %; Neutrophils # (auto) 14.51 K/uL (1.4-6.5); Neutrophils % (auto) 77.5 %; Platelet Count 329 K/uL (130-400); RDW Coefficient of Variation 15.3 % (11.5-14.5); White Blood Count 18.73 K/uL (4.8-10.8)
[2019-12-27 15:23] LABS: INR 1.2 (0.9-1.1); Partial Thromboplastin Ratio 1.3; Partial Thromboplastin Time 36.2 Seconds (21.0-31.0); Prothrombin Time 12.6 Seconds (9.0-12.0)
[2019-12-27 15:26] LABS: Alanine Aminotransferase 17 U/L (12-78); Albumin Level 3.5 gm/dl (3.4-5.0); Aspartate Aminotransferase 14 U/L (15-37); BUN Creatinine Ratio 13.2 (10-20); Blood Urea Nitrogen 14 mg/dl (7-18); Calcium 9.1 mg/dl (8.5-10.1); Carbon Dioxide 23 mmol/L (21-32); Chloride 109 mmol/L (98-107); Creatinine Clr Calc Pharmacy 43.7 ml/min; Est GFR (African American) 59.6; Est GFR (Non-African American) 51.4; Glucose 117 mg/dl (70-99); Magnesium 1.7 mg/dl (1.8-2.4); Potassium 3.4 mmol/L (3.5-5.1); Sodium 139 mmol/L (136-145)
[2019-12-27 15:31] LABS: Alkaline Phosphatase 108 U/L (45-117); Bilirubin,Total 0.5 mg/dl (0.2-1); Globulin 3.6 gm/dl (2.5-4.0); Total Protein 7.1 gm/dl (6.4-8.2); Troponin I < 0.015 ng/ml (0-0.045)
[2019-12-27] MEDS ORDERED: PIPERACILLIN/TAZOBACTAM 4.5 GM/120 ML BAG IV ONE (16:30)
[2019-12-27] MEDS ORDERED: PIPERACILL/TAZOBAC CONSULT ACTIVE PRN ×2 (16:30→21:11)
[2019-12-27] MEDS ORDERED: SODIUM CHLORIDE 0.9% 1000ML 1,000 ML IV ONE (16:31)
--- NOTE | 2019-12-27 16:59 | Emergency Department Note ---
Impression & Plan Bacteremia, Acute UTI, Leukocytosis ED Provider Note NAME: NELIDA RAI AGE: 69 SEX: F : 1950 ARRIVES VIA: Walk-In INFORMANT: Patient ED PROVIDER(S): Elio Romero DO CHIEF COMPLAINT: Positive blood cultures HPI: Patient is a 69-year-old female who presents the ER referred in for gram- negative blood cultures being positive. She has extensive history of positive blood cultures likely secondary to staph secondary to abscesses from her previous surgery. She had the hardware removed from her right shoulder. She has been on antibiotics prophylactically up until about 2 months ago. She is scheduled to have her right shoulder worked on in the next 3 weeks and consequently was not feeling well. She discussed with her PCP who ordered blood work. She has not been feeling well since this past . She has been feeling weak and rundown. Admits to low-grade fevers. She had blood work obtained as well as blood cultures and had a UA as well. Blood cultures were positive for gram-negative bacteria bacteria. UA grew out E. coli. She was referred back in. She admits to some discomfort after urination. She denies any runny nose or sore throat. No loss of taste or smell. Does admit to a cough that is been present for the past 2 days which is dry. ROS: See above HPI for pertinent positives & negatives. A total of 10 systems reviewed and were otherwise negative. PAST MEDICAL HISTORY:See Below PAST SURGICAL HISTORY:See Below FAMILY HISTORY:See Below SOCIAL HISTORY:See Below HOME MEDICATIONS:See Below ALLERGIES:See Below VITALS:See Below PHYSICAL EXAMINATION: GENERAL: Sitting up in bed, alert, well appearing, well nourished, no distress, non-toxic EYE EXAM: normal conjunctiva. OROPHARYNX: no exudate, no erythema, lips, buccal mucosa, and tongue normal and mucous membranes are moist NECK: supple, no nuchal rigidity, no adenopathy, non-tender LUNGS: Clear to auscultation. Normal chest wall mechanics HEART: no murmurs, S1 normal and S2 normal ABDOMEN: abdomen soft, non-tender, normo-active bowel sounds, no masses, no rebo und or guarding. BACK: Back is symmetrical on inspection and there is no deformity, no midline tenderness, no CVA tenderness. SKIN: no rashes and no bruising UPPER EXTREMITIES: upper extremities are grossly normal. LOWER EXTREMITIES: No pitting edema. NEURO EXAM: Normal sensorium, cranial nerves II-XII grossly intact, normal speech, no gross weakness of arms, no gross weakness of legs. MEDICAL DECISION MAKING: Patient is a 69-year-old female with a past medical history of bacteremia that presents the ER for negative blood culture. IV was established blood work was obtained. Labs show a leukocytosis of 18,000. No significant anemia. INR 1.2. BMP with mild hypokalemia. Slightly elevated chloride. LFTs bilirubin and troponin was negative. Chest x-ray was unremarkable. Previous cultures were reviewed and urine appears to be consistent with E. coli. Reviewed previous E. coli's which were sensitive to Zosyn. Patient was given IV fluids IV Zosyn. Updated bedside. Discussed with hospitalist for further evaluation. Triage Nursing notes reviewed. Prior medical records reviewed Vital Signs: reviewed and remarkable for tachy Differential diagnosis: Differential diagnosis includes etiologies such as sepsis, UTI, pneumonia, metabolic, electrolyte abnormalities, cardiac sources, intracerebral event, toxicologic, neurological, as well as others were entertained. ER treatment provided: See below Diagnostics interpreted by me: ECG: none Cardiac Monitoring: An order was placed for continuous cardiac monitoring. The monitor shows a rate of 110 with sinus rhythm. Laboratory studies: As stated above and show below. Imaging studies: Portable AP upright 1 view chest shows no focal infiltrate or pneumothorax Consultation(s): Discussed with hospitalist for further evaluation ED COURSE: Procedures: none Critical Care: None Past Med/Surg History Medical History Anemia hx Back pain Bronchitis chronic -- controlled currently inhalers only PRN. Chronic back pain Chronic obstructive pulmonary disease Deep vein thrombosis 1985 r/t varicose vein. no medication currently. no problems since Degenerative disc disease Depression "anger" Elevated blood pressure reading in office with diagnosis of hypertension no medication --- sporadic high blood pressure Gram positive sepsis was receiving IV Rocephin -- currently taking oral ABx. Hx of Clostridium difficile infection January 2019. no problems currently. Osteoarthritis Osteomyelitis history in the right shoulder () and spine (June 2018) Peripheral edema Scoliosis Staphylococcus aureus bacteremia Surgical History H/O foot surgery bilateral heel bone spurs H/O shoulder surgery Bilateral total shoulder arthroplasties. R Reverse TSA 04/14/2017. 7.0ETT. MAC 3. Interscalene block. no issues. H/O varicose vein ligation History of adenoidectomy History of bilateral tubal ligation History of carpal tunnel release of both wrists History of colonoscopy History of esophagogastroduodenoscopy (EGD) History of laparoscopy with fulguration of oviducts History of revision of total shoulder arthroplasty right History of tonsillectomy S/P foot surgery, right displaced tarsal Family History Father Atrial fibrillation Mother Coronary heart disease Breast cancer Uncle Myocardial infarction Colorectal cancer Aunt Myocardial infarction Breast cancer Grandfather (Maternal) No problems noted. 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 Beliefs That Will Affect Care: None marital status: Current Living Situation: Spouse current occupational status: retired Feels Safe at Home: Yes Dental Care, Regularly: No Seatbelt Use: always Sunscreen Use: Yes Assistive Devices: Denture - Upper and Glasses Allergies Allergies Allergy/AdvReac Type Severity Reaction Status Date / Time nickel Allergy Mild Rash Verified 12/27/19 17:40 shellfish derived Allergy Mild itchy and Verified 12/27/19 17:40 swelling of tongue and throat Home Meds Home Medications Medication Instructions Recorded Confirmed multivitamin 1 tab PO QAM 09/29/18 12/27/19 omega-3 fatty acids 1,000 mg 1,000 mg PO HS 09/29/18 12/27/19 capsule albuterol sulfate 2.5 mg INHALATION Q4H PRN #1 ml 10/14/18 12/27/19 docusate sodium 100 mg capsule 100 mg PO HS 01/17/19 12/27/19 hydrocortisone 2.5 % topical cream 1 appln TOP TID PRN gm 03/02/19 12/27/19 Probiotic Acidophilus 1,000 mmu cells PO QAM 10/05/19 12/27/19 bupropion HCl 150 mg PO QAM 10/05/19 12/27/19 calcium carbonate-vitamin D3 1 tab PO BID 12/27/19 12/27/19 [Calcium + D] cyclobenzaprine 5 mg PO HS 12/27/19 12/27/19 cyclobenzaprine 10 mg PO QAM 12/27/19 12/27/19 tiotropium bromide [Spiriva 2 puff INHALATION DAILY PRN 12/27/19 12/27/19 Respimat] Previous Rx's Medication Instructions Recorded atorvastatin 20 mg tablet 20 mg PO HS #30 tab 06/30/19 omeprazole 20 mg capsule,delayed 20 mg PO QAM #90 cap 09/28/19 release naproxen 500 mg tablet 500 mg PO BID #60 tab 10/31/19 albuterol sulfate 90 mcg/actuation 2 puff INHALATION Q4H PRN #8.5 g 12/26/19 aerosol inhaler nitrofurantoin 100 mg PO BID #14 cap 12/26/19 monohydrate/macrocrystals 100 mg capsule Results & Data (ED) Vital Signs Vital Signs - 24 hr 12/27/19 14:20 12/27/19 17:13 12/27/19 17:21 Temperature 37.5 C Temperature Source Oral Pulse Rate 105 H 101 H 100 H Pulse Rate from SpO2 Sensor 101 H 100 H Respiratory Rate 18 26 H 19 Blood Pressure 131/87 128/91 Blood Pressure Mean 101 100 Pulse Oximetry 96 98 97 Oxygen Delivery Method Room Air Sepsis Recent Fever Within 48 Hours No Sepsis New/Unexplained Change in Mental Status No Sepsis Action Taken by Nursing No Action Required 12/27/19 17:30 12/27/19 18:00 12/27/19 18:50 Temperature Temperature Source Pulse Rate 103 H 102 H 108 H Pulse Rate from SpO2 Sensor 102 H 102 H 108 H Respiratory Rate 18 23 24 Blood Pressure 141/91 H 163/101 H 164/101 H Blood Pressure Mean 107 118 138 Pulse Oximetry 96 99 98 Oxygen Delivery Method Sepsis Recent Fever Within 48 Hours Sepsis New/Unexplained Change in Mental Status Sepsis Action Taken by Nursing 12/27/19 18:52 12/27/19 19:00 Temperature Temperature Source Pulse Rate 108 H 107 H Pulse Rate from SpO2 Sensor Respiratory Rate 25 H 21 Blood Pressure 149/99 H Blood Pressure Mean 116 Pulse Oximetry Oxygen Delivery Method Sepsis Recent Fever Within 48 Hours Sepsis New/Unexplained Change in Mental Status Sepsis Action Taken by Nursing Laboratory Data Result diagrams: 12/27/19 14:42 12/27/19 14:42 Lab Results 12/27/19 12/27/19 12/27/19 Range/Units 14:42 14:42 14:42 WBC 18.73 H (4.8-10.8) K/uL RBC 4.40 (4.2-5.4) M/uL Hgb 13.3 (12.0-16.0) g/dL Hct 39.7 (37-47) % MCV 90.2 (80-100) fL MCH 30.2 (25-34) pg MCHC 33.5 (32-36) g/dL RDW Std Deviation 51.0 H (36.4-46.3) fL RDW Coeff of Mandeep 15.3 H (11.5-14.5) % Plt Count 329 (130-400) K/uL MPV 9.4 (7.4-10.4) fL Immature Gran % (Auto) 0.4 % Neut % (Auto) 77.5 % Lymph % (Auto) 12.3 % Walker % (Auto) 8.9 % Eos % (Auto) 0.7 % Baso % (Auto) 0.2 % Neut # (Auto) 14.51 H (1.4-6.5) K/uL Lymph # (Auto) 2.31 (1.2-3.4) K/uL Walker # (Auto) 1.67 H (0.11-0.59) K/uL Eos # (Auto) 0.14 (0-0.5) K/uL Baso # (Auto) 0.03 (0-0.2) K/uL Immature Gran # (Auto) 0.07 H (0.00-0.02) K/uL PT 12.6 H (9.0-12.0) Seconds INR 1.2 H (0.9-1.1) APTT 36.2 H (21.0-31.0) Seconds PTT Ratio 1.3 Sodium 139 (136-145) mmol/L Potassium 3.4 L (3.5-5.1) mmol/L Chloride 109 H (98-107) mmol/L Carbon Dioxide 23 (21-32) mmol/L Anion Gap 8.0 (3-11) BUN 14 (7-18) mg/dl Creatinine 1.09 (0.6-1.2) mg/dl Est Cr Clr Drug Dosing 43.7 ml/min Est GFR ( Amer) 59.6 Est GFR (Non-Af Amer) 51.4 BUN/Creatinine Ratio 13.2 (10-20) Glucose 117 H (70-99) mg/dl Lactate (0.4-2.0) mmol/L Calcium 9.1 (8.5-10.1) mg/dl Magnesium 1.7 L (1.8-2.4) mg/dl Total Bilirubin 0.5 (0.2-1) mg/dl AST 14 L (15-37) U/L ALT 17 (12-78) U/L Alkaline Phosphatase 108 (45-117) U/L Troponin I < 0.015 (0-0.045) ng/ml Total Protein 7.1 (6.4-8.2) gm/dl Albumin 3.5 (3.4-5.0) gm/dl Globulin 3.6 (2.5-4.0) gm/dl Albumin/Globulin Ratio 1.0 (0.9-2) COVID-19 Eval Order COVID-19 PCR (Negative) 12/27/19 12/27/19 12/27/19 Range/Units 16:57 17:08 17:08 WBC (4.8-10.8) K/uL RBC (4.2-5.4) M/uL Hgb (12.0-16.0) g/dL Hct (37-47) % MCV (80-100) fL MCH (25-34) pg MCHC (32-36) g/dL RDW Std Deviation (36.4-46.3) fL RDW Coeff of Mandeep (11.5-14.5) % Plt Count (130-400) K/uL MPV (7.4-10.4) fL Immature Gran % (Auto) % Neut % (Auto) % Lymph % (Auto) % Walker % (Auto) % Eos % (Auto) % Baso % (Auto) % Neut # (Auto) (1.4-6.5) K/uL Lymph # (Auto) (1.2-3.4) K/uL Walker # (Auto) (0.11-0.59) K/uL Eos # (Auto) (0-0.5) K/uL Baso # (Auto) (0-0.2) K/uL Immature Gran # (Auto) (0.00-0.02) K/uL PT (9.0-12.0) Seconds INR (0.9-1.1) APTT (21.0-31.0) Seconds PTT Ratio Sodium (136-145) mmol/L Potassium (3.5-5.1) mmol/L Chloride (98-107) mmol/L Carbon Dioxide (21-32) mmol/L Anion Gap (3-11) BUN (7-18) mg/dl Creatinine (0.6-1.2) mg/dl Est Cr Clr Drug Dosing ml/min Est GFR ( Amer) Est GFR (Non-Af Amer) BUN/Creatinine Ratio (10-20) Glucose (70-99) mg/dl Lactate 1.1 (0.4-2.0) mmol/L Calcium (8.5-10.1) mg/dl Magnesium (1.8-2.4) mg/dl Total Bilirubin (0.2-1) mg/dl AST (15-37) U/L ALT (12-78) U/L Alkaline Phosphatase (45-117) U/L Troponin I (0-0.045) ng/ml Total Protein (6.4-8.2) gm/dl Albumin (3.4-5.0) gm/dl Globulin (2.5-4.0) gm/dl Albumin/Globulin Ratio (0.9-2) COVID-19 Eval Order Covid19 Done at [facility] COVID-19 PCR NEGATIVE (Negative) Administered Medications Discontinued Medications Piperacillin Sod/Tazobactam Sod (Zosyn) 4.5 gm in 120 mls @ 240 mls/hr IV NOW ONE; Protocol Stop: 12/27/19 16:59 Last Infusion: 12/27/19 17:54 Dose: 0 mls/hr Documented by: [id number] Admin: 11/11/20 17:24 Dose: 240 mls/hr Documented by: [id number] Sodium Chloride (Nss 1000ml) 1,000 mls @ 999 mls/hr IV .Q1H1M ONE Stop: 12/27/19 17:31 Last Infusion: 12/27/19 18:54 Dose: 0 mls/hr Documented by: [id number] Admin: 12/27/19 17:24 Dose: 999 mls/hr Documented by: [id number] Discharge Plan Visit Data Chief Complaint: Referred by Doctor Stated Complaint: REFERRED BY FOR IV ANTIBIOTIC ED Provider: Elio Romero Discharge Problem: Bacteremia, Acute UTI, Leukocytosis Forms Stand Alone Forms: My [facility] Prescriptions Prescriptions: No Action atorvastatin 20 mg tablet 20 mg PO HS Qty: 30 RF: 5 omeprazole 20 mg capsule,delayed release(DR/EC) 20 mg PO QAM Qty: 90 RF: 3 naproxen 500 mg tablet 500 mg PO BID Qty: 60 RF: 2 nitrofurantoin monohyd/m-cryst [Macrobid] 100 mg capsule 100 mg PO BID Qty: 14 RF: 0 albuterol sulfate [Ventolin HFA] 90 mcg/actuation HFA aerosol inhaler 2 puff inhalation Q4H PRN (Reason: Shortness Of Breath) Qty: 8.5 RF: 5 hydrocortisone 2.5 % cream 1 appln TOP TID PRN (Reason: Itching) RF: 0 albuterol sulfate 2.5 mg /3 mL (0.083 %) solution for nebulization 2.5 mg inhalation Q4H PRN (Reason: shortness of breath or wheezing) Qty: 1 RF: 0 multivitamin [Daily Multi-Vitamin] tablet 1 tab PO QAM RF: 0 omega-3 fatty acids [Fish Oil Concentrate] 1,000 mg capsule 1,000 mg PO HS RF: 0 docusate sodium 100 mg capsule 100 mg PO HS RF: 0 cyclobenzaprine 10 mg tablet 5 mg PO HS RF: 0 Spiriva Respimat 2.5 mcg/actuation mist 2 puff INHALATION DAILY PRN (Reason: Shortness Of Breath Or Wheezing) RF: 0 cyclobenzaprine 10 mg tablet 10 mg PO QAM RF: 0 calcium carbonate-vitamin D3 [Calcium + D] 600 mg(1,500mg) -200 unit Tablet 1 tab PO BID RF: 0 bupropion HCl 150 mg tablet extended release 24 hr 150 mg PO QAM RF: 0 Probiotic Acidophilus 1.5 mg (250 million cell) Capsule 1,000 mmu cells PO QAM RF: 0 Discharge Problem: Leukocytosis Qualifiers: Leukocytosis type: unspecified Qualified Code(s): D72.829 - Elevated white blood cell count, unspecified
--- NOTE | 2019-12-27 17:11 | XRay Report ---
XR chest 1V portable CLINICAL HISTORY: cough COMPARISON STUDY: Chest radiograph December 22, 2019. FINDINGS: Lung volumes are normal. Linear bibasilar opacities reflect atelectasis or scarring. There is no pneumothorax or pleural effusion. Cardiac size is normal. Mediastinal contours are normal. Ther e is no evidence for pulmonary edema. Postoperative findings within both shoulders are incidentally n oted. IMPRESSION: No acute cardiopulmonary findings. ACT 112: Negative or not required by law. Electronically signed by: Darren Edwards M.D. 12/27/2019 5:10 PM
--- NOTE | 2019-12-27 17:53 | History & Physical Report ---
Date of Service December 27, 2019 Assessment & Plan (1) Bacteremia: * Blood cultures x1+ for gram-negative bacilli. * Concerning the patient with recurrent bacteremia. * Urine culture positive for E. coli. * Repeat blood cultures pending at this time. * Patient received IV Zosyn initially. We will continue until we have better speciation. * Repeat urinalysis. (2) Urinary tract infection: * Previously on Macrobid. * Continue with Zosyn given positive blood cultures. (3) Positive blood culture: * Gram-negative bacilli x1. * Repeat cultures today. * Concerning for possible E. coli. * Continue Zosyn. (4) Hyperlipidemia: * Continue home medications. Admission and Anticipated Discharge Date Admission Date: 12/27/2019 History of Present Illness Primary Care Provider: TYLER Gabriel Patient is a 69-year-old female with a significant past medical history of gram-positive sepsis, emphysema, hyperlipidemia, depression, GERD, COPD, recurrent UTIs, infection of prosthetic RIGHT shoulder joint. Patient has recently been seen with bacteremia over the last 14 months. She previously was on amoxicillin daily but this was discontinued approximately 2 months ago. The patient is scheduled to have revision of the spacer to the RIGHT shoulder performed in early January. She had routine preoperative labs drawn Wednesday at [facility]. She had urinalysis performed as well. When she saw her results, she was concerned given the urinary findings. She does note that on Wednesday of last week, she had symptoms of urinary frequency and urgency. Those symptoms resolved by Wednesday. On Wednesday, she did present to her primary care provider's office and request labs including blood cultures as well as urinalysis. Patient was contacted today as she was found to have positive blood cultures x1. Additionally, patient was placed on Macrobid secondary to concerning findings of UTI. Upon evaluation in the emergency department, the patient is awake, alert, and oriented. She reports that she has felt fatigued over the last 2 weeks. She reports having no fevers, but states that this is not uncommon for her. She reports no appetite and little fluid intake as well. Despite this, the patient denies any dizziness, lightheadedness, chest pain, palpitations, shortness of breath, nausea, vomiting, abdominal pain, hematochezia, melena, hematuria, or dysuria. Allergies Allergy/AdvReac Type Severity Reaction Status Date / Time nickel Allergy Mild Rash Verified 12/27/19 17:40 shellfish derived Allergy Mild itchy and Verified 12/27/19 17:40 swelling of tongue and throat Home Medications Home Medications Medication Instructions Recorded Confirmed Type multivitamin 1 tab PO QAM 09/29/18 12/27/19 History omega-3 fatty acids 1,000 mg 1,000 mg PO HS 09/29/18 12/27/19 History capsule albuterol sulfate 2.5 mg INHALATION Q4H PRN #1 ml 10/14/18 12/27/19 History docusate sodium 100 mg capsule 100 mg PO HS 01/17/19 12/27/19 History hydrocortisone 2.5 % topical cream 1 appln TOP TID PRN gm 03/02/19 12/27/19 History atorvastatin 20 mg tablet 20 mg PO HS #30 tab 06/30/19 12/27/19 Rx omeprazole 20 mg capsule,delayed 20 mg PO QAM #90 cap 09/28/19 12/27/19 Rx release Probiotic Acidophilus 1,000 mmu cells PO QAM 10/05/19 12/27/19 History bupropion HCl 150 mg PO QAM 10/05/19 12/27/19 History naproxen 500 mg tablet 500 mg PO BID #60 tab 10/31/19 12/27/19 Rx albuterol sulfate 90 mcg/actuation 2 puff INHALATION Q4H PRN #8.5 g 12/26/19 12/27/19 Rx aerosol inhaler nitrofurantoin 100 mg PO BID #14 cap 12/26/19 12/27/19 Rx monohydrate/macrocrystals 100 mg capsule calcium carbonate-vitamin D3 1 tab PO BID 12/27/19 12/27/19 History [Calcium + D] cyclobenzaprine 5 mg PO HS 12/27/19 12/27/19 History cyclobenzaprine 10 mg PO QAM 12/27/19 12/27/19 History tiotropium bromide [Spiriva 2 puff INHALATION DAILY PRN 12/27/19 12/27/19 History Respimat] Past Med/Surg History Medical History Anemia hx Back pain Bronchitis chronic -- controlled currently inhalers only PRN. Chronic back pain Chronic obstructive pulmonary disease Deep vein thrombosis 1984 r/t varicose vein. no medication currently. no problems since Degenerative disc disease Depression "anger" Elevated blood pressure reading in office with diagnosis of hypertension no medication --- sporadic high blood pressure Gram positive sepsis was receiving IV Rocephin -- currently taking oral ABx. Hx of Clostridium difficile infection January 2019. no problems currently. Osteoarthritis Osteomyelitis history in the right shoulder () and spine (June 2018) Peripheral edema Scoliosis Staphylococcus aureus bacteremia Surgical History H/O foot surgery bilateral heel bone spurs H/O shoulder surgery Bilateral total shoulder arthroplasties. R Reverse TSA 04/14/2017. 7.0ETT. MAC 3. Interscalene block. no issues. H/O varicose vein ligation History of adenoidectomy History of bilateral tubal ligation History of carpal tunnel release of both wrists History of colonoscopy History of esophagogastroduodenoscopy (EGD) History of laparoscopy with fulguration of oviducts History of revision of total shoulder arthroplasty right History of tonsillectomy S/P foot surgery, right displaced tarsal Family History Father Atrial fibrillation Mother Coronary heart disease Breast cancer Uncle Myocardial infarction Colorectal cancer Aunt Myocardial infarction Breast cancer Grandfather (Maternal) No problems noted. Grandmother (Maternal) Myocardial infarction Other No family history of adverse response to anesthesia Denies family history of Ovarian cancer Prostate cancer Social History Smoking Status: Current every day smoker packs per day: 1; Years Smoked: 35; Cigarettes Per Day: 12; Second Hand Exposure: Yes; Hx Alcohol Use: No Hx Substance Use: No Preferred Language: Hebrew Communication Ability: Effective Transmission Operator Required: No Beliefs That Will Affect Care: None marital status: Current Living Situation: Alone current occupational status: retired Other Information That Helps Us Care for You: No Feels Safe at Home: Yes Safety Concerns: Feels Safe At This Time Dental Care, Regularly: No Seatbelt Use: always Sunscreen Use: Yes Assistive Devices: Glasses Review of Systems Review of Systems: A complete 10 point review of systems was reviewed with the patient with pertinent positives and negatives as per history of present illness. All else were negative. Physical Exam Physical Exam: VITAL SIGNS - Vital signs and nursing notes were reviewed. GENERAL - 69-year-old female appearing her stated age who is in no acute distress. Communicates well with provider and answers questions appropriately. SKIN - Without rashes. HEAD - NC/AT. EYES - PERRL with EOMI bilaterally. Sclera anicteric. Palpebral conjunctiva pink and moist with no injection noted. EARS - No deformities of external structures noted on gross examination bilaterally. NOSE - Midline and without cyanosis. No epistaxis or purulent drainage noted. MOUTH/OROPHARYNX - Without perioral cyanosis. Buccal mucosa pink and moist and without leukoplakia. Tongue midline with equal elevation of palate bilaterally. No tonsillar hypertrophy, erythema, or exudates noted. NECK - Neck with FROM. Supple to palpation. No lymphadenopathy noted. No nuchal rigidity. LUNGS - Chest wall symmetric without accessory muscle use, intercostals retractions, or central cyanosis. Normal vesicular breath sounds CTA B/L. No wheezes, rales, or rhonchi appreciated. CARDIAC - RRR with S1/S2. No murmur, rubs, or gallops appreciated. ABDOMEN - Abdominal contour flat without pulsations or visible masses. BS normoactive all four quadrants. No tenderness, palpable masses, hepatosplenomegaly, or ascites noted. EXTREMITIES - No clubbing or peripheral cyanosis. No pretibial edema present. +3/5 radial and dorsalis pedis pulses palpated throughout. +5/5 strength noted in UE/LE bilaterally. NEUROLOGIC - Cranial nerves II through XII grossly intact. Sensory intact to light touch throughout. PSYCH - A&Ox3 and cooperates fully with examiner. Pt is very pleasant and interacts well with examiner. Results & Data Results & Data ([facility]) Vital Signs (Past 12 Hours) Vital Signs Temp Pulse Resp BP Pulse Ox 12/27/19 17:21 100 H 19 97 12/27/19 17:13 101 H 26 H 128/91 98 12/27/19 14:20 37.5 C 105 H 18 131/87 96 Supervising Physician Co-Signing Physician Notes I personally saw and examined the patient. I verified all wilson points and agree with RYAN Jessica with the following exceptions and/or additions: 69 year old female with increased urinary frequency/urgency 1 week ago now but cleared up in 1 day - now bacteremia on outpatient labs done pre-operatively by her infectious disease physician. Prior staph bacteremia due to osteomyelitis in her back with severe back pain at that time. Largest risk factor for repeated infection is her smoking which she was advised to discontinue. No fevers or chills. O/E non septic appearing, RRR, no murmurs, CTAB, no CVA tenderness, abdo SNT, BS normal. A/P Bacteremia without sepsis - Continue Zosyn overnight however suspect blood culture will grow E. coli present in urine culture and will tailor antibiotics accordingly. PG Care Time/CCT Total # of Minutes Spent Total Time Spent with Patient: Total time spent is greater than 50% in coordination of care (as documented) at patient's floor/unit and/or counseling patient: Coding Level of Care Code 38559 Initial Inpt Care Lvl 2 Diagnoses Bacteremia R78.81 Urinary tract infection N39.0 Positive blood culture R78.81 Hyperlipidemia E78.5 Time Spent (min) 35
[2019-12-27] MEDS ORDERED: ONDANSETRON INJ 2 MG/ML 2 ML VIAL IV STA (20:26)
[2019-12-27] MEDS ORDERED: ONDANSETRON INJ 2 MG/ML 2 ML VIAL IV PRN ×2 (21:11)
[2019-12-27] MEDS ORDERED: ALBUTEROL HFA 8 GM INHALER INH PRN (21:11)
[2019-12-27] MEDS ORDERED: FLEXERIL HOME PACK 10 MG VIAL PO SCH (21:11)
[2019-12-27] MEDS ORDERED: POTASSIUM CHLORIDE CRTAB 20 MEQ TABCR PO ONE (21:45)
[2019-12-27] MEDS ORDERED: UMECLIDINIUM BROMIDE 62.5MCG/BLISTER 7 PUFFS/INHALER INH PRN (21:49)
[2019-12-27] MEDS ORDERED: MAGNESIUM SULFATE / D5W 1 GM/100 ML BAG IV ONE (22:00)
[2019-12-27] MEDS: DOCUSATE SODIUM 100 MG CAP PO SCH (22:22)
[2019-12-27] MEDS: NAPROXEN 250 MG TAB PO SCH (22:22)
[2019-12-27] MEDS: CYCLOBENZAPRINE HCL 5 MG TAB PO SCH (22:22)
[2019-12-27] MEDS: OMEGA-3 (PURIFIED FISH OIL) 1 GM CAP PO SCH (22:22)
[2019-12-27] MEDS: ATORVASTATIN 20 MG TAB PO SCH (22:22)
[2019-12-27] MEDS: ACETAMINOPHEN 325 MG TAB PO PRN (22:32)
[2019-12-27] MEDS: HEPARIN SOD 5,000 UNIT/0.5 ML VIAL SQ SCH (22:36)
[2019-12-27] MEDS: SODIUM CHLOR 0.45% + 20MEQ KCL 20 MEQ/1,000 ML BAG IV SCH (22:39)
[2019-12-27] MEDS: ALBUTEROL 0.083% NEBU SOLN 3 ML VIAL INH PRN (22:51)
[2019-12-27 23:37] LABS: Appearance Urine Clear (Clear); Bacteria Urine Automated Negative (Negative); Bilirubin Urine Negative (Negative); Blood Urine 2+ (Negative); Cast Urine Automated 0 /lpf (0-5); Color Urine Yellow; Epithelial Cell Urine Auto >30 /lpf (0-5); Glucose Urine UA Negative (Negative); Ketones Urine Trace (Negative); Leukocyte Esterase Urine 1+ (Negative); Nitrite Urine Negative (Negative); Protein Urine 1+ (Negative); Specific Gravity Urine 1.011 (1.000-1.030); Urobilinogen Urine Negative (Negative)
[2019-12-28] MEDS: PIPERACILLIN/TAZOBACTAM 3.375 GM in DEXTROSE 5% 100 ML IV SCH ×3 (00:50→15:56)
[2019-12-28] MEDS: NAPROXEN 250 MG TAB PO SCH ×2 (07:46→16:50)
[2019-12-28] MEDS: CYCLOBENZAPRINE HCL 5 MG TAB PO SCH ×2 (07:46→20:38)
[2019-12-28] MEDS: CALCIUM 600MG + VIT D 400 IU TAB PO SCH ×2 (07:46→20:39)
[2019-12-28] MEDS: ADVANCED PROBIOTIC 1250 MG CAPSULE PO SCH (07:46)
[2019-12-28] MEDS: buPROPion XL 150 MG TABCR PO SCH (07:46)
[2019-12-28] MEDS: NICOTINE 14 MG/24 HR PATCH TD SCH (07:47)
[2019-12-28] MEDS: MULTIVITAMIN TAB PO SCH (07:47)
[2019-12-28] MEDS: PANTOprazole 40 MG TAB PO SCH (07:48)
[2019-12-28] MEDS: HEPARIN SOD 5,000 UNIT/0.5 ML VIAL SQ SCH ×2 (07:49→20:38)
[2019-12-28 08:56] LABS: Basophils # (auto) 0.03 K/uL (0-0.2); Basophils % (auto) 0.2 %; Eosinophils # (auto) 0.26 K/uL (0-0.5); Eosinophils % (auto) 1.4 %; Hematocrit (blood only) 35.7 % (37-47); Hemoglobin 11.6 g/dL (12.0-16.0); Immature Granulocytes # (auto) 0.04 K/uL (0.00-0.02); Immature Granulocytes % (auto) 0.2 %; Lymphocytes # (auto) 1.42 K/uL (1.2-3.4); Lymphocytes % (auto) 7.8 %; Mean Corpuscular Hemoglobin 29.7 pg (25-34); Mean Corpuscular Hgb Conc 32.5 g/dL (32-36); Mean Corpuscular Volume 91.5 fL (80-100); Mean Platelet Volume 9.3 fL (7.4-10.4); Neutrophils # (auto) 14.34 K/uL (1.4-6.5); Neutrophils % (auto) 78.4 %; Platelet Count 306 K/uL (130-400); RDW Coefficient of Variation 15.9 % (11.5-14.5); RDW Standard Deviation 53.1 fL (36.4-46.3); White Blood Count 18.29 K/uL (4.8-10.8)
[2019-12-28] MEDS ORDERED: CYCLOBENZAPRINE HCL 5 MG TAB PO SCH (09:00)
[2019-12-28 09:22] LABS: BUN Creatinine Ratio 13.6 (10-20); Calcium 8.4 mg/dl (8.5-10.1); Creatinine Clr Calc Pharmacy 46.4 ml/min; Est GFR (African American) 63.8; Potassium 3.4 mmol/L (3.5-5.1)
[2019-12-28 09:23] LABS: Phosphorus 2.6 mg/dl (2.5-4.9)
[2019-12-28] MEDS: SODIUM CHLOR 0.45% + 20MEQ KCL 20 MEQ/1,000 ML BAG IV SCH (11:32)
--- NOTE | 2019-12-28 11:50 | Hospitalist Progress Note ---
Date of Service December 28, 2019 Assessment & Plan (1) Bacteremia: Blood cultures x1+ E coli in aerobic blood culture, awaiting result of anaerobic culture, repeat cultures pending Ms. Dumont was also bacteremic multiple times in the past, most recently in June with staph from her prosthetic shoulder which was replaced. She had been on prophylaxis until 2 months ago Urine culture positive for E. coli. Repeat blood cultures pending at this time. Continue Zosyn for now while awaiting final results of blood culture (2) Urinary tract infection: Previously on Macrobid. Continue with Zosyn as above (3) Positive blood culture: As carlos enrique (4) Hyperlipidemia: Continue home atorvastatin (5) Depression, controlled: Continue bupropion (6) Chronic obstructive pulmonary disease: Continue home Spiriva, albuterol (7) DVT prophylaxis: Heparin subq Admission and Anticipated Discharge Date Admission Date: December 27, 2019 Subjective Ms. Dumont has been having some dysuria over the last few days but not today. No complaints. ROS Constitutional: no chills, aches, sweats or fever Respiratory: no sob,cough, sputum, or wheezing Cardiac: no chest pain, palpitations, edema, orthopnea or lightheadedness GI: no abdominal pain, nausea, vomiting, diarrhea or constipation : no dysuria or hesitancy Extremities: no joint pain or weakness Skin: no rash All other systems reviewed and negative Physical Exam Physical Exam: General: no distress Eyes: normal inspection, PERLL Respiratory: chest non tender, clear to auscultation, normal breath sounds, no respiratory distress, no accessory muscle use Cardiac: regular rate and rhythm, no rub or gallop, no murmur, no edema, no jvd GI/: active bowel sounds, no abd pain or tenderness, soft, non distended Extremities: normal range of motion, normal strength, non tender Neuro/Psych: alert and oriented x 3, normal mood and affect Skin: normal color, dry Results & Data Results & Data ([facility]) Vital Signs (Past 12 Hours) Vital Signs Temp Pulse Resp BP Pulse Ox 12/28/19 08:19 36.7 C 89 20 103/64 94 12/28/19 00:06 37.4 C 107 H 18 106/67 92 PG Care Time/CCT Total # of Minutes Spent Total Time Spent with Patient: Total time spent is greater than 50% in coordination of care (as documented) at patient's floor/unit and/or counseling patient: Coding Level of Care Code 01411 Subseq Hosp Care Lvl 2 Diagnoses Bacteremia R78.81 Urinary tract infection N39.0 Positive blood culture R78.81 Hyperlipidemia E78.5 Depression, controlled F32.9 Chronic obstructive pulmonary disease J44.9 DVT prophylaxis Z29.9
[2019-12-28] MEDS: ACETAMINOPHEN 325 MG TAB PO PRN (15:48)
[2019-12-28] MEDS: HYDROCORTISONE 2.5% CR 30 GM TUBE EXT PRN (16:04)
[2019-12-28] MEDS ORDERED: POLYETHYLENE (MIRALAX) 17 GM PACK PO PRN (19:52)
[2019-12-28] MEDS: DOCUSATE SODIUM 100 MG CAP PO SCH (20:38)
[2019-12-28] MEDS: ATORVASTATIN 20 MG TAB PO SCH (20:38)
[2019-12-28] MEDS: OMEGA-3 (PURIFIED FISH OIL) 1 GM CAP PO SCH (20:39)
[2019-12-28] MEDS: ALBUTEROL 0.083% NEBU SOLN 3 ML VIAL INH PRN (20:42)
[2019-12-29] MEDS: SODIUM CHLOR 0.45% + 20MEQ KCL 20 MEQ/1,000 ML BAG IV SCH ×2 (00:49→16:00)
[2019-12-29] MEDS: PIPERACILLIN/TAZOBACTAM 3.375 GM in DEXTROSE 5% 100 ML IV SCH ×2 (00:50→08:58)
[2019-12-29 06:43] LABS: INR 1.2 (0.9-1.1); Partial Thromboplastin Ratio 1.2; Partial Thromboplastin Time 34.8 Seconds (21.0-31.0); Prothrombin Time 12.7 Seconds (9.0-12.0)
[2019-12-29 08:49] LABS: Hematocrit (blood only) 35.9 % (37-47); Hemoglobin 11.9 g/dL (12.0-16.0); Mean Corpuscular Hemoglobin 29.8 pg (25-34); Mean Corpuscular Hgb Conc 33.1 g/dL (32-36); Mean Corpuscular Volume 89.8 fL (80-100); Mean Platelet Volume 9.3 fL (7.4-10.4); Platelet Count 311 K/uL (130-400); RDW Coefficient of Variation 15.8 % (11.5-14.5); RDW Standard Deviation 52.3 fL (36.4-46.3); White Blood Count 17.81 K/uL (4.8-10.8)
[2019-12-29 08:50] LABS: BUN Creatinine Ratio 14.4 (10-20); Calcium 8.5 mg/dl (8.5-10.1); Creatinine Clr Calc Pharmacy 44.3 ml/min; Est GFR (African American) 60.2; Potassium 4.1 mmol/L (3.5-5.1)
[2019-12-29] MEDS: ACETAMINOPHEN 325 MG TAB PO PRN (08:55)
[2019-12-29] MEDS: CYCLOBENZAPRINE HCL 5 MG TAB PO SCH ×2 (08:55→20:12)
[2019-12-29] MEDS: ADVANCED PROBIOTIC 1250 MG CAPSULE PO SCH (08:56)
[2019-12-29] MEDS: NAPROXEN 250 MG TAB PO SCH ×2 (08:56→18:09)
[2019-12-29] MEDS: buPROPion XL 150 MG TABCR PO SCH (08:57)
[2019-12-29] MEDS: MULTIVITAMIN TAB PO SCH (08:57)
[2019-12-29] MEDS: PANTOprazole 40 MG TAB PO SCH (08:57)
[2019-12-29] MEDS: NICOTINE 14 MG/24 HR PATCH TD SCH (09:01)
[2019-12-29] MEDS: CALCIUM 600MG + VIT D 400 IU TAB PO SCH ×2 (09:01→20:12)
[2019-12-29] MEDS: HEPARIN SOD 5,000 UNIT/0.5 ML VIAL SQ SCH ×2 (09:03→20:13)
[2019-12-29] MEDS: CIPROFLOXACIN / D5W 400 MG/200 ML BAG IV SCH ×2 (10:35→21:51)
--- NOTE | 2019-12-29 13:25 | Hospitalist Progress Note ---
Date of Service December 29, 2019 Assessment & Plan (1) Bacteremia: Febrile last evening Blood cultures x1+ E coli Ms. Dumont was also bacteremic multiple times in the past, most recently in June with staph from her prosthetic shoulder which was replaced. She had been on prophylaxis until 2 months ago Urine culture positive for E. coli. Repeat blood cultures ngtd Will change from Zosyn to cipro based on sensitivities (2) Urinary tract infection: Previously on Macrobid. Continue with ciprofloxacin (3) Positive blood culture: As carlos enrique (4) Hyperlipidemia: Continue home atorvastatin (5) Depression, controlled: Continue bupropion (6) Chronic obstructive pulmonary disease: Continue home Spiriva, albuterol (7) DVT prophylaxis: Heparin subq Dispo: if no further fevers, can likely discharge tomorrow on po Cipro Admission and Anticipated Discharge Date Admission Date: December 27, 2019 Subjective Ms. Dumont has no complaints. No urinary symptoms, less fatigued than yesterday ROS Constitutional: no chills, aches, sweats or fever Respiratory: no sob,cough, sputum, or wheezing Cardiac: no chest pain, palpitations, edema, orthopnea or lightheadedness GI: no abdominal pain, nausea, vomiting, diarrhea or constipation : no dysuria or hesitancy Extremities: no joint pain or weakness Skin: no rash All other systems reviewed and negative Physical Exam Physical Exam: General: no distress Eyes: normal inspection, PERLL Respiratory: chest non tender, clear to auscultation, normal breath sounds, no respiratory distress, no accessory muscle use Cardiac: regular rate and rhythm, no rub or gallop, no murmur, no edema, no jvd GI/: active bowel sounds, no abd pain or tenderness, soft, non distended Extremities: normal range of motion, normal strength, non tender Neuro/Psych: alert and oriented x 3, normal mood and affect Skin: normal color, dry Results & Data Results & Data ([facility]) Vital Signs (Past 12 Hours) Vital Signs Temp Pulse Resp BP Pulse Ox 12/29/19 07:55 36.6 C 60 15 131/101 H 95 PG Care Time/CCT Total # of Minutes Spent Total Time Spent with Patient: Total time spent is greater than 50% in coordination of care (as documented) at patient's floor/unit and/or counseling patient: Coding Level of Care Code 78212 Subseq Hosp Care Lvl 2 Diagnoses Bacteremia R78.81 Urinary tract infection N39.0 Positive blood culture R78.81 Hyperlipidemia E78.5 Depression, controlled F32.9 Chronic obstructive pulmonary disease J44.9 DVT prophylaxis Z29.9
[2019-12-29] MEDS: OMEGA-3 (PURIFIED FISH OIL) 1 GM CAP PO SCH (20:12)
[2019-12-29] MEDS: ATORVASTATIN 20 MG TAB PO SCH (20:12)
[2019-12-29] MEDS: DOCUSATE SODIUM 100 MG CAP PO SCH (20:13)
[2019-12-29] MEDS: ALBUTEROL 0.083% NEBU SOLN 3 ML VIAL INH PRN (21:04)
[2019-12-29] MEDS: HYDROCORTISONE 2.5% CR 30 GM TUBE EXT PRN (21:51)
[2019-12-30 07:37] VITALS: TEMP 98.6; O2SAT 93
[2019-12-30 07:47] LABS: Hematocrit (blood only) 36.6 % (37-47); Hemoglobin 12.1 g/dL (12.0-16.0); Mean Corpuscular Hemoglobin 29.6 pg (25-34); Mean Corpuscular Hgb Conc 33.1 g/dL (32-36); Mean Corpuscular Volume 89.5 fL (80-100); Platelet Count 361 K/uL (130-400); RDW Standard Deviation 53.1 fL (36.4-46.3); Red Blood Count 4.09 M/uL (4.2-5.4); White Blood Count 10.94 K/uL (4.8-10.8)
[2019-12-30 08:03] LABS: INR 1.1 (0.9-1.1); Partial Thromboplastin Ratio 1.2; Partial Thromboplastin Time 34.2 Seconds (21.0-31.0); Prothrombin Time 11.5 Seconds (9.0-12.0)
[2019-12-30] MEDS: CALCIUM 600MG + VIT D 400 IU TAB PO SCH (08:32)
[2019-12-30] MEDS: PANTOprazole 40 MG TAB PO SCH (08:33)
[2019-12-30] MEDS: ADVANCED PROBIOTIC 1250 MG CAPSULE PO SCH (08:33)
[2019-12-30] MEDS: CYCLOBENZAPRINE HCL 5 MG TAB PO SCH (08:33)
[2019-12-30] MEDS: NICOTINE 14 MG/24 HR PATCH TD SCH (08:33)
[2019-12-30] MEDS: NAPROXEN 250 MG TAB PO SCH (08:34)
[2019-12-30] MEDS: buPROPion XL 150 MG TABCR PO SCH (08:34)
[2019-12-30] MEDS: MULTIVITAMIN TAB PO SCH (08:34)
[2019-12-30] MEDS: HEPARIN SOD 5,000 UNIT/0.5 ML VIAL SQ SCH (08:34)
[2019-12-30 08:40] LABS: Albumin Level 2.7 gm/dl (3.4-5.0); Bilirubin,Total 0.5 mg/dl (0.2-1); Calcium 8.3 mg/dl (8.5-10.1); Creatinine Clr Calc Pharmacy 49.3 ml/min; Est GFR (African American) 68.6; Est GFR (Non-African American) 59.2; Potassium 4.3 mmol/L (3.5-5.1)
[2019-12-30 08:45] LABS: Albumin Globulin Ratio 0.7 (0.9-2); Globulin 3.8 gm/dl (2.5-4.0); Total Protein 6.5 gm/dl (6.4-8.2)
--- NOTE | 2019-12-30 09:36 | Discharge Summary ---
Date of Service December 30, 2019 Admission HPI Per Admitting Provider Patient is a 69-year-old female with a significant past medical history of gram- positive sepsis, emphysema, hyperlipidemia, depression, GERD, COPD, recurrent UTIs, infection of prosthetic RIGHT shoulder joint. Patient has recently been seen with bacteremia over the last 14 months. She previously was on amoxicillin daily but this was discontinued approximately 2 months ago. The patient is scheduled to have revision of the spacer to the RIGHT shoulder performed in early January. She had routine preoperative labs drawn Wednesday at [facility]. She had urinalysis performed as well. When she saw her results, she was concerned given the urinary findings. She does note that on Wednesday of last week, she had symptoms of urinary frequency and urgency. Those symptoms resolved by Wednesday. On Wednesday, she did present to her primary care provider's office and request labs including blood cultures as well as urinalysis. Patient was contacted today as she was found to have positive blood cultures x1. Additionally, patient was placed on Macrobid secondary to concerning findings of UTI. Upon evaluation in the emergency department, the patient is awake, alert, and oriented. She reports that she has felt fatigued over the last 2 weeks. She reports having no fevers, but states that this is not uncommon for her. She reports no appetite and little fluid intake as well. Despite this, the patient denies any dizziness, lightheadedness, chest pain, palpitations, shortness of breath, nausea, vomiting, abdominal pain, hematochezia, melena, hematuria, or dysuria. Principal Diagnosis Gram negative bacteremia Discharge Exam Constitutional WD/WN, vitals as above Respiratory normal respiratory effort, lungs clear to auscultation Cardiovascular RRR, no murmur, no edema left lower extremity slightly bigger than right which patient reports as baseline - no pitting edema, pain or erythema Gastrointestinal (Abdomen) normal bowel sounds, soft, nontender, no hepatosplenomegaly Musculoskeletal no cyanosis or clubbing, extremities motor strength 5/5 Skin no rashes, warm and dry Neurologic moves all extremities and awake Psychiatric A+Ox3, euthymic affect Discharge Data Allergies Allergy/AdvReac Type Severity Reaction Status Date / Time nickel Allergy Mild Rash Verified 12/27/19 17:40 shellfish derived Allergy Mild itchy and Verified 12/27/19 17:40 swelling of tongue and throat Consultations 12/27/19 16:33 ED Decision to Admit Stat Hospital Course (1) Bacteremia: Last fever afternoon of 12/27 Blood cultures x1+ E coli from outpatient lab work so patient was directed to the hospital, repeat blood cultures from the ED ngtd after 48 hours which is a little curious as it does not appear she had any treatment prior to these repeat cultures Ms. Dumont was also bacteremic multiple times in the past, most recently in June with staph from her prosthetic shoulder which was replaced. She had been on prophylaxis until 2 months ago Urine culture positive for E. coli. Changed from Zosyn to cipro based on sensitivities - will treat for 6 more days (9 days total treatment) (2) Urinary tract infection: Previously on Macrobid. Continue with ciprofloxacin (3) Positive blood culture: As carlos enrique (4) Hyperlipidemia: Continue home atorvastatin (5) Depression, controlled: Continue bupropion (6) Chronic obstructive pulmonary disease: Continue home Spiriva, albuterol (7) Abnormal coagulation profile: INR was 1.2 and aPTT 36.2 on admission, INR now resolved. Follow up with pcp for repeat labwork (8) DVT prophylaxis: Heparin subq Dispo: if no further fevers, can likely discharge tomorrow on po Cipro Total Time Total Time Spent Total Time Spent (In Minutes): greater than 30 minutes Discharge Plan Discharge Items Patient Disposition: Home - Self-Care Reason For Visit: BACTEREMIA Discharge Diagnosis: Bacteremia Activity: Resume your previous activity Non-emergency contact: Primary Care Provider Call non-emergency contact if: you have any medication questions, your symptoms worsen and you have a fever Follow-up/Referrals: Chely Jade CRNP [Primary Care Provider] - (Please see follow up this coming week ) Diet: Regular Addtl Attending Provider Instructions: (1) Bacteremia: You were treated for E. Coli bacteremia which is a gram negative bacteria. It appears the source of the infection was the urinary tract. You will continue with ciprofloxacin twice a day for 6 more days (2) Abnormal coagulation profile Please see your pcp for follow up lab work. Pending Studies at Discharge: No Stand-Alone Forms: [employer], Opioid Pain Management, Smoking Ce ssation Medications and DC Order Prescriptions: New ciprofloxacin HCl [Cipro] 500 mg tablet 500 mg PO BID Qty: 12 RF: 0 Continued atorvastatin 20 mg tablet 20 mg PO HS Qty: 30 RF: 5 omeprazole 20 mg capsule,delayed release(DR/EC) 20 mg PO QAM Qty: 90 RF: 3 naproxen 500 mg tablet 500 mg PO BID Qty: 60 RF: 2 albuterol sulfate [Ventolin HFA] 90 mcg/actuation HFA aerosol inhaler 2 puff inhalation Q4H PRN (Reason: Shortness Of Breath) Qty: 8.5 RF: 5 hydrocortisone 2.5 % cream 1 appln TOP TID PRN (Reason: Itching) RF: 0 albuterol sulfate 2.5 mg /3 mL (0.083 %) solution for nebulization 2.5 mg inhalation Q4H PRN (Reason: shortness of breath or wheezing) Qty: 1 RF: 0 multivitamin [Daily Multi-Vitamin] tablet 1 tab PO QAM RF: 0 omega-3 fatty acids [Fish Oil Concentrate] 1,000 mg capsule 1,000 mg PO HS RF: 0 docusate sodium 100 mg capsule 100 mg PO HS RF: 0 cyclobenzaprine 10 mg tablet 5 mg PO HS RF: 0 Spiriva Respimat 2.5 mcg/actuation mist 2 puff INHALATION DAILY PRN (Reason: Shortness Of Breath Or Wheezing) RF: 0 cyclobenzaprine 10 mg tablet 10 mg PO QAM RF: 0 calcium carbonate-vitamin D3 600 mg(1,500mg) -200 unit Tablet 1 tab PO BID RF: 0 bupropion HCl 150 mg tablet extended release 24 hr 150 mg PO QAM RF: 0 Probiotic Acidophilus 1.5 mg (250 million cell) Capsule 1,000 mmu cells PO QAM RF: 0 Discontinued nitrofurantoin monohyd/m-cryst [Macrobid] 100 mg capsule 100 mg PO BID Qty: 14 RF: 0 Discharge Orders: Discharge Order (Routine); Ordered 12/30/19 Ordered By: Chana Park Admission Data Admit Date/Time: 12/27/19 19:17 Attending Provider: Saqib Manuel Admit Provider: Roman Morocho Primary Care Provider: Chely Jade Other Providers: Roman Morocho Other Interventions: Discharge Summary Assessment (RN) Last Done: 12/30/19 10:00 Supervising Physician Co-Signing Physician Notes Patient seen and examined on the day of discharge. I agree with the discharge summary by Chana SCOTT. I have reviewed the chart including labs, imaging and plans for discharge. patient feeling a lot better, no fever/chills, eating well, no dysuria, ready to go home - UTI with bacteremia, E coli treated with Zosyn IV while inpatient will transition to Cipro to complete 9 total days which will be sufficient Coding Level of Care Code D/C Day Management >30 mins Diagnoses Bacteremia R78.81 Urinary tract infection N39.0 Positive blood culture R78.81 Hyperlipidemia E78.5 Depression, controlled F32.9 Chronic obstructive pulmonary disease J44.9 Abnormal coagulation profile R79.1 DVT prophylaxis Z29.9
[2019-12-30 10:02] VITALS: BP 116/74; PULSE 60
[2019-12-30] MEDS: CIPROFLOXACIN / D5W 400 MG/200 ML BAG IV SCH (10:03)
== END 2019-12-30 13:09 | disposition home or self-care (01) | DRG 690 ==
LOC: ED 14:02 → 3N 19:17 → SUATTDRO 19:17 → 3N 20:23

== ENCOUNTER 2020-11-13 06:55 | Inpatient (IN) ==
--- NOTE | 2020-10-16 13:12 | PAT Medication Instructions ---
Medication Instructions Date of Service October 16, 2020 Home Medications Medication Instructions Recorded omeprazole 20 mg capsule,delayed 20 mg PO QAM #90 cap 09/28/19 release albuterol sulfate 90 mcg/actuation 2 puff INHALATION Q4H PRN #8.5 g 12/26/19 aerosol inhaler (Ventolin HFA) albuterol sulfate 2.5 mg INHALATION Q4H PRN #180 ml 01/01/20 atorvastatin 20 mg tablet 20 mg PO HS #90 tab 01/30/20 naproxen 500 mg tablet 500 mg PO BID #60 tab 02/08/20 bupropion HCl 150 mg 24 hr tablet, 150 mg PO QAM #30 tab 03/07/20 extended release multivitamin (Daily Multi-Vitamin) 1 tab PO QAM omega-3 fatty acids 1,000 mg capsule (Fish Oil Concentrate) 1,000 mg PO HS docusate sodium 100 mg capsule 100 mg PO HS hydrocortisone 2.5 % topical cream 1 appln TOP TID PRN omeprazole 20 mg capsule,delayed release 20 mg PO QAM Lactobacillus acidophilus 1.5 mg (250 million cell) capsule (Probiotic Acidophilus) 1,000 mmu cells PO QAM albuterol sulfate 90 mcg/actuation aerosol inhaler (Ventolin HFA) 2 puff INH ALATION Q4H PRN calcium carbonate 600 mg (1,500 mg)-vitamin D3 200 unit tablet 1 tab PO QAM albuterol sulfate 2.5 mg INHALATION Q4H PRN atorvastatin 20 mg tablet 20 mg PO HS naproxen 500 mg tablet 500 mg PO BID bupropion HCl 150 mg 24 hr tablet, extended release 150 mg PO QAM cyclobenzaprine 10 mg tablet 10 mg PO DAILY PRN ASK your surgeon for instructions naproxen 500 mg tablet 500 mg PO BID STOP taking 2 weeks before surgery omega-3 fatty acids 1,000 mg capsule (Fish Oil Concentrate) 1,000 mg PO HS STOP taking 24 hours before surgery hydrocortisone 2.5 % topical cream 1 appln TOP TID PRN DO NOT take the morning of surgery multivitamin (Daily Multi-Vitamin) 1 tab PO QAM Lactobacillus acidophilus 1.5 mg (250 million cell) capsule (Probiotic Acidophilus) 1,000 mmu cells PO QAM calcium carbonate 600 mg (1,500 mg)-vitamin D3 200 unit tablet 1 tab PO QAM cyclobenzaprine 10 mg tablet 10 mg PO DAILY PRN Take morning of surgery With a small sip of water, OTHERWISE NOTHING TO EAT OR DRINK AFTER MIDNIGHT: omeprazole 20 mg capsule,delayed release 20 mg PO QAM albuterol sulfate 90 mcg/actuation aerosol inhaler (Ventolin HFA) 2 puff INHALATION Q4H PRN (use if needed; please bring with you to hospital day of surgery if possible) albuterol sulfate 2.5 mg INHALATION Q4H PRN (if needed) bupropion HCl 150 mg 24 hr tablet, extended release 150 mg PO QAM Take evening before surgery docusate sodium 100 mg capsule 100 mg PO HS albuterol sulfate 90 mcg/actuation aerosol inhaler (Ventolin HFA) 2 puff INHALATION Q4H PRN (if needed) albuterol sulfate 2.5 mg INHALATION Q4H PRN (if needed) atorvastatin 20 mg tablet 20 mg PO HS cyclobenzaprine 10 mg tablet 10 mg PO DAILY PRN (if needed) Other Notes If you have any questions please call us at [phone] or [phone] or [phone] or [phone]
--- NOTE | 2020-10-17 11:24 | Anesthesiology Consultation ---
Date of Service October 17, 2020 Assessment & Plan (1) Encounter for pre-operative examination: Chart Review Chart Review: Acceptable Risk for Surgery (pending surgeon ordered PCP clearance 10/31/20 and preop Covid testing results ) and Patient seen in Pre Admission Testing Awaiting surgeon ordered PCP clearance scheduled 10/31/20 Per PAT appt on 10/17/20, patient denies any recent travel or large group activities. No known Covid positive contacts or Covid related symptoms. No known Covid infection in the past 90 days. Pt is vaccinated for Covid. Preop Covid testing scheduled 11/11/20= will await results. Educated on importance of self quarantining, social distancing and wearing mask in public for the patient one week prior to surgery and after Covid testing done Teaching & Discussion Pre-Anesthesia Teaching/Discussion Notes: Instructed NPO after midnight before surgery,except medications with 15 cc of water. Medication instructions p rovided according to the PAT guidelines. History Surgery Operation Date: 11/13/20 08:35 Proposed Procedures p Right Shoulder Revision Reverse Total Arthroplasty, Removal Cement Spacer - New Farah MD Height/Weight Height: 5 ft 3 in Weight: 65.3 kg Allergies Allergy/AdvReac Type Severity Reaction Status Date / Time nickel Allergy Mild Rash-WITH Verified 10/09/20 11:24 JEWELRY shellfish derived Allergy Mild itchy and Verified 10/09/20 11:24 swelling of tongue and throat Medications Home Medications Medication Instructions Recorded Confirmed Last Taken multivitamin (Daily Multi-Vitamin) 1 tab PO QAM 09/29/18 10/09/20 10/12/19 omega-3 fatty acids 1,000 mg 1,000 mg PO HS 09/29/18 10/09/20 10/12/19 capsule (Fish Oil Concentrate) docusate sodium 100 mg capsule 100 mg PO HS 01/17/19 10/09/20 10/10/19 hydrocortisone 2.5 % topical cream 1 appln TOP TID PRN gm 03/02/19 10/09/20 10/12/19 omeprazole 20 mg capsule,delayed 20 mg PO QAM #90 cap 09/28/19 10/09/20 10/12/19 release Lactobacillus acidophilus 1.5 mg 1,000 mmu cells PO QAM 10/05/19 10/09/20 10/12/19 (250 million cell) capsule (Probiotic Acidophilus) albuterol sulfate 90 mcg/actuation 2 puff INHALATION Q4H PRN #8.5 g 12/26/19 10/09/20 Unknown aerosol inhaler (Ventolin HFA) calcium carbonate 600 mg (1,500 1 tab PO QAM 12/27/19 10/09/20 Unknown mg)-vitamin D3 200 unit tablet albuterol sulfate 2.5 mg INHALATION Q4H PRN #180 ml 01/01/20 10/09/20 Unknown atorvastatin 20 mg tablet 20 mg PO HS #90 tab 01/30/20 10/09/20 Unknown naproxen 500 mg tablet 500 mg PO BID #60 tab 02/08/20 10/09/20 Unknown bupropion HCl 150 mg 24 hr tablet, 150 mg PO QAM #30 tab 03/07/20 10/09/20 Unknown extended release cyclobenzaprine 10 mg tablet 10 mg PO DAILY PRN 04/12/20 10/09/20 Unknown Past Medical History Medical History Bronchitis Chronic -- controlled with Ventolin once in AM, once in PM- then PRN Last flare up 03/2020 - was on prednisone-NO ISSUES SINCE Chronic back pain Chronic obstructive pulmonary disease Breathing stable Degenerative disc disease Depression HX DVT (deep venous thrombosis) 1985-NO ISSUES SINCE Elevated blood pressure reading in office with diagnosis of hypertension No medication --- sporadic high blood pressure Emphysema lung HX GERD (gastroesophageal reflux disease) Well controlled and stable Hiatal hernia Hyperlipidemia Impaired fasting glucose Osteomyelitis History in the right shoulder () and spine (June 2018) Scoliosis Exercise / Class Metabolic Activity II 4-5 Yardwork/Stairs/Walk up hill (one flight of stairs - no chest pain or SOB ) Past Family History Family History Father Atrial fibrillation Mother Coronary heart disease Breast cancer No family history of adverse response to anesthesia HARD TO WAKE UP Uncle Myocardial infarction Colorectal cancer Aunt Myocardial infarction Breast cancer Grandfather (Maternal) No problems noted. Grandmother (Maternal) Myocardial infarction Denies family history of Ovarian cancer Prostate cancer Past Surgical History Surgical History H/O foot surgery bilateral heel bone spurs H/O shoulder surgery Bilateral total shoulder arthroplasties. R Reverse TSA 04/14/2017. 06/2019 right shoulder removed and now has spacer in due to infection H/O varicose vein ligation History of adenoidectomy tonsils History of anesthesia reaction ON OCC SLOW TO WAKE History of bilateral tubal ligation History of carpal tunnel release of both wrists History of colonoscopy 2019 History of esophagogastroduodenoscopy (EGD) History of laparoscopy with fulguration of oviducts History of revision of total shoulder arthroplasty right History of tonsillectomy S/P foot surgery, right displaced tarsal Past Anesthesia History No Hx of Anesthesia Complications (with exception to slow to wake- just groggy- no reintubation or ICU stay ) and No Family Hx of Anesthesia Complications History of PONV No Hx of Motion Sickness and History of PONV (No recent issues ) Social History Smoking Status: Current every day smoker tobacco type: cigarettes Smoking cigarettes per day: 20 CIGS A DAY Do You Dip or Chew Tobacco: No Hx Alcohol Use: No Hx Substance Use: No substance use type: does not use Review of Systems Hx of snoring and witnessed apnea- no hx of sleep study Hx of blood transfusion over 60 yeras ago- s/p tonsillectomy Patient denies chest pain, shortness of breath at rest, cough, wheezing, palpit ations. No hx of seizures, stroke, [place]. Physical Exam Vital Signs VITALS BP 126/83 P 97 TEMP 98.6 SP02 96% RESP 16 Constitutional no acute distress ENMT Mouth: no TMJ clicking Thyromental Distance: > or= 3.5 Finger Breadths (3.5) Mallampati Class: III Neck + limited neck extension (mild to moderate ) Respiratory normal respiratory effort; no respiratory distress Auscultation: lungs clear to auscultation bilaterally and + diminished lung sounds (significant throughout ); no wheezes Cardiovascular Rate/Rhythm: regular rate and regular rhythm Heart Sounds: no murmur Vessels: no carotid bruit Musculoskeletal Spine: + pain with cervical ROM (mild ) Extremities: extremities normal to inspection Psychiatric Orientation: alert Lab Results Anesthesia Preop Results Results Anesthesia Widget: WBC 10.66 K/uL (4.8-10.8) 10/17/20 Hgb 15.9 g/dL (12.0-16.0) 10/17/20 Hct 46.3 % (37-47) 10/17/20 Plt 261 K/uL (130-400) 10/17/20 Na 140 mmol/L (136-145) 10/17/20 K 3.8 mmol/L (3.5-5.1) 10/17/20 Cl 109 mmol/L (98-107) H 10/17/20 CO2 26 mmol/L (21-32) 10/17/20 BUN 15 mg/dl (7-18) 10/17/20 Creat 0.97 mg/dl (0.6-1.2) 10/17/20 Glucose Level 94 mg/dl (70-99) 10/17/20 PT 10.0 Seconds (9.0-12.0) 10/17/20 PTT 27.9 Seconds (21.0-31.0) 10/17/20 INR 1.0 (0.9-1.1) 10/17/20 HA1c 6.0 % (4.5-5.6) H 10/17/20 Urine Color Yellow 10/17/20 Urine Appearance Clear (Clear) 10/17/20 Urine pH 6.5 (4.5-7.5) 10/17/20 Urine Specific [place] 1.011 (1.000-1.030) 10/17/20 Urine Protein Negative (Negative) 10/17/20 Urine Glucose (UA) Negative (Negative) 10/17/20 Urine Ketones Negative (Negative) 10/17/20 Urine Blood Trace (Negative) H 10/17/20 Urine Nitrite Negative (Negative) 10/17/20 Urine Bilirubin Negative (Negative) 10/17/20 Urine Urobilinogen Negative (Negative) 10/17/20 Urine Leukocyte Esterase Negative (Negative) 10/17/20 Urine WBC (Auto) 0 /hpf (0-5) 10/17/20 Urine RBC (Auto) 0-4 /hpf (0-4) 10/17/20 Urine Hyaline Casts (Auto) 0 /lpf (0-5) 10/17/20 Urine Epithelial Cells (Auto) 10-20 /lpf (0-5) H 10/17/20 Urine Bacteria (Auto) Negative (Negative) 10/17/20 Blood Type O Positive 10/17/20 Antibody Screen NEGATIVE 10/17/20 Testing Electrocardiogram Date: 12/25/19 Findings: + NSR @ (96bpm) Chest X-Ray Date: 10/17/20 Findings: + NAD No pneumothorax or pleural effusion is noted. Flattening of the hemidiaphragms is noted. Linear bibasilar opacities reflect atelectasis. There is no evidence for pulmonary edema or pneumonia. Cardiac size is normal. Mediastinal contours are unremarkable. Postoperative findings within both shoulders are incidentally noted. Echocardiogram Date: 07/06/19 (To R/O endocarditis) EF: >70% There is no evidence of a mass or vegetation. This does not rule out endocarditis. There is mild concentric LVH. The LV is hyperdynamic with an EF greater than 70%. The left ventricle appears underfilled. Right ventricular systolic pressure is normal. *Echo performed when patient admitted for bacteremia 2/2 infection in R shoulder after TSA.
--- NOTE | 2020-11-08 14:45 | History & Physical Report ---
Date of Service November 08, 2020 Assessment & Plan (1) Prosthetic joint infection: Plan: Treatment options discussed. Patient has an antibiotic spacer and has completed appropriate antibiotic treatment. She presents for revision surgery. Risks, benefits and alternatives to surgery including but not limited to infection, DVT, pain, stiffness, need for revision surgery, damage to blood vessels, damage to nerves, PE, , were discussed with the patient and they wish to proceed. Plan for right shoulder explant antibiotic spacer and conversion to reverse total shoulder arthroplasty, possible bone grafting at [facility] on 11/13/[address] Farah. All questions answered. She will follow up post operatively. Encounter type: sequela Qualified Code(s): T84.50XS - Infection and inflammatory reaction due to unspecified internal joint prosthesis, sequela History of Present Illness Chief Complaint: Right shoulder pain Primary Care Provider: TYLER Gabriel 70 year old female with PMHx significant for COPD, HTN, and bacteremia presents for ongoing right shoulder pain. She previously underwent explant of reverse TSA followed by conversion to antibiotic spacer due to septic right shoulder. She has completed course of antibiotics and is clinically without infection. Surgery delayed end of last year due to recurrent bacteremia with UTI. She is improved without recurrent infection. Was rescheduled for earlier this year but was cancelled due to leukocytosis and elevated inflammatory markers. White count has now normalized. She now presents for conversion to reverse TSA. Patient denies headaches, sweats, fevers, chills, double vision, blurred vision, cough, sore throat, dysphagia, chest pain, sob, wheezing, n/v/d/c, numbness, tingling, fatigue, urinary symptoms, mood disorders. ROS positive for right shoulder pain and stiffness. Allergies Allergy/AdvReac Type Severity Reaction Status Date / Time nickel Allergy Mild Rash-WITH Verified 10/31/20 11:32 JEWELRY shellfish derived Allergy Mild itchy and Verified 10/31/20 11:32 swelling of tongue and throat Home Medications Medication Instructions Recorded Confirmed Type multivitamin (Daily Multi-Vitamin) 1 tab PO QAM 09/29/18 10/31/20 History omega-3 fatty acids 1,000 mg 1,000 mg PO HS 09/29/18 10/31/20 History capsule (Fish Oil Concentrate) docusate sodium 100 mg capsule 100 mg PO HS 01/17/19 10/31/20 History hydrocortisone 2.5 % topical cream 1 appln TOP TID PRN gm 03/02/19 10/31/20 History omeprazole 20 mg capsule,delayed 20 mg PO QAM #90 cap 09/28/19 10/31/20 Rx release Lactobacillus acidophilus 1.5 mg 1,000 mmu cells PO QAM 10/05/19 10/31/20 History (250 million cell) capsule (Probiotic Acidophilus) albuterol sulfate 90 mcg/actuation 2 puff INHALATION Q4H PRN #8.5 g 12/26/19 10/31/20 Rx aerosol inhaler (Ventolin HFA) calcium carbonate 600 mg (1,500 1 tab PO QAM 12/27/19 10/31/20 History mg)-vitamin D3 200 unit tablet albuterol sulfate 2.5 mg INHALATION Q4H PRN #180 ml 01/01/20 10/31/20 Rx atorvastatin 20 mg tablet 20 mg PO HS #90 tab 01/30/20 10/31/20 Rx naproxen 500 mg tablet 500 mg PO BID #60 tab 02/08/20 10/31/20 Rx bupropion HCl 150 mg 24 hr tablet, 150 mg PO QAM #30 tab 03/07/20 10/31/20 Rx extended release cyclobenzaprine 10 mg tablet 10 mg PO DAILY PRN 04/12/20 10/31/20 History Past Med/Surg History Medical History (Updated 10/31/20 @ 14:15 by TYLER Gabirel) Bacteremia Bronchitis Chronic -- controlled with Ventolin once in AM, once in PM- then PRN Last flare up 03/2020 - was on prednisone-NO ISSUES SINCE Chronic back pain Chronic obstructive pulmonary disease Breathing stable Degenerative disc disease Depression HX DVT (deep venous thrombosis) 1985-NO ISSUES SINCE Elevated blood pressure reading in office with diagnosis of hypertension No medication --- sporadic high blood pressure Emphysema lung HX GERD (gastroesophageal reflux disease) Well controlled and stable Gram positive sepsis was receiving IV Rocephin -- currently taking oral ABx. Hiatal hernia Hyperlipidemia Impaired fasting glucose Osteomyelitis History in the right shoulder () and spine (June 2018) Prosthetic joint infection Scoliosis Surgical History H/O foot surgery bilateral heel bone spurs H/O shoulder surgery Bilateral total shoulder arthroplasties. R Reverse TSA 04/14/2017. 06/2019 right shoulder removed and now has spacer in due to infection H/O varicose vein ligation History of adenoidectomy tonsils History of anesthesia reaction ON OCC SLOW TO WAKE History of bilateral tubal ligation History of carpal tunnel release of both wrists History of colonoscopy 2019 History of esophagogastroduodenoscopy (EGD) History of laparoscopy with fulguration of oviducts History of revision of total shoulder arthroplasty right History of tonsillectomy S/P foot surgery, right displaced tarsal Family History Father Atrial fibrillation Mother Coronary heart disease Breast cancer No family history of adverse response to anesthesia Uncle Myocardial infarction Colorectal cancer Aunt Myocardial infarction Breast cancer Grandfather (Maternal) No problems noted. Grandmother (Maternal) Myocardial infarction Denies family history of Ovarian cancer Prostate cancer Social History Smoking Status: Current every day smoker packs per day: 1; Years Smoked: 35; Cigarettes Per Day: 12; Second Hand Exposure: No; Do You Dip or Chew Tobacco: No; Hx Alcohol Use: No Hx Substance Use: No Preferred Language: Georgian Communication Ability: Effective Jailer Chief Required: No Beliefs That Will Affect Care: None marital status: Current Living Situation: Alone current occupational status: retired Other Information That Helps Us Care for You: No Feels Safe at Home: Yes Safety Concerns: Feels Safe At This Time Dental Care, Regularly: No Seatbelt Use: always Sunscreen Use: Yes Assistive Devices: Denture - Upper, Denture - Lower and Glasses Review of Systems All systems reviewed & are unremarkable except as noted in HPI & below Physical Exam Constitutional: well developed and well nourished; no acute distress Eyes: PERRL, conjunctivae normal, anicteric sclerae ENMT: external ear and nose normal, oropharynx normal Neck: trachea midline, no thyromegaly Respiratory: normal respiratory effort, lungs clear to auscultation Cardiovascular: RRR, no murmur, no edema Musculoskeletal: Right shoulder: Well healed incision, no erythema or open areas. Now swelling. Decreased ROM in all directions. FF to 90 degrees, abduction to 60 degrees, ER to 50 degrees. N/v status and sensation intact. Skin: no rashes, warm and dry Neurologic: patellar DTR's 2+ bilat, sensation intact Psychiatric: A+Ox3, euthymic affect Results & Data ([facility]) Diagnostic Findings Multiple x-rays obtained of the right shoulder. She has a cement spacer in place. The greater tuberosity fracture appears to be healed. There is some metaphyseal bone loss medial calcar region, which has been present and no change from prior x-rays. The osteotomy area appears to have shown continued healing over time. I also got a long-length humeral film for templating purposes. There is some slight anterior subluxation of the implant on the axillary view, which would imply weakened subscapularis tendon.
[~2020-11-13 06:55] MED LIST changes: -ACET-24 PO; +ACETAMINOPHEN 500 MG TAB PO SCH; -ADVIN10050 INH; -ASPEC325 PO; +BUPIVACAINE 0.5 % 5 MG/1 ML PF 10ML VIAL ONE; -BUPR75TA20 PO; -CYCL10TA6 PO; +CeleBREX 200 MG CAP PO SCH; -DOCU-94 PO; -EZET10TA38 PO; +FAMOTIDINE 20 MG TAB PO SCH; +GABAPENTIN 300 MG CAP PO SCH; +LR 15ML/HR IV SCH; +METOCLOPRAMIDE HCL 10 MG TABLET PO SCH; -MULT-506 PO; -OMEGCAP2 PO; -OMEP20CA59 PO; +TRANEXAMIC ACID 1,000 MG **IV Intra-op IV SCH; +TRANEXAMIC ACID 1,000 MG **IV Pre-op IV SCH; -ULT50X PO; +VANCOMYCIN HCL 1,000 MG/270 ML BAG IV SCH; -VNTHFA/IN INH; +ceFAZolin 1000MG 1,000 MG/7.5 ML SYR IV SCH; +dexAMETHasone 4 MG TAB PO SCH
[2020-11-13] MEDS ORDERED: MIDAZOLAM HCL 1 MG/ML 2ML VIAL ONE (08:37)
[2020-11-13] MEDS ORDERED: fentaNYL citrate 100 MCG/2 ML VIAL ONE ×2 (08:37→14:49)
[2020-11-13] MEDS ORDERED: PROPOFOL IV EMULSION 10 MG/ML 20 ML VIAL IV ONE (08:38)
[2020-11-13] MEDS ORDERED: LIDOCAINE 2% 2 ML VIAL/AMP(20MG/ML) INFIL ONE (08:38)
--- NOTE | 2020-11-13 09:04 | History & Physical Bridge Note ---
Date of Service November 13, 2020 History & Physical Bridge Note I have examined the patient, reviewed the History & Physical and in the interval since the performance of the History & Physical I have noted the following changes of clinical significance: no changes noted
[2020-11-13] MEDS ORDERED: BACITRACIN OINT 15 GM TUBE ONE (09:13)
[2020-11-13] MEDS ORDERED: DEXAMETHASONE SOD INJ 4 MG/ML VIAL ONE (10:18)
[2020-11-13] MEDS ORDERED: ONDANSETRON INJ 2 MG/ML 2 ML VIAL ONE ×2 (10:18→14:35)
[2020-11-13] MEDS ORDERED: PHENYLEPHRINE HCL 10 MG/ML VIAL ONE (10:50)
[2020-11-13] MEDS ORDERED: ROCURONIUM BROMIDE 10 MG/ML 5 ML VIAL IV ONE (13:17)
--- NOTE | 2020-11-13 14:54 | Fluoroscopy Report ---
INTRAOPERATIVE RADIOGRAPHS CLINICAL HISTORY: Right shoulder arthroplasty. Cement spacer removal. Fluoroscopy time: 1 minute 30 seconds. FINDINGS: 4 spot fluoroscopic views of the right shoulder are correlated with radiographs dated 2019. A right shoulder arthroplasty is in near-anatomic alignment. There is chronic posttraumatic def ormity of the right proximal humerus. Overlying soft tissue edema is noted. IMPRESSION: Intraoperative images of the right shoulder as above. Electronically signed by: Mychal Schmitz M.D. 11/13/2020 2:53 PM
--- NOTE | 2020-11-13 15:18 | Post Operative Brief Note ---
Immediate Post Op Note v1 Date of Surgery November 13, 2020 Pre & Post Diagnosis Operation Date: 11/13/20 08:35 Pre-Op Diagnosis: Right shoulder antibiotic spacer status post reverse total shoulder prosthetic joint infection. Post-Op Diagnosis: Right shoulder antibiotic spacer status post reverse total shoulder prosthetic joint infection I identified the patient and participated in the time-out.: Yes Procedure Operation Date: 11/13/20 08:35 Actual Procedures p Right Shoulder Revision Reverse Total Arthroplasty, Removal Cement Spacer(Right) - New Far[place] MD Surgeon New Farah MD Safety Council Director Ricki DAVIS Estimated Blood Loss 30 Findings Consistent with Post-Op Diagnosis Specimens Frozen section Drains Camacho Catheter Anesthesia Type General Regional Complications none Disposition Disposition: Recovery Room Overlapping Procedure I was immediately available: during the entire case.
--- NOTE | 2020-11-13 17:07 | XRay Report ---
RIGHT SHOULDER 2 VIEWS CLINICAL HISTORY: Postoperative examination. FINDINGS: 2 portable views of the right shoulder are compared to study dated 07/05/2019. The skeletal structures are osteopenic. A right shoulder arthroplasty is in near-anatomic alignment. There is a lo ng humeral stem. No acute fracture is seen. Chronic posttraumatic deformity is noted in the right pro ximal humerus. There is chronic widening at the right AC joint with mild productive degenerative alan ge. Subcutaneous gas and soft tissue edema overlying the right shoulder are expected postoperative ch anges. The visualized right lung parenchyma appears clear. IMPRESSION: Expected postoperative findings status post right shoulder arthroplasty. No acute fractur e is seen. Electronically signed by: Mychal Schmitz M.D. 11/13/2020 5:05 PM
[2020-11-13] MEDS ORDERED: ERYTHROMYCIN OP OINT 5 MG/GM 3.5 GM TUBE OP ONE (17:27)
[2020-11-13] MEDS ORDERED: bisacodyL 10 MG SUPP PR PRN (17:35)
[2020-11-13] MEDS ORDERED: METOCLOPRAMIDE HCL INJ 5 MG/ML 2 ML VIAL IV PRN (17:35)
[2020-11-13] MEDS ORDERED: MAGNESIUM HYDROXIDE SUSP 30 ML UDC PO PRN (17:35)
[2020-11-13] MEDS ORDERED: HYDROCORTISONE 2.5% CR 30 GM TUBE EXT PRN (17:35)
[2020-11-13] MEDS ORDERED: NALOXONE HCL 0.4 MG/1 ML VIAL/CARP IV PRN (17:35)
[2020-11-13] MEDS ORDERED: ONDANSETRON INJ 2 MG/ML 2 ML VIAL IV PRN (17:35)
[2020-11-13] MEDS ORDERED: ALBUTEROL HFA 8 GM INHALER INH PRN (17:35)
[2020-11-13] MEDS ORDERED: HYDROmorphone INJ 0.5 MG/0.5 ML SYR IV PRN (17:35)
[2020-11-13] MEDS ORDERED: ALBUTEROL 0.083% NEBU SOLN 3 ML VIAL INH PRN (17:35)
--- NOTE | 2020-11-13 17:38 | Anesthesiology Progress Note ---
Date of Service November 13, 2020 Anesthesia Post Procedure Vital Signs Vital Signs: Temp Pulse Pulse Resp BP Pulse Ox 11/13/20 17:20 92 H 21 86/66 L 92 11/13/20 17:05 36.4 C L 82 15 95/58 L 92 11/13/20 16:50 88 17 102/72 92 11/13/20 16:40 86 15 91/67 L 92 11/13/20 16:30 36.3 C L 87 12 102/68 92 11/13/20 16:20 91 H 12 101/65 92 11/13/20 16:10 89 14 96/66 L 94 11/13/20 16:00 87 13 93/61 L 94 11/13/20 15:50 87 12 95/64 L 95 11/13/20 15:40 92 H 17 109/68 94 11/13/20 15:34 36.3 C L 91 H 16 94/63 L 94 11/13/20 09:34 92 H 100/58 L 97 11/13/20 07:27 37.4 C 103 H 20 121/81 94 Transfer of Care Handoff Completed per policy Notes Mental Status: alert / awake / arousable and participated in evaluation Patient Amnestic to Procedure: Yes Nausea / Vomiting: adequately controlled Pain: adequately controlled Airway Patency, RR, SpO2: stable & adequate BP & HR: stable & adequate Hydration State: stable & adequate Anesthetic Complications: no major complications apparent and Pt Satisfied with anesthetic care Notes: Patient with slightly low BP readings and being treated with IVF therapy. C/O left eye pain (mild and without vision changes). Could be a drying problem or physical abrasion. Will have patient use erythromycin ointment for relief.
[2020-11-13] MEDS ORDERED: CYCLOBENZAPRINE HCL 5 MG TAB PO PRN (19:10)
--- NOTE | 2020-11-13 19:41 | Hospitalist Consultation ---
Date of Consultation November 13, 2020 Assessment & Plan (1) Hyperlipidemia: Hilario Dumont is a 70-year-old female with PMH of COPD, depression, chronic reflux esophagitis, multiple lung nodules, pulmonary emphysema, chronic back pain who was admitted for reverse total shoulder arthroplasty. Doing well postoperatively with no active complaints. s/p Right Total Shoulder Replacement - Prn pain meds per orthopedics - ASA 81mg PO BID History of bacteremia - Afebrile and hemodynamically stable - Recommend blood cultures if she does develop fever or destabilize COPD - Per home med list patient has albuterol prn - She reports using her Ventolin daily at home but no other daily inhalers - Continue albuterol prn here - Currently requiring 3L NC after surgery, monitor respiratory status and wean as tolerated Depression - Continue home bupropion Chronic Back Pain - Continue home cyclobenzaprine Chronic Reflux Esophagitis - Pantoprazole 40mg PO qAM per hospital formulary (2) Chronic obstructive pulmonary disease: (3) Depression, controlled: (4) Chronic back pain: (5) History of bacteremia: (6) S/P shoulder replacement: I personally saw and examined the patient. I verified all wilson points and agree with resident physician Dr Jefferson with the following exceptions and/or additions: 70 year old female with history of MSSA bacteremia June 2019 now here for elective Right Shoulder Revision Reverse Total Arthroplasty, Removal Cement Spacer performed by Dr Farah earlier today. Doing well post operatively. No concerns or questions from the patient. O/E HS1+2, no murmurs, Chest CTAB, Abdo SNT, cap refil and right radial pulse normal A/P Pain and post op management per orthopedics. No change to her usual home meds. Post op labs in AM. History of Present Illness Attending Physician: New Farah MD History of Present Illness Hilario Dumont is a 70-year-old female with PMH of COPD, depression, chronic reflux esophagitis, multiple lung nodules, pulmonary emphysema, chronic back pain who was admitted for reverse total shoulder arthroplasty. She previously underwent explant of reverse TSA followed by conversion to antibiotic spacer due to septic right shoulder in June 2019. At this point has completed treatment for septic arthritis. Was scheduled to undergo reverse TSA in January 2020 but was found to have recurrent bacteremia secondary to UTIs. At this point has been fully treated and had negative blood cultures in April 2020. Patient seen having recently arrived back to her room from her surgical procedure. Reports feeling very well. Denies pain, SOB, fever, chills, CP, palpitations, n/v, dizziness. Allergies Allergy/AdvReac Type Severity Reaction Status Date / Time nickel Allergy Mild Rash-WITH Verified 11/13/20 07:19 JEWELRY shellfish derived Allergy Mild itchy and Verified 11/13/20 07:19 swelling of tongue and throat Home Medications Medication Instructions Recorded Confirmed Type multivitamin (Daily Multi-Vitamin) 1 tab PO QAM 09/29/18 11/13/20 History omega-3 fatty acids 1,000 mg 1,000 mg PO HS 09/29/18 11/13/20 History capsule (Fish Oil Concentrate) docusate sodium 100 mg capsule 100 mg PO HS 01/17/19 11/13/20 History hydrocortisone 2.5 % topical cream 1 appln TOP TID PRN gm 03/02/19 11/13/20 History omeprazole 20 mg capsule,delayed 20 mg PO QAM #90 cap 09/28/19 11/13/20 Rx release Lactobacillus acidophilus 1.5 mg 1,000 mmu cells PO QAM 10/05/19 11/13/20 History (250 million cell) capsule (Probiotic Acidophilus) albuterol sulfate 90 mcg/actuation 2 puff INHALATION Q4H PRN #8.5 g 12/26/19 11/13/20 Rx aerosol inhaler (Ventolin HFA) calcium carbonate 600 mg (1,500 1 tab PO QAM 12/27/19 11/13/20 History mg)-vitamin D3 200 unit tablet albuterol sulfate 2.5 mg INHALATION Q4H PRN #180 ml 01/01/20 11/13/20 Rx atorvastatin 20 mg tablet 20 mg PO HS #90 tab 01/30/20 11/13/20 Rx naproxen 500 mg tablet 500 mg PO BID #60 tab 02/08/20 11/13/20 Rx bupropion HCl 150 mg 24 hr tablet, 150 mg PO QAM #30 tab 03/07/20 11/13/20 Rx extended release cyclobenzaprine 10 mg tablet 10 mg PO DAILY PRN 04/12/20 11/13/20 History Patient History Medical History Bacteremia Bronchitis Chronic -- controlled with Ventolin once in AM, once in PM- then PRN Last flare up 03/2020 - was on prednisone-NO ISSUES SINCE Chronic back pain Chronic obstructive pulmonary disease Breathing stable Degenerative disc disease Depression HX DVT (deep venous thrombosis) 1985-NO ISSUES SINCE Elevated blood pressure reading in office with diagnosis of hypertension No medication --- sporadic high blood pressure Emphysema lung HX GERD (gastroesophageal reflux disease) Well controlled and stable Gram positive sepsis was receiving IV Rocephin -- currently taking oral ABx. Hiatal hernia Hyperlipidemia Impaired fasting glucose Osteomyelitis History in the right shoulder () and spine (June 2018) Prosthetic joint infection Scoliosis Surgical History (Updated 11/13/20 @ 20:17 by Valeriano Jefferson MD) H/O foot surgery bilateral heel bone spurs H/O shoulder surgery Bilateral total shoulder arthroplasties. R Reverse TSA 04/14/2017. 06/2019 right shoulder removed and now has spacer in due to infection H/O varicose vein ligation History of adenoidectomy tonsils History of anesthesia reaction ON OCC SLOW TO WAKE History of bilateral tubal ligation History of carpal tunnel release of both wrists History of colonoscopy 2019 History of esophagogastroduodenoscopy (EGD) History of laparoscopy with fulguration of oviducts History of revision of total shoulder arthroplasty right History of tonsillectomy S/P foot surgery, right displaced tarsal Family History Father Atrial fibrillation Mother Coronary heart disease Breast cancer No family history of adverse response to anesthesia Uncle Myocardial infarction Colorectal cancer Aunt Myocardial infarction Breast cancer Grandfather (Maternal) No problems noted. 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 Beliefs That Will Affect Care: None marital status: Current Living Situation: Spouse current occupational status: retired Other Information That Helps Us Care for You: No Feels Safe at Home: Yes Safety Concerns: Feels Safe At This Time Dental Care, Regularly: No Seatbelt Use: always Sunscreen Use: Yes Assistive Devices: None Review of Systems Constitutional: no fever, no chills and no weakness Eyes: + itchy eyes Respiratory: no cough and no dyspnea Cardiovascular: no chest pain, no palpitations and no edema Gastrointestinal: no abdominal pain, no nausea and no vomiting Genitourinary: no dysuria, no urinary frequency and no urinary urgency Musculoskeletal: no joint pain Neurologic: no localized weakness and no numbness Physical Exam Physical Exam: GENERAL: A&Ox3. NAD. HEENT: PERRL, EOMI. Moist mucous membranes. NECK: No JVD. No lymphadenopathy. CHEST/LUNGS: CTAB A/P. No crackles, wheezes, rales, rhonchi. HEART: RRR. No m/g/r. No carotid bruits. ABDOMEN: NT/ND, soft. BS+ x4 EXTREMITIES: No cyanosis, no clubbing, no edema. Right shoulder covered with c/d/i dressing, and right arm is in sling. SKIN: Warm and dry. No rashes or lesions. PSYCHIATRIC: Euthymic affect, no SI, no pressured speech, no hallucinations NEUROLOGIC: No FND.. CN II-XII grossly intact. Results & Data Results & Data ([facility]) Vital Signs (Past 12 Hours) Vital Signs Temp Pulse Pulse Pulse Resp BP Pulse Ox 11/13/20 18:52 37.0 C 94 H 18 107/70 96 11/13/20 18:35 36.7 C 98 H 18 104/69 93 11/13/20 18:20 98 H 20 105/65 93 11/13/20 18:05 96 H 21 93/65 L 93 11/13/20 17:50 87 16 101/63 93 11/13/20 17:35 85 12 92/63 L 93 11/13/20 17:20 92 H 21 86/66 L 92 11/13/20 17:05 36.4 C L 82 15 95/58 L 92 11/13/20 16:50 88 17 102/72 92 11/13/20 16:40 86 15 91/67 L 92 11/13/20 16:30 36.3 C L 87 12 102/68 92 11/13/20 16:20 91 H 12 101/65 92 11/13/20 16:10 89 14 96/66 L 94 11/13/20 16:00 87 13 93/61 L 94 11/13/20 15:50 87 12 95/64 L 95 11/13/20 15:40 92 H 17 109/68 94 11/13/20 15:34 36.3 C L 91 H 16 94/63 L 94 11/13/20 09:34 92 H 100/58 L 97 Resident Activity Tracking Resident Involvement: Resident Care Provided Care Provided: Adult Hospital Medicine
[2020-11-13] MEDS: ASPIRIN 81 MG ECTAB PO SCH (20:48)
[2020-11-13] MEDS: DOCUSATE SODIUM 100 MG CAP PO SCH (20:48)
[2020-11-13] MEDS: ceFAZolin 1000MG 1,000 MG/7.5 ML SYR IV SCH (20:48)
[2020-11-13] MEDS: SODIUM CHLORIDE 0.9% 1000ML 1,000 ML IV SCH (20:53)
[2020-11-13] MEDS ORDERED: SENNA 8.6 MG TAB PO SCH (21:00)
[2020-11-13] MEDS ORDERED: ATORVASTATIN 20 MG TAB PO SCH (21:00)
[2020-11-13] MEDS ORDERED: DOCUSATE SODIUM 100 MG CAP PO SCH (21:00)
[2020-11-13] MEDS: ACETAMINOPHEN 500 MG TAB PO SCH (21:45)
[2020-11-14] MEDS: ceFAZolin 1000MG 1,000 MG/7.5 ML SYR IV SCH (04:10)
[2020-11-14] MEDS: ACETAMINOPHEN 500 MG TAB PO SCH ×2 (05:47→13:26)
[2020-11-14] MEDS: SODIUM CHLORIDE 0.9% 1000ML 1,000 ML IV SCH (05:48)
[2020-11-14 06:49] LABS: Basophils # (auto) 0.02 K/uL (0-0.2); Basophils % (auto) 0.2 %; Eosinophils # (auto) 0.07 K/uL (0-0.5); Eosinophils % (auto) 0.5 %; Hematocrit (blood only) 37.3 % (37-47); Hemoglobin 12.5 g/dL (12.0-16.0); Immature Granulocytes # (auto) 0.03 K/uL (0.00-0.02); Immature Granulocytes % (auto) 0.2 %; Lymphocytes # (auto) 3.15 K/uL (1.2-3.4); Lymphocytes % (auto) 24.2 %; Mean Corpuscular Hemoglobin 30.8 pg (25-34); Mean Corpuscular Hgb Conc 33.5 g/dL (32-36); Mean Corpuscular Volume 91.9 fL (80-100); Mean Platelet Volume 9.3 fL (7.4-10.4); Monocytes # (auto) 1.31 K/uL (0.11-0.59); Monocytes % (auto) 10.1 %; Neutrophils # (auto) 8.41 K/uL (1.4-6.5); Neutrophils % (auto) 64.8 %; Platelet Count 249 K/uL (130-400); RDW Coefficient of Variation 14.1 % (11.5-14.5); RDW Standard Deviation 47.6 fL (36.4-46.3); Red Blood Count 4.06 M/uL (4.2-5.4); White Blood Count 12.99 K/uL (4.8-10.8)
[2020-11-14 07:27] LABS: BUN Creatinine Ratio 17.4 (10-20); Calcium 8.2 mg/dl (8.5-10.1); Creatinine Clr Calc Pharmacy 53.2 ml/min; Est GFR (African American) 76.6 ml/min; Est GFR (Non-African American) 66.1 ml/min; Potassium 3.7 mmol/L (3.5-5.1)
[2020-11-14] MEDS: oxyCODONE HCL IR 5 MG TAB (IMMEDIATE RELEASE) PO PRN ×2 (07:44→12:10)
[2020-11-14] MEDS: ASPIRIN 81 MG ECTAB PO SCH (07:44)
[2020-11-14] MEDS: DOCUSATE SODIUM 100 MG CAP PO SCH (07:49)
--- NOTE | 2020-11-14 08:14 | Operative Report (OR) ---
DATE OF PROCEDURE: 11/13/2020. INDICATION FOR PROCEDURE: The patient is a 70-year-old female who presently has a right shoulder alli ent spacer on the proximal humerus that was placed due to a prosthetic joint infection of a right tot al shoulder replacement. The index procedure was a reverse total shoulder replacement on 04/14/2017. 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 The patient initially did well from that surgery, then she was diagnosed with sepsis , not related to the shoulder surgery. She had vertebral osteomyelitis and sepsis, treated at [facility] and eventually the shoulder replacement became infected. This required removal of t he hardware, which required an osteotomy of the proximal humerus due to the well-fixed humeral and gl enoid components. All components were removed and a proximal cement spacer was placed. She was anna navi on intravenous antibiotics for a prolonged period of time followed by Infectious Disease includin g long-term suppressive oral antibiotics and eventually taken off antibiotics and inflammatory parame ters were back to normal except for still some elevated C-reactive protein, but sed rate and white co unt were normal at this time. PREOPERATIVE DIAGNOSES: Right shoulder cement spacer placed for infected reverse total shoulder arth roplasty with history of methicillin staph sensitive shoulder and prior methicillin staph sepsis. POSTOPERATIVE DIAGNOSES: Right shoulder cement spacer placed for infected reverse total shoulder art hroplasty with history of methicillin staph sensitive shoulder and prior methicillin staph sepsis. PROCEDURE: Right shoulder revision reverse total shoulder arthroplasty with removal of cement spacer . SURGEON: New Farah MD. JAVA ARCHITECT: Jonathan De Paz PA-C. DRAINS: Camacho catheter. ESTIMATED BLOOD LOSS: 30 mL. SPECIMENS: Frozen section. DESCRIPTION OF PROCEDURE: The patient was taken to the operating room, anesthetized under a regional block and general anesthetic. She was placed in the 40-degree beach chair position with a towel lu und the medial border of the right scapula. She was translated to the right side of the bed, so her shoulder could be manipulated off the bed. She had TEDs, SCDs placed. Camacho catheter placed. She h ad a foam headrest, protective eyewear and all extremities well padded. Right shoulder exam demonstr ated no erythema, no drainage, no swelling along the anterior deltopectoral scar and she had a fairly limited range of motion with about 60 degrees of flexion, abduction, and external rotation to about 30 degrees. Her right shoulder and upper extremity were prepped and draped in sterile fashion using ChloraPrep. The anterior deltopectoral scar was utilized for our incision. Skin was incised sharply . Subcutaneous flaps were elevated. There was no cephalic vein. There was some atrophy of the pect oralis muscle. Deltoid muscle was in good condition. Deltopectoral interval was developed down to t he conjoined tendon. Some of the pectoralis muscle was scarred down to the conjoined tendon. This w as freed up with dissection. There was some capsular tissue overlying the spacer implant. The disse ction was taken down to the deltoid releasing the deltoid from the underlying scarred capsular type t issue and I identified the greater tuberosity, which was dissected out and the incision was carried d own to the shaft of the humerus, so we could subperiosteally dissect around the shaft because there w as some bone loss anteromedially from explantation and prior stress shielding. The greater tuberosit y, which had previously had a fracture at the last surgery, had a repair of the fracture at that time and this was completely healed. The osteotomy to remove the implant was completely healed at this t adria. The capsule was divided along the line of the prior biceps tendon location and a subperiosteal peel was performed removing the capsular tissue off of the cement spacer. Superiorly, the capsular t issue was divided down to the glenoid. The cement spacer was dislocated with extension and external rotation. The spacer was assessed and with some motion of it there was clearly some motion of the sp acer as anticipated. It did not easily come out, however. I had to use an Ultra drive to remove milka e of the larger areas of cement that was placed that impeded its extraction. We used an artist chise l and a rongeur to remove areas that were obstructing the extraction of the spacer. Then, I used a b one tamp eventually and I was able to remove the spacer leaving the canal intact and the greater tube rosity all intact. The membrane was sent for frozen section. The membrane did not look like there w as any active inflammation and the frozen section came back as 2-3 white blood cells per high power f ield only. We scraped the membrane out with curettes and pituitary rongeur and a small rongeur. All membrane was removed. Then, attention was taken to the glenoid. I did an anterior inferior and pos terior inferior capsular release using a Louise elevator and electrocautery on bone and this was perfor med to protect the axillary nerve. The glenoid demonstrated that the previous hole from the extracte d baseplate had filled in completely and there was just a small indentation in that area now. There was some bone defect peripherally where the posterior screw would have been placed in the glenoid, wh ich is consistent with intraoperative findings noted at the prior surgery. Attention was then taken back to the humeral preparation. I brought in fluoroscopy and placed a dora p tipped drill centrally in the canal and there was a pedestal underlying the previous cement spacer and at the lower part of the osteotomy site that had closed off the intramedullary canal, so we drill ed hole centrally in the intramedullary canal first then with the smallest reamer from the Biomet glen mers that were used to widen the canal appropriately. Started with a 5 mm reamer and we assessed the alignment on fluoroscopy to make sure within the canal an appropriate angle, some of the greater tub erosity had to be debrided back to get the appropriate angle of trajectory. Then sequential reamers were used up to a 9 mm reamer. The 9 mm was tight and felt to be appropriate size. After the reamin g with the Biomet reamers was completed, I then went ahead and used the Tornier reamer for the Revive stem. We placed a 9 mm reamer down to the appropriate depth for the 150 mm stem which was the appro priate size picked preoperatively to get below the level of the prior osteotomy and get distal fixati on. After the reamer was used, we assembled the trial, which was impacted in position. The trial wa s placed in 20 degrees of retroversion. At this point, I went ahead and placed in the glenoid compon ent. Retractors were placed about the glenoid including a Tornier retractor posteriorly and a sharp Hohmann superiorly, two Bankart type retractors were placed to fully visualize the glenoid. Fibrous tissue was curetted off the surface. There were no signs of any infectious or inflammatory type tiss ue. No frozen sections were obtained. The baseplate guide was positioned in the appropriate positio n and the central drill hole was made and then the drill for the reamer for the 25-gauge mm baseplate was used. I placed some inferior tilt on to get appropriate trajectory of the glenoid. I did slight ly eccentrically ream anteriorly and inferiorly to get appropriate alignment. Central hole was made for the post of the Aequalis 25 mm baseplate. This was solid and contained within the vault. With p ositioning of the baseplate, I was unable to use any posterior screw fixation, so I placed superior a nd inferior locking screws first and then the anterior compression screw then we had excellent fixati on of the baseplate with these three screws. We did irrigate with antibiotic solution with Ancef katrin or to placing the implant. At this time, the patient did have a NICKEL ALLERGY, so we had to use a t itanium 36 x 25 mm glenoid sphere, which was impacted on the baseplate and the security screw was tig htened and we checked stability. There was a large amount of heterotopic bone inferiorly on the infe rior glenoid and spine of the scapular area that had to be debrided in order to not get inferior impi ngement or notching. After that was completed, we moved on to the trialing. I had to set the trial deeper and use a high offset tray and a 9 mm poly spacer and trimmed some of the greater tuberosity down in order to reduce the implant appropriately. After the trialing these were removed and then the two drill holes were placed into the proximal humerus greater tuberosity lower aspect for repair of the inferior capsular type tissue at the end of the procedure to help with avoiding dislocation. A #5 FiberWire sutures we re placed transosseously. The canal was irrigated with antibiotic solution with Ancef. This was irr igated out well and then the 9 mm Revive stem construct at 150 mm length was assembled appropriately and then impacted into position in 20 degrees retroversion that was seated at the prior chosen depth. At this time, the Arthrex cerclage tapes were placed around the greater tuberosity and around the p roximal stem to enhance stability of the greater tuberosity, which was very thin bone. These were ti ghtened to 40-60 pressure and the tapes were placed per the Arthrex protocol technique. After they w ere placed in the high offset tray, +0 was impacted into position with a high offset at the superior +6 position. Then the 36+9 reverse insert was placed, impacted into the tray. Then, the humerus was reduced to the glenoid sphere. There was no shuck and there was good stability through range of mot ion, although range of motion was still somewhat limited as she had about 30 degrees external rotatio n, 70 degrees abduction, and 80 degrees of forward elevation. To enhance stability the inferior caps ular tissue was repaired with the #5 FiberWire sutures using Lucas-Timur suture technique and then a Betadine soak was used for 3 minutes and then this was irrigated out with the antibiotic solution, pu lsatile lavage with Ancef solution and then there was minimal bleeding, so we did not place a drain. The deltopectoral interval was then repaired with interrupted #1 Vicryl sutures. Then, the subcutan eous tissue was closed with interrupted 2-0 Vicryl sutures and then the skin was closed with vertical mattress 3-0 nylon sutures and sterile dressings were applied in a sling immobilizer. We did assess fluoroscopic x-rays throughout the procedure including postoperative films obtained for the final im plant construction. The patient had approximately 30 mL of blood loss and the patient tolerated the procedure well without any complications noted. RYAN Olson was my public relations assistant. He functioned as public relations assistant the entire procedure. Lopez welsh assisted in patient positioning, prepping, draping, arm positioning, soft tissue retraction, instru ment management during the procedure, and he performed the subcutaneous and skin closure and will als o participate in postoperative care of the patient. Job ID: [id number]
[2020-11-14] MEDS ORDERED: MULTIVITAMIN TAB PO SCH ×2 (09:00)
[2020-11-14] MEDS ORDERED: PANTOprazole 40 MG TAB PO SCH (09:00)
[2020-11-14] MEDS ORDERED: LACTOBACILLUS ACIDOPHILUS 1 GM PACK PO SCH (09:00)
[2020-11-14] MEDS ORDERED: CALCIUM 600MG + VIT D 400 IU TAB PO SCH (09:00)
[2020-11-14] MEDS ORDERED: buPROPion XL 150 MG TABCR PO SCH (09:00)
--- NOTE | 2020-11-14 10:18 | Billing Data ---
Date of Service November 13, 2020 Coding Level of Care Code 97807 Inpt Consult Level 3
--- NOTE | 2020-11-14 10:20 | Orthopedic Progress Note ---
Date of Service November 14, 2020 Assessment & Plan (1) S/P shoulder replacement: Plan: POD#1 Right Shoulder Revision Reverse Total Arthroplasty, Removal Cement Spacer -PT/OT as written. No formal PT for 6 weeks -Pain management as written -DVT prophylaxis-SCDs, ASA 81mg BID -AM labs-mild leukocytosis likely reactive. Hgb 12.5 from 15 preop likely due to surgical loss/dilutional -D/C planning-plan on discharge likely later today if continues to do well. Will plan on discharge with oral antibiotics as prophylaxis. Admission and Anticipated Discharge Date Admission Date: November 13, 2020 Subjective Patient is postop day one revision reverse total shoulder arthroplasty.Block is wearing off. Having pain but well controlled. No other complaints. Denies fever, chills, n/v/d, headache. Review of Systems Review of Systems: All systems reviewed & are unremarkable except as noted in Subjective Physical Exam Physical Exam: Right shoulder dressing is c/d/i. Sling in place. Fingers mobile. Good amalgamator strength. Distally n/v status and sensation intact. Constitutional: WD/WN, vitals as above Results & Data ([facility]) Vital Signs (Past 12 Hours) Vital Signs Temp Pulse Resp BP Pulse Ox 11/14/20 08:14 36.7 C 82 16 107/67 91 11/14/20 04:37 37.1 C 93 H 18 98/63 L 93 11/13/20 22:46 97 H 100/63 91 11/13/20 22:32 36.9 C 98 H 16 82/44 L 95 Laboratory Results Lab Results 11/13/20 11/13/20 11/14/20 Range/Units Unknown Unknown 06:24 WBC 12.99 H (4.8-10.8) K/uL RBC 4.06 L (4.2-5.4) M/uL Hgb 12.5 (12.0-16.0) g/dL Hct 37.3 (37-47) % MCV 91.9 (80-100) fL MCH 30.8 (25-34) pg MCHC 33.5 (32-36) g/dL RDW Std Deviation 47.6 H (36.4-46.3) fL RDW Coeff of Mandeep 14.1 (11.5-14.5) % Plt Count 249 (130-400) K/uL MPV 9.3 (7.4-10.4) fL Immature Gran % (Auto) 0.2 % Neut % (Auto) 64.8 % Lymph % (Auto) 24.2 % Terry % (Auto) 10.1 % Eos % (Auto) 0.5 % Baso % (Auto) 0.2 % Neut # (Auto) 8.41 H (1.4-6.5) K/uL Lymph # (Auto) 3.15 (1.2-3.4) K/uL Terry # (Auto) 1.31 H (0.11-0.59) K/uL Eos # (Auto) 0.07 (0-0.5) K/uL Baso # (Auto) 0.02 (0-0.2) K/uL Immature Gran # (Auto) 0.03 H (0.00-0.02) K/uL Sodium (136-145) mmol/L Potassium (3.5-5.1) mmol/L Chloride (98-107) mmol/L Carbon Dioxide (21-32) mmol/L Anion Gap (3-11) BUN (7-18) mg/dl Creatinine (0.6-1.2) mg/dl Est Cr Clr Drug Dosing ml/min Est GFR ( Amer) ml/min Est GFR (Non-Af Amer) ml/min BUN/Creatinine Ratio (10-20) Glucose (70-99) mg/dl Calcium (8.5-10.1) mg/dl COVID-19 Eval [facility] SARS-[facility]-2, RNA, NAAT NEGATIVE (NEGATIVE) 11/14/20 Range/Units 06:24 WBC (4.8-10.8) K/uL RBC (4.2-5.4) M/uL Hgb (12.0-16.0) g/dL Hct (37-47) % MCV (80-100) fL MCH (25-34) pg MCHC (32-36) g/dL RDW Std Deviation (36.4-46.3) fL RDW Coeff of Mandeep (11.5-14.5) % Plt Count (130-400) K/uL MPV (7.4-10.4) fL Immature Gran % (Auto) % Neut % (Auto) % Lymph % (Auto) % Terry % (Auto) % Eos % (Auto) % Baso % (Auto) % Neut # (Auto) (1.4-6.5) K/uL Lymph # (Auto) (1.2-3.4) K/uL Terry # (Auto) (0.11-0.59) K/uL Eos # (Auto) (0-0.5) K/uL Baso # (Auto) (0-0.2) K/uL Immature Gran # (Auto) (0.00-0.02) K/uL Sodium 142 (136-145) mmol/L Potassium 3.7 (3.5-5.1) mmol/L Chloride 112 H (98-107) mmol/L Carbon Dioxide 24 (21-32) mmol/L Anion Gap 7.0 (3-11) BUN 15 (7-18) mg/dl Creatinine 0.88 (0.6-1.2) mg/dl Est Cr Clr Drug Dosing 53.2 ml/min Est GFR ( Amer) 76.6 ml/min Est GFR (Non-Af Amer) 66.1 ml/min BUN/Creatinine Ratio 17.4 (10-20) Glucose 100 H (70-99) mg/dl Calcium 8.2 L (8.5-10.1) mg/dl COVID-19 Eval Order SARS-CoV-2, RNA, NAAT (NEGATIVE)
--- NOTE | 2020-11-14 15:28 | Hospitalist Progress Note ---
Date of Service November 14, 2020 Assessment & Plan (1) Hyperlipidemia: Plan: Hilario Dumont is a 70-year-old female with PMH of COPD, depression, chronic reflux esophagitis, multiple lung nodules, pulmonary emphysema, chronic back pain who was admitted for reverse total shoulder arthroplasty. Doing well postoperatively with no active complaints. s/p Right Total Shoulder Replacement - Prn pain meds per orthopedics - ASA 81mg PO BID for ppx. History of bacteremia - Afebrile and hemodynamically stable - Recommend blood cultures if she does develop fever or destabilize COPD - Per home med list patient has albuterol prn - She reports using her Ventolin daily at home but no other daily inhalers - Continue albuterol prn here - Back to room air. Depression - Continue home bupropion Chronic Back Pain - Continue home cyclobenzaprine Chronic Reflux Esophagitis - Pantoprazole 40mg PO qAM per hospital formulary Given medical stability, Hospital Medicine team will sign off. Please re-consult with any questions or concerns. Thank you for letting us assist in the care of this patient! (2) Chronic obstructive pulmonary disease: (3) Depression, controlled: (4) Chronic back pain: (5) History of bacteremia: (6) S/P shoulder replacement: Plan: I personally saw and examined the patient. I verified all wilson points and agree with resident physician Dr Jefferson with the following exceptions and/or additions: 70 year old female with history of MSSA bacteremia June 2019 now here for elective Right Shoulder Revision Reverse Total Arthroplasty, Removal Cement Spacer performed by Dr Farah earlier today. Doing well post operatively. No concerns or questions from the patient. O/E HS1+2, no murmurs, Chest CTAB, Abdo SNT, cap refil and right radial pulse normal A/P Pain and post op management per orthopedics. No change to her usual home meds. Post op labs in AM. Admission and Anticipated Discharge Date Admission Date: November 13, 2020 Subjective Arm is more painful today as block wears off. Reports no fevers/chills, chest pain, shortness of breath, abdominal pain, nausea, or vomiting. Physical Exam Constitutional: WD/WN, vitals as above Eyes: EOM intact bilaterally; no conjunctival abnormality ENMT: external ear and nose normal, oropharynx normal Neck: trachea midline, no thyromegaly normal visual inspection Respiratory: normal respiratory effort, lungs clear to auscultation no respiratory distress Cardiovascular: RRR, no murmur, no edema Gastrointestinal (Abdomen): Inspection/Auscultation: abdomen normal to inspection; abdomen not distended Musculoskeletal: no cyanosis or clubbing, extremities motor strength 5/5 Shoulder: + surgical incision (In sling; bandaged.); no surgical drain present Skin: no rashes, warm and dry Neurologic: moves all extremities and awake Psychiatric: Orientation: alert, oriented to person and cooperative Results & Data Results & Data ([facility]) Vital Signs (Past 12 Hours) Vital Signs Temp Pulse Resp BP Pulse Ox 11/14/20 14:36 37.0 C 86 16 113/67 95 11/14/20 12:12 37.0 C 86 16 113/67 95 11/14/20 08:14 36.7 C 82 16 107/67 91 11/14/20 04:37 37.1 C 93 H 18 98/63 L 93 PG Care Time/CCT Total # of Minutes Spent Total Time Spent with Patient: Total time spent is greater than 50% in coordination of care (as documented) at patient's floor/unit and/or counseling patient: Coding Level of Care Code 25922 Subseq Hosp Care Lvl 2 Diagnoses Hyperlipidemia E78.5 Chronic obstructive pulmonary disease J44.9 Depression, controlled F32.9 Chronic back pain M54.9; G89.29 History of bacteremia Z87.898 S/P shoulder replacement Z96.619
--- NOTE | 2020-11-17 12:23 | Discharge Summary ---
Date of Service November 17, 2020 Admission HPI Per Admitting Provider 70 year old female with PMHx significant for COPD, HTN, and bacteremia presents for ongoing right shoulder pain. She previously underwent explant of reverse TSA followed by conversion to antibiotic spacer due to septic right shoulder. She has completed course of antibiotics and is clinically without infection. Surgery delayed end of last year due to recurrent bacteremia with UTI. She is improved without recurrent infection. Was rescheduled for earlier this year but was cancelled due to leukocytosis and elevated inflammatory markers. White count has now normalized. She now presents for conversion to reverse TSA. Patient denies headaches, sweats, fevers, chills, double vision, blurred vision, cough, sore throat, dysphagia, chest pain, sob, wheezing, n/v/d/c, numbness, tingling, fatigue, urinary symptoms, mood disorders. ROS positive for right shoulder pain and stiffness. Admission Exam Per Admitting Provider Constitutional: well developed and well nourished; no acute distress Eyes: PERRL, conjunctivae normal, anicteric sclerae ENMT: external ear and nose normal, oropharynx normal Neck: trachea midline, no thyromegaly Respiratory: normal respiratory effort, lungs clear to auscultation Cardiovascular: RRR, no murmur, no edema Musculoskeletal: Right shoulder: Well healed incision, no erythema or open areas. Now swelling. Decreased ROM in all directions. FF to 90 degrees, abduction to 60 degrees, ER to 50 degrees. N/v status and sensation intact. Skin: no rashes, warm and dry Neurologic: patellar DTR's 2+ bilat, sensation intact Psychiatric: A+Ox3, euthymic affect Principal Diagnosis Septic right reverse total shoulder arthroplasty Discharge Exam Constitutional WD/WN, vitals as above well developed and well nourished; no acute distress Eyes PERRL, conjunctivae normal, anicteric sclerae ENMT external ear and nose normal, oropharynx normal Neck trachea midline, no thyromegaly Respiratory normal respiratory effort, lungs clear to auscultation Cardiovascular RRR, no murmur, no edema Skin no rashes, warm and dry Neurologic patellar DTR's 2+ bilat, sensation intact Psychiatric A+Ox3, euthymic affect Discharge Data Allergies Allergy/AdvReac Type Severity Reaction Status Date / Time nickel Allergy Mild Rash-WITH Verified 11/13/20 07:19 JEWELRY shellfish derived Allergy Mild itchy and Verified 11/13/20 07:19 swelling of tongue and throat Consultations 11/08/20 13:36 Consult Hospitalist Routine Procedures Performed Operation Date: 11/13/20 08:35 Actual Procedures p Right Shoulder Revision Reverse Total Arthroplasty, Removal Cement Spacer(Right) - New Farah MD Ordered Studies 11/13/20 FL shoulder RT min 2V Routine 11/13/20 05:00 US - OR guided needle placemen Routine Hospital Course (1) S/P shoulder replacement: Patient presented for same day admission following right revision reverse total shoulder arthroplasty, explant antibiotic spacer on November 13, 2020. She tolerated procedure well. The Patient had an uneventful hospital course. Post-operatively, her activity was progressed and well tolerated. They participated in PT. Labs remained stable- lowest hemoglobin recorded: 12.[address] Roman Morocho of medical service was consulted for medical management during admission. Pain controlled on oral medications. Please refer to daily progress notes and PT notes for complete details. After exam on November 14, 2020, patient was felt to be stable for discharge home. Patient will f/u in the office in about 2 weeks for further evaluation including x-rays and incision check, sooner if having any issues or concerns. POD#1 Right Shoulder Revision Reverse Total Arthroplasty, Removal Cement Spacer -PT/OT as written. No formal PT for 6 weeks -Pain management as written -DVT prophylaxis-SCDs, ASA 81mg BID -AM labs-mild leukocytosis likely reactive. Hgb 12.5 from 15 preop likely due to surgical loss/dilutional -D/C planning-plan on discharge likely later today if continues to do well. Will plan on discharge with oral antibiotics as prophylaxis. Total Time Total Time Spent Total Time Spent (In Minutes): 20 Discharge Plan Discharge Items Patient Disposition: Home - Self-Care Reason For Visit: Direct Infection of Right Shoulder in Infectious a Discharge Diagnosis: Right shoulder rotator cuff arthropathy, infection of total shoulder Activity: Per Instructions section Non-emergency contact: Surgeon Call non-emergency contact if: you have any medication questions, your pain is not controlled, your pain is unusual for you, your pain is concerning for you, you have a fever, your temperature is above 101, your wound has increased redness and your wound has increased drainage Follow-up/Referrals: Chely Jade CRNP [Primary Care Provider] - Diet: Regular Addtl Attending Provider Instructions: ACTIVITY RECOMMENDATIONS: SELF CARE INSTRUCTIONS AFTER TOTAL SHOULDER ARTHROPLASTY REVERSE A. You may do daily exercises as taught in physical therapy while in hospital. No lifting with the operative arm. B. You are to wear your sling/immobilizer at all times EXCEPT when performing your daily exercises and for hygiene purposes. C. You may perform dry, daily dressing changes. Please keep your incision covered. You may shower 48 hours after surgery. Do not apply soap or any ointment/lotions directly over incision. Do not soak incision in bath tub/swimming pool. D. You may use ice as needed to operative shoulder. SPECIAL CARE INSTRUCTIONS: VERY IMPORTANT TO READ AND REVIEW A. There are a few signs you need to watch for after you are home. Call [facility] at [phone] if you experience any of the followin. Increased severe shoulder pain. Some pain is expected especially when you exercise. 2. Increased swelling in you shoulder or arm; pain or swelling in either upper extremity. 3. Any fluid drainage from the incision. 4. Shortness of breath or chest pain. B. Please call [facility] at [phone] if you have any questions or concerns about your operation or recovery. C. Call your physician if: 1. Temperature is greater than 101 degrees (F). 2. Pain is not relieved by prescribed pain medications. 3. Increase drainage or redness from incision. 4. Unanswered questions or concerns. FOLLOW UP VISIT: Please call [facility] at [phone] to schedule a follow up appointment with Dr. Farah or his PA in 12-14 days from your surgery date. Stand-Alone Forms: [employer], Smoking Cessation Medications and DC Order Prescriptions: New aspirin 81 mg Tablet,Delayed Release (Dr/Ec) 81 mg PO BID Qty: 60 RF: 0 acetaminophen [Tylenol Extra Strength] 500 mg Tablet 1,000 mg PO Q8 Qty: 60 RF: 0 oxycodone 5 mg Tablet 5 - 10 mg PO .Q4h-6h MDD 6 PRN (Reason: pain) Qty: 30 RF: 0 cefadroxil 500 mg capsule 500 mg PO BID Qty: 28 RF: 0 Continued omeprazole 20 mg capsule,delayed release(DR/EC) 20 mg PO QAM Qty: 90 RF: 3 albuterol sulfate [Ventolin HFA] 90 mcg/actuation HFA aerosol inhaler 2 puff inhalation Q4H PRN (Reason: Shortness Of Breath) Qty: 8.5 RF: 5 albuterol sulfate 2.5 mg /3 mL (0.083 %) solution for nebulization 2.5 mg inhalation Q4H PRN (Reason: shortness of breath or wheezing) Qty: 180 RF: 5 atorvastatin 20 mg tablet 20 mg PO HS Qty: 90 RF: 3 bupropion HCl 150 mg tablet extended release 24 hr 150 mg PO QAM Qty: 30 RF: 11 hydrocortisone 2.5 % cream 1 appln TOP TID PRN (Reason: Itching) RF: 0 multivitamin [Daily Multi-Vitamin] tablet 1 tab PO QAM RF: 0 docusate sodium 100 mg capsule 100 mg PO HS RF: 0 calcium carbonate-vitamin D3 600 mg(1,500mg) -200 unit Tablet 1 tab PO QAM RF: 0 Probiotic Acidophilus 1.5 mg (250 million cell) Capsule 1,000 mmu cells PO QAM RF: 0 cyclobenzaprine 10 mg tablet 10 mg PO DAILY PRN (Reason: Pain) RF: 0 Discontinued naproxen 500 mg tablet 500 mg PO BID Qty: 60 RF: 11 omega-3 fatty acids [Fish Oil Concentrate] 1,000 mg capsule 1,000 mg PO HS RF: 0 Discharge Orders: Discharge Order (Routine); Ordered 11/14/20 Ordered By: Jonathan De Paz Admission Data Admit Date/Time: 11/13/20 17:31 Attending Provider: New Farah Admit Provider: New Farah Primary Care Provider: Chely Jade Other Providers: Geovanny Meyers. Other Interventions: Discharge Summary Assessment (RN) Last Done: 11/14/20 14:36
== END 2020-11-14 17:17 | disposition home or self-care (01) | DRG 483 ==
LOC: ASU 06:55 → PACUINP 17:31 → 3E 18:51
DX: F17.210 Nicotine dependence, cigarettes, uncomplicated; J42 Unspecified chronic bronchitis; Z47.31 Aftercare following explantation of shoulder joint prosthesis; Z91.048 Other nonmedicinal substance allergy status; K21.00 Gastro-esophageal reflux disease with esophagitis, without bleeding; Z20.822 Contact with and (suspected) exposure to COVID-19; Z96.611 Presence of right artificial shoulder joint; Z01.812 Encounter for preprocedural laboratory examination; Z79.1 Long term (current) use of non-steroidal anti-inflammatories (NSAID); Z79.899 Other long term (current) drug therapy; T84.59XS Infection and inflammatory reaction due to other internal joint prosthesis, sequela; Z91.013 Allergy to seafood; G89.29 Other chronic pain; J43.9 Emphysema, unspecified; Z96.612 Presence of left artificial shoulder joint; M54.9 Dorsalgia, unspecified; Z82.49 Family history of ischemic heart disease and other diseases of the circulatory system; Z86.718 Personal history of other venous thrombosis and embolism; E78.5 Hyperlipidemia, unspecified; I10 Essential (primary) hypertension; F32.9 Major depressive disorder, single episode, unspecified

== ENCOUNTER 2023-05-12 09:09 | Observation (INO) ==
--- NOTE | 2023-04-21 14:11 | PAT Medication Instructions ---
Medication Instructions Date of Service April 21, 2023 Home Medications Medication Instructions Recorded hydrocortisone 2.5 % topical cream 1 applic topical TID PRN Itching 12/08/21 #30 grams atorvastatin 20 mg tablet 20 mg PO HS #90 tabs 06/08/22 omeprazole 20 mg capsule,delayed 20 mg PO QAM #90 caps 06/12/22 release budesonide 0.5 mg/2 mL suspension 0.5 mg (2 mL) inhalation BID PRN 07/23/22 for nebulization sob #60 mL Ventolin HFA 90 mcg/actuation 2 puff inhalation Q4H PRN 07/31/22 aerosol inhaler (albuterol sulfate) Shortness Of Breath #18 grams cyclobenzaprine 5 mg tablet 5 mg PO BID PRN muscle spasm #60 01/14/23 tabs budesonide-formoterol HFA 160 2 puff inhalation BID #10.2 grams 04/06/23 mcg-4.5 mcg/actuation aerosol inhaler (Symbicort) multivitamin (Daily Multi-Vitamin tablet) 1 tab PO QAM docusate sodium 100 mg capsule 100 mg PO HS calcium carbonate 600 mg-vitamin D3 5 mcg (200 unit) tablet 1 tab PO HS hydrocortisone 2.5 % topical cream 1 applic topical TID PRN Itching atorvastatin 20 mg tablet 20 mg PO HS acetaminophen 500 mg tablet (Tylenol Extra Strength) 1,000 mg PO Q8 PRN Pain naproxen 500 mg tablet 500 mg PO BID omeprazole 20 mg capsule,delayed release 20 mg PO QAM guaifenesin 600 mg tablet, extended release 12 hr (Mucinex) 600 mg PO BID ipratropium 0.5 mg-albuterol 3 mg (2.5 mg base)/3 mL nebulization soln 3 ml inhalation BID PRN sob losartan 25 mg tablet 25 mg PO HS budesonide 0.5 mg/2 mL suspension for nebulization 0.5 mg (2 mL) inhalation BID PRN sob Ventolin HFA 90 mcg/actuation aerosol inhaler (albuterol sulfate) 2 puff inhalation Q4H PRN Shortness Of Breath cyclobenzaprine 5 mg tablet 5 mg PO BID PRN muscle spasm budesonide-formoterol HFA 160 mcg-4.5 mcg/actuation aerosol inhaler (Symbicort) 2 puff inhalation BID ASK your surgeon for instructions naproxen 500 mg tablet 500 mg PO BID STOP taking 24 hours before surgery hydrocortisone 2.5 % topical cream 1 applic topical TID PRN Itching DO NOT take the morning of surgery multivitamin (Daily Multi-Vitamin tablet) 1 tab PO QAM guaifenesin 600 mg tablet, extended release 12 hr (Mucinex) 600 mg PO BID Take morning of surgery With a small sip of water, OTHERWISE NOTHING TO EAT OR DRINK AFTER MIDNIGHT: acetaminophen 500 mg tablet (Tylenol Extra Strength) 1,000 mg PO Q8 PRN Pain (if needed) omeprazole 20 mg capsule,delayed release 20 mg PO QAM ipratropium 0.5 mg-albuterol 3 mg (2.5 mg base)/3 mL nebulization soln 3 ml inhalation BID PRN sob (if needed) budesonide 0.5 mg/2 mL suspension for nebulization 0.5 mg (2 mL) inhalation BID PRN sob (if needed) Ventolin HFA 90 mcg/actuation aerosol inhaler (albuterol sulfate) 2 puff inhalation Q4H PRN Shortness Of Breath (use if needed; please bring with you to hospital day of surgery if possible) cyclobenzaprine 5 mg tablet 5 mg PO BID PRN muscle spasm (if needed) budesonide-formoterol HFA 160 mcg-4.5 mcg/actuation aerosol inhaler (Symbicort) 2 puff inhalation BID Take evening before surgery docusate sodium 100 mg capsule 100 mg PO HS calcium carbonate 600 mg-vitamin D3 5 mcg (200 unit) tablet 1 tab PO HS atorvastatin 20 mg tablet 20 mg PO HS acetaminophen 500 mg tablet (Tylenol Extra Strength) 1,000 mg PO Q8 PRN Pain (if needed) guaifenesin 600 mg tablet, extended release 12 hr (Mucinex) 600 mg PO BID ipratropium 0.5 mg-albuterol 3 mg (2.5 mg base)/3 mL nebulization soln 3 ml inhalation BID PRN sob (if needed) losartan 25 mg tablet 25 mg PO HS budesonide 0.5 mg/2 mL suspension for nebulization 0.5 mg (2 mL) inhalation BID PRN sob (if needed) Ventolin HFA 90 mcg/actuation aerosol inhaler (albuterol sulfate) 2 puff inhalation Q4H PRN Shortness Of Breath (if needed) cyclobenzaprine 5 mg tablet 5 mg PO BID PRN muscle spasm (if needed) budesonide-formoterol HFA 160 mcg-4.5 mcg/actuation aerosol inhaler (Symbicort) 2 puff inhalation BID Other Notes If you have any questions please call us at [phone] or [phone] or [phone] or [phone]
--- NOTE | 2023-04-29 09:09 | Anesthesiology Consultation ---
Date of Service April 29, 2023 Assessment & Plan (1) Encounter for pre-operative examination: - Infectious disease screening: Per assessment on 04/29/23: No known infectious disease contacts or current infectious disease symptoms. No noted recent Covid positive test result. - Outpatient joint assessment: Pt currently scheduled for inpatient pathway. If surgeon requests review for outpatient joint pathway, patient is not recommended candidate for outpatient joint program from anesthesia standpoint based upon available information. - PCP visit (04/29/23): "Reviewed labs, EKG and CXR.. Cleared for surgery" - Hx of epidural abscess (L5-S1) 2019: Right reverse TSA 2018 > infected TSA, hx staph aureus sepsis and vertebral osteomyelitis/epidural abscess (2019) requiring multiple courses of PICC/IV abx into 2019. Subsequent hardware removal + antibiotic spacer. Had revision TSA 2020. No current/recent issues. Reviewed with Dr. Rowan. At anesthesiologist discretion DOS regarding ultimate type of anesthesia decision/plan. Chart Review Chart Review: Acceptable Risk for Surgery and Patient seen in Pre Admission Testing Teaching & Discussion Pre-Anesthesia Teaching/Discussion Notes: Instructed NPO after midnight before surgery,except medications with 15 cc of water. Medication instructions provided according to the PAT guidelines. History Surgery Operation Date: 05/12/23 13:20 Proposed Procedures p Left Total Knee Arthroplasty - New Farah MD Height/Weight Height: 5 ft 3 in Weight: 59.8 kg Allergies Allergy/AdvReac Type Severity Reaction Status Date / Time nickel Allergy Mild Rash (with Verified 04/29/23 14:39 jewelry) shellfish derived Allergy Mild Tongue/throat Verified 04/29/23 14:39 itchy and swelling Additional Notes: *Surgeon's office aware of nickel allergy/reaction* Medications Home Medications Medication Instructions Recorded Confirmed Last Taken multivitamin (Daily Multi-Vitamin 1 tab PO QAM 09/29/18 04/29/23 12/14/22 tablet) docusate sodium 100 mg capsule 100 mg PO HS 01/17/19 04/29/23 08/02/22 calcium carbonate 600 mg-vitamin 1 tab PO HS 12/27/19 04/29/23 12/14/22 D3 5 mcg (200 unit) tablet hydrocortisone 2.5 % topical cream 1 applic topical TID PRN Itching 12/08/21 04/29/23 12/14/22 #30 grams atorvastatin 20 mg tablet 20 mg PO HS #90 tabs 06/08/22 04/29/23 12/14/22 acetaminophen 500 mg tablet 1,000 mg PO Q8 PRN Pain 06/12/22 04/29/23 12/14/22 (Tylenol Extra Strength) naproxen 500 mg tablet 500 mg PO BID 06/12/22 04/29/23 12/14/22 omeprazole 20 mg capsule,delayed 20 mg PO QAM #90 caps 06/12/22 04/29/23 12/14/22 release guaifenesin 600 mg tablet, 600 mg PO BID 06/17/22 04/29/23 12/14/22 extended release 12 hr (Mucinex) ipratropium 0.5 mg-albuterol 3 mg 3 ml inhalation BID PRN sob 06/17/22 04/29/23 06/28/22 (2.5 mg base)/3 mL nebulization soln losartan 25 mg tablet 25 mg PO HS 06/17/22 04/29/23 12/15/22 04:00 budesonide 0.5 mg/2 mL suspension 0.5 mg (2 mL) inhalation BID PRN 07/23/22 04/29/23 12/15/22 10:57 for nebulization sob #60 mL Ventolin HFA 90 mcg/actuation 2 puff inhalation Q4H PRN 07/31/22 04/29/23 12/15/22 aerosol inhaler (albuterol sulfate) Shortness Of Breath #18 grams cyclobenzaprine 5 mg tablet 5 mg PO BID PRN muscle spasm #60 01/14/23 04/29/23 Unknown tabs budesonide-formoterol HFA 160 2 puff inhalation BID #10.2 grams 04/06/23 04/29/23 Unknown mcg-4.5 mcg/actuation aerosol inhaler (Symbicort) Past Medical History Medical History History of blood clots Hx MRSA infection History of torn meniscus of left knee HTN (hypertension) GERD (gastroesophageal reflux disease) Hiatal hernia Degenerative disc disease Chronic back pain Chronic obstructive pulmonary disease Osteomyelitis Scoliosis Hyperlipidemia Exercise / Class Metabolic Activity II 4-5 Yardwork/Stairs/Walk up hill (one FS: No CP, no SOB) Past Family History Family History Father Atrial fibrillation Mother Coronary heart disease Breast cancer No family history of adverse response to anesthesia Uncle Myocardial infarction Colorectal cancer Aunt Myocardial infarction Breast cancer Grandfather (Maternal) No problems noted. Grandmother (Maternal) Myocardial infarction Denies family history of Ovarian cancer Prostate cancer Past Surgical History Surgical History Hx of cataract extraction History of anesthesia reaction History of esophagogastroduodenoscopy (EGD) History of adenoidectomy History of bilateral tubal ligation S/P foot surgery, right History of revision of total shoulder arthroplasty History of laparoscopy History of colonoscopy History of tonsillectomy History of carpal tunnel release of both wrists H/O varicose vein ligation H/O shoulder surgery H/O foot surgery Past Anesthesia History No Family Hx of Anesthesia Complications and Other (Slow to wake) History of PONV No Hx of PONV and Hx of Motion Sickness (Occasional) Social History Smoking Status: Current every day smoker tobacco type: cigarettes Smoking cigarettes per day: 1 PPD (tobacco use x 48 years) Do You Dip or Chew Tobacco: No Hx Alcohol Use: No Hx Substance Use: No substance use type: does not use Review of Systems Rare episodes of palpitations. Patient denies chest pain, shortness of breath, dyspnea on exertion, fever, chills, cough, wheezing. Physical Exam Vital Signs BP 130/78 P 90 TEMP 98.4 SP02 96%RA RESP 16 Physical Full cervical extension range of motion. Full TMJ range of motion. TMD > 3.5 finger breaths Mallampati Score 3 Dentition: upper/lower dentures Lungs: clear throughout to auscultation Cardiac: regular rate and rhythm with occasional extra beat, no murmurs noted Spine: + scoliosis Carotid arteries: negative bruit Extremities: no LE edema Lab Results Anesthesia Preop Results Results Anesthesia Widget: WBC 9.23 K/ul (4.8-10.8) 04/29/23 Hgb 15.4 g/dl (12.0-16.0) 04/29/23 Hct 45.7 % (37.0-47.0) 04/29/23 Plt 315 K/uL (130-400) 04/29/23 Na 141 mmol/L (136-145) 04/29/23 K 3.7 mmol/L (3.5-5.1) 04/29/23 Cl 106 mmol/L (98-107) 04/29/23 CO2 27 mmol/L (21-32) 04/29/23 BUN 20 mg/dl (6-23) 04/29/23 Creat 0.96 mg/dl (0.6-1.2) 04/29/23 Glucose Level 80 mg/dl (70-99(Fasting)) 04/29/23 PT 10.8 Seconds (9.0-12.0) 04/29/23 PTT 28 Seconds (21-31) 04/29/23 INR 1.0 (0.9-1.1) 04/29/23 HA1c 5.7 % (4.5-5.6) H 04/29/23 Urine Color Yellow 04/29/23 Urine Appearance Clear (Clear) 04/29/23 Urine pH 6.0 (4.5-7.5) 04/29/23 Urine Specific [place] 1.010 (1.000-1.030) 04/29/23 Urine Protein Negative (Negative) 04/29/23 Urine Glucose (UA) Negative (Negative) 04/29/23 Urine Ketones Negative (Negative) 04/29/23 Urine Blood Negative (Negative) 04/29/23 Urine Nitrite Negative (Negative) 04/29/23 Urine Bilirubin Negative (Negative) 04/29/23 Urine Urobilinogen Negative (Negative) 04/29/23 Urine Leukocyte Esterase Negative (Negative) 04/29/23 Blood Type O Positive 04/29/23 Antibody Screen NEGATIVE 04/29/23 Testing Electrocardiogram Date: 04/29/23 NSR at 80bpm. Chest X-Ray Date: 04/29/23 FINDINGS: Cardiomediastinal and hilar silhouettes are within normal limits. Hyperinflation with diaphragmatic flattening. Mild right basilar atelectasis versus scarring. No pneumothorax, pleural effusion or airspace consolidation. Bilateral shoulder arthroplasties. Sigmoidal fracture lumbar scoliosis IMPRESSION: No acute process. Echocardiogram Date: 07/06/19 EF = > 70%. LV wall motion is normal. Hyperdynamic LV. LV appears underfilled. No evidence of mass of vegetation. No significant valvular disease.
--- NOTE | 2023-05-02 19:06 | History & Physical Report ---
Date of Service May 02, 2023 Assessment & Plan (1) Primary osteoarthritis of left knee: Plan: Treatment options discussed with the patient. She would like to proceed with surgery. Risks, benefits and alternatives to surgery including but not limited to infection, DVT, pain, stiffness, need for revision surgery, damage to blood vessels, damage to nerves, PE, , were discussed with the patient and they wish to proceed. Plan for left total knee arthroplasty scheduled [facility] on May [address] Farah. Plan on outpatient physical therapy postop. Plan on aspirin 81 mg twice daily for 1 month postop for 1 month vs Xarelto 10 mg daily for post op DVT prophylaxis. Plan on antibiotic prophylaxis postop due to history of right shoulder infection. All questions answered. Patient will follow-up postop. History of Present Illness Chief Complaint: Left knee pain Primary Care Provider: TYLER Gabriel 72-year-old female with past medical history significant for hypertension, COPD, high cholesterol history of blood clots, history of septic total shoulder who presents with ongoing left knee pain. Pain is interfering with her daily activities. She has failed conservative measures and would like to proceed with surgery. Patient denies headaches, sweats, fevers, chills, double vision, blurred vision, cough, sore throat, dysphagia, chest pain, sob, wheezing, n/v/d/c, numbness, tingling, fatigue, urinary symptoms, mood disorders. ROS positive for left knee pain and stiffness. Allergies Allergy/AdvReac Type Severity Reaction Status Date / Time nickel Allergy Mild Rash (with Verified 04/29/23 14:39 jewelry) shellfish derived Allergy Mild Tongue/throat Verified 04/29/23 14:39 itchy and swelling Home Medications Medication Instructions Recorded Confirmed Type multivitamin (Daily Multi-Vitamin 1 tab PO QAM 09/29/18 04/29/23 History tablet) docusate sodium 100 mg capsule 100 mg PO HS 01/17/19 04/29/23 History calcium carbonate 600 mg-vitamin 1 tab PO HS 12/27/19 04/29/23 History D3 5 mcg (200 unit) tablet hydrocortisone 2.5 % topical cream 1 applic topical TID PRN Itching 12/08/21 04/29/23 Rx #30 grams atorvastatin 20 mg tablet 20 mg PO HS #90 tabs 06/08/22 04/29/23 Rx acetaminophen 500 mg tablet 1,000 mg PO Q8 PRN Pain 06/12/22 04/29/23 History (Tylenol Extra Strength) naproxen 500 mg tablet 500 mg PO BID 06/12/22 04/29/23 History omeprazole 20 mg capsule,delayed 20 mg PO QAM #90 caps 06/12/22 04/29/23 Rx release guaifenesin 600 mg tablet, 600 mg PO BID 06/17/22 04/29/23 History extended release 12 hr (Mucinex) ipratropium 0.5 mg-albuterol 3 mg 3 ml inhalation BID PRN sob 06/17/22 04/29/23 History (2.5 mg base)/3 mL nebulization soln losartan 25 mg tablet 25 mg PO HS 06/17/22 04/29/23 History budesonide 0.5 mg/2 mL suspension 0.5 mg (2 mL) inhalation BID PRN 07/23/22 04/29/23 Rx for nebulization sob #60 mL Ventolin HFA 90 mcg/actuation 2 puff inhalation Q4H PRN 07/31/22 04/29/23 Rx aerosol inhaler (albuterol sulfate) Shortness Of Breath #18 grams cyclobenzaprine 5 mg tablet 5 mg PO BID PRN muscle spasm #60 01/14/23 04/29/23 Rx tabs budesonide-formoterol HFA 160 2 puff inhalation BID #10.2 grams 04/06/23 04/29/23 Rx mcg-4.5 mcg/actuation aerosol inhaler (Symbicort) Past Med/Surg History Medical History History of blood clots Hx MRSA infection History of torn meniscus of left knee HTN (hypertension) GERD (gastroesophageal reflux disease) Hiatal hernia Degenerative disc disease Chronic back pain Chronic obstructive pulmonary disease Osteomyelitis Scoliosis Hyperlipidemia Surgical History Hx of cataract extraction History of anesthesia reaction History of esophagogastroduodenoscopy (EGD) History of adenoidectomy History of bilateral tubal ligation S/P foot surgery, right History of revision of total shoulder arthroplasty History of laparoscopy History of colonoscopy History of tonsillectomy History of carpal tunnel release of both wrists H/O varicose vein ligation H/O shoulder surgery H/O foot surgery Family History Father Atrial fibrillation Mother Coronary heart disease Breast cancer No family history of adverse response to anesthesia Uncle Myocardial infarction Colorectal cancer Aunt Myocardial infarction Breast cancer Grandfather (Maternal) No problems noted. Grandmother (Maternal) Myocardial infarction Denies family history of Ovarian cancer Prostate cancer Social History Smoking Status: Current every day smoker Tobacco Type: Cigarettes Age Started Using Tobacco: 24; packs per day: 1; Cigarettes Per Day: 1 PPD (tobacco use x 48 years); Second Hand Exposure: No; Do You Dip or Chew Tobacco: No; Hx Alcohol Use: No Hx Substance Use: No Preferred Language: Uzbek Communication Ability: Effective Hearing Ability: Normal Structural Analysis Engineer Required: No Beliefs That Will Affect Care: None marital status: Current Living Situation: Alone current occupational status: retired How many Children do You have: 6 Feels Safe at Home: Yes Childhood Exposure to Second-Hand Smoke: No Diet: regular caffeine: Yes Dental Care, Regularly: No Physical Activity Frequency: Does not Exercise Seatbelt Use: always Sunscreen Use: Yes Assistive Devices: Denture - Upper, Denture - Lower and Glasses Review of Systems All systems reviewed & are unremarkable except as noted in HPI & below Physical Exam Constitutional: well developed and well nourished; no acute distress Eyes: PERRL, conjunctivae normal, anicteric sclerae ENMT: external ear and nose normal, oropharynx normal Neck: trachea midline, no thyromegaly Respiratory: normal respiratory effort, lungs clear to auscultation Cardiovascular: RRR, no murmur, no edema Musculoskeletal: Left knee: Varus alignment. Tenderness medial joint line. Positive Moses's, positive anterior drawer. Stable valgus and varus stress. Range of motion 0 135 degrees. Skin: no rashes, warm and dry Neurologic: patellar DTR's 2+ bilat, sensation intact Psychiatric: A+Ox3, euthymic affect Results & Data Diagnostic Findings Left knee radiographs demonstrate image osteoarthritis with [id number] medial compartment with subchondral sclerosis and periarticular osteophytes.
[2023-05-12] MEDS: ACETAMINOPHEN 500 MG TAB PO SCH ×2 (09:40→16:36)
[2023-05-12] MEDS: dexAMETHasone**PF** 10 MG/ML VIAL IV SCH (09:40)
[2023-05-12] MEDS: FAMOTIDINE 20 MG TAB PO SCH (09:40)
[2023-05-12] MEDS: GABAPENTIN 300 MG CAP PO SCH (09:41)
[2023-05-12] MEDS: METOCLOPRAMIDE HCL 10 MG TABLET PO SCH (09:41)
[2023-05-12] MEDS: CeleBREX 200 MG CAP PO SCH (09:41)
--- NOTE | 2023-05-12 09:59 | History & Physical Bridge Note ---
Date of Service May 12, 2023 History & Physical Bridge Note I have examined the patient, reviewed the History & Physical and in the interval since the performance of the History & Physical I have noted the following changes of clinical significance: no changes noted
[2023-05-12] MEDS ORDERED: BUPIVACAINE 0.5 % 5 MG/1 ML PF 10ML VIAL ONE (10:02)
[2023-05-12] MEDS ORDERED: ROPIVACAINE 0.5% 5 MG/ML 30 ML VIAL ONE (10:02)
[2023-05-12] MEDS: LR 500ML BOLUS, THEN 15ML/HR IV SCH (10:05)
[2023-05-12] MEDS: LR 60ML/HR IV SCH (10:11)
[2023-05-12] MEDS ORDERED: LIDOCAINE 2% 2 ML VIAL/AMP(20MG/ML) INFIL ONE (10:19)
[2023-05-12] MEDS ORDERED: PROPOFOL IV EMULSION 10 MG/ML 20 ML VIAL IV ONE ×3 (10:19→13:10)
[2023-05-12] MEDS ORDERED: KETAMINE HCL 10MG/ML SYR ONE (10:24)
[2023-05-12] MEDS ORDERED: ATROPINE SULFATE 0.1 MG/ML 10ML SYR IV PRN (10:25)
[2023-05-12] MEDS ORDERED: ePHEDrine sulfate 50 MG/ML AMP IV PRN (10:25)
[2023-05-12] MEDS ORDERED: ONDANSETRON INJ 2 MG/ML 2 ML VIAL IV PRN ×2 (10:25→15:37)
[2023-05-12] MEDS ORDERED: MIDAZOLAM HCL 1 MG/ML 2ML VIAL ONE (10:42)
[2023-05-12] MEDS ORDERED: fentaNYL citrate PF 100 MCG/2 ML VIAL ONE ×2 (10:42→12:17)
[2023-05-12] MEDS: TRANEXAMIC ACID 1,000 MG **IV Pre-op IV SCH (11:22)
[2023-05-12] MEDS: ceFAZolin 2000MG 2,000 MG/15 ML SYR IV SCH ×2 (11:40→17:53)
[2023-05-12] MEDS: ROPIV 0.5% 246mg, Ketorolac 30mg, EPINEPHrine 0.5mg in NSS INFIL SCH (12:18)
[2023-05-12] MEDS: TRANEXAMIC ACID 1,000 MG **IV Intra-op IV SCH (13:09)
[2023-05-12] MEDS ORDERED: ONDANSETRON INJ 2 MG/ML 2 ML VIAL ONE (13:10)
--- NOTE | 2023-05-12 13:28 | Operative Report ---
Post Operative Report Pre & Post Diagnosis Operation Date: 05/12/23 11:10 Pre-Op Diagnosis: Left Knee Osteoarthritis, chondrocalcinosis Post-Op Diagnosis: Left Knee Osteoarthritis, chondrocalcinosis I identified the patient and participated in the time-out.: Yes Procedure Operation Date: 05/12/23 11:10 Actual Procedures p Left Total Knee Arthroplasty(Left), lateral release, application krystle and Acticoat flex superficial wound VAC.- New Farah MD Surgeon New Farah MD Nut Packer Christian DAVIS Estimated Blood Loss 5 Findings Consistent with Post-Op Diagnosis Specimens Bone cuts Drains 2 Hemovac Anesthesia Type MAC Spinal Regional Complications none Disposition Disposition: Recovery Room Indications 72-year-old female with chronic bilateral knee pain. Radiographs demonstrate that she has bilateral knee tricompartmental osteoarthritis with some chondrocalcinosis grade 4 in the medial compartments with mild varus alignment of her knees. Description of Procedure The patient was taken to the operating room and anesthetized under spinal MAC regional block. Patient was placed supine on the the operating table. A pneumatic tourniquet was placed about the left upper thigh. The knee exam demonstrated thin leg with good range of motion, varus knee and a moderate large effusion. The involved leg was elevated exsanguinated with Esmarch bandage and the pneumatic tourniquet was raised to 275 millimeters mercury. A longitudinal incision was made across the anterior knee. Skin flaps were elevated. An incision was made into the medial retinaculum and extended up into the mid third of the quadriceps tendon and extended down to the tibial tubercle. Intra- articular findings demonstrated tricompartmental osteoarthritis [id number] the medial femoral condyle and tibia [id number] in the medial aspect of the lateral femoral condyle due to subluxation and grade III and IV chondromalacia patellofemoral joint. There were multiple areas of calcification throughout the knee joint. There was chronic synovitis. The knee was exposed by excising cruciate ligaments and menisci. The infrapatellar fat pad was resected. The fat pad over the anterior femur at the upper aspect of the articular surface was resected for placement of the component in that area. The larger superficial calcium deposits were excised with a rongeur when identified. A subperiosteal peel lateral release was performed around the patella. There was some loose bodies and synovium in the suprapatellar pouch and these were resected along with some of the suprapatellar pouch synovium. The [employer]raf [employer] Nephew journey 2.0 total knee arthroplasty system was utilized for the procedure. The custom femoral cutting guide was pinned in position. The distal femoral cut was made. The size 6, 5 in 1 cutting block was placed. The anterior posterior and chamfer cuts were made. The knee was extended and a free hand cut technique was performed to the patella. The patella width was measured and the width was reproduced using a 35 symmetrical patella component. The excess lateral facet was beveled off to prevent any impingement. 3 drill holes are made for the patella component pegs. The tibia was then subluxed. The custom tibial cutting block was pinned in position and the proximal tibial cut was made with the oscillating saw. Flexion and extension gaps were balanced. No releases were required. The size 4 tibial trial was externally rotated in line with the tibial tubercle and pinned in position. The punch for the stem was used. The femoral trial was inserted and centered the notch cutting devices were used and the collet was placed. Tibial trials were used for the insert. The size 12 trial gave balanced ligaments through full range of motion. Patella tracking was assessed with range of motion. The patella tracked with some slight lateral patellar tilt and lateral tracking so I did do a lateral release leaving the synovium intact and leaving the geniculate vessels intact. The trials were removed. The Orthomix anesthetic cocktail was injected per protocol. The cut bone surfaces and soft tissue were copiously irrigated with pulsatile lavage saline solution. The final components were cemented with Refobacin cement. The final components were Ashraf [employer] Nephew 2.0 posterior stabilized 6 left femoral component, 4 left tibial component, 12 mm left posterior stabilized tibial polyethylene insert and the 35 mm symmetrical polyethylene patella. Xperience irrigation was placed over metal tray prior to polyethyle insertion. After the cement cured, the knee was then copiously irrigated with pulsatile lavage Xperience solution. 2 drains were brought out laterally connected to Hemovac. The quadriceps tendon and medial retinaculum were closed with interrupted [id number] #1 Vicryl sutures. The knee was taken through full range of motion and repair was secure. Knee range of motion was 0 through 135 degrees. the subcutaneous tissues were closed with 2-0 Vicryl sutures. The skin was closed with 3-0 STRATAFIX subcutaneous closure with Prineo glue system on the skin. A krystle and Acticoat Flex superficial wound VAC was applied. The tourniquet was let down and the patient had good capillary refill to the extremity. The patient tolerated the procedure well. My physician clothing sales assistant Christian DAVIS participated as anesthesiologists' assistant and was integral part in all aspects of the procedure including prepping, draping, leg positioning, soft tissue retraction, instrument management and assisted in the closure , wound VAC application and will participate in postoperative care the patient. I attest to the content of the Intraoperative Record and any orders documented therein. Any exceptions are noted below.
[2023-05-12] MEDS ORDERED: PHENYLEPHRINE 100MCG/ML 10ML SYR IV ONE (14:00)
--- NOTE | 2023-05-12 14:15 | XRay Report ---
TWO VIEWS LEFT KNEE CLINICAL HISTORY: Postoperative examination. FINDINGS: AP and crosstable lateral portable views of the left knee are obtained. A left knee arthrop lasty is in near anatomic alignment. There has been undersurface remodeling of the patella. No acute fracture is seen. There are expected postoperative changes around the knee including a surgical drain , soft tissue edema, and subcutaneous gas. IMPRESSION: Expected postoperative changes status post left knee arthroplasty. No acute fracture is s een. ACT 112: Negative or not required by law. Electronically signed by: Mychal Schmitz M.D. 05/12/2023 2:13 PM
[2023-05-12] MEDS: fentaNYL citrate PF 100 MCG/2 ML VIAL IV PRN (14:38)
--- NOTE | 2023-05-12 15:20 | Anesthesiology Progress Note ---
Date of Service May 12, 2023 Anesthesia Post Procedure Vital Signs Vital Signs: Temp Pulse Pulse Resp BP Pulse Ox O2 Del Method 05/12/23 15:05 99.1 F 94 H 14 106/72 93 Nasal Cannula 05/12/23 14:50 90 13 109/72 93 Oxymask 05/12/23 14:40 97.5 F L 91 H 12 120/75 94 Oxymask 05/12/23 14:30 91 H 12 129/84 94 Oxymask 05/12/23 14:20 90 12 122/82 95 Oxymask 05/12/23 14:10 90 12 118/79 96 Oxymask 05/12/23 14:00 89 12 105/69 95 Oxymask 05/12/23 13:53 98.8 F 90 13 102/62 93 Oxymask 05/12/23 09:52 Room Air 05/12/23 09:38 98.4 F 95 H 20 112/78 97 Room Air O2 Flow Rate 05/12/23 15:05 2 05/12/23 14:50 3 05/12/23 14:40 3 05/12/23 14:30 4 05/12/23 14:20 4 05/12/23 14:10 4 05/12/23 14:00 6 05/12/23 13:53 6 05/12/23 09:52 05/12/23 09:38 Pain Intensity Left Knee: Pain Intensity: 2 Transfer of Care Handoff Completed per policy Notes Mental Status: alert / awake / arousable and participated in evaluation Patient Amnestic to Procedure: Yes Nausea / Vomiting: adequately controlled Pain: adequately controlled Airway Patency, RR, SpO2: stable & adequate BP & HR: stable & adequate Hydration State: stable & adequate Anesthetic Complications: no major complications apparent and Pt Satisfied with anesthetic care
[2023-05-12] MEDS ORDERED: MAGNESIUM HYDROXIDE SUSP 30 ML UDC PO PRN (15:37)
[2023-05-12] MEDS ORDERED: NALOXONE HCL 0.4 MG/1 ML VIAL/CARP IV PRN (15:37)
[2023-05-12] MEDS ORDERED: bisacodyL 10 MG SUPP PR PRN (15:37)
[2023-05-12] MEDS ORDERED: BUDESONIDE 0.5 MG/2 ML VIAL (PULMICORT) INH PRN (15:37)
[2023-05-12] MEDS ORDERED: diphenhydrAMINE 50 MG/ML VIAL IV PRN (15:37)
[2023-05-12] MEDS ORDERED: CYCLOBENZAPRINE HCL 5 MG TAB PO PRN (15:37)
[2023-05-12] MEDS ORDERED: HYDROmorphone INJ 0.5 MG/0.5 ML SYR IV PRN (15:37)
[2023-05-12] MEDS ORDERED: oxyCODONE HCL IR 5 MG TAB (IMMEDIATE RELEASE) PO PRN (15:37)
[2023-05-12] MEDS ORDERED: ALBUTEROL HFA 8 GM INHALER INH PRN (15:37)
[2023-05-12] MEDS ORDERED: ALBUT/IPRATROP 3MG/0.5MG NEB 3 ML VIAL INH PRN (15:37)
[2023-05-12] MEDS: SODIUM CHLORIDE 0.9% 1,000 ML IV SCH (15:58)
[2023-05-12] MEDS: DOCUSATE SODIUM 100 MG CAP PO SCH (21:23)
[2023-05-12] MEDS: SENNA 8.6 MG TAB PO SCH (21:23)
[2023-05-12] MEDS: LOSARTAN POTASSIUM 25 MG TAB PO SCH (21:24)
[2023-05-12] MEDS: ATORVASTATIN 20 MG TAB PO SCH (21:24)
[2023-05-12] MEDS: ASPIRIN 81 MG ECTAB PO SCH (21:24)
[2023-05-12] MEDS: guaiFENesin 600 MG TABCR PO SCH (21:25)
[2023-05-13 06:40] LABS: Hematocrit (blood only) 37.2 % (37.0-47.0); Hemoglobin 12.3 g/dl (12.0-16.0); Mean Corpuscular Hgb Conc 33.1 g/dL (32.0-36.0); Mean Corpuscular Volume 93.7 fL (80.0-100.0); Mean Platelet Volume 9.4 fL (9.4-12.4); Platelet Count 236 K/uL (130-400); RDW Coefficient of Variation 13.5 % (11.5-14.5); RDW Standard Deviation 46.7 fL (36.4-46.3); Red Blood Count 3.97 M/uL (4.20-5.40); White Blood Count 12.49 K/ul (4.8-10.8)
[2023-05-13 06:59] LABS: BUN Creatinine Ratio 23.7 (10-20); Calcium 7.7 mg/dl (8.6-10.3); Creatinine Clr Calc Pharmacy 54.5 ml/min; Est GFR (African American) 90.2 ml/min; Est GFR (Non-African American) 77.8 ml/min; Potassium 3.7 mmol/L (3.5-5.1)
--- NOTE | 2023-05-13 07:24 | Orthopedic Progress Note ---
Date of Service May 13, 2023 Assessment & Plan Admission and Anticipated Discharge Date Admission Date: May 12, 2023 Subjective No significant pain doing well Results & Data Vital Signs (Past 12 Hours) Vital Signs Temp Pulse Resp BP O2 Del Method 05/13/23 04:02 36.6 C 80 18 136/85 Room Air 05/12/23 22:58 36.7 C 83 18 111/75 Room Air 05/12/23 21:30 Room Air
--- NOTE | 2023-05-13 07:30 | Orthopedic Progress Note ---
Date of Service May 13, 2023 Assessment & Plan (1) Primary osteoarthritis of left knee: Plan: Postop day 1 left total knee replacement for osteoarthritis left knee also has some chondrocalcinosis noted intraoperatively. Await pathology to see if she has calcium pyrophosphate disease. Patient wants to be discharged home and do outpatient physical therapy. She will schedule this tomorrow or Wednesday. Patient can be discharged home after physical therapy and her drain can be discontinued today. Admission and Anticipated Discharge Date Admission Date: May 12, 2023 Subjective No complaints no pain Review of Systems Review of Systems: Noncontributory no symptoms Physical Exam Physical Exam: Good circulation ,distal motor function normal. Independent straight leg raise. Results & Data Vital Signs (Past 12 Hours) Vital Signs Temp Pulse Resp BP O2 Del Method 05/13/23 04:02 36.6 C 80 18 136/85 Room Air 05/12/23 22:58 36.7 C 83 18 111/75 Room Air 05/12/23 21:30 Room Air Diagnostic Findings Well aligned implants on x-rays left knee
[2023-05-13] MEDS: FLUTICASONE/VILANTEROL 200/25MCG 14 PUFFS/INHALER INH SCH (09:08)
[2023-05-13] MEDS: MULTIVITAMIN TAB PO SCH (09:09)
[2023-05-13] MEDS: PANTOprazole 40 MG TAB PO SCH (09:09)
--- NOTE | 2023-05-13 10:33 | Hospitalist Consultation ---
Date of Consultation May 13, 2023 Assessment & Plan (1) Primary osteoarthritis of left knee: (2) Hyperlipidemia: (3) Chronic obstructive pulmonary disease: (4) Hypertension: Plan Pain management, activity level, medication reconciliation per the primary team. Patient was discharged home prior to being seen. History of Present Illness Reason for Consultation: Post-op medical management Requesting Physician: New Farah MD Attending Physician: New Farah MD History of Present Illness Patient had an elective left total knee replacement for osteoarthritis of the left knee on 05/12/[address] Farah. We are consulted for medical manageme nt. However, patient was discharged home prior to being seen. Allergies Allergy/AdvReac Type Severity Reaction Status Date / Time nickel Allergy Mild Rash (with Verified 05/12/23 09:49 jewelry) shellfish derived Allergy Mild Tongue/throat Verified 05/12/23 09:49 itchy and swelling Home Medications Medication Instructions Recorded Confirmed Type multivitamin (Daily Multi-Vitamin 1 tab PO QAM 09/29/18 05/12/23 History tablet) docusate sodium 100 mg capsule 100 mg PO HS 01/17/19 05/12/23 History calcium carbonate 600 mg-vitamin 1 tab PO HS 12/27/19 05/12/23 History D3 5 mcg (200 unit) tablet hydrocortisone 2.5 % topical cream 1 applic topical TID PRN Itching 12/08/21 05/12/23 Rx #30 grams atorvastatin 20 mg tablet 20 mg PO HS #90 tabs 06/08/22 05/12/23 Rx omeprazole 20 mg capsule,delayed 20 mg PO QAM #90 caps 06/12/22 05/12/23 Rx release guaifenesin 600 mg tablet, 600 mg PO BID 06/17/22 05/12/23 History extended release 12 hr (Mucinex) ipratropium 0.5 mg-albuterol 3 mg 3 ml inhalation BID PRN sob 06/17/22 05/12/23 History (2.5 mg base)/3 mL nebulization soln losartan 25 mg tablet 25 mg PO HS 06/17/22 05/12/23 History budesonide 0.5 mg/2 mL suspension 0.5 mg (2 mL) inhalation BID PRN 07/23/22 05/12/23 Rx for nebulization sob #60 mL cyclobenzaprine 5 mg tablet 5 mg PO BID PRN muscle spasm #60 01/14/23 05/12/23 Rx tabs budesonide-formoterol HFA 160 2 puff inhalation BID #10.2 grams 04/06/23 05/12/23 Rx mcg-4.5 mcg/actuation aerosol inhaler (Symbicort) Ventolin HFA 90 mcg/actuation 2 puff inhalation Q4H PRN 05/03/23 05/12/23 Rx aerosol inhaler (albuterol sulfate) Shortness Of Breath #18 grams acetaminophen 500 mg tablet 1,000 mg (2 x 500 mg) PO Q8 14 05/12/23 Rx (Tylenol Extra Strength) days #84 tabs aspirin 81 mg tablet,delayed 81 mg PO BID 30 days #60 tabs 05/12/23 Rx release cefadroxil 500 mg capsule 500 mg PO BID #14 caps 05/12/23 Rx oxycodone 5 mg tablet 5 mg PO Q4H PRN pain #30 tabs 05/12/23 Rx Patient History Medical History History of blood clots Hx MRSA infection History of torn meniscus of left knee HTN (hypertension) GERD (gastroesophageal reflux disease) Hiatal hernia Degenerative disc disease Chronic back pain Chronic obstructive pulmonary disease Osteomyelitis Scoliosis Hyperlipidemia Surgical History Hx of cataract extraction History of anesthesia reaction History of esophagogastroduodenoscopy (EGD) History of adenoidectomy History of bilateral tubal ligation S/P foot surgery, right History of revision of total shoulder arthroplasty History of laparoscopy History of colonoscopy History of tonsillectomy History of carpal tunnel release of both wrists H/O varicose vein ligation H/O shoulder surgery H/O foot surgery Family History Father Atrial fibrillation Mother Coronary heart disease Breast cancer No family history of adverse response to anesthesia Uncle Myocardial infarction Colorectal cancer Aunt Myocardial infarction Breast cancer Grandfather (Maternal) No problems noted. Grandmother (Maternal) Myocardial infarction Denies family history of Ovarian cancer Prostate cancer Social History Smoking Status: Current every day smoker Tobacco Type: Cigarettes Age Started Using Tobacco: 24; packs per day: 1; Cigarettes Per Day: 1 PPD (tobacco use x 48 years); Second Hand Exposure: No; Do You Dip or Chew Tobacco: No; Tobacco Cessation Education Requested by Patient: No Hx Alcohol Use: No Hx Substance Use: No Preferred Language: Turkish Communication Ability: Effective Hearing Ability: Normal Log Getter Required: No Beliefs That Will Affect Care: None marital status: Current Living Situation: Alone current occupational status: retired How many Children do You have: 6 Other Information That Helps Us Care for You: No Feels Safe at Home: Yes Safety Concerns: Feels Safe At This Time Childhood Exposure to Second-Hand Smoke: No Diet: regular caffeine: Yes Dental Care, Regularly: No Physical Activity Frequency: Does not Exercise Seatbelt Use: always Sunscreen Use: Yes Assistive Devices: Walker Physical Exam Physical Exam: Patient was discharged home prior to being seen. Results & Data Results & Data Vital Signs (Past 12 Hours) Vital Signs Temp Pulse Resp BP Pulse Ox O2 Del Method 05/13/23 07:48 Room Air 05/13/23 07:31 36.6 C 83 16 123/71 92 Room Air 05/13/23 04:02 36.6 C 80 18 136/85 Room Air 05/12/23 22:58 36.7 C 83 18 111/75 Room Air Laboratory Results Reviewed CBC Reviewed BMP PG Care Time/CCT Total # of Minutes Spent Total Time Spent with Patient: Total time spent is greater than 50% in coordination of care (as documented) at patient's floor/unit and/or counseling patient: Coding Level of Care Code None Diagnoses Primary osteoarthritis of left knee M17.12 Hyperlipidemia E78.5 Chronic obstructive pulmonary disease J44.9 Hypertension I10
[2023-05-13] MEDS ORDERED: LORazepam 0.25 MG in SYRINGE 0.125 ML IV STA (11:21)
--- NOTE | 2023-05-19 10:33 | Discharge Summary ---
Date of Service May 19, 2023 Admission HPI Per Admitting Provider 72-year-old female with past medical history significant for hypertension, COPD, high cholesterol history of blood clots, history of septic total shoulder who presents with ongoing left knee pain. Pain is interfering with her daily activities. She has failed conservative measures and would like to proceed with surgery. Patient denies headaches, sweats, fevers, chills, double vision, blurred vision, cough, sore throat, dysphagia, chest pain, sob, wheezing, n/v/d/c, numbness, tingling, fatigue, urinary symptoms, mood disorders. ROS positive for left knee pain and stiffness. Admission Exam Per Admitting Provider Physical Exam Constitutional: WD/WN, vitals as above Respiratory: normal respiratory effort, lungs clear to auscultation Cardiovascular: RRR, no murmur, no edema Gastrointestinal (Abdomen): normal bowel sounds, soft, nontender, no hepatosplenomegaly Principal Diagnosis Left knee osteoarthritis Discharge Data Allergies Allergy/AdvReac Type Severity Reaction Status Date / Time nickel Allergy Mild Rash (with Verified 05/12/23 09:49 jewelry) shellfish derived Allergy Mild Tongue/throat Verified 05/12/23 09:49 itchy and swelling Consultations 05/07/23 12:12 Consult Hospitalist Routine Procedures Performed Operation Date: 05/12/23 11:10 Actual Procedures p Left Total Knee Arthroplasty(Left) - New Farah MD Ordered Studies 05/12/23 05:00 US - OR guided needle placemen Routine Hospital Course (1) Primary osteoarthritis of left knee: Patient: NELIDA RAI Admit Date: 05/12/23 MR#: [id number] Att Phy: New Farah M.D. Acct ID: [id number] Leanna Phy: Chely Jade CRNP Date: 1950 Fam Phy: Age: 72 Location: 3E Sex: F Room/Bed: [facility] cc: ~ *NOTICE TO RECEIVING DEMOCRAT/AGENCY This information is strictly Confidential and protected under [place] law. [place] law prohibits you from making any further disclosure of this information unless further disclosure is expressly permitted by the written consent of the person to whom it pertains or is authorized by law. A general authorization for the release of medical or other information is not sufficient for this purpose. Hospital accepts no responsibility if the information is made available to any other person, INCLUDING THE PATIENT. Date of Service May 13, 2023 Assessment & Plan (1) Primary osteoarthritis of left knee: Plan: Postop day 1 left total knee replacement for osteoarthritis left knee also has some chondrocalcinosis noted intraoperatively. Await pathology to see if she has calcium pyrophosphate disease. Patient wants to be discharged home and do outpatient physical therapy. She will schedule this tomorrow or Wednesday. Patient can be discharged home after physical therapy and her drain can be discontinued today. Admission and Anticipated Discharge Date Admission Date: May 12, 2023 Subjective No complaints no pain Review of Systems Review of Systems: Noncontributory no symptoms Physical Exam Physical Exam: Good circulation ,distal motor function normal. Independent straight leg raise. Results & Data Vital Signs (Past 12 Hours) Vital Signs Temp Pulse Resp BP O2 Del Method 05/13/23 04:02 36.6 C 80 18 136/85 Room Air 05/12/23 22:58 36.7 C 83 18 111/75 Room Air 05/12/23 21:30 Room Air Diagnostic Findings Well aligned implants on x-rays left knee Signed By: <Electronically signed by New Farah MD> 05/13/23 0730 Created: 05/13/23 0726 The status of this report is Signed. Draft = Not yet reviewed or approved by Medical Physician. Signed = Reviewed and approved by Medical Physician. Total Time Total Time Spent Total Time Spent (In Minutes): 5 Discharge Plan Discharge Items Patient Disposition: Home - Home Health Services Reason For Visit: Left Knee Osteoarthritis Discharge Diagnosis: Left Knee Osteoarthritis Activity: Per Instructions section Weightbearing: Full weightbearing Non-emergency contact: Surgeon Call non-emergency contact if: you have any medication questions, your pain is not controlled, your temperature is above 101.5, your wound has increased redness and your wound has increased drainage Follow-up/Referrals: Chely Jade CRNP [Primary Care Provider] - New Farah MD [Surgeon] - (Follow up with Dr. Farah in 2 weeks from the day of surgery for your first post operative visit) Diet: Regular Addtl Attending Provider Instructions: ACTIVITY RECOMMENDATIONS: SELF CARE INSTRUCTIONS AFTER TOTAL KNEE REPLACEMENT A. You may need to continue a physical therapy program after discharge from the hospital. There are several options available to you. Your doctor will assist you in selecting the best one for you. 1. An out-patient facility 2 to 3 times a week for therapy or home therapy. 2. Continue working on all exercises taught to you in the hospital. Your goals should be to increase bending of your knee to 90 degrees and beyond and to fully straighten your knee. B. You may progress at your own pace from walking with a walker or crutches to a cane; then to no assistive devices. C. Make walking a part of your daily routine. Be up as much as comfortable with rest periods throughout the day. Rest with leg elevation is very important. Use the ice wrap frequently for the first 3-4 weeks. D. There are no restrictions on activities. You may ride in a car, shop, participate in tongue and groove machine feeder and all social activities. E. Wear the long elastic stockings (SRIRAM hose) 20 hours a day for 2 weeks after surgery. They can be removed several times a day for laundering and for a bath. F. You may shower, no tub baths until cleared by your doctor. SPECIAL CARE INSTRUCTIONS: VERY IMPORTANT TO READ AND REVIEW A. There are a few signs you need to watch for after you are home. Call [facility] if you notice any of the followin. Increased severe knee pain. Some pain is expected especially when you exercise. 2. Increased swelling in your leg or knee; pain or swelling of the calf muscle in either lower leg. 3. Any fluid drainage from the incision. 4. Shortness of breath or chest pain. B. Please call [facility] at if you have any concerns or questions about your operation or recovery. The doctor or his nurse will return your call promptly. C. You must take antibiotics before dental work, bladder, bowel or other surgery. Your doctor will provide you with a permanent care to carry describing this precaution. IMPORTANT: * REMEMBER TO TAKE ASPIRIN, 81 MG, TWICE DAILY FOR 4 WEEKS UNLESS OTHERWISE DIRECTED. THIS IS YOUR BLOOD THINNER. * HIGH RISK PATIENTS MAY BE PRESCRIBED A STRONGER BLOOD THINNER. THIS WILL BE PROVIDED AT DISCHARGE. * CALL IF INCREASED PAIN, REDNESS, DRAINAGE OR FEVER GREATER THAT 101. * WEAR SRIRAM HOSE 20 HOURS PER DAY FOR 2 WEEKS. * BRENT Dressing - This is a large suction dressing covering your incision. This will help pull any excess drainage from the wound and allow your incision to heal properly. You may shower with this if you can keep the unit outside of the shower. If any bleeding or leakage is noted please call your doctor's office. This will remain on your incision for 7 days and then should be removed. This can be done yourself or by the home nursing staff if applicable. The entire unit is disposable once removed. Once removed, keep incision clean and dry. If redness or drainage is noted, please call your surgeon. . Once Brent is removed, see instructions below * DERMABOND Prineo- This is a mesh tape dressing that is covered with glue. It should remain in place until the incision is properly healed, usually 10-14 days. This dressing is designed to naturally slough off. You may trim the excess mesh tape as it peels off. Incision may be briefly wet in a shower. Dry immediately by blotting with a clean, dry towel. Do not bath or swim until instructed by your doctor. Do not scratch, rub, or pick at the dressing. Do not apply any topical ointments or lotions until dressing is completely removed and/or instructed by your doctor. There may be a small piece of suture material at one end of your incision. Do not pull or trim this. If it is bothersome or catching on clothing, you may cover it with a band-aid. FOLLOW UP VISIT: If appointment is not already scheduled: Please call [facility] to make a follow-up appointment for 2 weeks after your surgery at . Pending Studies at Discharge: No Stand-Alone Forms: My [facility], Pain - Opioid Pain Management, Smoking Cessation Medications and DC Order Prescriptions: New acetaminophen [Tylenol Extra Strength] 500 mg Tablet 1,000 mg PO Q8 14 Days Qty: 84 0RF aspirin 81 mg Tablet,Delayed Release (Dr/Ec) 81 mg PO BID 30 Days Qty: 60 0RF oxycodone 5 mg tablet 5 mg PO Q4H MDD 6 PRN (Reason: pain) Qty: 30 0RF cefadroxil 500 mg capsule 500 mg PO BID Qty: 14 0RF Continued atorvastatin 20 mg tablet 20 mg PO HS Qty: 90 3RF omeprazole 20 mg capsule,delayed release(DR/EC) 20 mg PO QAM Qty: 90 3RF budesonide 0.5 mg/2 mL suspension for nebulization 0.5 mg inhalation BID PRN (Reason: sob) Qty: 60 3RF cyclobenzaprine 5 mg tablet 5 mg PO BID PRN (Reason: muscle spasm) Qty: 60 3RF budesonide-formoterol [Symbicort] 160-4.5 mcg/actuation HFA aerosol inhaler 2 puff inhalation BID Qty: 10.2 5RF Hold Instructions: too expensive albuterol sulfate [Ventolin HFA] 90 mcg/actuation HFA aerosol inhaler 2 puff inhalation Q4H PRN (Reason: Shortness Of Breath) Qty: 18 5RF multivitamin [Daily Multi-Vitamin] tablet 1 tab PO QAM docusate sodium 100 mg capsule 100 mg PO HS calcium carbonate-vitamin D3 600 mg(1,500mg) -200 unit Tablet 1 tab PO HS ipratropium-albuterol 0.5 mg-3 mg(2.5 mg base)/3 mL solution for nebulization 3 ml inhalation BID PRN (Reason: sob) losartan 25 mg tablet 25 mg PO HS guaifenesin [Mucinex] 600 mg Tablet Extended Release 12hr 600 mg PO BID Held hydrocortisone 2.5 % cream 1 applic TOP TID PRN (Reason: Itching) Qty: 30 2RF Hold Instructions: No creams or ointments on the incision. Rx Instructions: apply thin layer Discontinued acetaminophen [Tylenol Extra Strength] 500 mg tablet 1,000 mg PO Q8 PRN (Reason: Pain) naproxen 500 mg tablet 500 mg PO BID Krames/Other Patient Handouts: DVT Post Op Prevention Admission Data Admit Date/Time: 05/12/23 12:24 Attending Provider: New Farah Admit Provider: New Farah Primary Care Provider: Chely Jade Other Providers: Kaleb Pond; [facility] Other Interventions: Discharge Summary Assessment (RN) Last Done: 05/13/23 10:07
== END 2023-05-13 11:35 | disposition home health service (06) ==
LOC: 3E 09:09 → ASU 09:09

== ENCOUNTER 2023-05-22 15:08 | Observation (INO) ==
--- NOTE | 2023-05-22 15:32 | Emergency Department Note ---
Impression & Plan Pain in right knee, H/O left knee surgery, Effusion of right knee joint, Leukocytosis, Debilitated ED Provider Note NAME: NELIDA RAI AGE: 72 SEX: F : 1950 ARRIVES VIA: Ambulance INFORMANT: [Patient] ED PROVIDER(S): [Mychal Ledezma MD] CHIEF COMPLAINT: Knee pain HISTORY OF PRESENT ILLNESS: The patient is a 72-year-old female who had a left knee replacement surgery on the , 10 days ago. The patient states that her left leg has been doing fairly well. In the last 24 hours, she has noticed increasing right knee pain and some swelling of the knee. Today, she could not get off of the couch and had to call the ambulance. She was having too much right knee pain to even stand. She was not able to help herself today, she has not had anything to drink or really eat. The patient does live with her who is of minimal help with her care. The patient has not had fever, no recent increased shortness of breath. No cough or congestion above baseline. She does have a history of COPD. The patient denies any fall or trauma. The patient takes 2 baby aspirin daily, no other blood thinning agents. She is currently on antibiotics as prescribed by her orthopedic surgeon. PMHx/PSHx/Social Hx: See Below PHYSICAL EXAM: GENERAL: Patient is in no acute distress. HEENT: No acute trauma, normocephalic atraumatic, mucous membranes moist, no nasal congestion. NECK: No stridor, no adenopathy, no meningismus, trachea is midline. LUNGS: Clear to auscultation bilaterally, no wheeze, no rhonchi, breath sounds equal. Breath sounds are quite diminished bilaterally. HEART: Without murmurs gallops or rubs, regular rate and rhythm. Heart tones are distant. ABDOMEN: Soft, nontender, no peritonitis. EXTREMITIES: No cyanosis. There is a wrap on the left knee and leg. When this wrap is removed there are changes to the knee consistent with her recent surgery. No excessive drainage or warmth that would suggest cellulitis. The right knee is painful to touch along both the lateral and medial aspect. There is an obvious right knee joint effusion. No erythema or increased warmth. Movement of the right knee does cause pain. NEUROLOGIC: Oriented x 3, no acute motor or sensory deficits, no focal weakness. SKIN: No jaundice, no diaphoresis. DIFFERENTIAL DIAGNOSIS: Joint effusion, hemarthrosis, gout, septic joint, dehydration, electrolyte imbalance, debilitation, among others. EMERGENCY DEPARTMENT PROCEDURES: Right knee joint aspiration: This procedure was performed by me. Using lidocaine and Betadine, the medial aspect of the right knee was prepped. Using sterile technique, about 35 cc of yellow appearing fluid was drained from the knee. No complications with the procedure. The patient then had the right knee dressed with an Dimitri wrap. The fluid was sent for analysis MEDICAL DECISION MAKING: There is a significant leukocytosis at 19,000, this could be consistent with infection or the stress of her presentation. There was a mild anemia present. Platelet count was high at 725. No renal failure or significant electrolyte abnormality. Lactic acid level is not elevated making sepsis less likely. Procalcitonin level is not elevated making serious bacterial infection less likely. There was no concerning liver enzyme elevation. Sed rate was normal however, the C-reactive protein was elevated at 10.15. Right knee film does show an effusion, no fracture. Chest x-ray does not show pneumonia, COPD was noted. On exam, the patient's right knee was quite swollen with an effusion. There was no erythema or warmth. The patient did have the right knee joint aspirated as noted above. The fluid was sent for analysis, results are pending. The patient had a new dressing applied to her left knee. She had an Dimitri wrap applied to the right knee. The patient was given IV saline, 500 cc. She received IV Toradol, IV morphine and IV Zofran. I did speak with orthopedics. The patient will be seen by them in consult. Given the debilitation and her inability to care for herself currently, I did speak with case management. The on-call hospitalist has been consulted. The patient is not safe for discharge home. Now that she is having increased pain in the right knee, she is unable to ambulate and will need a hospital stay, possibly eventual rehab inpatient care. Prior/Outside records/notes reviewed: Orthopedic discharge summary from 05/19/2023 discussing her left knee replacement surgery and plan moving forward. Imaging/x-ray results per my interpretation: Chest x-ray shows some atelectasis and some COPD, no heart failure or pneumonia. Right knee film shows arthritis and a joint effusion, no obvious fracture. Chronic Medical/Social conditions affecting care: Advanced age. History of COPD. Care/Management discussed with: Orthopedics-Dr. Centeno. Case management and the on-call hospitalist. Level of care consideration(s): After review of the information above and other included data: --I believe the patient requires escalation of care to admission DISPOSITION: Admission with orthopedic consult Past Med/Surg History Medical History History of blood clots 1985, felt to be r/t severe varicose veins per aptient (patient unsure of DVT vs superficial blood clot) Hx MRSA infection s/p Right shoulder surgery 2017 > MRSA infection found 2018 (spread to surrounding region), PICC line abx courses x multiple > no current issue History of torn meniscus of left knee HTN (hypertension) GERD (gastroesophageal reflux disease) Hiatal hernia Degenerative disc disease Chronic back pain Chronic obstructive pulmonary disease Emphysema Osteomyelitis R/t post-op right shoulder surgery complications > right shoulder () and L5-S1 region (), treatment/resolved Scoliosis Hyperlipidemia Surgical History Hx of cataract extraction History of anesthesia reaction History of esophagogastroduodenoscopy (EGD) History of adenoidectomy History of bilateral tubal ligation S/P foot surgery, right History of revision of total shoulder arthroplasty History of laparoscopy History of colonoscopy History of tonsillectomy History of carpal tunnel release of both wrists H/O varicose vein ligation H/O shoulder surgery H/O foot surgery Family History Father Atrial fibrillation Mother Coronary heart disease Breast cancer No family history of adverse response to anesthesia Uncle Myocardial infarction Colorectal cancer Aunt Myocardial infarction Breast cancer Grandfather (Maternal) No problems noted. 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 Beliefs That Will Affect Care: None marital status: Current Living Situation: Alone current occupational status: retired How many Children do You have: 6 Feels Safe at Home: Yes Childhood Exposure to Second-Hand Smoke: No Diet: regular caffeine: Yes Dental Care, Regularly: No Physical Activity Frequency: Does not Exercise Seatbelt Use: always Sunscreen Use: Yes Assistive Devices: Walker Allergies Allergies Allergy/AdvReac Type Severity Reaction Status Date / Time nickel Allergy Mild Rash (with Verified 05/22/23 16:57 jewelry) shellfish derived Allergy Mild Tongue/throat Verified 05/22/23 16:57 itchy and swelling Home Meds Home Medications Medication Instructions Recorded Confirmed multivitamin (Daily Multi-Vitamin 1 tab PO QAM 09/29/18 05/22/23 tablet) docusate sodium 100 mg capsule 100 mg PO HS 01/17/19 05/22/23 calcium carbonate 600 mg-vitamin 1 tab PO HS 12/27/19 05/22/23 D3 5 mcg (200 unit) tablet guaifenesin 600 mg tablet, 600 mg PO BID 06/17/22 05/22/23 extended release 12 hr (Mucinex) losartan 25 mg tablet 25 mg PO HS 06/17/22 05/22/23 acetaminophen 500 mg tablet 1,000 mg PO Q8H PRN PAIN 05/22/23 05/22/23 (Tylenol Extra Strength) hydromorphone 2 mg tablet 2 mg PO Q6H PRN Pain 05/22/23 05/22/23 oxycodone 5 mg tablet 0 mg PO Q4H PRN pain 05/22/23 05/22/23 Previous Rx's Medication Instructions Recorded hydrocortisone 2.5 % topical cream 1 applic topical TID PRN Itching 12/08/21 #30 grams atorvastatin 20 mg tablet 20 mg PO HS #90 tabs 06/08/22 omeprazole 20 mg capsule,delayed 20 mg PO QAM #90 caps 06/12/22 release budesonide-formoterol HFA 160 2 puff inhalation BID #10.2 grams 04/06/23 mcg-4.5 mcg/actuation aerosol inhaler (Symbicort) Ventolin HFA 90 mcg/actuation 2 puff inhalation Q4H PRN 05/03/23 aerosol inhaler (albuterol sulfate) Shortness Of Breath #18 grams aspirin 81 mg tablet,delayed 81 mg PO BID 30 days #60 tabs 05/12/23 release cefadroxil 500 mg capsule 500 mg PO BID #14 caps 05/12/23 Results & Data (ED) Vital Signs Vital Signs - 24 hr 05/22/23 15:17 05/22/23 15:31 Temperature 37.7 C H Temperature Source Oral Pulse Rate 104 H 105 H Respiratory Rate 11 L Respiratory Effort / Characteristics Non-Labored Spontaneous Respiratory Depth Normal Respiratory Pattern Regular Blood Pressure 124/80 Blood Pressure Mean 94 Pulse Oximetry 95 Oxygen Delivery Method Room Air Sepsis Recent Fever Within 48 Hours No Sepsis New/Unexplained Change in Mental Status N/A Sepsis Action Taken by Nursing No Action Required Home Medications Current Medication List: was personally reviewed by me Laboratory Data Attestation: I reviewed the patient's lab results. 05/22/23 15:20 05/22/23 15:20 Lab Results 05/22/23 05/22/23 05/22/23 Range/Units 15:20 16:05 16:20 WBC 19.65 H (4.8-10.8) K/ul RBC 3.83 L (4.20-5.40) M/uL Hgb 11.7 L (12.0-16.0) g/dl Hct 35.5 L (37.0-47.0) % MCV 92.7 (80.0-100.0) fL MCH 30.5 (25.0-34.0) pg MCHC 33.0 (32.0-36.0) g/dL RDW Std Deviation 45.1 (36.4-46.3) fL RDW Coeff of Mandeep 13.3 (11.5-14.5) % Plt Count 725 H (130-400) K/uL MPV 8.2 L (9.4-12.4) fL Immature Gran % (Auto) 0.5 % Neut % (Auto) 82.5 % Lymph % (Auto) 8.5 % [place] % (Auto) 8.0 % Eos % (Auto) 0.2 % Baso % (Auto) 0.3 % Neut # (Auto) 16.21 H (1.40-6.50) K/uL Lymph # (Auto) 1.68 (1.20-3.40) K/uL [place] # (Auto) 1.57 H (0.11-0.59) K/uL Eos # (Auto) 0.03 (0.00-0.50) K/uL Baso # (Auto) 0.06 (0.00-0.20) K/uL Immature Gran # (Auto) 0.10 (0.01-0.20) K/uL ESR 22 (0-30) mm/hr Sodium 133 L (136-145) mmol/L Potassium 3.9 (3.5-5.1) mmol/L Chloride 98 (98-107) mmol/L Carbon Dioxide 27 (21-32) mmol/L Anion Gap 8 (3-11) BUN 17 (6-23) mg/dl Creatinine 0.75 (0.6-1.2) mg/dl Est Cr Clr Drug Dosing 55.3 ml/min Est GFR ( Amer) 91.7 ml/min Est GFR (Non-Af Amer) 79.1 ml/min BUN/Creatinine Ratio 22.7 H (10-20) Glucose 129 H (70-99(Fasting)) mg/dl Lactate 1.2 (0.4-2.0) mmol/L Calcium 8.4 L (8.6-10.3) mg/dl Magnesium 1.8 (1.7-2.4) mg/dl Total Bilirubin 0.7 (0.2-1.0) mg/dl AST 14 (13-39) U/L ALT 12 (7-52) U/L Alkaline Phosphatase 68 (34-104) U/L C-Reactive Protein 10.15 H (0-0.5) mg/dl Total Protein 6.4 (6.0-8.3) gm/dl Albumin 3.4 (3.4-5.0) gm/dl Globulin 3.0 (2.5-4.0) gm/dl Albumin/Globulin Ratio 1.1 (0.9-2) Procalcitonin 0.05 (0-0.5) ng/ml Fluid Comment Administered Medications Discontinued Medications Sodium Chloride (Nss) 500 mls @ 999 mls/hr IV .Q31M ONE Stop: 05/22/23 15:55 Last Infusion: 05/22/23 17:00 Dose: Infused Documented By: Admin: 05/22/23 15:43 Dose: 999 mls/hr Documented By: NIRU Ketorolac Tromethamine (Ketorolac Tromethamine 15 Mg/Ml Vial) 10 mg IV NOW ONE Stop: 05/22/23 15:33 Last Admin: 05/22/23 15:43 Dose: 10 mg Documented By: NIRU Lidocaine HCl (Xylocaine 1%/Sod Bicarb 20 Ml Vial) 20 ml INFIL NOW ONE Stop: 05/22/23 15:35 Last Admin: 05/22/23 15:52 Dose: 20 ml Documented By: NIRU Morphine Sulfate (Morphine Sulfate 2 Mg/Ml Carp) 2 mg IV NOW STA Stop: 05/22/23 15:33 Last Admin: 05/22/23 15:43 Dose: 2 mg Documented By: NIRU Ondansetron HCl (Ondansetron Inj 2 Mg/Ml 2 Ml Vial) 4 mg IV NOW STA Stop: 05/22/23 15:33 Last Admin: 05/22/23 15:43 Dose: 4 mg Documented By: NIRU Imaging Data Radiologist's Impression: Chest X-Ray 05/22/23 15:25 XR chest 1V portable CLINICAL HISTORY: weak TECHNIQUE: Single frontal radiograph of the chest was obtained. Comparison: Comparison is made to chest radiograph 04/29/2023 FINDINGS: Partially lesion bilateral shoulder arthroplasty. The cardiomediastinal silhouette is normal. The lungs are clear. No evidence of pleural effusion or pneumothorax. IMPRESSION: No acute chest disease. ACT 112: Negative or not required by law. Electronically signed by: Saqib Couch M.D. 05/22/2023 4:45 PM Knee X-Ray 05/22/23 15:25 XR knee RT 1 or 2V routine CLINICAL HISTORY: pain TECHNIQUE: 2 views of the right knee were obtained. Comparison: None available at the time of this dictation. FINDINGS: There is no evidence of an acute fracture. Degenerative changes and chondrocalcinosis are noted. A small suprapatellar effusion is likely present, although evaluation is limited by lack of true lateral radiograph. No soft tissue abnormality is seen. IMPRESSION: Degenerative changes without evidence of acute injury. Likely small suprapatellar effusion. ACT 112: Negative or not required by law. Electronically signed by: Saqib Couch M.D. 05/22/2023 4:46 PM Discharge Plan Visit Data Chief Complaint: Knee Injury/Pain ED Provider: Mychal Ledezma Discharge Problem: Pain in right knee, H/O left knee surgery, Effusion of right knee joint, Leukocytosis, Debilitated Patient Disposition: Admitted As Inpatient Condition: Fair Forms Stand Alone Forms: My [facility], Important Visit Information Prescriptions Prescriptions: No Action atorvastatin 20 mg tablet 20 mg PO HS Qty: 90 3RF omeprazole 20 mg capsule,delayed release(DR/EC) 20 mg PO QAM Qty: 90 3RF budesonide-formoterol [Symbicort] 160-4.5 mcg/actuation HFA aerosol inhaler 2 puff inhalation BID Qty: 10.2 5RF Hold Instructions: too expensive albuterol sulfate [Ventolin HFA] 90 mcg/actuation HFA aerosol inhaler 2 puff inhalation Q4H PRN (Reason: Shortness Of Breath) Qty: 18 5RF hydrocortisone 2.5 % cream 1 applic TOP TID PRN (Reason: Itching) Qty: 30 2RF Hold Instructions: No creams or ointments on the incision. Rx Instructions: apply thin layer multivitamin [Daily Multi-Vitamin] tablet 1 tab PO QAM docusate sodium 100 mg capsule 100 mg PO HS calcium carbonate-vitamin D3 600 mg(1,500mg) -200 unit Tablet 1 tab PO HS losartan 25 mg tablet 25 mg PO HS guaifenesin [Mucinex] 600 mg Tablet Extended Release 12hr 600 mg PO BID hydromorphone 2 mg tablet 2 mg PO Q6H PRN (Reason: Pain) acetaminophen [Tylenol Extra Strength] 500 mg tablet 1,000 mg PO Q8H PRN (Reason: PAIN) oxycodone 5 mg tablet 0 mg PO Q4H MDD 6 PRN (Reason: pain) Rx Instructions: Pt currently holding med as they're taking Hydromorphone. Original Directions: 5mg by mouth every 4 hours as needed for pain aspirin 81 mg Tablet,Delayed Release (Dr/Ec) 81 mg PO BID 30 Days Qty: 60 0RF cefadroxil 500 mg capsule 500 mg PO BID Qty: 14 0RF Rx Instructions: Start Date 05/21/23 - End Date 05/22/23: As of 05/22/23 pt has 11 doses left Referrals Referrals: Chely Jade CRNP [Primary Care Provider] - Discharge Problem: Pain in right knee Qualifiers: Chronicity: acute Qualified Code(s): M25.561 - Pain in right knee Leukocytosis Qualifiers: Leukocytosis type: unspecified Qualified Code(s): D72.829 - Elevated white blood cell count, unspecified
[2023-05-22] MEDS: MoRPHine SULFATE 2 MG/ML CARP IV STA (15:43)
[2023-05-22] MEDS: ONDANSETRON INJ 2 MG/ML 2 ML VIAL IV STA (15:43)
[2023-05-22] MEDS: KETOROLAC TROMETHAMINE 15 MG/ML VIAL IV ONE (15:43)
[2023-05-22] MEDS: SODIUM CHLORIDE 0.9% 500 ML IV ONE (15:43)
[2023-05-22 15:47] LABS: Basophils # (auto) 0.06 K/uL (0.00-0.20); Basophils % (auto) 0.3 %; Eosinophils # (auto) 0.03 K/uL (0.00-0.50); Eosinophils % (auto) 0.2 %; Hematocrit (blood only) 35.5 % (37.0-47.0); Hemoglobin 11.7 g/dl (12.0-16.0); Immature Granulocytes % (auto) 0.5 %; Lymphocytes # (auto) 1.68 K/uL (1.20-3.40); Lymphocytes % (auto) 8.5 %; Mean Corpuscular Hemoglobin 30.5 pg (25.0-34.0); Mean Corpuscular Volume 92.7 fL (80.0-100.0); Mean Platelet Volume 8.2 fL (9.4-12.4); Monocytes # (auto) 1.57 K/uL (0.11-0.59); Neutrophils # (auto) 16.21 K/uL (1.40-6.50); Neutrophils % (auto) 82.5 %; Platelet Count 725 K/uL (130-400); RDW Coefficient of Variation 13.3 % (11.5-14.5); RDW Standard Deviation 45.1 fL (36.4-46.3); Red Blood Count 3.83 M/uL (4.20-5.40); White Blood Count 19.65 K/ul (4.8-10.8)
[2023-05-22] MEDS: XYLOCAINE 1%/SOD BICARB 20 ML VIAL INFIL ONE (15:52)
[2023-05-22 16:04] LABS: Albumin Globulin Ratio 1.1 (0.9-2); Albumin Level 3.4 gm/dl (3.4-5.0); BUN Creatinine Ratio 22.7 (10-20); Bilirubin,Total 0.7 mg/dl (0.2-1.0); Calcium 8.4 mg/dl (8.6-10.3); Creatinine Clr Calc Pharmacy 55.3 ml/min; Est GFR (African American) 91.7 ml/min; Est GFR (Non-African American) 79.1 ml/min; Magnesium 1.8 mg/dl (1.7-2.4); Potassium 3.9 mmol/L (3.5-5.1); Total Protein 6.4 gm/dl (6.0-8.3)
[2023-05-22] MEDS ORDERED: MoRPHine SULFATE 4 MG/ML 1 ML CARP\\VIAL IV PRN (16:11)
--- NOTE | 2023-05-22 16:47 | XRay Report ---
XR chest 1V portable CLINICAL HISTORY: weak TECHNIQUE: Single frontal radiograph of the chest was obtained. Comparison: Comparison is made to chest radiograph 04/29/2023 FINDINGS: Partially lesion bilateral shoulder arthroplasty. The cardiomediastinal silhouette is normal. The ankur gs are clear. No evidence of pleural effusion or pneumothorax. IMPRESSION: No acute chest disease. ACT 112: Negative or not required by law. Electronically signed by: Saqib Couch M.D. 05/22/2023 4:45 PM
--- NOTE | 2023-05-22 16:47 | XRay Report ---
XR knee RT 1 or 2V routine CLINICAL HISTORY: pain TECHNIQUE: 2 views of the right knee were obtained. Comparison: None available at the time of this dictation. FINDINGS: There is no evidence of an acute fracture. Degenerative changes and chondrocalcinosis are noted. A sm all suprapatellar effusion is likely present, although evaluation is limited by lack of true lateral radiograph. No soft tissue abnormality is seen. IMPRESSION: Degenerative changes without evidence of acute injury. Likely small suprapatellar effusion. ACT 112: Negative or not required by law. Electronically signed by: Saqib Couch M.D. 05/22/2023 4:46 PM
[2023-05-22 16:53] LABS: C Reactive Protein 10.15 mg/dl (0-0.5)
[2023-05-22 17:09] LABS: Appearance Synovial Fluid Cloudy; Color Synovial Fluid Yellow; Mononuclear WBC Synovial 7.4 %; Polynuclear WBC Synovial 92.6 %; RBC Synovial Fluid Auto < 2000 /uL; Source Synovial Fluid Right Knee; WBC Synovial Fluid Auto 19185 /ul (0-200)
[2023-05-22] MEDS ORDERED: HYDROmorphone INJ 0.5 MG/0.5 ML SYR IV PRN (19:57)
[2023-05-22] MEDS: HYDROmorphone INJ 0.5 MG/0.5 ML SYR IV PRN (20:13)
[2023-05-22] MEDS: cephALEXin 500 MG CAP PO SCH (20:31)
[2023-05-22] MEDS: ATORVASTATIN 20 MG TAB PO SCH (20:32)
[2023-05-22] MEDS: guaiFENesin 600 MG TABCR PO SCH (20:32)
[2023-05-22] MEDS: DOCUSATE SODIUM 100 MG CAP PO SCH (20:32)
[2023-05-22] MEDS: ASPIRIN 81 MG ECTAB PO SCH (20:33)
[2023-05-22] MEDS ORDERED: NON-FORMULARY MEDICATION (Cefadroxil 500 mg capsule) PO SCH (21:00)
--- NOTE | 2023-05-22 21:50 | History & Physical Report ---
Date of Service May 22, 2023 Assessment & Plan (1) Effusion of right knee joint: Plan: Most likely due to osteoarthritis with changing gait due to her left knee replacement However she was has a significant history of MSSA bacteremia and with concurrent leukocytosis blood cultures have been taken - antibiotics have not been broadened as she is not septic and knee effusion is unknown to be infected at time of admission Effusion tapped in the emergency room pending analysis and culture (2) Status post left knee replacement: Plan: Switch to cefadroxil as prescribed by orthopedics to Keflex per hospital formulary - she is on this prophylaxis due to skin blistering postoperative Since she has been on antibiotics for longer than a week with a history of C. difficile will start prophylaxis treatment with vancomycin 125 mg p.o. daily PT/OT (3) Leukocytosis: Plan: Continue to trend, follow blood cultures CRP/ESR added for baseline (4) Hypertension: Plan: Continue losartan (5) Chronic reflux esophagitis: Plan: Switch omeprazole to pantoprazole per hospital formulary (6) Chronic obstructive pulmonary disease: Plan: Continue her usual maintenance inhalers, no acute exacerbation suspected (7) Hyperlipidemia: Plan: Continue atorvastatin (8) History of bacteremia: Plan VTE prophylaxis - will continue with her usual orthopedic VTE prophylaxis with aspirin 81 mg p.o. BID Diet - regular Disposition - admit to [facility] Admission and Anticipated Discharge Date Admission Date: May 22, 2023 History of Present Illness Chief Complaint: right knee pain and swelling Primary Care Provider: TYLER Gabriel Hilario Dumont is a 72 year old female who presents to the ER with right knee welling and pain. She recently underwent left total knee replacement on May 11. Post operatively she developed blisters around the operation site and was started on cefadroxil prophylactically which was recently renewed for an additional week course. She denies any fevers and chills. No trauma to her right knee but all of a sudden last night it suddenly became painful and swollen. She denies any excess walking yesterday. 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 She is not on chronic suppressive antibiotics. She also has a notable history of c. diff but denies any current diarrhea. Allergies Allergy/AdvReac Type Severity Reaction Status Date / Time nickel Allergy Mild Rash (with Verified 05/22/23 16:57 jewelry) shellfish derived Allergy Mild Tongue/throat Verified 05/22/23 16:57 itchy and swelling Home Medications Medication Instructions Recorded Confirmed Type multivitamin (Daily Multi-Vitamin 1 tab PO QAM 09/29/18 05/22/23 History tablet) docusate sodium 100 mg capsule 100 mg PO HS 01/17/19 05/22/23 History calcium carbonate 600 mg-vitamin 1 tab PO HS 12/27/19 05/22/23 History D3 5 mcg (200 unit) tablet hydrocortisone 2.5 % topical cream 1 applic topical TID PRN Itching 12/08/21 05/22/23 Rx #30 grams atorvastatin 20 mg tablet 20 mg PO HS #90 tabs 06/08/22 05/22/23 Rx omeprazole 20 mg capsule,delayed 20 mg PO QAM #90 caps 06/12/22 05/22/23 Rx release guaifenesin 600 mg tablet, 600 mg PO BID 06/17/22 05/22/23 History extended release 12 hr (Mucinex) losartan 25 mg tablet 25 mg PO HS 06/17/22 05/22/23 History budesonide-formoterol HFA 160 2 puff inhalation BID #10.2 grams 04/06/23 05/22/23 Rx mcg-4.5 mcg/actuation aerosol inhaler (Symbicort) Ventolin HFA 90 mcg/actuation 2 puff inhalation Q4H PRN 05/03/23 05/22/23 Rx aerosol inhaler (albuterol sulfate) Shortness Of Breath #18 grams aspirin 81 mg tablet,delayed 81 mg PO BID 30 days #60 tabs 05/12/23 05/22/23 Rx release cefadroxil 500 mg capsule 500 mg PO BID #14 caps 05/12/23 05/22/23 Rx acetaminophen 500 mg tablet 1,000 mg PO Q8H PRN PAIN 05/22/23 05/22/23 History (Tylenol Extra Strength) hydromorphone 2 mg tablet 2 mg PO Q6H PRN Pain 05/22/23 05/22/23 History oxycodone 5 mg tablet 0 mg PO Q4H PRN pain 05/22/23 05/22/23 History Past Med/Surg History Medical History History of blood clots 1985, felt to be r/t severe varicose veins per aptient (patient unsure of DVT vs superficial blood clot) Hx MRSA infection s/p Right shoulder surgery 2017 > MRSA infection found 2018 (spread to surr ounding region), PICC line abx courses x multiple > no current issue History of torn meniscus of left knee HTN (hypertension) GERD (gastroesophageal reflux disease) Hiatal hernia Degenerative disc disease Chronic back pain Chronic obstructive pulmonary disease Emphysema Osteomyelitis R/t post-op right shoulder surgery complications > right shoulder () and L5-S1 region (), treatment/resolved Scoliosis Hyperlipidemia Surgical History Hx of cataract extraction History of anesthesia reaction History of esophagogastroduodenoscopy (EGD) History of adenoidectomy History of bilateral tubal ligation S/P foot surgery, right History of revision of total shoulder arthroplasty History of laparoscopy History of colonoscopy History of tonsillectomy History of carpal tunnel release of both wrists H/O varicose vein ligation H/O shoulder surgery H/O foot surgery Family History Father Atrial fibrillation Mother Coronary heart disease Breast cancer No family history of adverse response to anesthesia Uncle Myocardial infarction Colorectal cancer Aunt Myocardial infarction Breast cancer Grandfather (Maternal) No problems noted. Grandmother (Maternal) Myocardial infarction Denies family history of Ovarian cancer Prostate cancer Social History Smoking Status: Current every day smoker Tobacco Type: Cigarettes Age Started Using Tobacco: 24; packs per day: 1; Cigarettes Per Day: 1 PPD (tobacco use x 48 years); Second Hand Exposure: No; Do You Dip or Chew Tobacco: No; Hx Alcohol Use: No Hx Substance Use: No Preferred Language: Zimbabwean Communication Ability: Effective Hearing Ability: Normal C Developer Required: No Beliefs That Will Affect Care: None marital status: Current Living Situation: Spouse current occupational status: retired How many Children do You have: 6 Other Information That Helps Us Care for You: No Feels Safe at Home: Yes Safety Concerns: Feels Safe At This Time Childhood Exposure to Second-Hand Smoke: No Diet: regular caffeine: Yes Dental Care, Regularly: No Physical Activity Frequency: Does not Exercise Seatbelt Use: always Sunscreen Use: Yes Assistive Devices: Hospital Bed and Walker Review of Systems Review of Systems: All systems reviewed & are unremarkable except as noted in HPI & below Physical Exam Constitutional: WD/WN, vitals as above Eyes: + anicteric sclerae; normal pupil size ENMT: external ear and nose normal, oropharynx normal Respiratory: normal respiratory effort, lungs clear to auscultation Cardiovascular: RRR, no murmur, no edema Gastrointestinal (Abdomen): normal bowel sounds, soft, nontender, no hepatosplenomegaly Musculoskeletal: Right knee effusion especially suprapatellar present without erythema, mildly tender to palpation mainly over suprapateller region Skin: Post operative bruising of left knee Neurologic: moves all extremities and awake; not confused Psychiatric: A+Ox3, euthymic affect Results & Data Results & Data Vital Signs (Past 12 Hours) Vital Signs Temp Pulse Pulse Resp BP BP Pulse Ox 05/22/23 19:57 37.1 C 97 H 14 116/67 95 05/22/23 19:10 36.6 C 88 16 105/66 93 05/22/23 18:37 37.3 C 18 104/64 91 05/22/23 17:50 05/22/23 17:30 103 H 25 H 93 05/22/23 17:30 106/69 05/22/23 17:03 113/68 05/22/23 17:03 107 H 24 05/22/23 17:00 106 H 19 93 05/22/23 16:30 104 H 21 05/22/23 16:00 102 H 18 93 05/22/23 15:31 105 H 05/22/23 15:30 99 H 24 93 05/22/23 15:24 108 H 21 94 05/22/23 15:17 37.7 C H 104 H 11 L 124/80 95 O2 Del Method 05/22/23 19:57 Room Air 05/22/23 19:10 Room Air 05/22/23 18:37 Room Air 05/22/23 17:50 Room Air 05/22/23 17:30 Room Air 05/22/23 17:30 05/22/23 17:03 05/22/23 17:03 04/06/24 17:00 Room Air 05/22/23 16:30 05/22/23 16:00 05/22/23 15:31 05/22/23 15:30 05/22/23 15:24 05/22/23 15:17 Room Air Laboratory Results Abnormal lab results 05/22/23 05/22/23 Range/Units 15:20 16:05 WBC 19.65 H (4.8-10.8) K/ul RBC 3.83 L (4.20-5.40) M/uL Hgb 11.7 L (12.0-16.0) g/dl Hct 35.5 L (37.0-47.0) % Plt Count 725 H (130-400) K/uL MPV 8.2 L (9.4-12.4) fL Neut # (Auto) 16.21 H (1.40-6.50) K/uL [place] # (Auto) 1.57 H (0.11-0.59) K/uL Sodium 133 L (136-145) mmol/L BUN/Creatinine Ratio 22.7 H (10-20) Glucose 129 H (70-99(Fasting)) mg/dl Calcium 8.4 L (8.6-10.3) mg/dl C-Reactive Protein 10.15 H (0-0.5) mg/dl Synovial WBC (Auto) 66695 H (0-200) /ul Diagnostic Findings XR chest 1V portable CLINICAL HISTORY: weak TECHNIQUE: Single frontal radiograph of the chest was obtained. Comparison: Comparison is made to chest radiograph 04/29/2023 FINDINGS: Partially lesion bilateral shoulder arthroplasty. The cardiomediastinal silhouette is normal. The lungs are clear. No evidence of pleural effusion or pneumothorax. IMPRESSION: No acute chest disease. XR knee RT 1 or 2V routine CLINICAL HISTORY: pain TECHNIQUE: 2 views of the right knee were obtained. Comparison: None available at the time of this dictation. FINDINGS: There is no evidence of an acute fracture. Degenerative changes and chondrocalcinosis are noted. A small suprapatellar effusion is likely present, although evaluation is limited by lack of true lateral radiograph. No soft t issue abnormality is seen. IMPRESSION: Degenerative changes without evidence of acute injury. Likely small suprapatellar effusion. Medications Administered ER medications given: Normal saline 500 mL bolus Morphine 2 mg IV Ondansetron 4 mg IV Toradol 10 mg IV Code Status & VTE Plan Code Status Full VTE Prophylaxis Plan VTE Prophylaxis will be ordered: Yes PG Care Time/CCT Total # of Minutes Spent Total Time Spent with Patient: Total time spent is greater than 50% in coordination of care (as documented) at patient's floor/unit and/or counseling patient: Coding Level of Care Code 50121 INT INP/OBS CARE 3/75MIN Diagnoses Effusion of right knee joint M25.461 Status post left knee replacement Z96.652 Leukocytosis D72.829 Leukocytosis type: unspecified Hypertension I10 Chronic reflux esophagitis K21.0 Chronic obstructive pulmonary disease J44.9 Hyperlipidemia E78.5 History of bacteremia Z87.898 (3) Leukocytosis Leukocytosis type: unspecified Qualified Code(s): D72.829 - Elevated white blood cell count, unspecified
[2023-05-22] MEDS: CHERRY SYRUP 5 ML UDP PO SCH (22:12)
[2023-05-22] MEDS: VANCOMYCIN HCL 125 MG/2.5ML SOLN PO SCH (22:12)
[2023-05-23 07:44] LABS: Basophils # (auto) 0.06 K/uL (0.00-0.20); Basophils % (auto) 0.4 %; Eosinophils # (auto) 0.17 K/uL (0.00-0.50); Eosinophils % (auto) 1.2 %; Hemoglobin 10.9 g/dl (12.0-16.0); Immature Granulocytes # (auto) 0.06 K/uL (0.01-0.20); Immature Granulocytes % (auto) 0.4 %; Lymphocytes # (auto) 2.26 K/uL (1.20-3.40); Lymphocytes % (auto) 15.4 %; Mean Corpuscular Hemoglobin 30.3 pg (25.0-34.0); Mean Corpuscular Hgb Conc 32.1 g/dL (32.0-36.0); Mean Corpuscular Volume 94.4 fL (80.0-100.0); Mean Platelet Volume 8.2 fL (9.4-12.4); Monocytes # (auto) 1.26 K/uL (0.11-0.59); Monocytes % (auto) 8.6 %; Neutrophils # (auto) 10.82 K/uL (1.40-6.50); Platelet Count 625 K/uL (130-400); RDW Coefficient of Variation 13.2 % (11.5-14.5); RDW Standard Deviation 45.8 fL (36.4-46.3); White Blood Count 14.63 K/ul (4.8-10.8)
[2023-05-23 08:07] LABS: BUN Creatinine Ratio 29.6 (10-20); Calcium 8.4 mg/dl (8.6-10.3); Creatinine Clr Calc Pharmacy 58.4 ml/min; Est GFR (African American) 97.9 ml/min; Est GFR (Non-African American) 84.5 ml/min
[2023-05-23] MEDS: PANTOprazole 40 MG TAB PO SCH (08:28)
[2023-05-23] MEDS: oxyCODONE HCL IR 5 MG TAB (IMMEDIATE RELEASE) PO PRN (08:30)
[2023-05-23] MEDS: KETOROLAC TROMETHAMINE 15 MG/ML VIAL IM PRN (09:41)
--- NOTE | 2023-05-23 10:39 | Orthopedic Consultation ---
Date of Consultation May 23, 2023 Assessment & Plan (1) Status post left knee replacement: (2) Effusion of right knee joint: Discussed with the patient that her right knee pain appears to be secondary to an arthritis flareup. Very low suspicion for an infection. Recommend pain control with anti-inflammatory medications, Tylenol, and continuing her postoperative Dilaudid as needed. She can weight-bear as tolerated on the bilateral lower extremities. Her left knee she has some swelling and blistering after her knee replacement but this appears to be improving. Continue oral antibiotics. I changed her dressing today with a new Xeroform and ABD pad with an Dimitri wrap. She will be in a knee immobilizer. She can discharge from the hospital once she is safe from the standpoint of the physical therapists evaluation. [facility] and Dr. Osorio''s team will take over her orthopedic care tomorrow. DVT prophylaxis per the internal medicine service. (3) Arthritis of right knee: History of Present Illness Reason for Consultation: Right knee pain Attending Physician: Starla Ohara MD History of Present Illness 72-year-old female, known history of right knee arthritis, presented to the emergency room yesterday with increased right knee pain and inability to walk. She is a patient of Dr. Osorio's. Dr. Osorio did a left total knee replacement on her on May 12, 2023. She has had some swelling bruising and blistering on the left knee that he has been following her for. However the pain does not terrible on the left knee. She has been taking Dilaudid for the left knee. She has previously been told that she will need the right knee replaced. In the emergency room yesterday her knee was aspirated. This was sent off for synovial fluid analysis. She says her knee feels better today after the fluid aspiration and the medication she is on. She was on oral Keflex prior to admission because of the recent total knee arthroplasty. This has been continued during her current admission. Denies any numbness or tingling down the right leg. Allergies Allergy/AdvReac Type Severity Reaction Status Date / Time nickel Allergy Mild Rash (with Verified 05/22/23 16:57 jewelry) shellfish derived Allergy Mild Tongue/throat Verified 05/22/23 16:57 itchy and swelling Home Medications Medication Instructions Recorded Confirmed Type multivitamin (Daily Multi-Vitamin 1 tab PO QAM 09/29/18 05/22/23 History tablet) docusate sodium 100 mg capsule 100 mg PO HS 01/17/19 05/22/23 History calcium carbonate 600 mg-vitamin 1 tab PO HS 12/27/19 05/22/23 History D3 5 mcg (200 unit) tablet hydrocortisone 2.5 % topical cream 1 applic topical TID PRN Itching 12/08/21 05/22/23 Rx #30 grams atorvastatin 20 mg tablet 20 mg PO HS #90 tabs 06/08/22 05/22/23 Rx omeprazole 20 mg capsule,delayed 20 mg PO QAM #90 caps 06/12/22 05/22/23 Rx release guaifenesin 600 mg tablet, 600 mg PO BID 06/17/22 05/22/23 History extended release 12 hr (Mucinex) losartan 25 mg tablet 25 mg PO HS 06/17/22 05/22/23 History budesonide-formoterol HFA 160 2 puff inhalation BID #10.2 grams 04/06/23 05/22/23 Rx mcg-4.5 mcg/actuation aerosol inhaler (Symbicort) Ventolin HFA 90 mcg/actuation 2 puff inhalation Q4H PRN 05/03/23 05/22/23 Rx aerosol inhaler (albuterol sulfate) Shortness Of Breath #18 grams aspirin 81 mg tablet,delayed 81 mg PO BID 30 days #60 tabs 05/12/23 05/22/23 Rx release cefadroxil 500 mg capsule 500 mg PO BID #14 caps 05/12/23 05/22/23 Rx acetaminophen 500 mg tablet 1,000 mg PO Q8H PRN PAIN 05/22/23 05/22/23 History (Tylenol Extra Strength) hydromorphone 2 mg tablet 2 mg PO Q6H PRN Pain 05/22/23 05/22/23 History oxycodone 5 mg tablet 0 mg PO Q4H PRN pain 05/22/23 05/22/23 History Patient History Medical History History of blood clots 1985, felt to be r/t severe varicose veins per aptient (patient unsure of DVT vs superficial blood clot) Hx MRSA infection s/p Right shoulder surgery 2017 > MRSA infection found 2018 (spread to surrounding region), PICC line abx courses x multiple > no current issue History of torn meniscus of left knee HTN (hypertension) GERD (gastroesophageal reflux disease) Hiatal hernia Degenerative disc disease Chronic back pain Chronic obstructive pulmonary disease Emphysema Osteomyelitis R/t post-op right shoulder surgery complications > right shoulder () and L5-S1 region (), treatment/resolved Scoliosis Hyperlipidemia Surgical History Hx of cataract extraction History of anesthesia reaction History of esophagogastroduodenoscopy (EGD) History of adenoidectomy History of bilateral tubal ligation S/P foot surgery, right History of revision of total shoulder arthroplasty History of laparoscopy History of colonoscopy History of tonsillectomy History of carpal tunnel release of both wrists H/O varicose vein ligation H/O shoulder surgery H/O foot surgery Family History Father Atrial fibrillation Mother Coronary heart disease Breast cancer No family history of adverse response to anesthesia Uncle Myocardial infarction Colorectal cancer Aunt Myocardial infarction Breast cancer Grandfather (Maternal) No problems noted. Grandmother (Maternal) Myocardial infarction Denies family history of Ovarian cancer Prostate cancer Social History Smoking Status: Current every day smoker Tobacco Type: Cigarettes Age Started Using Tobacco: 24; packs per day: 1; Cigarettes Per Day: 1 PPD (tobacco use x 48 years); Second Hand Exposure: No; Do You Dip or Chew Tobacco: No; Hx Alcohol Use: No Hx Substance Use: No Preferred Language: Thai Communication Ability: Effective Hearing Ability: Normal Manager Ed Required: No Beliefs That Will Affect Care: None marital status: Current Living Situation: Spouse current occupational status: retired How many Children do You have: 6 Other Information That Helps Us Care for You: No Feels Safe at Home: Yes Safety Concerns: Feels Safe At This Time Childhood Exposure to Second-Hand Smoke: No Diet: regular caffeine: Yes Dental Care, Regularly: No Physical Activity Frequency: Does not Exercise Seatbelt Use: always Sunscreen Use: Yes Assistive Devices: Hospital Bed and Walker Physical Exam Physical Exam: In general she is resting comfortably in bed in no acute distress, alert and oriented x 3. Right knee exam reveals the patient to have a Band-Aid over the superior medial knee from the aspiration site. There is no redness. She still does have some fluid in her knee consistent with a 2+ effusion. Her range of motion is approximately 5 to 75 degrees both actively and passively painless in this arc of motion. Only gets pain when she attempts to flex or extend beyond this arc of motion. She is able to do a straight leg raise off the bed. Distally neurovascularly intact. Left knee exam: Dressings were removed. She has bruising and swelling around the knee with some bruising extending down the leg to the ankle. There is some healing superficial blisters over the anterolateral aspect of the knee. There is no active drainage. No cellulitis extending up her leg. She was able to move her knee through a gentle range of motion arc from 5 to 40 degrees. Distally neurovascularly intact. Results & Data Vital Signs (Past 12 Hours) Vital Signs Temp Pulse Resp BP Pulse Ox O2 Del Method 05/23/23 07:10 36.9 C 92 H 16 114/73 92 Room Air Laboratory Results Synovial fluid analysis showed 19,000 white cells in the right knee with over 90% polys. Gram stain was negative. Cultures are pending. Diagnostic Findings X-rays done yesterday in the emergency room of her right knee are reviewed. She has joint space narrowing, subchondral sclerosis, and osteophyte formation consistent with osteoarthritis. No fractures.
--- NOTE | 2023-05-23 13:03 | Hospitalist Progress Note ---
Date of Service May 23, 2023 Assessment & Plan (1) Effusion of right knee joint: Plan: Most likely due to osteoarthritis with changing gait due to her left knee replacement However she was has a significant history of MSSA bacteremia and with concurrent leukocytosis blood cultures have been taken - antibiotics have not been broadened as she is not septic and knee effusion is unknown to be infected at time of admission Effusion tapped in the emergency room pending analysis and culture Blood culture and wound culture pending. Will monitor while patient is in the hospital. Low suspicion for infection Orthopedics on board PT/OT recommends short-term rehab. This will need to be worked on by case management (2) Status post left knee replacement: Plan: Switch to cefadroxil as prescribed by orthopedics to Keflex per hospital formulary - she is on this prophylaxis due to skin blistering postoperative Since she has been on antibiotics for longer than a week with a history of C. difficile will start prophylaxis treatment with vancomycin 125 mg p.o. daily PT/OT (3) Leukocytosis: Plan: Down from 19-14 today Continue to follow blood cultures and wound cultures ESR negative but CRP elevated Per orthopedics, low suspicion for infection (4) Hypertension: Plan: Continue losartan (5) Chronic reflux esophagitis: Plan: Switch omeprazole to pantoprazole per hospital formulary (6) Chronic obstructive pulmonary disease: Plan: Continue her usual maintenance inhalers, no acute exacerbation suspected (7) Hyperlipidemia: Plan: Continue atorvastatin (8) History of bacteremia: Plan VTE prophylaxis - will continue with her usual orthopedic VTE prophylaxis with aspirin 81 mg p.o. BID Diet - regular Disposition - admit to [facility] Admission and Anticipated Discharge Date Admission Date: May 22, 2023 Subjective Patient feels well. Right knee swelling is improving. No fever. She has a history of MSSA bacteremia after shoulder surgery. She did not have fever then either. Review of Systems Review of Systems: All systems reviewed & are unremarkable except as noted in Subjective Physical Exam Physical Exam: General: Awake, conversant Heart: S1, S2/regular rate and rhythm, no murmur rubs or gallops Lungs: Clear to auscultation bilaterally. Normal effort Abdomen: Soft/nontender/nondistended. No hepatosplenomegaly Extremities: No clubbing/cyanosis. No edema. Dressing on both right and left knees. Behavior: Appropriate, cooperative Results & Data Results & Data Vital Signs (Past 12 Hours) Vital Signs Temp Pulse Resp BP Pulse Ox O2 Del Method 05/23/23 07:10 36.9 C 92 H 16 114/73 92 Room Air Laboratory Results Abnormal lab results 05/22/23 05/22/23 05/23/23 Range/Units 15:20 16:05 07:15 WBC 19.65 H 14.63 H (4.8-10.8) K/ul RBC 3.83 L 3.60 L (4.20-5.40) M/uL Hgb 11.7 L 10.9 L (12.0-16.0) g/dl Hct 35.5 L 34.0 L (37.0-47.0) % Plt Count 725 H 625 H (130-400) K/uL MPV 8.2 L 8.2 L (9.4-12.4) fL Neut # (Auto) 16.21 H 10.82 H (1.40-6.50) K/uL [place] # (Auto) 1.57 H 1.26 H (0.11-0.59) K/uL Sodium 133 L 135 L (136-145) mmol/L BUN/Creatinine Ratio 22.7 H 29.6 H (10-20) Glucose 129 H (70-99(Fasting)) mg/dl Calcium 8.4 L 8.4 L (8.6-10.3) mg/dl C-Reactive Protein 10.15 H (0-0.5) mg/dl Synovial WBC (Auto) 91141 H (0-200) /ul PG Care Time/CCT Total # of Minutes Spent Total Time Spent with Patient: Total time spent is greater than 50% in coordination of care (as documented) at patient's floor/unit and/or counseling patient: Coding Level of Care Code 72507 SUB INP/OBS CARE 2/35MIN Diagnoses Effusion of right knee joint M25.461 Status post left knee replacement Z96.652 Leukocytosis D72.829 Leukocytosis type: unspecified Hypertension I10 Chronic reflux esophagitis K21.0 Chronic obstructive pulmonary disease J44.9 Hyperlipidemia E78.5 History of bacteremia Z87.898 (3) Leukocytosis Leukocytosis type: unspecified Qualified Code(s): D72.829 - Elevated white blood cell count, unspecified
[2023-05-23] MEDS: KETOROLAC TROMETHAMINE 15 MG/ML VIAL IV PRN (22:43)
[2023-05-24] MEDS: ACETAMINOPHEN 325 MG TAB PO PRN (08:35)
[2023-05-24] MEDS ORDERED: ALBUT/IPRATROP 3MG/0.5MG NEB 3 ML VIAL NEB PRN (09:57)
--- NOTE | 2023-05-24 13:54 | Discharge Summary ---
Discharge Summary Date of Service May 24, 2023 Notes For Next Care Provider Admitted with knee effusion, thought to be inflammatory related to her arthritis rather than infectious. Was started on PO abx outpatient due to skin changes/blisters and continued while inpatient and at discharge. [facility]charged [facility] Blood cultures pending Losartan held - BPs low normals during stay, suspect will be able to restart with more movement Medication Changes From Visit Losartan on hold at discharge finish course of keflex and PO vanco for cdiff proh Admission HPI Per Admitting Provider Hilario Dumont is a 72 year old female who presents to the ER with right knee welling and pain. She recently underwent left total knee replacement on May 11. Post operatively she developed blisters around the operation site and was started on cefadroxil prophylactically which was recently renewed for an additional week course. She denies any fevers and chills. No trauma to her right knee but all of a sudden last night it suddenly became painful and swollen. She denies any excess walking yesterday. 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 She is not on chronic suppressive antibiotics. She also has a notable history of c. diff but denies any current diarrhea. Principal Dx & Hospital Course #1 = Principal Diagnosis (1) Effusion of right knee joint: Most likely due to osteoarthritis with changing gait due to her left knee replacement However she was has a significant history of MSSA bacteremia and with concurrent leukocytosis - Blood cultures no growth at 24 hours. Effusion tapped in the emergency room pending analysis and culture - wound culture - no growth Low suspicion for infection Orthopedics on board - very low suspicion for infection - weightbearing as tolerated, continue with immobilizer - continue PO antibiotics PT/OT recommends rehab - discharged to [facility] today. (2) Status post left knee replacement: Switch to cefadroxil as prescribed by orthopedics to Keflex per hospital formulary - she is on this prophylaxis due to skin blistering postoperative Since she has been on antibiotics for longer than a week with a history of C. difficile will start prophylaxis treatment with vancomycin 125 mg p.o. daily Continue course of keflex and vanco at discharge. through 05/28 (3) Leukocytosis: Continues to improve Cultures negative at discharge, but blood cultures not finalized. Per orthopedics, low suspicion for infection (4) Hypertension: Continue losartan (5) Chronic reflux esophagitis: Continue PPI (6) Chronic obstructive pulmonary disease: Continue her usual maintenance inhalers Use nebulizer more than her rescue inhalers at home. (7) Hyperlipidemia: Continue atorvastatin Plan Dispo: discharge to [facility] today Discharge Exam General: NAD, VS as above Resp: normal respiratory effort, lungs clear to auscultation, no wheezing CV: RRR, no murmur, Abd: normal bowel sounds, non tender, no hepatosplenomegaly Extremities: left knee in bean wrap and imbolizer, distal sensation intact Updated Medication List Medication Instructions Recorded Confirmed Type multivitamin (Daily Multi-Vitamin 1 tab PO QAM 09/29/18 05/22/23 History tablet) docusate sodium 100 mg capsule 100 mg PO HS 01/17/19 05/22/23 History calcium carbonate 600 mg-vitamin 1 tab PO HS 12/27/19 05/22/23 History D3 5 mcg (200 unit) tablet hydrocortisone 2.5 % topical cream 1 applic topical TID PRN Itching 12/08/21 05/22/23 Rx #30 grams atorvastatin 20 mg tablet 20 mg PO HS #90 tabs 06/08/22 05/22/23 Rx omeprazole 20 mg capsule,delayed 20 mg PO QAM #90 caps 06/12/22 05/22/23 Rx release guaifenesin 600 mg tablet, 600 mg PO BID 06/17/22 05/22/23 History extended release 12 hr (Mucinex) losartan 25 mg tablet 25 mg PO HS 06/17/22 05/22/23 History budesonide-formoterol HFA 160 2 puff inhalation BID #10.2 grams 04/06/23 05/22/23 Rx mcg-4.5 mcg/actuation aerosol inhaler (Symbicort) Ventolin HFA 90 mcg/actuation 2 puff inhalation Q4H PRN 05/03/23 05/22/23 Rx aerosol inhaler (albuterol sulfate) Shortness Of Breath #18 grams aspirin 81 mg tablet,delayed 81 mg PO BID 30 days #60 tabs 05/12/23 05/22/23 Rx release acetaminophen 500 mg tablet 1,000 mg PO Q8H PRN PAIN 05/22/23 05/22/23 History (Tylenol Extra Strength) hydromorphone 2 mg tablet 2 mg PO Q6H PRN Pain 05/22/23 05/22/23 History cephalexin 500 mg capsule 500 mg PO TID 5 days #15 caps 05/24/23 Rx vancomycin 1,000 mg intravenous 125 mg PO QAM 5 days #10 ea 05/24/23 Rx injection Hospital Stay Data Consultations 05/22/23 16:16 ED Decision to Admit Stat 05/22/23 18:40 Consult Orthopedic Surgery Routine Pending Results Patient Have Any Pending Studies at Discharge: Yes (blood cultures ) Discharge Instructions Given to Patient (Per Discharging Provider) Ms. Dumont, You were hospitalized after have an effusion (swelling) around your knee after recent knee replacement surgery - this was thought to be due to your arthritis. Cultures were done here that had no infection. However due to the blistering around the knee, the orthopedic team recommended we continue you on your oral antibiotic. - continue keflex TID until 05/31 - continue vancomycin PO (cdiff proh) while taking Keflex Only change to your home medications was losartan held - your blood pressures have been low normal here. Can likely resume when you are more active again, but for now will hold. You have blood cultures that are pending, these will take 5 days to get a final result. [facility] will be [facility]. Please follow up with your PCP after discharge from there. Total Time Total Time Spent Total Time Spent (In Minutes): Time spend day of discharge 35 minutes including direct patient care, medication reconciliation, documentation, review of labs and images, and coordination of care. Supervising Physician Co-Signing Physician Notes During face to face encounter, I obtained a brief physical examination, discussed hospital stay with patient and discharge instructions with patient. I discussed discharge plan of care with BETHANY Garrett. I reviewed above note and agree with it except for the following: Patient seen for right effusion joint of knee doubt infection. continue keflex and vanco Coding Level of Care Code 12429 INP/OBS DISCH >30 MIN Diagnoses Effusion of right knee joint M25.461 Status post left knee replacement Z96.652 Leukocytosis D72.829 Leukocytosis type: unspecified Hypertension I10 Chronic reflux esophagitis K21.0 Chronic obstructive pulmonary disease J44.9 Hyperlipidemia E78.5
== END 2023-05-24 18:27 ==
LOC: EDINP 15:08 → ED 15:08 → SUATTDRO 16:47 → 3E 17:50